=== PATIENT | male | born 1940 | race Caucasian/White ===

== ENCOUNTER → 2019-11-23 | Outpatient (CLI) | payer OTHER, SELFPAY | PROVIDERS: Family Provider Emergency Medicine Emergency Medical Services; Visit Provider Specialist | DX: Z98.890 Other specified postprocedural states (principal) | CPT/HCPCS: L3982 ==

== ENCOUNTER → 2019-12-03 11:06 | Outpatient (BNVA) | payer OTHER, SELFPAY | PROVIDERS: Family Provider Emergency Medicine Emergency Medical Services; PCP Emergency Medicine Emergency Medical Services; Visit Provider Specialist | DX: S52.611A Displaced fracture of right ulna styloid process, initial encounter for closed fracture (principal); X58.XXXA Exposure to other specified factors, initial encounter | CPT/HCPCS: 73110 ==

== ENCOUNTER → 2019-12-24 09:43 | Outpatient (BNVA) | payer OTHER, SELFPAY | PROVIDERS: Family Provider Emergency Medicine Emergency Medical Services; PCP Emergency Medicine Emergency Medical Services; Visit Provider Specialist | DX: Z98.890 Other specified postprocedural states (principal) | CPT/HCPCS: 73110 ==

== ENCOUNTER 2020-01-14 09:50 | Outpatient (RCR) | payer OTHER, SELFPAY | END 2020-01-23 23:59 | disposition home or self-care (01) | LOC: SOT 09:50 | PROVIDERS: Family Provider Emergency Medicine Emergency Medical Services; PCP Emergency Medicine Emergency Medical Services; Referring Provider Specialist; Visit Provider Specialist | DX: S52.501D Unspecified fracture of the lower end of right radius, subsequent encounter for closed fracture with routine healing (principal); X58.XXXD Exposure to other specified factors, subsequent encounter | CPT/HCPCS: 97110; 97140; 97166 ==

== ENCOUNTER 2020-01-20 14:00 | Outpatient (CLI) | payer OTHER, SELFPAY ==
--- NOTE | 2020-01-20 14:10 | USCV_ITS ---
LeoraAdrian Age: 79 Gender: M : 1940 Exam Date: 01/20/2020 14:25 Ordering Phys: Aguliar Balbuena DO Technologist: Gracy Huerta Exam Location: [facility] [place] Indication: BRUIT Risk Factors: Previous Vascular Surgery: Right Brachial BP: / Left Brachial BP: / Right Left Velocity (cm/s) Spectral Plaque Velocity (cm/s) Spectral Plaque Syst/Diast Broadening Syst/Diast Broadening 69.50/ 12.10 Prox CCA 69.30 / 13.60 87.10/ 16.50 Mid CCA 57.40 / 11.20 56.20/ 8.80 Distal CCA 60.40 / 14.20 41.20/ 12.40 Prox ICA 42.60 / 11.20 30.20/ 5.90 Mid ICA 52.10 / 19.50 46.20/ 13.00 Distal ICA 61.00 / 16.60 79.40 ECA 58.60 0.53 ICA/CCA 1.06 Antegrade Vertebral Antegrade 35.50/ 7.10 cm/s 55.10/ 14.80 cm/s Tri Subclavian Tri 72.80 79.00 FINDINGS Comparison: none available. No significant obstructive lesions noted in the left common carotid artery. No significant elevation of systolic or diastolic velocities. Diffuse bilateral scattered calcified plaque and intimal thickening throughout the common carotid arteries and extending through the bifurcation. Antegrade vertebral arteries. CONCLUSIONS Bilateral ICA stenosis less than 50%. Dr. Dulce Perales DO (Electronically Signed) Final Date: 20 January 2020 15:48 S
== END 2020-01-20 14:01 | disposition home or self-care (01) ==
PROVIDERS: Family Provider Emergency Medicine Emergency Medical Services; PCP Emergency Medicine Emergency Medical Services; Visit Provider Emergency Medicine Emergency Medical Services
DX: R09.89 Other specified symptoms and signs involving the circulatory and respiratory systems (principal); I65.23 Occlusion and stenosis of bilateral carotid arteries
CPT/HCPCS: 93880

== ENCOUNTER 2020-01-24 06:00 | Outpatient (RCR) | payer OTHER, SELFPAY | END 2020-02-23 23:59 | disposition home or self-care (01) | LOC: SOT 06:00 | PROVIDERS: Family Provider Emergency Medicine Emergency Medical Services; PCP Emergency Medicine Emergency Medical Services; Referring Provider Specialist; Visit Provider Specialist | DX: S52.501D Unspecified fracture of the lower end of right radius, subsequent encounter for closed fracture with routine healing (principal); X58.XXXD Exposure to other specified factors, subsequent encounter | CPT/HCPCS: 97110 ==

== ENCOUNTER 2022-08-29 10:28 | Outpatient (CLI) | payer OTHER, SELFPAY ==
--- NOTE | 2022-08-29 10:41 | CT_ITS ---
WS: [id number] CT CHEST TECHNIQUE: Contrast enhanced CT of the chest with coronal and sagittal reformatted images. CLINICAL INFORMATION: MASS PER CHEST XRAY COMPARISON: None. DLP: All CT scans at [facility] use at least one of these dose optimization techniques: automated e xposure control; mA and/or kV adjustment per patient size (includes targeted exams where dose is matc hed to clinical indication); or iterative reconstruction. FINDINGS: Moderate chronic emphysematous changes. Spiculated mass in the LEFT lung apex findings suspicious for neoplasm measuring 2.2 x 2.8 cm x 3.3 cm. Recommend further evaluation with PET/CT. In addition, per ipherally enhancing heterogeneous centrally low-attenuation mass in the LEFT lower lobe medially susp icious for necrotic tumor. Less likely intrapulmonary abscess could be considered. This involves the LEFT lower lobe bronchi. Recommend evaluation with bronchoscopy. This measures approximately 5.2 x 4. 1 x 5.3 cm AP by transverse by craniocaudal. Small amount of surrounding groundglass infiltrate. This abuts the adjacent pleura. This is adjacent to the descending thoracic aorta. No anterior mediastinal lymphadenopathy. No axillary lymphadenopathy. CT/CT chest w con* [id number] IMPRESSION: 1. Spiculated LEFT upper lobe mass in the LEFT lung apex highly suspicious for neoplasm measuring 2.2 x 2.8 x 3.3 CM. Recommend further evaluation with PET/C T. This is not amenable to CT-guided biopsy. 2. Heterogeneously enhancing intraparenchymal mass in the LEFT lower lobe medi ally suspicious for necrotic tumor versus less likely intraparenchymal abscess. This involves the LEFT lower lobe bronchi and recommend further evaluation wit h bronchoscopy. This measures approximately 5.2 x 4.0 x 5.3 cm. 3. Hazy groundglass infiltrate about the LEFT lower lobe lesion. 4. Moderate to advanced chronic emphysematous changes with subpleural reticula tion both lungs. 5. Several small noncalcified subpleural nodules RIGHT upper lobe measuring 5 to 6 mm.
[2022-08-29 12:06] LABS: Blood Urea Nitrogen 9 mg/dL (8-23)
[2022-08-29] MEDS: iohexol 350 mg/mL 100 mL Btl IV (12:13)
== END 2022-08-29 10:29 | disposition home or self-care (01) ==
LOC: RAD 10:28
PROVIDERS: PCP Emergency Medicine Emergency Medical Services; Visit Provider Emergency Medicine Emergency Medical Services
DX: R91.8 Other nonspecific abnormal finding of lung field (principal)
CPT/HCPCS: 71260; 82565; 84520

== ENCOUNTER → 2022-09-06 11:38 | Outpatient (BNVA) | payer OTHER, SELFPAY | PROVIDERS: PCP Emergency Medicine Emergency Medical Services; Visit Provider Internal Medicine Pulmonary Disease | DX: R91.8 Other nonspecific abnormal finding of lung field (principal); Z87.891 Personal history of nicotine dependence; R06.09 Other forms of dyspnea | CPT/HCPCS: 99204 ==

== ENCOUNTER 2022-09-18 06:10 | Day surgery (SDC) | payer OTHER, SELFPAY ==
[2022-09-13 12:12] VITALS: BMI 23.6
[2022-09-18] VITALS (9 sets, daily range): BP systolic 149–174; BP diastolic 71–90; PULSE 68–101; RESP 17–22; TEMP 36.4–37.3; O2SAT 92–98
--- NOTE | 2022-09-18 | SCC_ITS ---
Procedure done: 48465 Dx Bronchoscope w/Washings or airway inspection 27243 Dx Bronchoscope w/BAL 10746 Navigational Bronchoscopy 83380 Bronchoscopy w/Transbronchial lung biopsy(s), single lobe 53088 w/Transbronchial lung biopsy(s), each additional lobe (list separately, in addition to code for primary procedure) 71146 w/Transbronchial needle aspiration biopsy(s), each additional lobe (list separately, in addition to code for primary procedure) 98110 EBUS Sampling 1/2 nodes 16192 EBUS Diag or Interven Peripheral lesion (radial EBUS) 847.7 seconds of fluoroscopic guidance, for a cumulative dose of 72.5 mGy, was provided to Dr. Benjamin by the radiology department. [facility] permanent [facility]. KHADIJAH
--- NOTE | 2022-09-18 | CT_ITS ---
Guided Bronchoscopy Planning CT images; total exam DLP: 376.73 mGy-cm MTDD
--- NOTE | 2022-09-18 06:14 | W.PM.OPSUD ---
Surgery/Procedure H&P Update DATE OF PROCEDURE: September 18, 2022 DATE H&P PERFORMED: 09/06/22 CHANGES TO PREVIOUS DOCUMENTATION: Pt had a PET CT on 09/08/22 - Which showed 1. solid 6 x 5.6 cm mass with SUV 23.8; 2. 2.9 x 1.4 cm nodule abutting the pleura with an SUV 12.9 3. solid spiculated nodule in the left lung apex measuring 2.4 CM with an SUV 17.1. There is equivocal low grade activity in the left hilum. all suspicous for malignant lesions. clinically no change he just started using spiriva PRIMARY INDICATION FOR PROCEDURE: pet active lung lesions in chronic smoker suspicious for malignacy PLANNED PROCEDURE: Operation Date: 09/18/22 07:00 Proposed Procedures p Ion Robotic Assisted Bronchoscopy(Not Applicable) - Yony Ferrer DatarMD
--- NOTE | 2022-09-18 06:40 | ECG_ITS ---
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 Measurements Intervals [place] Rate: 77 P: 12 SD: 165 QRS: -29 QRSD: 87 T: 10 QT: 381 QTc: 433 Interpretive Statements SINUS RHYTHM BORDERLINE LEFT AXIS DEVIATION [QRS AXIS < -20] NONSPECIFIC T-WAVE ABNORMALITY Compared to ECG 11/04/2019 13:59:06 Sinus arrhythmia no longer present T-wave abnormality still present Electronically Signed On 09-19-2022 0:23:50 CDT by Anila Green M.D. [id number]
[2022-09-18] MEDS: ipratropium-albuterol 3 mL Neb INHALATION (06:41)
[2022-09-18] MEDS: sodium chloride 0.9% 1,000 ML 30 ML IV (06:41)
--- NOTE | 2022-09-18 07:07 | ANES.PREANE2 ---
Pre-Anesthetic Assessment Height/Weight: Height 1.75 m Weight 72.575 kg Temp Pulse Resp BP Pulse Ox O2 Del Method 99.1 F 75 22 H 168/90 98 09/18/22 06:32 09/18/22 06:42 09/18/22 06:42 09/18/22 06:32 09/18/22 06:42 09/18/22 06:42 Preop Diagnosis: lung nodule Operation Date: 09/18/22 07:00 Proposed Procedures p Ion Robotic Assisted Bronchoscopy(Not Applicable) - Yony Benjamin MD Familial anesthetic complications: none Was Beta Flores taken within 24 hours: N/A Was Clonidine taken within 24 hours: N/A Last intake: Intake Last Liquid Date 09/17/22 Last Liquid Time 16:00 Last Solid Date 09/17/22 Last Solid Time 15:00 Last Intake: 16:00 Social No alcohol and No tobacco (stop 34 years ago) Exam alert, oriented x 3, clear to auscultation bilaterally and regular rate & rhythm Airway Submandibular: within normal limits Cervical ROM: within normal limits Mallampati: Class II Dentition: caps (front upper) Pulmonary Chronic Obstructive Pulmonary Disease, Cough and Exertional Dyspnea lung nodule CV/HEM Hypertension None reported Hepatic None reported GI None reported Metabolic Thyroid Disease Musc/skel Lower Back Pain Neuropsych None reported Anesthetic Plan ASA status: 3 Anesthesia: General Risk of > 500 ml blood loss (7ml/kg in children): No Medications/Allergies Home Medications Medication Instructions Recorded Confirmed Last Taken Type levothyroxine 25 mcg tablet 25 mcg PO ONCE 12/03/19 09/13/22 09/16/22 History (Synthroid) pravastatin 20 mg tablet 20 mg PO DAILY 09/06/22 09/13/22 09/16/22 History tiotropium bromide 1.25 2 puff inhalation DAILY #4 grams 09/06/22 09/18/22 09/17/22 Rx mcg/actuation mist for inhalation (Spiriva Respimat) lisinopril 20 mg tablet 20 mg PO DAILY 09/18/22 09/18/22 09/17/22 History Allergies Allergy/AdvReac Type Severity Reaction Status Date / Time No Known Allergies Allergy Verified 09/06/22 13:49 Current Medications Generic Name Dose Route Start Last Admin Trade Name Freq PRN Reason Stop Dose Admin Sodium Chloride 1,000 mls @ 30 mls/hr 09/18/22 06:15 09/18/22 06:41 Sodium Chloride 0.9% IV 09/19/22 06:14 30 mls/hr .Q24H JENNY Administration PFSH Anesthesia Medical History (Updated 09/08/22 @ 13:11 by Yony Benjamin MD) Distal radius fracture, right Surgical History History of open reduction and internal fixation (ORIF) procedure right distal radius Social History Smoking and tobacco status: former smoker Quit status (tobacco): has quit using tobacco Year quit tobacco: 2017 Former quit date comment: 2ppd x 27 years; quit smoking pipe Oct 2021 Alcohol intake: never Data Anesthesia Cardiac Studies: No Data to Display
--- NOTE | 2022-09-18 07:36 | SC_ITS ---
WS: [id number] Exam: C-arm FL for Bronchoscopy Date/Time of Exam: 09/18/2022 7:36 AM Reason For Exam: left lung lesion 2 intraoperative anterior posterior C-arm images of the left chest are submitted for evaluation.. The first image depicts a bronchoscope coursing through the trachea into the left mainstem bronchus a nd ending in the expected region of the left upper lobe bronchus near the site of a previously descri bed mass in the left upper lobe. The second image shows the bronchoscope in the expected region of th e left lower lobe. No other significant finding on this limited series.
--- NOTE | 2022-09-18 11:59 | XR_ITS ---
WS: [id number] Exam: XR chest 1V portable [id number] Date/Time of Exam: 09/18/2022 12:02 PM Reason For Exam: post bronchoscopy biopsies on left side No priors. The lungs are fully expanded. Changes of honeycombing and fibrosis noted bilaterally. Heart size is n ormal. The mediastinum is not widened. An ill-defined masslike density seen in the upper lobe of the left lung. There may also be some consolidation in the left retrocardiac region. No pneumothorax or p leural effusion seen. Bony structures are intact. Emphysematous bleb formation in the apex the left l kristen. XR/XR chest 1V portable [id number] IMPRESSION: 1. Ill-defined masslike density in the upper lobe of the left lung. There may b e some pulmonary consolidation in the left retrocardiac region. 2. Signs of pulmonary fibrosis and honeycombing bilaterally. 3. No pneumothorax or pleural effusion.
--- NOTE | 2022-09-18 12:00 | PM.OP ---
Operative Report Date of procedure: September 18, 2022 Pre-op diagnosis: Preop Diagnosis lung nodule suspicious for malignancy Post-op diagnosis: Lung malignancy Procedure done: 83539 Dx Bronchoscope w/Washings or airway inspection 86427 Dx Bronchoscope w/BAL 81233 Navigational Bronchoscopy 35782 Bronchoscopy w/Transbronchial lung biopsy(s), single lobe 97439 w/Transbronchial lung biopsy(s), each additional lobe (list separately, in addition to code for primary procedure) 92341 w/Transbronchial needle aspiration biopsy(s), each additional lobe (list separately, in addition to code for primary procedure) 13356 EBUS Sampling 1/2 nodes 70058 EBUS Diag or Interven Peripheral lesion (radial EBUS) Modifier-22 If procedure performed was time consuming and/or difficult (unusual procedural services) ; Brief History: 82 year male Mr. Aldo saenz is referred by [facility] for pulmonary nodule,Former cigarette smoker, 2ppd x 27 year Hx; quit 2017; quit smoking pipe Oct 2021. 08/29/[address] Chest which showed spiculated LEFT upper lobe mass in the LEFT lung apex highly suspicious for neoplasm measuring 2.2 x 2.8 x [address] on 09/08/22 - Which showed solid 6 x 5.6 cm mass with SUV 23.8;2. 2.9 x 1.4 cm nodule abutting the pleura with an SUV 12.9. solid spiculated nodule in the left lung apex measuring 2.4 CM with an SUV 17.1. There is equivocal low grade activity in the left hilum. all suspicous for malignant lesions. Today he is scheduled for bronchoscopic evaluation Procedure: 09126:Bronch via Trach site 98667:Dx Bronchoscope w/Washings or airway inspection 11378:Dx Bronchoscope w/Brushings or protected brushings 16780:Dx Bronchoscope w/BAL 71119:Bronch with computer image guided Navigational Bronchoscopy 52152:Bronchoscopy w/Transbronchial lung biopsy(s), single lobe 47072:w/Transbronchial lung biopsy(s), each additional lobe (list separately, in addition to code for primary procedure) 29186:w/Transbronchial needle aspiration biopsy(s), each additional lobe (list separately, in addition to code for primary procedure) 67991:EBUS Sampling 1/2 nodes 86155:EBUS Diag or Interven Peripheral lesion (radial EBUS) Surgeon: Yony Benjamin MD, [facility] Indication: PET active left upper lobe and left lower lobe lesions suspicious for malignancy Anesthesia: General anesthesia. Local anesthesia: The cyndi in the right and left mainstem bronchi were anesthetized with 1% lidocaine, 3 mL. Description of the procedure: The procedure was explained to the patient and the consent was obtained. The patient was brought to the OR. The patient underwent endotracheal intubation for general anesthesia. Following induction of general anesthesia, the flexible bronchoscope used for initial inspection and airway clearance. The scope was advanced through the ET tube. The lower trachea mucosa appeared normal, no endotracheal lesion was seen. The cyndi was sharp. The cyndi, the right and left mainstem bronchi are anesthetized with 1% lidocaine. In a systematic manner bilateral bronchial tree was then examined. The bronchoscope was advanced into the left mainstem bronchus. The mucosa appeared normal with no endobronchial lesions. The left upper lobe, lingula and left lower lobe bronchi were examined up to the third subsegmental level and no abnormalities were identified. Mucosa appeared normal with no endobronchial lesion, active bleeding or mucous plug. There were some clear secretions in lower lobe-which were suctioned right away. The bronchoscope was then introduced into the right mainstem bronchus. The right upper lobe, right middle lobe and right lower lobe bronchi were examined up to the third subsegmental level and no abnormalities were identified. The mucosa appeared normal with no endobronchial lesions, active bleeding or mucous plugs. After initial inspection as well as airway clearance with flexible bronchoscope, ION robotic assisted navigational bronchoscope was introduced-and left upper lobe lesion was accessed. After confirming the location of the left upper lobe lesion with radial EBUS, under the fluoroscopy guidance-we were able to obtain biopsies using brush, fine-needle, forceps. Pathology reported non-small cell cancer on rapid onsite evaluation in left upper lobe lesion. Bronchoalveolar lavage was performed from the left upper lobe, 10 mL of saline was instilled, fluid return was 4 mL. The fluid was mixed with blood. Then-using the ION robotic assisted navigational bronchoscope was introduced-and left lower lobe lesion was accessed.After confirming the location of the left upper lobe lesion with radial EBUS, under the fluoroscopy guidance-we were able to obtain biopsies using fine-needle, forceps. Pathology reported non-small cell cancer on rapid onsite evaluation and left lower lobe lesion. There was no overt bleeding. The ION robotic assisted navigational bronchoscope was retracted and endobronchial ultrasound was introduced. Using endobronchial ultrasound;Identified a lymph node in station 7 area and fine-needle aspiration cytology samples were obtained. Prepared 1 touch prep from station 7 lymph node for EARL and preliminary pathology diagnosis was negative for malignancy. I made 3-4 more passes obtained placed in formalin for histopathology review. Identified a lymph node in station 7 area and fine-needle aspiration cytology samples were obtained. Prepared 1 touch prep from station 7 lymph node for EARL and preliminary pathology diagnosis was negative for malignancy. I made 3-4 more passes obtained placed in formalin for histopathology review Samples: #Left upper lobe lesion 1. Bronchoalveolar lavage specimen was sent for cell count and differential, gram stain and culture 2. 4 passes with brush-1 was made slide for EARL; sample from remaining 3 passes were placed in formalin for histopathology 3. 4 passes with needle-were placed in formalin for histopathology 4. 4 passes with forceps-were placed in formalin for histopathology #Left lower lobe lesion 1. 4 passes with needle-1 was made slide for EARL; sample from remaining 3 passes were placed in formalin for histopathology 2. 4 passes with forceps-were placed in formalin for histopathology #Station 7 EBUS FNA C 1.4 passes with needle--1 was made slide for EARL; sample from remaining 3 passes were placed in formalin for histopathology #Station 4L EBUS FNA C 1.4 passes with needle--1 was made slide for EARL; sample from remaining 3 passes were placed in formalin for histopathology Complications: None.The patient was extubated and brought to the PACU in stable condition. Postprocedure chest x-ray: No evidence of pneumothorax Disposition: Patient can be discharged home in stable condition. I will set up clinic follow-up in 7-10 days to follow-up on biopsy results.
[2022-09-18 13:01] LABS: Cyto Order Verification Order Verified
--- NOTE | 2022-09-18 16:02 | ANE.PACU2 ---
Inpatient post-anesthesia follow up: Airway intact: Yes Vital signs: Temperature 97.7 F Pulse Rate 69 Respiratory Rate 20 Blood Pressure 151/79 Pulse Oximetry 93 Oxygen Delivery Me thod Room Air Oxygen Flow Rate 6 Fraction of Inspir ed Oxygen Hydration adequate: Yes Nausea and vomiting: No Pain level: 3 Mental status: Baseline
[2022-09-26 09:59] LABS: PD-L1 (Clone 22C3) by IHC BBPL See Report
== END 2022-09-18 12:50 | disposition home or self-care (01) ==
PROVIDERS: PCP Emergency Medicine Emergency Medical Services; Visit Provider Internal Medicine Pulmonary Disease
PROC: 0BJ08ZZ Inspection of Tracheobronchial Tree, Via Natural or Artificial Opening Endoscopic (ICD-10-PCS; CPT 31622; principal; 2022-09-18 07:00)
PROC: 0BJ08ZZ Inspection of Tracheobronchial Tree, Via Natural or Artificial Opening Endoscopic (ICD-10-PCS; CPT 31622; 2022-09-18 07:00)
PROC: BB4BZZZ Ultrasonography of Pleura (ICD-10-PCS; 2022-09-18 07:00)
DX: C34.90 Malignant neoplasm of unspecified part of unspecified bronchus or lung (principal); I10 Essential (primary) hypertension; J44.9 Chronic obstructive pulmonary disease, unspecified; Z87.891 Personal history of nicotine dependence
CPT/HCPCS: 31615; 31623; 31624; 31627; 31628; 31632; 31633; 31652; 31654; 71045; 71250; 76000; 80503; 87070; 87205; 88108; 88305; 88341; 88342; 93005; 94640; J1100; J2370; J2405; J2704; J3010; J3490; J7030

== ENCOUNTER → 2022-09-27 11:33 | Outpatient (BNVA) | payer OTHER, SELFPAY | PROVIDERS: PCP Emergency Medicine Emergency Medical Services; Visit Provider Internal Medicine Pulmonary Disease | DX: R06.09 Other forms of dyspnea (principal); R91.8 Other nonspecific abnormal finding of lung field; Z87.891 Personal history of nicotine dependence; C34.12 Malignant neoplasm of upper lobe, left bronchus or lung; C34.32 Malignant neoplasm of lower lobe, left bronchus or lung | CPT/HCPCS: 99214 ==

== ENCOUNTER 2022-10-10 14:41 | Oncology outpatient (recurring) (ONCR) | payer OTHER, SELFPAY | END 2022-10-24 23:59 | disposition home or self-care (01) | PROVIDERS: PCP Emergency Medicine Emergency Medical Services; Visit Provider Internal Medicine Hematology & Oncology | DX: C34.82 Malignant neoplasm of overlapping sites of left bronchus and lung (principal); J43.9 Emphysema, unspecified; Z87.891 Personal history of nicotine dependence; Z95.828 Presence of other vascular implants and grafts | CPT/HCPCS: 36415; 80053; 85025; 99204 ==

== ENCOUNTER → 2022-10-15 13:51 | Outpatient (BNVA) | payer OTHER, SELFPAY | PROVIDERS: PCP Emergency Medicine Emergency Medical Services; Visit Provider Surgery | DX: C34.90 Malignant neoplasm of unspecified part of unspecified bronchus or lung (principal) | CPT/HCPCS: 99203 ==

== ENCOUNTER 2022-10-25 07:37 | Day surgery (SDC) | payer OTHER, SELFPAY ==
[2022-10-23 09:17] VITALS: BMI 22.7
[2022-10-25] VITALS (10 sets, daily range): BP systolic 99–159; BP diastolic 56–83; PULSE 61–75; RESP 16–20; TEMP 36.4–36.7; O2SAT 93–98
--- NOTE | 2022-10-25 08:01 | SC_ITS ---
WS: [id number] C-arm FL for CVA [id number] REASON FOR EXAM: Mediport Insertion FINDINGS: Chemotherapy infusion port over the right anterolateral chest wall with transvenous left subclavian v ein catheter with the tip in the distal superior vena cava. No pneumothorax. SC/C-arm FL for CVA [id number] IMPRESSION: Right-sided chemotherapy port and catheter placement as above.
--- NOTE | 2022-10-25 08:01 | XRR_ITS ---
PROCEDURE INFORMATION: Exam: XR Chest Exam date and time: 10/25/2022 10:30 AM Age: 82 years old Clinical indication: Device placement; Other: Mediport insertion; Prior surgery; Surgery date: Post-operative (0-2 days); Additional info: Post op mediport insertion TECHNIQUE: Imaging protocol: Radiologic exam of the chest. Views: 1 view. COMPARISON: 1. CR XR chest 1V portable [id number] 09/18/2022 12:[address] chest w con* [id number] 08/29/2022 11:43 AM FINDINGS: Tubes, catheters and devices: A MediPort catheter is present with the tip projecting in the SVC. Lungs: There is an opacity in the left lung apex and in the left retrocardiac region consistent with the pulmonary masses identified on recent CT scan. There are bilateral fibrotic changes. Pleural spaces: Unremarkable. No pleural effusion. No pneumothorax. Heart/Mediastinum: Unremarkable. No cardiomegaly. Bones/joints: Unremarkable. XR/XR chest 1V portable [id number] IMPRESSION: Left upper lobe and left basilar opacities consistent with the pulmonary masses identified on previous CT. No significant change.
[2022-10-25] MEDS: sodium chloride 0.9% 1,000 ML 30 ML IV (08:24)
--- NOTE | 2022-10-25 08:39 | ANES.PREANE2 ---
Pre-Anesthetic Assessment Height/Weight: Height 1.75 m Weight 69.853 kg O2 Del Method 10/25/22 08:07 Preop Diagnosis: Lung Cancer Operation Date: 10/25/22 09:20 Proposed Procedures p port placement 41205 C34.90(Not Applicable) - Jono Ortiz DO Familial anesthetic complications: None Was Beta Flores taken within 24 hours: N/A Was Clonidine taken within 24 hours: N/A Last intake: Intake Last Liquid Date 10/24/22 Last Liquid Time 21:00 Last Solid Date 10/24/22 Last Solid Time 18:00 Social No alcohol and No tobacco Exam alert, oriented x 3, clear to auscultation bilaterally and regular rate & rhythm Airway Cervical ROM: within normal limits Mallampati: Class III Pulmonary Lung cancer CV/HEM Hypertension Metabolic Hyperlipidemia and Thyroid Disease Anesthetic Plan ASA status: 4 Anesthesia: MAC Risk of > 500 ml blood loss (7ml/kg in children): No Medications/Allergies Home Medications Medication Instructions Recorded Confirmed Last Taken Type levothyroxine 25 mcg tablet 25 mcg PO ONCE 12/03/19 10/25/22 10/24/22 History (Synthroid) pravastatin 20 mg tablet 20 mg PO DAILY 09/06/22 10/25/22 10/24/22 History benazepril 20 mg tablet 20 mg PO .COMPLEX 10/10/22 10/25/22 10/23/22 History coenzyme Q10 75 mg capsule (Ultra 100 mg PO DAILY 10/10/22 10/25/22 10/23/22 History CoQ10) Allergies Allergy/AdvReac Type Severity Reaction Status Date / Time No Known Allergies Allergy Verified 10/25/22 08:04 Current Medications Generic Name Dose Route Start Last Admin Trade Name Freq PRN Reason Stop Dose Admin Sodium Chloride 1,000 mls @ 30 mls/hr 10/25/22 08:00 10/25/22 08:24 Sodium Chloride 0.9% IV 10/26/22 07:59 30 mls/hr .Q24H JENNY Administration PFSH Anesthesia Medical History Accelerated essential hypertension Distal radius fracture, right Lung cancer Thyroid disease Surgical History History of open reduction and internal fixation (ORIF) procedure right distal radius Family History Father Anesthesia complication Brother CAD (coronary artery disease) Sister Chronic kidney disease (CKD) Diabetes Other Hypertension Denies family history of Clotting disorder Dementia Hyperlipidemia Psychiatric illness Suicide Bleeding disorder Lung disease Cancer Stroke Social History Smoking and tobacco status: former smoker Quit status (tobacco): has quit using tobacco Year quit tobacco: 2017 Former quit date comment: 2ppd x 27 years; quit smoking pipe Oct 2021 Alcohol intake: never Data Anesthesia 10/25/22 08:23 Cardiac Studies: No Data to Display
[2022-10-25 08:52] LABS: Anion Gap 16.5 (5-19); Blood Urea Nitrogen 13 mg/dL (8-23); Calcium 10.9 mg/dL (8.5-10.5); Carbon Dioxide 26 mmol/L (22-29); Chloride 98 mmol/L (98-107); Creatinine Clr Calc Pharmacy 68.4067; Glucose 91 mg/dL (65-115); Osmolality Calculated 284 mOsm/kg (285-295); Potassium 3.5 mmol/L (3.5-5.1); Sodium 137 mmol/L (136-145)
--- NOTE | 2022-10-25 09:31 | W.PM.OPSUD ---
Surgery/Procedure H&P Update DATE OF PROCEDURE: October 25, 2022 DATE H&P PERFORMED: 10/15/22 PREOP DIAGNOSIS: Lung Cancer PLANNED PROCEDURE: Operation Date: 10/25/22 09:20 Proposed Procedures p port placement 54619 C34.90(Not Applicable) - Jono Ortiz DO
[2022-10-25] MEDS: ceFAZolin 2,000 MG in sodium chloride 0.9% (plus) 50 ML 100 MG IV (09:45)
[2022-10-25] MEDS: lidocaine 1% INJ 20 mL INJECTION (10:00)
[2022-10-25] MEDS: heparin, porcine 1,000 unit/mL INJ 10 mL 10000 UNIT INJECTION (10:09)
--- NOTE | 2022-10-25 10:19 | PM.OP ---
Operative Report Date of procedure: October 25, 2022 Pre-op diagnosis: Preop Diagnosis Lung Cancer Post-op diagnosis: same Procedure done: Mediport placement Implants: PowerPort Specimens removed/disposition: None Surgeon: Dr. Jono Ortiz, DO Anesthesia: MAC Estimated blood loss (mL): 5 Complications: None apparent Brief History: This is a very pleasant 82-year-old gentleman who was recently diagnosed with lung cancer. Mediport placement was necessary for chemotherapy. The risks and benefits were explained and documented. Procedure: Patient was taken to the operating room and placed supine on the operating room table. All bony prominences were padded. She was given IV sedation and monitored throughout the case by the anesthesia personnel. SCDs were placed and turned on. The arms were tucked to the side. Patient received Ancef? 2 g preoperatively IV. The bilateral chest wall was prepped and draped in usual sterile fashion using chlorhexidine base prep. Sterile drapes were applied. We did procedure pause prior to beginning. ? An 18 gauge needle was placed in the right subclavian vein. Dark, nonpulsatile blood was aspirated. A guidewire was placed through the needle centrally toward the atrial/vena caval junction. Fluoroscopy visualized good placement. The needle was removed and the guidewire was clipped to the drape with a hemostat. ? Further local anesthetic was infiltrated in the soft tissues of the right/left chest wall and a #15 blade was used to make a horizontal skin incision. A subcutaneous Mediport pocket was created using Bovie cautery, dissecting down through the skin and subcutaneous tissues. Meticulous hemostasis was achieved. The Mediport was sutured in position using 3-0 vicryl suture x2 stitches. ? A #15 blade was used to make a small skin carlene around the guidewire insertion area. The Mediport tubing was tunneled through the subcutaneous tissues up to the needle insertion location. ? A dilator with a peel-away sheath was placed over the guidewire and placed centrally. After measuring with fluoroscopy, the Mediport tubing was cut to length so that the tip would end at the atrial/vena caval junction. The inner cannula and the guidewire were removed, leaving the dilator sheath in place. The Mediport was flushed. The tip of the catheter was inserted through the peel-away sheath and the peel-away sheath removed in the standard fashion. The Mediport was accessed with a straight Morrison needle and dark, nonpulsatile blood was aspirated and flushed using heparinized saline to hep-lock the Mediport.? Final fluoroscopy visualization showed no kink in the catheter and the tip of the Mediport tubing near the atrial/vena caval junction. ? Both skin incisions were thoroughly irrigated and suctioned dry. Meticulous hemostasis noted. The Mediport incision was closed using interrupted 3-0 Vicryl suture for the deep dermal layer and 4-0 Vicryl run to close the skin edge. The right subclavian insertion site incision was closed with a single subcuticular stitch. Skin glue was applied as a topical dressing. This was allowed to dry. Patient was awakened from anesthesia and transferred via her cart to the recovery room in stable condition. All needle, sponge, and instrument counts were correct per the operating personnel x2 counts
--- NOTE | 2022-10-25 15:54 | ANE.PACU2 ---
Inpatient post-anesthesia follow up: Airway intact: Yes Vital signs: Temperature 98.0 F Pulse Rate 61 Respiratory Rate 16 Blood Pressure 159/83 Pulse Oximetry 95 Oxygen Delivery Me thod Room Air Oxygen Flow Rate Fraction of Inspir ed Oxygen Hydration adequate: Yes Nausea and vomiting: Yes Pain level: 1 Mental status: Baseline
== END 2022-10-25 11:20 | disposition home or self-care (01) ==
PROVIDERS: Anesthesiology; PCP Emergency Medicine Emergency Medical Services; Visit Provider Surgery
PROC: (CPT 36561; principal; 2022-10-25 09:10)
DX: C34.90 Malignant neoplasm of unspecified part of unspecified bronchus or lung (principal); I10 Essential (primary) hypertension; E78.5 Hyperlipidemia, unspecified; Z87.891 Personal history of nicotine dependence
CPT/HCPCS: 36561; 36415; 71045; 77001; 80048; C1788; J0690; J1644; J2704; J7030

== ENCOUNTER 2022-11-06 10:40 | Outpatient (CLI) | payer OTHER, SELFPAY | END 2022-11-06 10:41 | disposition home or self-care (01) | PROVIDERS: PCP Emergency Medicine Emergency Medical Services; Visit Provider Internal Medicine Pulmonary Disease | DX: R91.8 Other nonspecific abnormal finding of lung field (principal); R06.09 Other forms of dyspnea; Z48.89 Encounter for other specified surgical aftercare; Z95.828 Presence of other vascular implants and grafts | CPT/HCPCS: 94060; 94726; 94729; 99213; J7613 ==

== ENCOUNTER 2022-11-12 11:25 | Emergency (ER) | payer OTHER, SELFPAY ==
[2022-11-12 11:46] VITALS: BP 160/91; PULSE 85; RESP 16; TEMP 36.4; O2SAT 95
--- NOTE | 2022-11-12 12:02 | ECG_ITS ---
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 Measurements Intervals [place] Rate: 76 P: 32 AR: 163 QRS: -8 QRSD: 93 T: 19 QT: 414 QTc: 466 Interpretive Statements SINUS RHYTHM WITH MARKED SINUS ARRHYTHMIA VOLTAGE CRITERIA FOR LVH [MEETS CRITERIA IN ONE OF: R(aVL), S(V1), R(V5), R(V5/V6)+S(V1)] ST DEVIATION AND MODERATE T-WAVE ABNORMALITY, CONSIDER LATERAL ISCHEMIA [-0.1+ mV T-WAVE IN I/aVL/V5/V6] Compared to ECG 09/18/2022 06:40:04 Left ventricular hypertrophy now present Possible ischemia now present T-wave abnormality still present Electronically Signed On 11-12-2022 19:47:58 DIRECTOR OF EXTENSION WORK by Terrell Baptiste M.D. [id number]
--- NOTE | 2022-11-12 12:07 | ED_ITS ---
HPI - General Adult General: Chief complaint: General Medical Stated complaint: [facility] Time Seen by Provider: 11/12/22 12:01 Source: patient Mode of arrival: ambulatory History of Present Illness: 82-year-old male who presents to the emergency room complaining of being generally weak. He is convinced he has tach fever. He has a history of hypertension hypothyroidism as COPD. Did not mention any other illnesses and reviewed the old chart found that he had lung cancer was recently diagnosed has not yet began his radiation therapy. He evidently came from the [facility] to have tick panel done but we are unable to confirm whether or not the [facility] had intended for him to be in the emergency room where they had meant for him to get outpatient labs. Onset (ago): week(s) Relieving factors: none Exacerbating factors: none Associated symptoms: Reports malaise; Deny chest pain, confusion, cough, diaphoresis, decreased appetite, dyspnea, fevers/chills, headache(s), nausea, rash, palpitations, seizures, short of vandana ath, syncope, vomiting or weakness Treatments prior to arrival: none Review of Systems Const: Reports: fatigue and malaise; Denies: fever(s), chills or diaphoresis ENMT: Denies: throat pain, ear or mastoid pain, nasal discharge or nasal congestion Card: Denies: chest pain, palpitations or syncope Resp: Denies: dyspnea GI: Denies: abdominal pain, nausea, vomiting, hematemesis or coffee ground emesis : Denies: flank pain, dysuria, urinary frequency or urinary urgency Skin/Breast: Denies: rash Neuro: Denies: headache(s) or confusion PFSH ED PFSH: Medical History Accelerated essential hypertension Distal radius fracture, right Lung cancer Port-A-Cath in place Thyroid disease Surgical History History of open reduction and internal fixation (ORIF) procedure right distal radius Family History Father Anesthesia complication Brother CAD (coronary artery disease) Sister Chronic kidney disease (CKD) Diabetes Other Hypertension Denies family history of Clotting disorder Dementia Hyperlipidemia Psychiatric illness Suicide Bleeding disorder Lung disease Cancer Stroke Social History Smoking and tobacco status: former smoker Quit status (tobacco): has quit using tobacco Year quit tobacco: 2017 Former quit date comment: 2ppd x 27 years; quit smoking pipe Oct 2021 Alcohol intake: never Physical Exam Const: GENERAL APPEARANCE: cooperative and comfortable ORIENTATION/CONSCIOUSNESS: Yes awake, Yes oriented to person, Yes oriented to place and Yes oriented to time HENMT: COMMON NORMALS: normocephalic, atraumatic and hearing grossly normal bilaterally HEAD & SCALP: normocephalic and atraumatic Resp: COMMON NORMALS: normal respiratory effort, No retractions, No use of accessory muscles and clear to auscultation bilaterally AUSCULTATION: clear to auscultation bilaterally Cardio: COMMON NORMALS: regular rate, regular rhythm and No murmurs present (Cardio) RATE: regular rate RHYTHM: regular rhythm GI: COMMON NORMALS: Soft to palpation and No hepatosplenomegaly present AUSCULTATION: Yes normoactive bowel sounds PALPATION: Yes Soft to palpation, No Tenderness to palpation present (GI), No Guarding due to palpation present (GI) and Yes No hepatosplenomegaly present Extremity: COMMON NORMALS: normal to inspection, capillary refill normal, no clubbing, cyanosis or edema, no calf tenderness and no pedal edema Neuro: SENSORIUM/ORIENTATION: Yes oriented to person, Yes oriented to place and Yes oriented to time Skin: COMMON NORMALS: no rashes or lesions noted GENERAL SKIN EXAM: no rashes or lesions noted Course Vital Signs: Vital signs: Vital Signs Temperature 97.6 F 11/12/22 11:46 Pulse Rate 71 11/12/22 13:38 Respiratory Rate 16 11/12/22 11:46 Blood Pressure 187/97 11/12/22 13:38 Pulse Oximetry 95 11/12/22 13:38 Oxygen Delivery Me thod 11/12/22 12:29 MDM - General Adult Medical Decision Making Patient generally feels very weak he is convinced he has tach fever however in examining him I am not as convinced. He does no rash he is bases expectations of behavior tickborne illness was on his fatigue. He states he sleeps all the time and has no appetite however he did recently had a nonlarge cell lung cancer diagnosis and is supposed to be initiating radiation therapy he has not yet done so. I suspect a lot of his symptoms are due to his cancer diagnosis will discharge home the tick panel is pending Medical Records I reviewed the patient's medical records. Lab Data I reviewed the patient's lab results. 11/12/22 12:20 11/12/22 12:20 Laboratory Results WBC 11.8 10^3/uL (4.0-10.0) H 11/12/22 12:20 RBC 4.61 10^6/uL (4.1-5.3) 11/12/22 12:20 Hgb 11.6 g/dL (11.7-16.6) L 11/12/22 12:20 Hct 37.9 % (42.0-52.0) L 11/12/22 12:20 MCV 82.2 fl (80-94) 11/12/22 12:20 MCH 25.2 pg (28.0-34.0) L 11/12/22 12:20 MCHC 30.6 g/dL (30.0-36.0) 11/12/22 12:20 RDW 14.9 % (12.1-15.1) 11/12/22 12:20 Plt Count 194 10^3/cmm (130-400) 11/12/22 12:20 MPV 11.2 fL (7.4-10.4) H 11/12/22 12:20 Neut % (Auto) 88.1 % 11/12/22 12:20 Lymph % (Auto) 4.3 % 11/12/22 12:20 [place] % (Auto) 6.7 % 11/12/22 12:20 Eos % (Auto) 0.2 % 11/12/22 12:20 Baso % (Auto) 0.4 % 11/12/22 12:20 Neut # (Auto) 10.35 10^3/uL (1.8-7.7) H 11/12/22 12:20 Lymph # (Auto) 0.5 10^3/uL (0.8-4.8) L 11/12/22 12:20 [place] # (Auto) 0.8 10^3/uL (0.2-0.9) 11/12/22 12:20 Eos # (Auto) 0.0 10^3/uL (0.0-0.8) 11/12/22 12:20 Baso # (Auto) 0.1 10^3/uL (0.0-0.1) 11/12/22 12:20 Nucleated RBC % (auto) 0 % 11/12/22 12:20 Nucleated RBCs # 0.0 /100WBC 11/12/22 12:20 Sodium 141 mmol/L (136-145) 11/12/22 12:20 Potassium 3.1 mmol/L (3.5-5.1) L 11/12/22 12:20 Chloride 97 mmol/L (98-107) L 11/12/22 12:20 Carbon Dioxide 31 mmol/L (22-29) H 11/12/22 12:20 Anion Gap 16.1 (5-19) 11/12/22 12:20 BUN 14 mg/dL (8-23) 11/12/22 12:20 Creatinine 0.7 mg/dL (0.7-1.2) 11/12/22 12:20 GFR Calculation Not Reportable 11/12/22 12:20 Glucose 110 mg/dL (65-115) 11/12/22 12:20 Calculated Osmolality 293 mOsm/kg (285-295) 11/12/22 12:20 Calcium 13.3 mg/dL (8.5-10.5) H 11/12/22 12:20 Total Bilirubin 0.7 mg/dL (0.15-1.2) 11/12/22 12:20 AST 14 U/L (0-40) 11/12/22 12:20 ALT 9 U/L (0-41) 11/12/22 12:20 Alkaline Phosphatase 96 U/L (40-130) 11/12/22 12:20 Total Protein 7.9 g/dL (6.6-8.7) 11/12/22 12:20 Albumin 3.9 g/dL (3.5-5.2) 11/12/22 12:20 Globulin 4.0 g/dL (1.3-4.6) 11/12/22 12:20 Discharge Plan Discharge Patient Disposition: Home Clinical Impression: Fatigue, Lung mass Condition: Stable Prescriptions: No Action levothyroxine [Synthroid] 25 mcg tablet 25 mcg PO BEDTIME pravastatin 20 mg tablet 20 mg PO BEDTIME benazepril 20 mg tablet See Rx Instructions .ROUTE .COMPLEX Rx Instructions: 20mg po qam and 10mg po qpm ProAir HFA 90 mcg/actuation Hfa Aerosol Inhaler 2 puff INHALATION QID PRN (Reason: Shortness Of Breath) potassium gluconate 595 mg (99 mg) Tablet 595 mg PO DAILY PRN (Reason: unknown) Spiriva Respimat 1.25 mcg/actuation Mist 2 puff INHALATION DAILY Discharge Orders: Discharge ED (Routine); Ordered 11/12/22 Ordered By: Shaquille Mars Referrals: Aguilar Balbuena, [Primary Care Provider] - Discharge Diet: Usual diet Discharge Activity: Increase activity as tolerated Activity Restrictions/Additional Instructions: You were seen today for fatigue. A tick panel was done however your liver function is relatively normal suspect the majority of her symptoms are related to your recent diagnosis of cancer. Follow-up with your primary care doctor and/or your oncology team. Coding Level of Care Code ED Material Handler for Chg Fwd Exam Detailed
[2022-11-12 12:29] VITALS: BP 174/85; PULSE 70; O2SAT 95
[2022-11-12 12:38] LABS: Basophils # 0.1 10^3/uL (0.0-0.1); Basophils % 0.4 %; Eosinophils % 0.2 %; Hematocrit 37.9 % (42.0-52.0); Hemoglobin 11.6 g/dL (11.7-16.6); Lymphocytes # 0.5 10^3/uL (0.8-4.8); Lymphocytes % 4.3 %; Mean Corpuscular HGB Conc 30.6 g/dL (30.0-36.0); Mean Corpuscular Hemoglobin 25.2 pg (28.0-34.0); Mean Corpuscular Volume 82.2 fl (80-94); Mean Platelet Volume 11.2 fL (7.4-10.4); Monocytes # 0.8 10^3/uL (0.2-0.9); Monocytes % 6.7 %; Neutrophils # 10.35 10^3/uL (1.8-7.7); Neutrophils % 88.1 %; Nucleated Red Blood Cells % 0 %; Platelet Count 194 10^3/cmm (130-400); Red Blood Count 4.61 10^6/uL (4.1-5.3); Red Cell Distribution Width 14.9 % (12.1-15.1); White Blood Count 11.8 10^3/uL (4.0-10.0)
[2022-11-12 12:58] LABS: Alanine Aminotransferase 9 U/L (0-41); Albumin Level 3.9 g/dL (3.5-5.2); Alkaline Phosphatase 96 U/L (40-130); Anion Gap 16.1 (5-19); Aspartate Amino Transferase 14 U/L (0-40); Blood Urea Nitrogen 14 mg/dL (8-23); Calcium 13.3 mg/dL (8.5-10.5); Carbon Dioxide 31 mmol/L (22-29); Chloride 97 mmol/L (98-107); Glucose 110 mg/dL (65-115); Osmolality Calculated 293 mOsm/kg (285-295); Potassium 3.1 mmol/L (3.5-5.1); Sodium 141 mmol/L (136-145); Total Bilirubin 0.7 mg/dL (0.15-1.2); Total Protein 7.9 g/dL (6.6-8.7)
[2022-11-12 13:38] VITALS: BP 187/97; PULSE 71; O2SAT 95
[2022-11-15 17:35] LABS: RMSF IGG NOT DETECTED; RMSF IGM NOT DETECTED
[2022-11-16 13:36] LABS: Lyme AB IGG, Blot NEGATIVE (NEGATIVE)
[2022-11-16 21:10] LABS: E. Chaffeensis AB IGG <1:64; E. Chaffeensis AB IGM <1:20
== END 2022-11-12 13:40 | disposition home or self-care (01) ==
PROVIDERS: Emergency Provider Family Medicine; PCP Emergency Medicine Emergency Medical Services
DX: R53.83 Other fatigue (principal); R91.8 Other nonspecific abnormal finding of lung field; I10 Essential (primary) hypertension
CPT/HCPCS: 80053; 85025; 86618; 86666; 86757; 93005; 99284

== ENCOUNTER 2022-11-13 11:23 | Outpatient (CLI) | payer OTHER, SELFPAY ==
--- NOTE | 2022-11-13 11:35 | MR_ITS ---
WS: [id number] MRI HEAD WITH CONTRAST TECHNIQUE: Sagittal T1, T2 axial, T2 axial FLAIR, axial susceptibility weighted imaging, axial diffus ion weighted images, and coronal T2 images were obtained. Pre and post-T1 axial and post T1 coronal i mages. ADC and FSPGR images. CLINICAL INFORMATION: STAGING COMPARISON: None. FINDINGS: 6.3 mm focus of enhancing metastatic disease in the LEFT frontal lobe with mild surrounding edema. Ad ditional enhancing lesion RIGHT parietal lobe dorsally measuring 5 mm with a tiny amount of edema. No other visualized foci of enhancing intracranial metastatic disease. Some images degraded by patient motion. Normal optic chiasm and pituitary infundibulum. Normal cavernous sinuses and Meckel's cave. No restricted diffusion to suggest acute ischemia. Moderate to advanced small vessel changes with mod erate parenchymal volume loss. Normal posterior fossa. Normal vascular flow voids at the skull base. No extra-axial fluid collections. Mild mucosal thickening in the paranasal sinuses. Normal posterior nasopharynx. Normal parapharyngeal fat. No hemosiderin on the susceptibly weighted images. Moderate symmetric atrophy temporal lobes and rl ocampal formations. MR/MR head wo/w con [id number] IMPRESSION: 1. 2 foci of enhancing intracranial metastatic disease. One LEFT frontal lobe measuring 6.3 millimeters with mild surrounding edema and RIGHT parietal lobe p osteriorly measuring 4 mm with minimal surrounding edema. 2. Moderate to advanced small vessel changes with moderate parenchymal volume loss. 3. Mild mucosal thickening in the paranasal sinuses. 4. No other acute findings. Notified Kandace SHAIKH at the cancer treatment Center at 11/13/2022 1:21 PM.
[2022-11-13] MEDS: gadobenate dimeglumine 20 mL vial IV (12:22)
[2022-11-13 13:19] LABS: Basophils # 0.1 10^3/uL (0.0-0.1); Basophils % 0.5 %; Eosinophils % 0.2 %; Hematocrit 35.8 % (42.0-52.0); Lymphocytes # 0.6 10^3/uL (0.8-4.8); Lymphocytes % 5.2 %; Mean Corpuscular HGB Conc 30.7 g/dL (30.0-36.0); Mean Corpuscular Hemoglobin 25.3 pg (28.0-34.0); Mean Corpuscular Volume 82.3 fl (80-94); Mean Platelet Volume 11.8 fL (7.4-10.4); Monocytes # 0.9 10^3/uL (0.2-0.9); Monocytes % 6.9 %; Neutrophils # 10.64 10^3/uL (1.8-7.7); Neutrophils % 86.7 %; Nucleated Red Blood Cells % 0 %; Platelet Count 193 10^3/cmm (130-400); Red Blood Count 4.35 10^6/uL (4.1-5.3); White Blood Count 12.3 10^3/uL (4.0-10.0)
[2022-11-13 14:03] LABS: Ferritin 387 ng/mL (30-400); Iron 23 ug/dL (59-158); Percent Saturation 12.1 % (20-50); Total Iron Binding Capacity 189 mcg/dl; Unsaturated Iron Binding 166 ug/dL (112-347); Vitamin B12 575 pg/mL (232-1245)
== END 2022-11-13 11:24 | disposition home or self-care (01) ==
LOC: RAD 11:24
PROVIDERS: PCP Emergency Medicine Emergency Medical Services; Visit Provider Internal Medicine Hematology & Oncology
DX: C34.90 Malignant neoplasm of unspecified part of unspecified bronchus or lung (principal); Z98.890 Other specified postprocedural states
CPT/HCPCS: 36415; 70553; 82607; 82728; 83540; 83550; 85025; 85045; A9577

== ENCOUNTER 2022-11-23 08:30 | Oncology outpatient (recurring) (ONCR) | payer OTHER, SELFPAY ==
--- NOTE | 2022-10-25 13:03 | N.ONRAD NP_ITS ---
Radiation Oncology Consultation Patient Name: Adrian Corey Date of : 1940 Date of Service: 10/25/2022 Attending Physician: Zackary Landaverde M.D. Adrian Corey was seen in consultation this afternoon at the request of Philipp Rivera M.D. for consideration of thoracic radiotherapy in the management of a recently diagnosed non-small cell lung cancer. The patient evaluated by his primary care physician for chest pain and cough. A chest radiograph identified a mass in the left lung. A thoracic CT scan ordered on August 29, 2022 described a 2.2 cm x 2.8 cm x 3.3 cm spiculated mass in the left lung apex and a peripherally enhancing left lower lobe necrotic mass, measuring 5.2 cm x 4.1 cm x 5.3 cm. A PET scan (independently reviewed in [facility]) obtained on September 08, 2022 confirmed two hypermetabolic left lung lesions and equivocal left hilar adenopathy. A navigational bronchoscopy with biopsy performed on September 18, 2022 diagnosed a poorly-differentiated adenocarcinoma obtained from the left upper lobe and left-lower lobe lesions. Biopsies obtained from lymph node stations 4L and 7 were negative for malignancy. PD-L1 expression level was less than 1% (TPS) from the upper-lobe mass. An MRI of the head has been requested. The patient was evaluated for definitive thoracic radiotherapy. I discussed with Mr. Corey The [place] [employer] on Cancer Staging for lung cancer and specifically, the clinical stage IIIA (T4N0) lung cancer corresponding to his disease. I also reviewed The National Comprehensive Cancer Network Guidelines recommending concurrent chemoradiotherapy for the management of locally advanced lung cancer established by the classic study, RTOG 9410, comparing sequential versus concurrent chemoradiotherapy that demonstrated an overall survival advantage for the concurrent chemoradiotherapy regimen. I would endorse a six week course of thoracic radiotherapy. Preceding radiotherapy, a computed tomographic radiotherapy planning scan with contrast in the treatment position will be acquired and co-registered to the patient's staging PET scan to identify the gross tumor volumes. The potential toxicities of thoracic radiotherapy were reviewed. The patient has verbalized understanding would like to proceed as recommended. The patient???s treatment plan was discussed with Philipp Rivera M.D. Signed by: Dr. Zackary Landaverde 10/31/2022 12:47:21 PM
--- NOTE | 2022-11-14 | CT_ITS ---
Radiation Therapy Planning CT images; total exam DLP: 283.19 mGy-cm MTDD
[2022-11-14] MEDS: iohexol 350 mg/mL 100 mL Btl IV (08:07)
[2022-11-20 11:29] LABS: Basophils % 0.3 %; Eosinophils # 0.1 10^3/uL (0.0-0.8); Eosinophils % 0.5 %; Hematocrit 33.3 % (42.0-52.0); Hemoglobin 10.6 g/dL (11.7-16.6); Lymphocytes # 0.6 10^3/uL (0.8-4.8); Lymphocytes % 4.4 %; Mean Corpuscular HGB Conc 31.8 g/dL (30.0-36.0); Mean Corpuscular Hemoglobin 25.9 pg (28.0-34.0); Mean Corpuscular Volume 81.2 fl (80-94); Monocytes # 0.8 10^3/uL (0.2-0.9); Neutrophils % 88.2 %; Nucleated Red Blood Cells % 0 %; Platelet Count 204 10^3/cmm (130-400); Red Cell Distribution Width 15.9 % (12.1-15.1)
[2022-11-20 11:43] LABS: Alanine Aminotransferase 11 U/L (0-41); Albumin Level 3.2 g/dL (3.5-5.2); Alkaline Phosphatase 90 U/L (40-130); Anion Gap 12.1 (5-19); Aspartate Amino Transferase 14 U/L (0-40); Blood Urea Nitrogen 13 mg/dL (8-23); Calcium 12.3 mg/dL (8.5-10.5); Carbon Dioxide 32 mmol/L (22-29); Chloride 93 mmol/L (98-107); Globulin 3.6 g/dL (1.3-4.6); Glucose 101 mg/dL (65-115); Osmolality Calculated 278 mOsm/kg (285-295); Potassium 3.1 mmol/L (3.5-5.1); Sodium 134 mmol/L (136-145); Total Bilirubin 0.7 mg/dL (0.15-1.2); Total Protein 6.8 g/dL (6.6-8.7)
[2022-11-20] MEDS: sodium chloride 0.9% 250 ML 100 ML IV (12:50)
[2022-11-20] MEDS: ondansetron 2 mg/ML SDV 2 mL 8 MG IVP (12:53)
[2022-11-20 12:57] LABS: Magnesium 2.2 mg/dL (1.7-2.3)
[2022-11-20] MEDS: paclitaxel protein-bound 150 MG in empty flexible container 1 EACH 60 MG IV (13:40)
[2022-11-20] MEDS: CARBOplatin 200 MG in sodium chloride 0.9% 500 ML 520 MG IV (14:20)
[2022-11-20] MEDS: potassium chloride premix 100 ML 50 MEQ IV (14:23)
[2022-11-20 15:34] VITALS: BP 166/82; PULSE 64; RESP 16; TEMP 36.9; O2SAT 94
[2022-11-22 14:06] LABS: Alanine Aminotransferase 15 U/L (0-41); Albumin Level 3.1 g/dL (3.5-5.2); Alkaline Phosphatase 90 U/L (40-130); Aspartate Amino Transferase 18 U/L (0-40); Blood Urea Nitrogen 22 mg/dL (8-23); Calcium 12.1 mg/dL (8.5-10.5); Carbon Dioxide 32 mmol/L (22-29); Chloride 98 mmol/L (98-107); Globulin 3.1 g/dL (1.3-4.6); Glucose 117 mg/dL (65-115); Osmolality Calculated 284 mOsm/kg (285-295); Sodium 135 mmol/L (136-145); Total Bilirubin 0.4 mg/dL (0.15-1.2); Total Protein 6.2 g/dL (6.6-8.7)
[2022-11-22 14:15] LABS: Calcium 12.1 mg/dL (8.5-10.5)
[2022-11-22 14:22] LABS: Parathyroid Hormone 428.7 pg/mL (15-65)
[2022-11-22] MEDS: sodium chloride 0.9% 500 ML 999 ML IV (14:56)
[2022-11-22] MEDS: FUROsemide 10 mg/mL SDV 2mL 20 MG IVP (15:29)
[2022-11-22 15:44] VITALS: BP 163/79; PULSE 96; TEMP 36.4
[2022-11-23] MEDS: sodium chloride 0.9% 500 ML 999 ML IV (08:30)
[2022-11-23 08:31] LABS: Alanine Aminotransferase 12 U/L (0-41); Albumin Level 3.3 g/dL (3.5-5.2); Alkaline Phosphatase 83 U/L (40-130); Anion Gap 11.4 (5-19); Aspartate Amino Transferase 16 U/L (0-40); Blood Urea Nitrogen 16 mg/dL (8-23); Calcium 11.4 mg/dL (8.5-10.5); Carbon Dioxide 29 mmol/L (22-29); Chloride 92 mmol/L (98-107); Globulin 3.1 g/dL (1.3-4.6); Glucose 99 mg/dL (65-115); Osmolality Calculated 269 mOsm/kg (285-295); Potassium 3.4 mmol/L (3.5-5.1); Sodium 129 mmol/L (136-145); Total Protein 6.4 g/dL (6.6-8.7)
[2022-11-23] MEDS: FUROsemide 10 mg/mL SDV 2mL 20 MG IVP (09:03)
== END 2022-11-24 23:59 | disposition home or self-care (01) ==
PROVIDERS: Internal Medicine Hematology & Oncology; PCP Emergency Medicine Emergency Medical Services; Visit Provider Specialist
DX: C34.82 Malignant neoplasm of overlapping sites of left bronchus and lung; Z51.0 Encounter for antineoplastic radiation therapy; Z79.899 Other long term (current) drug therapy
CPT/HCPCS: 36591; 77300; 77301; 77334; 77338; 77386; 77470; 80053; 82310; 83735; 83970; 85025; 96365; 96367; 96375; 96413; 96417; 99205; J1100; J1940; J2405; J3480; J7040; J7050; J9045; J9264; Q9967

== ENCOUNTER 2022-11-27 14:07 | Inpatient (IN) | payer OTHER, SELFPAY ==
[2022-11-27] VITALS (55 sets, daily range): BP systolic 137–205; BP diastolic 70–149; PULSE 64–122; RESP 13–31; TEMP 36.6; O2SAT 80–100
[2022-11-27 15:42] LABS: 25 Hydroxy Vitamin D 43 ng/mL (30-100)
--- NOTE | 2022-11-27 16:09 | W.ED.RECABL ---
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 His hypercalcemia has been ongoing he is especially weak today Dr. Rivera and sent him to the emergency room to be evaluated for treatment and fluids. Patient is feeling exceptionally weak. He denies any vomiting or diarrhea he has been short of breath but that has not worsened. He still has some pleuritic-like chest chest pain is worse when he takes a deep breath Associated symptoms: chest pain (Pleuritic chronic), shortness of breath, malaise and nausea Review of Systems Const: Denies: fever(s), chills, body aches, change in appetite, fatigue or malaise ENMT: Denies: throat pain, ear or mastoid pain, nasal discharge or nasal congestion Card: Reports: chest pain (Pleuritic); Denies: irregular heart rhythm, edema, dyspnea on exertion or orthopnea Resp: Reports: dyspnea; Denies: productive cough or non-productive cough GI: Denies: abdominal pain, nausea, vomiting, hematemesis, coffee ground emesis, diarrhea, constipation, bloating, hematochezia or melena : Denies: flank pain, dysuria, urinary frequency or urinary urgency Skin/Breast: Denies: rash or pruritus PFSH ED PFSH: Medical History Accelerated essential hypertension Distal radius fracture, right History of prostate cancer Lung cancer Port-A-Cath in place Thyroid disease Surgical History History of open reduction and internal fixation (ORIF) procedure right distal radius Family History Father Anesthesia complication Brother CAD (coronary artery disease) Sister Chronic kidney disease (CKD) Diabetes Other Hypertension Denies family history of Clotting disorder Dementia Hyperlipidemia Psychiatric illness Suicide Bleeding disorder Lung disease Cancer Stroke Social History Smoking and tobacco status: smoker, details unknown Quit status (tobacco): has quit using tobacco Year quit tobacco: 2017 Former quit date comment: 2ppd x 27 years; quit smoking pipe Oct 2021 Alcohol intake: never Physical Exam Const: COMMON NORMALS: no acute distress GENERAL APPEARANCE: cooperative and comfortable ORIENTATION/CONSCIOUSNESS: Yes awake, Yes oriented to person, Yes oriented to place and Yes oriented to time HENMT: COMMON NORMALS: normocephalic, atraumatic and hearing grossly normal bilaterally HEAD & SCALP: normocephalic and atraumatic Resp: COMMON NORMALS: normal respiratory effort, No retractions, No use of accessory muscles and clear to auscultation bilaterally AUSCULTATION: clear to auscultation bilaterally Cardio: COMMON NORMALS: regular rate, regular rhythm and No murmurs present (Cardio) RATE: regular rate RHYTHM: regular rhythm GI: COMMON NORMALS: Soft to palpation and No hepatosplenomegaly present AUSCULTATION: Yes normoactive bowel sounds PALPATION: Yes Soft to palpation, No Tenderness to palpation present (GI), No Guarding due to palpation present (GI) and Yes No hepatosplenomegaly present Extremity: COMMON NORMALS: normal to inspection, capillary refill normal, no clubbing, cyanosis or edema, no calf tenderness and no pedal edema Neuro: SENSORIUM/ORIENTATION: Yes oriented to person, Yes oriented to place and Yes oriented to time Skin: COMMON NORMALS: no rashes or lesions noted GENERAL SKIN EXAM: no rashes or lesions noted Course Vital Signs: Vital signs: Vital Signs Temperature 97.4 F L 11/29/22 19:12 Pulse Rate 64 11/29/22 19:12 Respiratory Rate 16 11/29/22 19:12 Blood Pressure 159/72 11/29/22 19:12 Pulse Oximetry 99 11/29/22 19:12 Oxygen Delivery Me thod 11/29/22 16:51 MDM - Recheck/Abnormal Lab/Rx Medical Decision Making Labs and imaging reviewed. Will admit for IV fluids and pamidronate PTH markedly elevated. Vitamin D level is normal. Discussed with hospitalist orders written Medical Records I reviewed the patient's medical records. Lab Data I reviewed the patient's lab results. 11/29/22 17:16 11/29/22 02:43 Radiology Impressions Modified Barium Swallow 11/28/22 18:34 Impression: 1. Premature spillage of oral contents. 2. Minimal penetration but no aspiration. 3. Poor pharyngeal propulsion. Laboratory Results 25-OH Vitamin D Total 43 ng/mL (30-100) 11/27/22 10:20 Discharge Plan Discharge Patient Disposition: Admitted As Inpatient Admit Provider: Jack Jay Clinical Impression: Hypercalcemia due to hyperthyroidism, Lung cancer Condition: Stable Discharge Activity: Increase activity as tolerated Coding Level of Care Code ED Extrusion Bender for Anahy Elliott
[2022-11-27] MEDS: sodium chloride 0.9% 1,000 ML 999 ML IV ×2 (16:33→18:09)
--- NOTE | 2022-11-27 17:51 | PM.HP ---
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 States he has been generally weak. Also having trouble swallowing solids. Able to drink liquids. Also has some generalized ill-defined abdominal and chest aches and pains. He has been constipated. He is found to have elevated PTH, 297, elevated calcium. 25 OH Vitamin D level checked today and is normal. In ER he is received pamidronate, 1 L fluid bolus. Discussing CODE STATUS, he has not thought about his wishes, states to keep him comfortable in case of cardiopulmonary arrest. He otherwise is okay with receiving aggressive medical treatments. Review of Systems Const: Reports: body aches, change in appetite and fatigue; Denies: fever(s), chills or malaise Eyes: Denies: change in vision, eye discomfort or eye redness ENMT: Reports: other (Difficulty swallowing solids); Denies: throat pain, oral sores or ear or mastoid pain Card: Reports: chest pain; Denies: edema, pre-syncope or dyspnea on exertion Resp: Reports: non-productive cough and pain on inspiration; Denies: dyspnea, productive cough, change in phlegm color or hemoptysis GI: Reports: abdominal pain, nausea and constipation; Denies: diarrhea, hematochezia or melena : Denies: flank pain, difficulty urinating, urinary frequency or hematuria Musc: Denies: back pain, joint swelling or joint redness Skin/Breast: Denies: rash or new lesions Neuro: Denies: headache(s), numbness in extremities, weakness in extremities, dizziness, confusion or seizure-like activity Endo: Denies: polyuria or polydipsia Antonio/Lymph: Denies: easy bleeding or tender lymph nodes All/Imm: Denies: urticaria or tongue swelling Medications/Allergies Home Medications Medication Instructions Recorded Confirmed Last Taken Type levothyroxine 25 mcg tablet 25 mcg PO DAILY 12/03/19 11/27/22 11/11/22 History (Synthroid) pravastatin 20 mg tablet 20 mg PO BEDTIME 09/06/22 11/27/22 11/11/22 History benazepril 20 mg tablet See Rx Instructions .Route .COMPLEX 10/10/22 11/27/22 11/12/22 History albuterol sulfate 90 mcg/actuation 2 puff inhalation QID PRN 11/12/22 11/27/22 Unknown History aerosol inhaler (ProAir HFA) Shortness Of Breath potassium gluconate 595 mg (99 mg) 595 mg PO DAILY PRN unknown 11/12/22 11/27/22 1 Week Ago History tablet ~11/05/22 tiotropium bromide 1.25 2 puff inhalation DAILY 11/12/22 11/27/22 1 Month Ago History mcg/actuation mist for inhalation ~10/13/22 (Spiriva Respimat) lorazepam 1 mg tablet 0.5 - 1 mg PO Q6H PRN Severe 11/20/22 11/27/22 Unknown Rx Nausea #30 tabs prochlorperazine maleate 10 mg 10 mg PO Q4H PRN Mild Nausea #30 11/20/22 11/27/22 Unknown Rx tablet (Compazine) tabs potassium chloride 20 mEq oral 20 meq PO BID #40 ea 11/23/22 11/27/22 Unknown Rx packet carboxymethylcellulose sodium 1 % 2 drp ophthalmic (eye) QID 11/27/22 11/27/22 Unknown History eye drops (Artificial Tears (carboxymethylcellulose)) Allergies Allergy/AdvReac Type Severity Reaction Status Date / Time No Known Allergies Allergy Verified 11/27/22 12:05 PFSH Acute PFSH: Medical History (Updated 11/27/22 @ 18:00 by Jack Jay MD) Accelerated essential hypertension Distal radius fracture, right Lung cancer Port-A-Cath in place Thyroid disease Surgical History History of open reduction and internal fixation (ORIF) procedure right distal radius Family History Father Anesthesia complication Brother CAD (coronary artery disease) Sister Chronic kidney disease (CKD) Diabetes Other Hypertension Denies family history of Clotting disorder Dementia Hyperlipidemia Psychiatric illness Suicide Bleeding disorder Lung disease Cancer Stroke Social History Smoking and tobacco status: smoker, details unknown Quit status (tobacco): has quit using tobacco Year quit tobacco: 2017 Former quit date comment: 2ppd x 27 years; quit smoking pipe Oct 2021 Alcohol intake: never Vitals/I&O/Wt Last Vital Signs Temp 97.9 F 11/27/22 14:12 Pulse 76 11/27/22 17:40 Resp 27 H 11/27/22 17:40 BP 186/149 11/27/22 17:40 Pulse Ox 87 L 11/27/22 17:40 Weight last 48 hrs Weight 57.153 kg Physical Exam Const: COMMON NORMALS: patient oriented x3 and alert GENERAL APPEARANCE: cooperative and frail appearing ORIENTATION/CONSCIOUSNESS: Yes awake OTHER: Generally weak HENMT: COMMON NORMALS: oropharynx normal Neck/C-Spine: COMMON NORMALS: no JVD Chest: OTHER: Port-A-Cath Resp: COMMON NORMALS: normal respiratory effort and clear to auscultation bilaterally AUSCULTATION: clear to auscultation bilaterally Cardio: COMMON NORMALS: no JVD, regular rhythm, S1 normal heart sound present, S2 normal heart sound present and No murmurs present (Cardio) RHYTHM: regular rhythm HEART SOUNDS: S1 normal heart sound present and S2 normal heart sound present GI: COMMON NORMALS: Normal to inspection, nondistended, normoactive bowel sounds present and Soft to palpation PALPATION: Yes Soft to palpation OTHER: Reports usually minimal generalized tenderness, currently nontender. Extremity: COMMON NORMALS: no joint enlargement and no pedal edema Neuro: COMMON NORMALS: patient oriented x3 and moves all extremities SENSORIUM/ORIENTATION: Yes alert Skin: COMMON NORMALS: no rashes or lesions noted GENERAL SKIN EXAM: no rashes or lesions noted A&P Assessment and plan (1) Hypercalcemia due to hyperthyroidism: Received pamidronate. 1 L bolus. Continue IV fluid infusion. Discussed also with his oncologist, add calcitonin, prednisone. Would benefit from Cinacalcet, but this is not available here, likely may continue after discharge. 25 OH Vitamin D level normal. Would benefit from ENT evaluation for parathyroidectomy with primary hyperparathyroidism. Check TSH. (2) Dysphagia: Reports food gets stuck in the back of his mouth/throat. Modified barium swallow. He does okay with liquids. For liquid diet for now. Low calcium. (3) Lung cancer: Continue follow-up after discharge. (4) Accelerated essential hypertension: Continue INGRID inhibitor. Plan Hypothyroidism: Check TSH Attestations Medical Necessity Statement*: Admission of over 2 midnights in the first management of symptomatic hypercalcemia with primary hyperparathyroidism, assessment of dysphagia and gentleman with metastatic lung cancer. Coding Level of Care Code Acute Veneer Production Machine Operator for Chg Fwd Diagnoses Hypercalcemia due to hyperthyroidism E83.52; E05.90 Dysphagia R13.10 Lung cancer C34.90 Accelerated essential hypertension I10
[2022-11-27] MEDS: hyDRALAzine 20 mg/mL INJ 1 mL 10 MG IVP (20:07)
[2022-11-27 20:22] LABS: Urine Appearance SL Hazy (CLEAR); Urine Color Yellow (Yellow)
[2022-11-27 20:23] LABS: Add Urine Microscopic? YES; Bilirubin Urine Neg (Negative); Blood Urine 2+ (Negative); Glucose Urine UA Norm (Normal); Ketones Urine Negative (Negative); Leukocyte Esterase Urine Negative (Negative); Nitrate Urine Negative (Negative); Protein Urine Neg (Negative); RBC Urine 0-4 /hpf (0-2); Specific Gravity, Urine 1.015 (1.005-1.030); Urobilinogen Urine Norm (Negative); WBC Urine 0-4 /hpf (0-5); pH Urine 6.5 (5-7)
[2022-11-27 20:24] LABS: Add Urine Culture? No; Amorphous Sediment Urine 2+ /hpf
[2022-11-27] MEDS: sodium chloride 0.9% 1,000 ML 125 ML IV (22:11)
[2022-11-27] MEDS: calcitonin,salmon 200 unit/mL SDV 2mL 228 UNIT SUBCUT (22:12)
[2022-11-27] MEDS: atorvastatin 40 mg Tablet 20 MG PO (22:13)
[2022-11-28] VITALS (10 sets, daily range): BP systolic 135–174; BP diastolic 63–84; PULSE 74–106; RESP 16–18; TEMP 36.4–36.9; O2SAT 94–97
--- NOTE | 2022-11-28 00:36 | PC.NURSE ---
Pt is urinating approximately every 15-30 minutes, bladder scan completed w/noted residual approximated at > 382. Dr. Rendon notified.
--- NOTE | 2022-11-28 00:46 | PC.NURSE ---
NNO received from physician at this time.
[2022-11-28 01:36] LABS: Basophils % 0.4 %; Eosinophils % 0.4 %; Hematocrit 27.2 % (42.0-52.0); Hemoglobin 8.4 g/dL (11.7-16.6); Lymphocytes # 0.1 10^3/uL (0.8-4.8); Lymphocytes % 1.2 %; Mean Corpuscular HGB Conc 30.9 g/dL (30.0-36.0); Mean Corpuscular Hemoglobin 25.8 pg (28.0-34.0); Mean Corpuscular Volume 83.4 fl (80-94); Mean Platelet Volume 10.2 fL (7.4-10.4); Monocytes # 0.4 10^3/uL (0.2-0.9); Monocytes % 3.7 %; Neutrophils # 9.59 10^3/uL (1.8-7.7); Neutrophils % 92.8 %; Nucleated Red Blood Cells % 0 %; Platelet Count 208 10^3/cmm (130-400); Red Blood Count 3.26 10^6/uL (4.1-5.3); Red Cell Distribution Width 16.4 % (12.1-15.1); White Blood Count 10.3 10^3/uL (4.0-10.0)
[2022-11-28 02:13] LABS: Alanine Aminotransferase 14 U/L (0-41); Albumin Level 3.1 g/dL (3.5-5.2); Alkaline Phosphatase 94 U/L (40-130); Aspartate Amino Transferase 20 U/L (0-40); Blood Urea Nitrogen 11 mg/dL (8-23); Calcium 10.9 mg/dL (8.5-10.5); Carbon Dioxide 22 mmol/L (22-29); Chloride 106 mmol/L (98-107); Globulin 3.1 g/dL (1.3-4.6); Glucose 95 mg/dL (65-115); Osmolality Calculated 285 mOsm/kg (285-295); Sodium 138 mmol/L (136-145); Total Bilirubin 0.4 mg/dL (0.15-1.2); Total Protein 6.2 g/dL (6.6-8.7)
[2022-11-28 02:24] LABS: Thyroid Stimulating Hormone 3.18 uIU/mL (0.27-4.20)
--- NOTE | 2022-11-28 04:08 | PC.NURSE ---
Referred pt for increasing weakness w/frequent urination w/o complete bladder emptying. NO received and noted to 1) insert hernandez.
--- NOTE | 2022-11-28 04:54 | PC.NURSE ---
Attempted to place hernandez catheter x 2, unable to advance hernandez d/t penile implant. Dr. Rendon notified.
[2022-11-28] MEDS: lisinopril 20 mg Tablet PO (05:57)
[2022-11-28] MEDS: ipratropium 0.5 mg/2.5 mL Neb INHALATION ×3 (07:44→20:32)
[2022-11-28] MEDS: sodium chloride 0.9% 1,000 ML 125 ML IV ×3 (07:55→22:45)
[2022-11-28] MEDS: calcitonin,salmon 200 unit/mL SDV 2mL 228 UNIT SUBCUT ×2 (08:36→20:59)
[2022-11-28] MEDS: pantoprazole DR 40 mg Tablet PO (08:40)
[2022-11-28] MEDS: predniSONE 20 mg Tablet PO (08:41)
[2022-11-28] MEDS: levothyroxine 25 mcg Tablet PO (08:41)
--- NOTE | 2022-11-28 09:47 | PC.CHAP ---
Pastoral Care Encounter/Spiritual Assessment Type of Contact [] Declined office support visit [] Patient/Family/Request visit [] Outpatient visit [] Follow-up visit [] Physician referral [] Code/Alert [x] Routine visit [] Staff referral [] Actively dying [] Patient sleeping [] Family support [] [] Out of room [] Palliative care [] [] Receiving care in room [] Pre-surgical visit [] Trauma [] Long length of stay [] ICU visit [] Other: Relational/Emotional Strength [x] Patient feels connected with others/family/visitors/staff [] Distress [] Loneliness/isolation [] Abandonment Spirituality of Patient [x] Person of [place] [x] Attends Nondenominational of their [place] [x] Believes in Prayer [] Reads Bible or Pentecostalism materials [] There are Spiritual issues to be addressed Composition Roll Maker And Cutter Interventions [x] Prayer [x] Active listening [x] Non-anxious presence [] Spiritual/emotional support [] Crisis/trauma care [] Spiritual counseling [] Bereavement support [] Provided bereavement packet [] Provided Bible/devotional materials [] Provided toy/stuffed animal, coloring book to patient or family member [] Provided Communion [] Anointing/Warren [] Salvation [x] Completed spiritual assessment [] Other: Impact on Illness or Injury [] Angry [] Fearful [] Anxious [] Often cries [] Exhaustion [] Unable to work [] Unable to attend religious [] Unable to walk/stand [] Unable to read [] Unable to drive [] Unable to eat/drink [] Unable to sleep [] Unable to be with family [] Patient intubated [] Other: Summary Pt wanting to go home but uncertain when he will be able to. Pt's friend was visiting at the time of office support's visit. He told office support Pt's family live in [place] but he does have one sister who lives in the area. She will be here later today. Pt is of the taoism maddison. Time spent with patient 10m
[2022-11-28] MEDS: ondansetron 2 mg/ML SDV 2 mL 4 MG IVP (09:56)
--- NOTE | 2022-11-28 13:05 | P.PN_ITS ---
Subjective Subjective: He overall states initially did not feel better today, however, states that perhaps he is a little bit better overall after finding out his calcium level has come down a good amount. He has gotten up several times with nursing in the room to the restroom. Abdominal pain has subsided. As tolerated full liquid diet today. Awaiting modified barium swallow. Vitals/I&O/Wt Last Vital Signs Temp 98.2 F 11/28/22 12:00 Pulse 78 11/28/22 12:00 Resp 18 11/28/22 12:00 BP 162/76 11/28/22 12:00 Pulse Ox 95 11/28/22 12:00 O2 Del Method 11/28/22 12:00 11/27/22 11/28/22 11/28/22 22:59 06:59 14:59 Intake Total 2510 / 2510 1000 / 3510 240 / 240 Output Total 275 / 275 Balance 2510 / 2510 725 / 3235 240 / 240 Weight last 48 hrs Weight 57.153 kg Physical Exam Const: COMMON NORMALS: patient oriented x3 and alert GENERAL APPEARANCE: cooperative and frail appearing ORIENTATION/CONSCIOUSNESS: Yes awake OTHER: Generally weak. Today appears slightly more energetic. HENMT: COMMON NORMALS: oropharynx normal Neck/C-Spine: COMMON NORMALS: no JVD Chest: OTHER: Port-A-Cath Resp: COMMON NORMALS: normal respiratory effort and clear to auscultation bilaterally AUSCULTATION: clear to auscultation bilaterally Cardio: COMMON NORMALS: no JVD, regular rhythm, S1 normal heart sound present, S2 normal heart sound present and No murmurs present (Cardio) RHYTHM: regular rhythm HEART SOUNDS: S1 normal heart sound present and S2 normal heart sound present GI: COMMON NORMALS: Normal to inspection, nondistended, normoactive bowel sounds present, Soft to palpation and non-tender PALPATION: Yes Soft to palpation Extremity: COMMON NORMALS: no joint enlargement and no pedal edema Neuro: COMMON NORMALS: patient oriented x3 and moves all extremities SENSORIUM/ORIENTATION: Yes alert Skin: COMMON NORMALS: no rashes or lesions noted GENERAL SKIN EXAM: no rashes or lesions noted Data 11/28/22 01:10 11/28/22 01:10 A&P Assessment and plan (1) Hypercalcemia due to hyperthyroidism: Hypercalcemia improving. Continue calcitonin while awaiting effects of pamidronate. Continue IVF. Prednisone. Cinacalcet at discharge. Would benefit from ENT evaluation for parathyroidectomy however as he had just received pamidronate would be at risk of hypocalcemia reported to try to arrange surgery now. We will try to see what is the soonest he is able to be seen. 25 OH Vitamin D level normal. Normal TSH. (2) Dysphagia: Pending MBS. Tolerating full liquids. Reports food gets stuck in the back of his mouth/throat. (3) Lung cancer: Continue follow-up after discharge. (4) Accelerated essential hypertension: Continue INGRID inhibitor. Plan Hypothyroidism: Normal TSH Attestations Medical Necessity Statement*: Continue admission for assessment and management of symptomatic hypercalcemia, dysphagia and adenoma with lung cancer. Coding Level of Care Code Acute Commercial Loan Underwriter for Chg Fwd Diagnoses Hypercalcemia due to hyperthyroidism E83.52; E05.90 Dysphagia R13.10 Lung cancer C34.90 Accelerated essential hypertension I10
--- NOTE | 2022-11-28 15:48 | PM.CONSULT ---
Providers/Reason For Consult Consulting Physician/Specialty*: Urology/Stanton Reason for Consult*: Urinary difficulties Requesting Physician: Dr. Jay Attending Physician: Jack Jay Primary Care Provider: Aguilar Balbuena DO History of Present Illness History of Present Illness Adrian Corey is a 82 year old male who I evaluated for the first time today at the request of Dr. Joseph for difficulty with his urination. Apparently he stated that he was voiding frequently. Attempts at catheterization by the nursing staff were unsuccessful. There is a mention of penile prosthesis. I was consulted for further evaluation. He states that he generally voids a good amount with a good stream. He feels that his voiding today is roughly the same as it was for many years and is not progressively worsening. Denies any dysuria, hematuria etc. Reports that he had a radical prostatectomy when he was 62 years old and about a year later he had an artificial sphincter placed for incontinence. No prior penile prosthesis. When quizzed about the functioning of the artificial sphincter he states that it still works and he uses it as he has for many years. Physical exam reveals a nondistended bladder. Artificial sphincter pump in appropriate position. The pump was squeezed and appropriately activated. No urine leak from the penis at time of cycling the pump but he states that about 20 minutes ago he voided. Bladder again is not distended. He showed proficiency in managing the pump. He seemed to have good understanding regarding how it functions. He did have a bladder scan that showed about 315 cc in the bladder. Not clear to me exactly when that was in the cycle of voiding. Recommendations: 1. Hold on Soni catheter. Has a significant risk at urethral injury with the artificial sphincter in place. 2. He seems to be proficient in managing the artificial sphincter. If he develops inability to do so I can deactivate the sphincter so that he will remain open all the time and if there is retention despite opening of the artificial sphincter and deactivating it I can place a small catheter for short period of time to manage that. Review of Systems Const: Reports: fatigue and malaise; Denies: fever(s) or chills Eyes: Denies: change in vision or yellow eyes ENMT: Reports: other (One of his presenting symptoms was difficulty swallowing.); Denies: hoarseness Card: Denies: dyspnea on exertion or orthopnea Resp: Denies: productive cough or wheezing GI: Reports: nausea; Denies: vomiting or hematochezia : Reports: urinary frequency (But reports generally good volumes when he voids.); Denies: flank pain, difficulty urinating, difficulty starting urination or change in urine stream Musc: Reports: joint pain; Denies: joint redness Skin/Breast: Denies: rash Neuro: Denies: confusion or Slurred speech present Psych: Denies: anxiety or depression Antonio/Lymph: Denies: easy bleeding or tender lymph nodes All/Imm: Denies: acute wheezing Medications/Allergies Home Medications Medication Instructions Recorded Confirmed Last Taken Type levothyroxine 25 mcg tablet 25 mcg PO DAILY 12/03/19 11/27/22 11/11/22 History (Synthroid) pravastatin 20 mg tablet 20 mg PO BEDTIME 09/06/22 11/27/22 11/11/22 History benazepril 20 mg tablet See Rx Instructions .Route .COMPLEX 10/10/22 11/27/22 11/12/22 History albuterol sulfate 90 mcg/actuation 2 puff inhalation QID PRN 11/12/22 11/27/22 Unknown History aerosol inhaler (ProAir HFA) Shortness Of Breath potassium gluconate 595 mg (99 mg) 595 mg PO DAILY PRN unknown 11/12/22 11/27/22 1 Week Ago History tablet ~11/05/22 tiotropium bromide 1.25 2 puff inhalation DAILY 11/12/22 11/27/22 1 Month Ago History mcg/actuation mist for inhalation ~10/13/22 (Spiriva Respimat) lorazepam 1 mg tablet 0.5 - 1 mg PO Q6H PRN Severe 11/20/22 11/27/22 Unknown Rx Nausea #30 tabs prochlorperazine maleate 10 mg 10 mg PO Q4H PRN Mild Nausea #30 11/20/22 11/27/22 Unknown Rx tablet (Compazine) tabs potassium chloride 20 mEq oral 20 meq PO BID #40 ea 11/23/22 11/27/22 Unknown Rx packet carboxymethylcellulose sodium 1 % 2 drp ophthalmic (eye) QID 11/27/22 11/27/22 Unknown History eye drops (Artificial Tears (carboxymethylcellulose)) Allergies Allergy/AdvReac Type Severity Reaction Status Date / Time No Known Allergies Allergy Verified 11/27/22 12:05 Current Medications Generic Name Dose Route Start Last Admin Trade Name Freq PRN Reason Stop Dose Admin Artificial Tears 2 drop 11/27/22 21:00 11/28/22 12:59 Artificial Tears Op Soln 15 Ml Btl EYEAFF Not Given QID JENNY Atorvastatin Calcium 20 mg 11/27/22 21:00 11/27/22 22:13 Atorvastatin 40 Mg Tablet PO 20 mg BEDTIME JENNY Administration Calcitonin Marana 228 unit 11/27/22 20:00 11/28/22 08:36 Calcitonin,Marana 200 Unit/Ml Sdv 2ml SUBCUT 228 unit Q12H JENNY Administration Enoxaparin Sodium 40 mg 11/27/22 20:00 11/27/22 21:24 Enoxaparin 40 Mg/0.4 Ml Syringe SUBCUT Not Given Q24H JENNY Sodium Chloride 1,000 mls @ 125 mls/hr 11/27/22 18:34 11/28/22 07:55 Sodium Chloride 0.9% IV 125 mls/hr .Q8H JENNY Administration Ipratropium Bentley 0.5 mg 11/27/22 20:00 11/28/22 14:11 Ipratropium 0.5 Mg/2.5 Ml Neb INHALATION 0.5 mg TID.RESP JENNY Administration Levothyroxine Sodium 25 mcg 11/28/22 09:00 11/28/22 08:41 Levothyroxine 25 Mcg Tablet PO 25 mcg DAILY JENNY Administration Lisinopril 20 mg 11/28/22 06:00 11/28/22 05:57 Lisinopril 20 Mg Tablet PO 20 mg QAM JENNY Administration Ondansetron HCl 4 mg 11/27/22 18:34 11/28/22 09:56 Ondansetron 2 Mg/Ml Sdv 2 Ml IVP 4 mg Q8H PRN Administration vomiting, or N/V if npo Pantoprazole Sodium 40 mg 11/28/22 09:00 11/28/22 08:[address] 40 Mg Tablet PO 40 mg DAILY JENNY Administration Prednisone 20 mg 11/28/22 09:00 11/28/22 08:41 Prednisone 20 Mg Tablet PO 20 mg DAILY JENNY Administration PFSH Acute PFSH: Medical History (Updated 11/28/22 @ 16:03 by Jorge Stanton MD) Accelerated essential hypertension Distal radius fracture, right History of prostate cancer Lung cancer Port-A-Cath in place Thyroid disease Surgical History (Updated 11/28/22 @ 16:03 by Jorge Stanton MD) History of open reduction and internal fixation (ORIF) procedure right distal radius Family History Father Anesthesia complication Brother CAD (coronary artery disease) Sister Chronic kidney disease (CKD) Diabetes Other Hypertension Denies family history of Clotting disorder Dementia Hyperlipidemia Psychiatric illness Suicide Bleeding disorder Lung disease Cancer Stroke Social History Smoking and tobacco status: smoker, details unknown Quit status (tobacco): has quit using tobacco Year quit tobacco: 2017 Former quit date comment: 2ppd x 27 years; quit smoking pipe Oct 2021 Alcohol intake: never Vitals/I&O/Wt Last Vital Signs Temp 98.2 F 11/28/22 12:00 Pulse 79 11/28/22 14:10 Resp 16 11/28/22 14:00 BP 162/76 11/28/22 12:00 Pulse Ox 94 11/28/22 14:00 O2 Del Method 11/28/22 14:00 11/28/22 11/28/22 11/28/22 06:59 14:59 22:59 Intake Total 1000 / 3510 240 / 240 Output Total 275 / 275 100 / 100 Balance 725 / 3235 140 / 140 Weight last 48 hrs Weight 126 lb Physical Exam Const: COMMON NORMALS: no acute distress and alert GENERAL APPEARANCE: well kempt ORIENTATION/CONSCIOUSNESS: not confused HENMT: COMMON NORMALS: normocephalic HEAD & SCALP: normal to inspection and normocephalic Eye: COMMON NORMALS: conjunctivae normal and no scleral icterus CONJUNCTIVA: Yes conjunctivae normal Neck/C-Spine: GENERAL: Yes normal visual inspection Resp: COMMON NORMALS: normal respiratory effort EFFORT & INSPECTION: Yes able to speak in complete sentences, No labored and No Actively coughing : OTHER: Circumcised phallus without lesions. No blood at the meatus. Scrotum is grossly normal. Both testicles descended. He has an AMS 800 artificial sphincter pump within the left hemiscrotum that cycles normally. He reports that he activated about 20 minutes before examination and voided then. Extremity: COMMON NORMALS: no clubbing, cyanosis or edema Neuro: COMMON NORMALS: no focal motor deficits SENSORIUM/ORIENTATION: Yes alert Psych: APPEARANCE: Yes grossly normal and Yes well kempt ATTITUDE: Yes calm and Yes engaged Skin: COMMON NORMALS: no rashes or lesions noted and no jaundice GENERAL SKIN EXAM: no rashes or lesions noted Data 11/28/22 01:10 11/28/22 01:10 A&P Assessment and plan (1) Status post implantation of artificial urinary sphincter: See HPI. Would recommend NOT placing a Soni catheter. If he develops retention as demonstrated by increasing PVRs (after activating and cycling his artificial sphincter pump) and he becomes uncomfortable please let me know and I can place a small catheter after deactivating the pump for very temporary period of time. (2) Postoperative urinary incontinence: Status post artificial sphincter with good control (3) History of prostate cancer: Treated about 20 years ago. Plan See above Consult Attestations Medical Necessity Statement: See attending Coding Level of Care Code Acute Real Estate Appraiser Supervisor for Anahy Elliott Diagnoses Status post implantation of artificial urinary sphincter Z96.0 Postoperative urinary incontinence N99.89; R32 History of prostate cancer Z85.46
[2022-11-28] MEDS: lisinopril 10 mg Tablet PO (18:01)
--- NOTE | 2022-11-28 18:34 | FL_ITS ---
WS: [id number] Modified barium swallow, 11/28/2022 Clinical Data: Pharyngoesoph. Dysphagia Comparison: None. Fluoroscopy time: 2min [id number] # of spot films: 1 Findings: The patient had slow initiation of oral propulsion but there was premature spillage. This did clear w ith double swallows. There was mild penetration but no aspiration into the pharynx. The pharynx did c oat with the barium but did clear with swallowing. FL/FL barium swallow modifd [id number] Impression: 1. Premature spillage of oral contents. 2. Minimal penetration but no aspiration. 3. Poor pharyngeal propulsion.
[2022-11-28] MEDS: atorvastatin 40 mg Tablet 20 MG PO (20:59)
[2022-11-28] MEDS: artificial tears Op Soln 15 mL Btl 2 DROP EYEAFF (21:00)
[2022-11-28] MEDS: enoxaparin 40 mg/0.4 mL Syringe SUBCUT (21:01)
[2022-11-29] VITALS (15 sets, daily range): BP systolic 136–164; BP diastolic 66–82; PULSE 52–82; RESP 15–18; TEMP 35.6–36.8; O2SAT 18–100
[2022-11-29] MEDS: acetaminophen 325 mg Tablet 650 MG PO ×2 (00:21→06:24)
[2022-11-29 03:14] LABS: Basophils % 0.2 %; Eosinophils % 0.6 %; Hematocrit 21.7 % (42.0-52.0); Hemoglobin 6.6 g/dL (11.7-16.6); Lymphocytes # 0.2 10^3/uL (0.8-4.8); Lymphocytes % 3.1 %; Mean Corpuscular HGB Conc 30.4 g/dL (30.0-36.0); Mean Corpuscular Hemoglobin 25.4 pg (28.0-34.0); Mean Corpuscular Volume 83.5 fl (80-94); Mean Platelet Volume 10.2 fL (7.4-10.4); Monocytes # 0.4 10^3/uL (0.2-0.9); Monocytes % 6.7 %; Neutrophils # 4.64 10^3/uL (1.8-7.7); Neutrophils % 88.6 %; Nucleated Red Blood Cells % 0 %; Platelet Count 181 10^3/cmm (130-400); Red Cell Distribution Width 16.5 % (12.1-15.1); White Blood Count 5.2 10^3/uL (4.0-10.0)
[2022-11-29 03:49] LABS: Anion Gap 11.5 (5-19); Blood Urea Nitrogen 8 mg/dL (8-23); Calcium 9.1 mg/dL (8.5-10.5); Carbon Dioxide 22 mmol/L (22-29); Chloride 106 mmol/L (98-107); Glucose 92 mg/dL (65-115); Osmolality Calculated 280 mOsm/kg (285-295); Potassium 3.5 mmol/L (3.5-5.1); Sodium 136 mmol/L (136-145)
[2022-11-29] MEDS: lisinopril 20 mg Tablet PO (05:54)
[2022-11-29] MEDS: sodium chloride 0.9% 1,000 ML 125 ML IV (05:56)
[2022-11-29] MEDS: ipratropium 0.5 mg/2.5 mL Neb INHALATION (07:48)
[2022-11-29] MEDS: calcitonin,salmon 200 unit/mL SDV 2mL 228 UNIT SUBCUT (08:30)
[2022-11-29] MEDS: pantoprazole DR 40 mg Tablet PO (09:05)
[2022-11-29] MEDS: levothyroxine 25 mcg Tablet PO (09:05)
[2022-11-29] MEDS: predniSONE 20 mg Tablet PO (09:05)
[2022-11-29 10:34] LABS: Ferritin 568 ng/mL (30-400); Iron 20 ug/dL (59-158); Percent Saturation 15.5 % (20-50); Total Iron Binding Capacity 129 mcg/dl; Unsaturated Iron Binding 109 ug/dL (112-347)
--- NOTE | 2022-11-29 12:09 | PM.DCS ---
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 25 OH vitamin D normal. He received pamidronate, fluid resuscitation, calcitonin with good decrease in calcium. At discharge he is started also on Cinacalcet which was not available in the hospital. Parathyroidectomy unable to be performed here, she is asked to follow-up with ENT at outside facility. He also has been having dysphagia with solids, with noted premature spillage of bowel contents on modified barium swallow, minimal penetration but no aspiration, poor pharyngeal propulsion. Consider additionally follow-up study with barium swallow, follow-up with radiation oncology and oncology. He was seen by speech therapy and so far has done well with pur?ed diet, thin liquids, aspiration precautions. Of note he has an artificial urethral sphincter after radical prostatectomy operation of which he is very familiar with. In case Soni is needed, confer with urology first. With IV rehydration she also had his iron deficiency unmasked further, hemoglobin down to 6.6, 1 unit RBC transfusion is requested for him. He is started on iron replacement. Please follow-up further regarding iron deficiency anemia including arrangements for endoscopic evaluation if he has not had any recently to evaluate for other causes including exclude malignancy. Physical Exam Narrative: Nephew at bedside Const: COMMON NORMALS: patient oriented x3 and alert GENERAL APPEARANCE: cooperative and frail appearing ORIENTATION/CONSCIOUSNESS: Yes awake OTHER: Generally weak. Today appears slightly more energetic. HENMT: COMMON NORMALS: oropharynx normal Neck/C-Spine: COMMON NORMALS: no JVD Chest: OTHER: Port-A-Cath Resp: COMMON NORMALS: normal respiratory effort and clear to auscultation bilaterally AUSCULTATION: clear to auscultation bilaterally Cardio: COMMON NORMALS: no JVD, regular rhythm, S1 normal heart sound present, S2 normal heart sound present and No murmurs present (Cardio) RHYTHM: regular rhythm HEART SOUNDS: S1 normal heart sound present and S2 normal heart sound present GI: COMMON NORMALS: Normal to inspection, nondistended, normoactive bowel sounds present and Soft to palpation PALPATION: Yes Soft to palpation Extremity: COMMON NORMALS: no joint enlargement and no pedal edema Neuro: COMMON NORMALS: patient oriented x3 and moves all extremities SENSORIUM/ORIENTATION: Yes alert Skin: COMMON NORMALS: no rashes or lesions noted GENERAL SKIN EXAM: no rashes or lesions noted Discharge Data Studies Completed and Pending Completed Studies During Hospitalization Category Date Time Status FL barium swallow modifd [id number] Routine Exams 11/28/22 18:34 Completed Pending at discharge Category Date Time Status ABO/Rh Type Routine Lab 11/29/22 09:25 Results Basic Metabolic Panel AM LABS Lab 11/30/22 04:00 Ordered Basic Metabolic Panel AM LABS Lab 12/01/22 04:00 Ordered Complete Blood Count w/Auto AM LABS Lab 11/30/22 04:00 Ordered Complete Blood Count w/Auto AM LABS Lab 12/01/22 04:00 Ordered Complete Crossmatch Routine Lab 11/29/22 09:25 Results Hemoglobin Routine Lab 11/29/22 16:00 Ordered Irradiated Leuko Red RBC Routine Lab 11/29/22 09:25 Results Occult Blood Stool [Immunochemical Fecal OCB] Routine Lab 11/29/22 10:16 Uncollected Type and Screen Routine Lab 11/29/22 09:25 Results Radiology Impressions Modified Barium Swallow 11/28/22 18:34 Impression: 1. Premature spillage of oral contents. 2. Minimal penetration but no aspiration. 3. Poor pharyngeal propulsion. Laboratory Results WBC 5.2 10^3/uL (4.0-10.0) 11/29/22 02:43 RBC 2.60 10^6/uL (4.1-5.3) L 11/29/22 02:43 Hgb 6.6 g/dL (11.7-16.6) L 11/29/22 02:43 Hct 21.7 % (42.0-52.0) L 11/29/22 02:43 MCV 83.5 fl (80-94) 11/29/22 02:43 MCH 25.4 pg (28.0-34.0) L 11/29/22 02:43 MCHC 30.4 g/dL (30.0-36.0) 11/29/22 02:43 RDW 16.5 % (12.1-15.1) H 11/29/22 02:43 Plt Count 181 10^3/cmm (130-400) 11/29/22 02:43 MPV 10.2 fL (7.4-10.4) 11/29/22 02:43 Neut % (Auto) 88.6 % 11/29/22 02:43 Lymph % (Auto) 3.1 % 11/29/22 02:43 Moca % (Auto) 6.7 % 11/29/22 02:43 Eos % (Auto) 0.6 % 11/29/22 02:43 Baso % (Auto) 0.2 % 11/29/22 02:43 Neut # (Auto) 4.64 10^3/uL (1.8-7.7) 11/29/22 02:43 Lymph # (Auto) 0.2 10^3/uL (0.8-4.8) L 11/29/22 02:43 Moca # (Auto) 0.4 10^3/uL (0.2-0.9) 11/29/22 02:43 Eos # (Auto) 0.0 10^3/uL (0.0-0.8) 11/29/22 02:43 Baso # (Auto) 0.0 10^3/uL (0.0-0.1) 11/29/22 02:43 Nucleated RBC % (auto) 0 % 11/29/22 02:43 Nucleated RBCs # 0.0 /100WBC 11/29/22 02:43 Sodium 136 mmol/L (136-145) 11/29/22 02:43 Potassium 3.5 mmol/L (3.5-5.1) 11/29/22 02:43 Chloride 106 mmol/L (98-107) 11/29/22 02:43 Carbon Dioxide 22 mmol/L (22-29) 11/29/22 02:43 Anion Gap 11.5 (5-19) 11/29/22 02:43 BUN 8 mg/dL (8-23) 11/29/22 02:43 Creatinine 0.6 mg/dL (0.7-1.2) L 11/29/22 02:43 GFR Calculation Not Reportable 11/29/22 02:43 Glucose 92 mg/dL (65-115) 11/29/22 02:43 Calculated Osmolality 280 mOsm/kg (285-295) L 11/29/22 02:43 Calcium 9.1 mg/dL (8.5-10.5) 11/29/22 02:43 Iron 20 ug/dL (59-158) L 11/29/22 02:43 TIBC 129 mcg/dl 11/29/22 02:43 % Saturation 15.5 % (20-50) L 11/29/22 02:43 Unsat Iron Binding 109 ug/dL (112-347) L 11/29/22 02:43 Ferritin 568 ng/mL (30-400) H 11/29/22 02:43 Total Bilirubin 0.4 mg/dL (0.15-1.2) 11/28/22 01:10 AST 20 U/L (0-40) 11/28/22 01:10 ALT 14 U/L (0-41) 11/28/22 01:10 Alkaline Phosphatase 94 U/L (40-130) 11/28/22 01:10 Total Protein 6.2 g/dL (6.6-8.7) L 11/28/22 01:10 Albumin 3.1 g/dL (3.5-5.2) L 11/28/22 01:10 Globulin 3.1 g/dL (1.3-4.6) 11/28/22 01:10 25-OH Vitamin D Total 43 ng/mL (30-100) 11/27/22 10:20 TSH 3.18 uIU/mL (0.27-4.20) 11/28/22 01:10 Urine Color Yellow (Yellow) 11/27/22 19:51 Urine Appearance Sl hazy (CLEAR) A 11/27/22 19:51 Urine pH 6.5 (5-7) 11/27/22 19:51 Ur Specific [place] 1.015 (1.005-1.030) 11/27/22 19:51 Urine Protein Neg (Negative) 11/27/22 19:51 Urine Glucose (UA) Norm (Normal) 11/27/22 19:51 Urine Ketones Negative (Negative) 11/27/22 19:51 Urine Blood 2+ (Negative) H 11/27/22 19:51 Urine Nitrate Negative (Negative) 11/27/22 19:51 Urine Bilirubin Neg (Negative) 11/27/22 19:51 Urine Urobilinogen Norm mg/dL (Negative) 11/27/22 19:51 Ur Leukocyte Esterase Negative (Negative) 11/27/22 19:51 Urine RBC 0-4 /hpf (0-2) H 11/27/22 19:51 Urine WBC 0-4 /hpf (0-5) H 11/27/22 19:51 Ur Squamous Epith Cells None /hpf (0-5) 11/27/22 19:51 Amorphous Sediment 2+ /hpf 11/27/22 19:51 Urine Bacteria None /hpf (NONE) 11/27/22 19:51 Blood Type O Negative 11/29/22 09:25 Rho(D) Type Negative 11/29/22 09:25 Antibody Screen Negative 11/29/22 09:25 Crossmatch See Detail 11/29/22 09:25 Vitals Last Vital Signs Temp 96.7 F L 11/29/22 12:07 Pulse 60 11/29/22 12:07 Resp 18 11/29/22 12:07 BP 155/76 11/29/22 12:07 Pulse Ox 97 11/29/22 12:07 O2 Del Method 11/29/22 12:00 Discharge Plan Discharge Patient Disposition: Home Condition: Stable Prescriptions: New cinacalcet 30 mg tablet 30 mg PO BID Qty: 180 0RF ferrous sulfate 325 mg (65 mg iron) tablet 325 mg PO EVERY OTHER DAY Qty: 90 0RF pantoprazole 40 mg Tablet,Delayed Release (Dr/Ec) 40 mg PO DAILY Qty: 90 0RF polyethylene glycol 3350 [Miralax] 17 gram/dose powder 4 g PO BID Qty: 510 0RF Continued levothyroxine [Synthroid] 25 mcg tablet 25 mcg PO DAILY pravastatin 20 mg tablet 20 mg PO BEDTIME benazepril 20 mg tablet See Rx Instructions .ROUTE .COMPLEX Rx Instructions: 20mg po qam and 10mg po qpm Artificial Tears (cmc) 1 % Drops 2 drp OPHTHALMIC (EYE) QID prochlorperazine maleate [Compazine] 10 mg tablet 10 mg PO Q4H PRN (Reason: Mild Nausea) Qty: 30 3RF lorazepam 1 mg tablet 0.5 - 1 mg PO Q6H PRN (Reason: Severe Nausea) Qty: 30 3RF potassium chloride 20 mEq Packet 20 meq PO BID Qty: 40 0RF albuterol sulfate [ProAir HFA] 90 mcg/actuation Hfa Aerosol Inhaler 2 puff INHALATION QID PRN (Reason: Shortness Of Breath) potassium gluconate 595 mg (99 mg) Tablet 595 mg PO DAILY PRN (Reason: unknown) Spiriva Respimat 1.25 mcg/actuation Mist 2 puff INHALATION DAILY Discharge Orders: Discharge Order (Routine); Ordered 11/29/22 Ordered By: Jack Jay Referrals: Antonietta Montenegro, ENT [Other] (Soonest available appointment for primary hyperparathyroidism.) Aguilar Balbuena DO [Primary Care Provider] - 4-7 days (Please call to schedule a hospital follow-up appointment. ) Carol Rivera MD [Staff Physician] - 1 week Discharge Activity: Increase activity as tolerated Patient Instructions: Iron Supplements (By mouth), Pantoprazole (By mouth), Cinacalcet (By mouth), Anemia (GEN), Hypercalcemia (GEN), Dysphagia (GEN), Hyperparathyroidism (GEN), Aspiration Precautions (GEN) Activity Restrictions/Additional Instructions: Continue cinacalcet, follow-up with your primary doctor and oncologist for reassessment of hypercalcemia. Follow-up with ENT for planning and scheduling of parathyroidectomy for primary hyperparathyroidism which is unable to be done at [facility]. Continue pur?ed diet, maintain strict aspiration precautions. Sit upright when eating, eat only when completely elevated, take small bites, chin, chew and swallow completely before taking the next bite. Similarly small sips at a time when drinking, swallow completely before continuing, drink only when sitting upright, taking return. Follow-up with your primary doctor regarding dysphagia. Discussed dysphagia also with your radiation oncology provider and oncologist. Follow-up with primary doctor and oncologist regarding iron deficiency anemia. Resume checking blood counts at next visit. Discuss additional work-up with endoscopy. Discharge Attestations Time Spent in Discharge Care*: greater than 30 min Quality Metrics Clinical Quality Measures [ No reported AMI, CVA or VTE this stay] Coding Level of Care Code Acute Chg FW DC note Diagnoses Status post implantation of artificial urinary sphincter Z96.0 Postoperative urinary incontinence N99.89; R32 History of prostate cancer Z85.46
[2022-11-29] MEDS: sodium chloride 0.9% 100 mL Bag 50 ML IV (15:45)
[2022-11-29 17:24] LABS: Hemoglobin 8.7 g/dL (11.7-16.6)
== END 2022-11-29 18:40 | disposition home or self-care (01) | DRG 644 ==
LOC: ER 16:12 → MEDSURG 18:32
PROVIDERS: Admitting Provider Internal Medicine; Emergency Provider Family Medicine; PCP Emergency Medicine Emergency Medical Services; Visit Provider Internal Medicine
DX: E21.0 Primary hyperparathyroidism (principal); C34.90 Malignant neoplasm of unspecified part of unspecified bronchus or lung; C79.40 Secondary malignant neoplasm of unspecified part of nervous system; R13.13 Dysphagia, pharyngeal phase; D50.9 Iron deficiency anemia, unspecified; I10 Essential (primary) hypertension; R39.198 Other difficulties with micturition; Z85.46 Personal history of malignant neoplasm of prostate; Z79.899 Other long term (current) drug therapy; Z87.891 Personal history of nicotine dependence; Z96.0 Presence of urogenital implants; Z90.79 Acquired absence of other genital organ(s); Z95.828 Presence of other vascular implants and grafts
CPT/HCPCS: 36415; 36430; 36591; 51798; 74230; 77386; 80048; 80053; 81001; 82306; 82310; 82728; 83540; 83550; 83970; 84443; 85018; 85025; 86850; 86900; 86920; 92611; 94640; 96365; 96372; 96375; 99024; 99214; 99215; 99285; J0360; J0630; J1650; J2405; J2430; J7030; J7040; J7512; J7644; P9040

== ENCOUNTER → 2022-12-04 09:23 | Outpatient (BNVA) | payer OTHER, MEDICARE, SELFPAY | PROVIDERS: PCP Emergency Medicine Emergency Medical Services; Visit Provider Internal Medicine Hematology & Oncology | DX: Z53.9 Procedure and treatment not carried out, unspecified reason (principal) | CPT/HCPCS: 99214 ==

== ENCOUNTER 2022-12-24 09:24 | Oncology outpatient (recurring) (ONCR) | payer OTHER, SELFPAY ==
[2022-11-27 10:37] LABS: Basophils # 0.1 10^3/uL (0.0-0.1); Basophils % 0.6 %; Eosinophils # 0.1 10^3/uL (0.0-0.8); Eosinophils % 1.2 %; Hematocrit 28.9 % (42.0-52.0); Hemoglobin 9.1 g/dL (11.7-16.6); Lymphocytes # 0.3 10^3/uL (0.8-4.8); Lymphocytes % 2.7 %; Mean Corpuscular HGB Conc 31.5 g/dL (30.0-36.0); Mean Corpuscular Hemoglobin 26.1 pg (28.0-34.0); Mean Corpuscular Volume 82.8 fl (80-94); Mean Platelet Volume 10.6 fL (7.4-10.4); Monocytes # 0.4 10^3/uL (0.2-0.9); Monocytes % 4.2 %; Neutrophils # 9.22 10^3/uL (1.8-7.7); Neutrophils % 89.4 %; Nucleated Red Blood Cells % 0 %; Platelet Count 234 10^3/cmm (130-400); Red Blood Count 3.49 10^6/uL (4.1-5.3); Red Cell Distribution Width 16.3 % (12.1-15.1); White Blood Count 10.3 10^3/uL (4.0-10.0)
[2022-11-27 10:54] LABS: Alanine Aminotransferase 15 U/L (0-41); Albumin Level 3.4 g/dL (3.5-5.2); Alkaline Phosphatase 89 U/L (40-130); Aspartate Amino Transferase 15 U/L (0-40); Blood Urea Nitrogen 14 mg/dL (8-23); Carbon Dioxide 26 mmol/L (22-29); Chloride 100 mmol/L (98-107); Globulin 3.1 g/dL (1.3-4.6); Glucose 127 mg/dL (65-115); Osmolality Calculated 278 mOsm/kg (285-295); Sodium 133 mmol/L (136-145); Total Bilirubin 0.5 mg/dL (0.15-1.2); Total Protein 6.5 g/dL (6.6-8.7)
[2022-11-27 11:20] LABS: Parathyroid Hormone 297.6 pg/mL (15-65)
[2022-11-27 11:26] LABS: Calcium 13.9 mg/dL (8.5-10.5)
[2022-11-27] MEDS: sodium chloride 0.9% 1,000 ML 750 ML IV (12:55)
[2022-12-04 10:07] LABS: Basophils % 0.6 %; Eosinophils # 0.1 10^3/uL (0.0-0.8); Eosinophils % 0.9 %; Hematocrit 30.5 % (42.0-52.0); Hemoglobin 9.7 g/dL (11.7-16.6); Lymphocytes # 0.2 10^3/uL (0.8-4.8); Lymphocytes % 3.3 %; Mean Corpuscular HGB Conc 31.8 g/dL (30.0-36.0); Mean Corpuscular Hemoglobin 26.5 pg (28.0-34.0); Mean Corpuscular Volume 83.3 fl (80-94); Mean Platelet Volume 9.3 fL (7.4-10.4); Monocytes # 0.5 10^3/uL (0.2-0.9); Monocytes % 9.4 %; Neutrophils # 4.61 10^3/uL (1.8-7.7); Neutrophils % 85.1 %; Nucleated Red Blood Cells % 0 %; Platelet Count 167 10^3/cmm (130-400); Red Blood Count 3.66 10^6/uL (4.1-5.3); Red Cell Distribution Width 18.2 % (12.1-15.1); White Blood Count 5.4 10^3/uL (4.0-10.0)
[2022-12-04] MEDS: alteplase 1 mg/mL SDV 2 mL 2 MG INTRACATH (10:07)
[2022-12-04 10:36] LABS: Alanine Aminotransferase 12 U/L (0-41); Albumin Level 3.3 g/dL (3.5-5.2); Alkaline Phosphatase 96 U/L (40-130); Anion Gap 12.9 (5-19); Aspartate Amino Transferase 12 U/L (0-40); Blood Urea Nitrogen 6 mg/dL (8-23); Calcium 9.1 mg/dL (8.5-10.5); Carbon Dioxide 23 mmol/L (22-29); Chloride 102 mmol/L (98-107); Globulin 2.8 g/dL (1.3-4.6); Glucose 94 mg/dL (65-115); Osmolality Calculated 275 mOsm/kg (285-295); Potassium 3.9 mmol/L (3.5-5.1); Sodium 134 mmol/L (136-145); Total Bilirubin 0.4 mg/dL (0.15-1.2); Total Protein 6.1 g/dL (6.6-8.7)
--- NOTE | 2022-12-04 10:39 | ONCRAD TMN_ITS ---
Radiation Oncology Treatment Management Note Patient Name: Adrian Corey Date of : 1940 Date of Service: 12/04/2022 Attending Physician: Zackary Landaverde M.D. Adrian Corey is an 82 year-old white male recently diagnosed with a clinical stage IIIA (T4N0) non-small cell lung cancer. The patient evaluated by his primary care physician for chest pain and cough. A chest radiograph identified a mass in the left lung. A thoracic CT scan ordered on August 29, 2022 described a 2.2 cm x 2.8 cm x 3.3 cm spiculated mass in the left lung apex and a peripherally enhancing left lower lobe necrotic mass, measuring 5.2 cm x 4.1 cm x 5.3 cm. A PET scan obtained on September 08, 2022 confirmed hypermetabolic lesions in the left lung apex, left upper-lobe, left lower-lobe, and equivocal left hilar adenopathy. A navigational bronchoscopy with biopsy performed on September 18, 2022 diagnosed a poorly-differentiated adenocarcinoma obtained from the left upper lobe and left-lower lobe lesions. Biopsies obtained from lymph node stations 4L and 7 were negative for malignancy. PD-L1 expression level was less than 1% (TPS) from the upper-lobe mass. The patient has received 12 Gy of a prescribed 60 Ritchie with an intensity modulated radiotherapy plan utilizing a step and shoot treatment technique. He has been prescribed carboplatin (AUC 2) and Abraxane (80 mg/m???) weekly during therapy. Upon review of systems, he denied pulmonary symptoms. On physical examination, the patient weighed 128 lbs. His temperature was 98.2 ???F and the blood pressure was 152/83 mmHg. The pulse was 86 bpm and his respiratory rate was 16. Oxygen saturation while breathing room air was 99%. There was no erythema within the treatment negron. Bilateral decreased breath sounds. Continue thoracic radiotherapy as prescribed. Signed by: Dr. Zackary Landaverde 12/04/2022 10:37:49 AM
[2022-12-06 12:08] LABS: Alanine Aminotransferase 12 U/L (0-41); Albumin Level 3.2 g/dL (3.5-5.2); Alkaline Phosphatase 101 U/L (40-130); Anion Gap 11.9 (5-19); Aspartate Amino Transferase 11 U/L (0-40); Blood Urea Nitrogen 9 mg/dL (8-23); Carbon Dioxide 25 mmol/L (22-29); Chloride 101 mmol/L (98-107); Globulin 3.1 g/dL (1.3-4.6); Glucose 97 mg/dL (65-115); Osmolality Calculated 277 mOsm/kg (285-295); Potassium 3.9 mmol/L (3.5-5.1); Sodium 134 mmol/L (136-145); Total Bilirubin 0.4 mg/dL (0.15-1.2); Total Protein 6.3 g/dL (6.6-8.7)
[2022-12-06] MEDS: sodium chloride 0.9% 250 ML 100 ML IV (13:50)
[2022-12-06] MEDS: ondansetron 2 mg/ML SDV 2 mL 8 MG IVP (13:51)
[2022-12-06] MEDS: paclitaxel protein-bound 150 MG in empty flexible container 1 EACH 60 MG IV (14:17)
[2022-12-06] MEDS: CARBOplatin 170 MG in sodium chloride 0.9% 500 ML 517 MG IV (14:58)
[2022-12-06 16:08] VITALS: BP 175/83; PULSE 71; TEMP 36.6; O2SAT 98
--- NOTE | 2022-12-11 13:47 | ONCRAD TMN_ITS ---
Radiation Oncology Treatment Management Note Patient Name: Adrian Corey Date of : 1940 Date of Service: 12/11/2022 Attending Physician: Zackary Landaverde M.D. Adrian Corey is an 82 year-old white male recently diagnosed with a clinical stage IIIA (T4N0) non-small cell lung cancer. The patient evaluated by his primary care physician for chest pain and cough. A chest radiograph identified a mass in the left lung. A thoracic CT scan ordered on August 29, 2022 described a 2.2 cm x 2.8 cm x 3.3 cm spiculated mass in the left lung apex and a peripherally enhancing left lower lobe necrotic mass, measuring 5.2 cm x 4.1 cm x 5.3 cm. A PET scan obtained on September 08, 2022 confirmed hypermetabolic lesions in the left lung apex, left upper-lobe, left lower-lobe, and equivocal left hilar adenopathy. A navigational bronchoscopy with biopsy performed on September 18, 2022 diagnosed a poorly-differentiated adenocarcinoma obtained from the left upper lobe and left-lower lobe lesions. Biopsies obtained from lymph node stations 4L and 7 were negative for malignancy. PD-L1 expression level was less than 1% (TPS) from the upper-lobe mass. The patient has received 22 Gy of a prescribed 60 Ritchie with an intensity modulated radiotherapy plan utilizing a step and shoot treatment technique. He has been prescribed carboplatin (AUC 2) and Abraxane (80 mg/m???) weekly during therapy. Upon review of systems, he continues to describe abdominal pain. On physical examination, the patient weighed 126 lbs. His temperature was 98.8 ???F and the blood pressure was 136/70 mmHg. The pulse was 93 bpm and his respiratory rate was 20. Oxygen saturation while breathing room air was 98%. There was no erythema within the treatment negron. Bilateral decreased breath sounds. Continue thoracic radiotherapy as planned. Signed by: Dr. Zackary Landaverde 12/11/2022 1:46:17 PM
[2022-12-13 11:00] VITALS: BMI 18.5
[2022-12-13] MEDS: alteplase 1 mg/mL SDV 2 mL 2 MG INTRACATH ×2 (11:12→12:05)
[2022-12-13 12:11] LABS: Basophils % 0.7 %; Eosinophils # 0.1 10^3/uL (0.0-0.8); Eosinophils % 0.9 %; Hematocrit 27.4 % (42.0-52.0); Hemoglobin 8.5 g/dL (11.7-16.6); Lymphocytes # 0.1 10^3/uL (0.8-4.8); Lymphocytes % 1.7 %; Mean Corpuscular Hemoglobin 26.4 pg (28.0-34.0); Mean Corpuscular Volume 85.1 fl (80-94); Mean Platelet Volume 9.9 fL (7.4-10.4); Monocytes # 0.3 10^3/uL (0.2-0.9); Monocytes % 5.8 %; Neutrophils # 4.85 10^3/uL (1.8-7.7); Neutrophils % 90.3 %; Nucleated Red Blood Cells % 0 %; Platelet Count 135 10^3/cmm (130-400); Red Blood Count 3.22 10^6/uL (4.1-5.3); Red Cell Distribution Width 18.3 % (12.1-15.1); White Blood Count 5.4 10^3/uL (4.0-10.0)
[2022-12-13 12:31] LABS: Alanine Aminotransferase 22 U/L (0-41); Alkaline Phosphatase 92 U/L (40-130); Anion Gap 10.8 (5-19); Aspartate Amino Transferase 18 U/L (0-40); Blood Urea Nitrogen 11 mg/dL (8-23); Calcium 9.6 mg/dL (8.5-10.5); Carbon Dioxide 28 mmol/L (22-29); Chloride 99 mmol/L (98-107); Globulin 3.1 g/dL (1.3-4.6); Glucose 110 mg/dL (65-115); Osmolality Calculated 278 mOsm/kg (285-295); Potassium 3.8 mmol/L (3.5-5.1); Sodium 134 mmol/L (136-145); Total Bilirubin 0.3 mg/dL (0.15-1.2); Total Protein 6.1 g/dL (6.6-8.7)
[2022-12-13 14:06] LABS: Add Urine Microscopic? NO; Charge for UA Resulting for Rev
[2022-12-13] MEDS: sodium chloride 0.9% 250 ML 75 ML IV (14:07)
[2022-12-13] MEDS: ondansetron 2 mg/ML SDV 2 mL 8 MG IVP (14:08)
[2022-12-13 14:09] LABS: Ferritin 608 ng/mL (30-400); Iron 22 ug/dL (59-158); Percent Saturation 12.5 % (20-50); Total Iron Binding Capacity 175 mcg/dl; Unsaturated Iron Binding 153 ug/dL (112-347)
[2022-12-13 14:23] LABS: Bilirubin Urine Neg (Negative); Blood Urine Neg (Negative); Glucose Urine UA Norm (Normal); Ketones Urine Negative (Negative); Leukocyte Esterase Urine Negative (Negative); Nitrate Urine Negative (Negative); Protein Urine Neg (Negative); Specific Gravity, Urine 1.015 (1.005-1.030); Urine Appearance Clear (CLEAR); Urine Color Yellow (Yellow); Urobilinogen Urine Neg (Negative); pH Urine 5 (5-7)
[2022-12-13 14:25] LABS: Vitamin B12 292 pg/mL (232-1245)
[2022-12-13] MEDS: CARBOplatin 220 MG in sodium chloride 0.9% 500 ML 522 MG IV (15:14)
[2022-12-13 16:33] VITALS: BP 164/77; PULSE 76; RESP 16; TEMP 37; O2SAT 97
[2022-12-14] MEDS: cyanocobalamin 1,000 mcg/mL SDV 1000 MCG IM (10:12)
--- NOTE | 2022-12-18 13:43 | ONCRAD TMN_ITS ---
Radiation Oncology Treatment Management Note Patient Name: Adrian Corey Date of : 1940 Date of Service: 12/18/2022 Attending Physician: Zackary Landaverde M.D. Adrian Corey is an 82 year-old white male recently diagnosed with a clinical stage IIIA (T4N0) non-small cell lung cancer. The patient evaluated by his primary care physician for chest pain and cough. A chest radiograph identified a mass in the left lung. A thoracic CT scan ordered on August 29, 2022 described a 2.2 cm x 2.8 cm x 3.3 cm spiculated mass in the left lung apex and a peripherally enhancing left lower lobe necrotic mass, measuring 5.2 cm x 4.1 cm x 5.3 cm. A PET scan obtained on September 08, 2022 confirmed hypermetabolic lesions in the left lung apex, left upper-lobe, left lower-lobe, and equivocal left hilar adenopathy. A navigational bronchoscopy with biopsy performed on September 18, 2022 diagnosed a poorly-differentiated adenocarcinoma obtained from the left upper lobe and left-lower lobe lesions. Biopsies obtained from lymph node stations 4L and 7 were negative for malignancy. PD-L1 expression level was less than 1% (TPS) from the upper-lobe mass. The patient has received 32 Gy of a prescribed 60 Ritchie with an intensity modulated radiotherapy plan utilizing a step and shoot treatment technique. He has been prescribed carboplatin (AUC 2) and Abraxane (80 mg/m???) weekly during therapy. Upon review of systems, he denied any new pulmonary symptoms. On physical examination, the patient weighed 121 lbs. His temperature was 97.2 ???F and the blood pressure was 122/75 mmHg. The pulse was 100 bpm and his respiratory rate was 16. Oxygen saturation while breathing room air was 99%. There was no erythema within the treatment negron. Decreased breath sounds. Continue thoracic radiotherapy as prescribed. Signed by: Dr. Zackary Landaverde 12/18/2022 1:41:50 PM
[2022-12-20] VITALS (9 sets, daily range): BP systolic 126–154; BP diastolic 65–84; PULSE 18–90; RESP 16–18; TEMP 36.6–36.9; O2SAT 98–99
[2022-12-20 10:05] LABS: Basophils % 0.8 %; Eosinophils % 1.1 %; Hematocrit 24.6 % (42.0-52.0); Hemoglobin 7.6 g/dL (11.7-16.6); Lymphocytes # 0.1 10^3/uL (0.8-4.8); Lymphocytes % 3.4 %; Mean Corpuscular HGB Conc 30.9 g/dL (30.0-36.0); Mean Corpuscular Hemoglobin 26.5 pg (28.0-34.0); Mean Corpuscular Volume 85.7 fl (80-94); Mean Platelet Volume 9.9 fL (7.4-10.4); Monocytes # 0.3 10^3/uL (0.2-0.9); Monocytes % 11.1 %; Neutrophils # 2.15 10^3/uL (1.8-7.7); Neutrophils % 82.1 %; Nucleated Red Blood Cells % 0 %; Platelet Count 170 10^3/cmm (130-400); Red Blood Count 2.87 10^6/uL (4.1-5.3); Red Cell Distribution Width 17.7 % (12.1-15.1); White Blood Count 2.6 10^3/uL (4.0-10.0)
[2022-12-20 10:31] LABS: Alanine Aminotransferase 14 U/L (0-41); Albumin Level 3.1 g/dL (3.5-5.2); Alkaline Phosphatase 87 U/L (40-130); Aspartate Amino Transferase 12 U/L (0-40); Blood Urea Nitrogen 15 mg/dL (8-23); Calcium 8.6 mg/dL (8.5-10.5); Carbon Dioxide 27 mmol/L (22-29); Chloride 100 mmol/L (98-107); Globulin 2.8 g/dL (1.3-4.6); Glucose 132 mg/dL (65-115); Osmolality Calculated 289 mOsm/kg (285-295); Sodium 138 mmol/L (136-145); Total Bilirubin 0.3 mg/dL (0.15-1.2); Total Protein 5.9 g/dL (6.6-8.7)
[2022-12-20] MEDS: acetaminophen 325 mg Tablet 650 MG PO (12:43)
[2022-12-20] MEDS: diphenhydrAMINE 25 mg Capsule PO (12:43)
[2022-12-20] MEDS: sodium chloride 0.9% 250 mL Bag IV (12:44)
[2022-12-24 09:42] VITALS: BMI 18.4
[2022-12-24 09:45] LABS: Basophils % 1.1 %; Eosinophils % 0.9 %; Hematocrit 34.6 % (42.0-52.0); Lymphocytes # 0.1 10^3/uL (0.8-4.8); Mean Corpuscular HGB Conc 31.8 g/dL (30.0-36.0); Mean Corpuscular Hemoglobin 27.9 pg (28.0-34.0); Mean Corpuscular Volume 87.8 fl (80-94); Mean Platelet Volume 9.4 fL (7.4-10.4); Monocytes # 0.8 10^3/uL (0.2-0.9); Monocytes % 22.6 %; Neutrophils # 2.44 10^3/uL (1.8-7.7); Neutrophils % 69.7 %; Nucleated Red Blood Cells % 0 %; Platelet Count 192 10^3/cmm (130-400); Red Blood Count 3.94 10^6/uL (4.1-5.3); Red Cell Distribution Width 17.8 % (12.1-15.1); White Blood Count 3.5 10^3/uL (4.0-10.0)
[2022-12-24 10:17] LABS: Alanine Aminotransferase 10 U/L (0-41); Albumin Level 3.1 g/dL (3.5-5.2); Alkaline Phosphatase 101 U/L (40-130); Anion Gap 13.9 (5-19); Aspartate Amino Transferase 10 U/L (0-40); Blood Urea Nitrogen 10 mg/dL (8-23); Calcium 8.9 mg/dL (8.5-10.5); Carbon Dioxide 27 mmol/L (22-29); Chloride 98 mmol/L (98-107); Globulin 3.1 g/dL (1.3-4.6); Glucose 129 mg/dL (65-115); Osmolality Calculated 281 mOsm/kg (285-295); Potassium 3.9 mmol/L (3.5-5.1); Sodium 135 mmol/L (136-145); Total Bilirubin 0.5 mg/dL (0.15-1.2); Total Protein 6.2 g/dL (6.6-8.7)
[2022-12-24] MEDS: sodium chloride 0.9% 250 ML 75 ML IV (11:10)
[2022-12-24] MEDS: ondansetron 2 mg/ML SDV 2 mL 8 MG IVP (11:11)
[2022-12-24] MEDS: cyanocobalamin 1,000 mcg/mL SDV 1000 MCG IM (11:16)
[2022-12-24] MEDS: CARBOplatin 220 MG in sodium chloride 0.9% 500 ML 522 MG IV (12:18)
[2022-12-24 13:26] VITALS: BP 169/90; PULSE 83; RESP 16; TEMP 36.6; O2SAT 98
== END 2022-12-25 23:59 | disposition home or self-care (01) ==
PROVIDERS: Internal Medicine Hematology & Oncology; PCP Emergency Medicine Emergency Medical Services; Visit Provider Radiology Radiation Oncology
DX: Z51.11 Encounter for antineoplastic chemotherapy (principal); Z51.0 Encounter for antineoplastic radiation therapy; C34.82 Malignant neoplasm of overlapping sites of left bronchus and lung; C77.8 Secondary and unspecified malignant neoplasm of lymph nodes of multiple regions; C79.31 Secondary malignant neoplasm of brain; E83.52 Hypercalcemia; Z79.899 Other long term (current) drug therapy; Z79.52 Long term (current) use of systemic steroids; Z87.891 Personal history of nicotine dependence
CPT/HCPCS: 36415; 36430; 36593; 77336; 77386; 80053; 81003; 82310; 82607; 82728; 83540; 83550; 83970; 85025; 86850; 86900; 86920; 96365; 96367; 96372; 96375; 96402; 96413; 96417; 99024; 99213; 99214; 99215; J1100; J2405; J2997; J3420; J7030; J7040; J7050; J9045; J9264; P9040

== ENCOUNTER 2022-12-28 11:10 | Oncology outpatient (recurring) (ONCR) | payer OTHER, SELFPAY ==
--- NOTE | 2022-12-26 13:42 | ONCRAD TMN_ITS ---
Radiation Oncology Treatment Management Note Patient Name: Adrian Corey Date of : 1940 Date of Service: 12/26/2022 Attending Physician: Zackary Landaverde M.D. Adrian Corey is an 82 year-old white male recently diagnosed with a clinical stage IIIA (T4N0) non-small cell lung cancer. The patient evaluated by his primary care physician for chest pain and cough. A chest radiograph identified a mass in the left lung. A thoracic CT scan ordered on August 29, 2022 described a 2.2 cm x 2.8 cm x 3.3 cm spiculated mass in the left lung apex and a peripherally enhancing left lower lobe necrotic mass, measuring 5.2 cm x 4.1 cm x 5.3 cm. A PET scan obtained on September 08, 2022 confirmed hypermetabolic lesions in the left lung apex, left upper-lobe, left lower-lobe, and equivocal left hilar adenopathy. A navigational bronchoscopy with biopsy performed on September 18, 2022 diagnosed a poorly-differentiated adenocarcinoma obtained from the left upper lobe and left-lower lobe lesions. Biopsies obtained from lymph node stations 4L and 7 were negative for malignancy. PD-L1 expression level was less than 1% (TPS) from the upper-lobe mass. The patient has received 40 Gy of a prescribed 60 Ritchie with an intensity modulated radiotherapy plan utilizing a step and shoot treatment technique. He has been prescribed carboplatin (AUC 2) and Abraxane (80 mg/m???) weekly during therapy. Upon review of systems, he reported a cough. On physical examination, the patient weighed 123 lbs. His temperature was 96.6 ???F and the blood pressure was 133/78 mmHg. The pulse was 108 bpm and his respiratory rate was 16. Oxygen saturation while breathing room air was 97%. There was no erythema within the treatment negron. Continue thoracic radiotherapy as planned. I recommended generic OTC cough suppressant. Signed by: Dr. Zackary Landaverde 12/26/2022 1:40:14 PM
== END 2023-01-03 15:06 | disposition home or self-care (01) ==
PROVIDERS: PCP Emergency Medicine Emergency Medical Services; Visit Provider Radiology Radiation Oncology
DX: Z51.0 Encounter for antineoplastic radiation therapy (principal); C34.82 Malignant neoplasm of overlapping sites of left bronchus and lung; C77.8 Secondary and unspecified malignant neoplasm of lymph nodes of multiple regions; C79.31 Secondary malignant neoplasm of brain; Z79.899 Other long term (current) drug therapy; Z87.891 Personal history of nicotine dependence
CPT/HCPCS: 77336; 77386; 99024; J1100; J2405; J3420; J7050

== ENCOUNTER → 2022-12-31 07:47 | Outpatient (BNVA) | payer OTHER, SELFPAY | PROVIDERS: PCP Emergency Medicine Emergency Medical Services; Visit Provider Nurse Practitioner Family | DX: C34.82 Malignant neoplasm of overlapping sites of left bronchus and lung (principal) | CPT/HCPCS: 99214 ==

== ENCOUNTER 2023-01-14 13:02 | Inpatient (IN) | payer OTHER, SELFPAY ==
[2023-01-14] VITALS (15 sets, daily range): BP systolic 72–199; BP diastolic 48–108; PULSE 68–109; RESP 14–26; TEMP 36.8–36.9; O2SAT 95–97
--- NOTE | 2023-01-14 13:29 | XR_ITS ---
WS: [id number] Exam: XR chest 1V portable [id number] Date/Time of Exam: 01/14/2023 1:41 PM Reason For Exam: vomiting, low blood pressure Comparison 10/25/2022. The lungs are fully expanded. Dependent changes in the bases. No pleural effusion. Again noted is a s mall mass in the upper lobe of the left lung showing little change. Heart size is normal. Increased d ensity in the left retrocardiac region may represent a mass the left lower lobe. The mediastinum is n ormal in contour. A right subclavian port ends in the lower one third of the SVC. Bony structures are intact. Chronic interstitial changes noted bilaterally. Probable COPD. XR/XR chest 1V portable [id number] IMPRESSION: 1. Left upper lobe pulmonary nodule unchanged. There is also increased density in the left retrocardiac region that may represent a mass. This is unchanged. 2. Probable COPD. Chronic interstitial changes.
--- NOTE | 2023-01-14 13:29 | CT_ITS ---
WS: [id number] CT ABDOMEN PELVIS TECHNIQUE: Contrast-enhanced CT of the abdomen and pelvis with coronal and sagittal reformatted image s. CLINICAL INFORMATION: abdominal pain COMPARISON: CT chest January 08, 2023 DLP: 348.[address] scans at [facility] use at least one of these dose optimization techniques: automated e xposure control; mA and/or kV adjustment per patient size (includes targeted exams where dose is matc hed to clinical indication); or iterative reconstruction. FINDINGS: Fluid distended loop of small bowel in the RIGHT lower quadrant measuring 3.1 CM. A few dis tended loops of small bowel in the LEFT upper quadrant with air-fluid levels. Transition point in the RIGHT lower quadrant with dilated proximal small bowel suspicious for internal hernia or volvulus or adhesions. No perforation or free air. Associated fluid in the RIGHT lower quadrant about the dilate d loop of local small bowel with engorgement of the mesentery. Sigmoid diverticulosis. Pancolonic constipation.Urine distended bladder. Free fluid in the pelvis. Diffuse fatty infiltration of the liver. Cholelithiasis. Normal portal vein and splenic vein. Small e sophageal hiatal hernia. Adrenal glands are normal. Normal renal parenchymal enhancement. No hydronep hrosis. Bilateral renal cysts. Irregular Low-attenuation lesion upper pole RIGHT kidney with peripher al enhancement. This can be followed up with ultrasound. This measures approximately 3.1 x 2.2 M. No hydronephrosis in either kidney. Normal caliber abdominal aorta. Aortic calcification. Infrarenal abdominal aortic aneurysm measuring 2.4 x 2.6 cm with peripheral mural thrombus. Densely calcified il iac arteries. Densely calcified celiac and SMA which appear patent proximally. Severe stenosis LEFT greater than RIGHT common iliac arteries. Severe stenosis external iliac arterie s. Unchanged cavitary neoplasm LEFT lower lobe. CT/CT abdomen pelvis w con* [id number] IMPRESSION: 1. Small bowel obstruction with transition point RIGHT lower quadrant with tet rex. This may be due to Internal hernia, volvulus, or multifocal adhesions. Dilated small bowel loop in the RIGHT lower quadrant measures 3.1 CM. No free a ir or pneumatosis. 2. Mild pancolonic constipation. 3. Small amount of free fluid in the pelvis. 4. Cavitary neoplasm LEFT lower lobe unchanged. 5. Small esophageal hiatal hernia. 6. Irregular low-attenuation lesion upper pole RIGHT kidney with peripheral en hancement. This can be followed up with ultrasound. This measures approximately 3.1 x 2.2 CM. 7. Cholelithiasis. Notified Khang Johnson MD at 01/14/2023 2:56 PM.
--- NOTE | 2023-01-14 13:38 | ED_ITS ---
HPI - Abdominal Pain General: Chief Complaint: Abdominal Pain Stated Complaint: n/v/weak/dizzy Time Seen by Provider: 01/14/23 13:19 Source: patient Mode of arrival: ambulatory History of Present Illness: This 82-year-old man with a history of lung cancer, presents to the ER with abdominal pain and vomiting that started last night. Pain is located in the center of the abdomen. Patient notes that his vomitus contains blood in it. He was diagnosed with right pulmonary embolism about 4 days ago and started on on Eliquis. Patient denies fever, headache, diarrhea or any other systemic symptoms. He just finished with a chemotherapy and radiotherapy for his lung cancer last week. He has had blood transfusions in the past due to anemia secondary to chemotherapy/radiation treatment. Associated Symptoms: Reports hematemesis (Blood in vomitus), nausea and vomiting; Denies chills and dysuria Review of Systems Const: Denies: chills, body aches or change in appetite Card: Denies: chest pain or lightheadedness GI: Reports: abdominal pain, nausea, vomiting and hematemesis (Blood in vomitus) : Denies: dysuria Musc: Denies: neck pain or back pain Neuro: Denies: headache(s) or weakness in extremities Psych: Denies: depression Antonio/Lymph: Denies: easy bruising All/Imm: Denies: urticaria, tongue swelling or facial swelling PFSH ED PFSH: Medical History Accelerated essential hypertension Distal radius fracture, right History of prostate cancer Lung cancer Port-A-Cath in place Pulmonary embolism Thyroid disease Surgical History History of open reduction and internal fixation (ORIF) procedure right distal radius Family History Father Anesthesia complication Brother CAD (coronary artery disease) Sister Chronic kidney disease (CKD) Diabetes Other Hypertension Denies family history of Clotting disorder Dementia Hyperlipidemia Psychiatric illness Suicide Bleeding disorder Lung disease Cancer Stroke Social History Smoking and tobacco status: smoker, details unknown Quit status (tobacco): has quit using tobacco Year quit tobacco: 2018 Former quit date comment: 2ppd x 27 years; quit smoking pipe Oct 2021 Alcohol intake: never Physical Exam Const: COMMON NORMALS: no acute distress, patient oriented x3, no limitations and alert HENMT: COMMON NORMALS: normocephalic HEAD & SCALP: normocephalic Eye: COMMON NORMALS: EOMs intact bilaterally Neck/C-Spine: COMMON NORMALS: full ROM and supple Chest: COMMONS NORMALS: normal inspection of the chest Resp: COMMON NORMALS: normal respiratory effort, No retractions, No use of accessory muscles and clear to auscultation bilaterally AUSCULTATION: clear to auscultation bilaterally Cardio: COMMON NORMALS: regular rate, regular rhythm and No murmurs present (Cardio) RATE: regular rate RHYTHM: regular rhythm GI: COMMON NORMALS: Normal to inspection, nondistended, normoactive bowel sounds present OTHER: Mild tenderness in the periumbilical region. No distention or rigidity. Normal bowel sounds. : COMMON NORMALS: Yes no CVA tenderness BLADDER/KIDNEY EXAM: Yes no CVA tenderness Back/Pelvis: COMMON NORMALS: no CVA tenderness and no thoracic nor lumbar tenderness Extremity: GENERAL: Yes normal exam except as noted Neuro: COMMON NORMALS: patient oriented x3 and no focal motor deficits SENSORIUM/ORIENTATION: Yes alert Psych: COMMON NORMALS: mental status grossly normal and cooperative Course Consultations: Consultation #1: Case discussed with Dr. Turcios regarding the small bowel obstruction reported by radiology. He recommends that patient be admitted to hospitalist and he will see patient in consult. Vital Signs: Vital signs: Vital Signs Temperature 98.2 F 01/14/23 13:08 Pulse Rate 95 01/14/23 13:08 Respiratory Rate 18 01/14/23 13:40 Blood Pressure 72/48 01/14/23 13:08 Pulse Oximetry 97 01/14/23 13:08 Oxygen Delivery Me thod 01/14/23 13:08 MDM - Abdominal Pain Medical Decision Making Medical decision making: Patient presents with abdominal pain vomiting that started last night. He has abdominal tenderness on exam. CT abdomen/pelvis reveals small bowel obstruction. Case discussed with Dr. Turcios who recommends hospitalist admission and he will see patient in consult. Case discussed with Dr Quintero who accepted patient for admission. Lab Data 01/14/23 13:27 01/14/23 13:27 Labs/Radiology: Radiology Impressions Abdomen/Pelvis CT 01/14/23 13:29 IMPRESSION: 1. Small bowel obstruction with transition point RIGHT lower quadrant with teth ering. This may be due to Internal hernia, volvulus, or multifocal adhesions. Dilated small bowel loop in the RIGHT lower quadrant measures 3.1 CM. No free air or pneumatosis. 2. Mild pancolonic constipation. 3. Small amount of free fluid in the pelvis. 4. Cavitary neoplasm LEFT lower lobe unchanged. 5. Small esophageal hiatal hernia. 6. Irregular low-attenuation lesion upper pole RIGHT kidney with peripheral enhancement. This can be followed up with ultrasound. This measures approximately 3.1 x 2.2 CM. 7. Cholelithiasis. Notified Khang Johnson MD at 01/14/2023 2:56 PM. Chest X-Ray 01/14/23 16:23 IMPRESSION: 1. Gastric tube tip in the mid stomach. 2. Stable chest findings. Laboratory Results WBC 4.3 10^3/uL (4.0-10.0) 01/14/23 13:27 RBC 3.00 10^6/uL (4.1-5.3) L 01/14/23 13:27 Hgb 8.7 g/dL (11.7-16.6) L 01/14/23 13:27 Hct 27.4 % (42.0-52.0) L 01/14/23 13:27 MCV 91.3 fl (80-94) 01/14/23 13:27 MCH 29.0 pg (28.0-34.0) 01/14/23 13:27 MCHC 31.8 g/dL (30.0-36.0) 01/14/23 13:27 RDW 17.7 % (12.1-15.1) H 01/14/23 13:27 Plt Count 146 10^3/cmm (130-400) 01/14/23 13:27 MPV 10.8 fL (7.4-10.4) H 01/14/23 13:27 Neut % (Auto) 91.0 % 01/14/23 13:27 Lymph % (Auto) 2.8 % 01/14/23 13:27 [place] % (Auto) 4.8 % 01/14/23 13:27 Eos % (Auto) 0.0 % 01/14/23 13:27 Baso % (Auto) 0.5 % 01/14/23 13:27 Reticulocyte % (Auto) 0.7 % (0.5-2.0) 01/14/23 13:27 Neut # (Auto) 3.95 10^3/uL (1.8-7.7) 01/14/23 13:27 Lymph # (Auto) 0.1 10^3/uL (0.8-4.8) L 01/14/23 13:27 [place] # (Auto) 0.2 10^3/uL (0.2-0.9) 01/14/23 13:27 Eos # (Auto) 0.0 10^3/uL (0.0-0.8) 01/14/23 13:27 Baso # (Auto) 0.0 10^3/uL (0.0-0.1) 01/14/23 13: Nucleated RBC % (auto) 0 % 01/14/23 13: Nucleated RBCs # 0.0 /100WBC 01/14/23 13:27 PT 16.20 SECONDS (12.1-14.9) H 01/14/23 13:27 INR 1.26 (0.8-1.2) H 01/14/23 13:27 Sodium 135 mmol/L (136-145) L 01/14/23 13:27 Potassium 3.6 mmol/L (3.5-5.1) 01/14/23 13:27 Chloride 96 mmol/L (98-107) L 01/14/23 13:27 Carbon Dioxide 21 mmol/L (22-29) L 01/14/23 13:27 Anion Gap 21.6 (5-19) H 01/14/23 13:27 BUN 21 mg/dL (8-23) 01/14/23 13:27 Creatinine 0.8 mg/dL (0.7-1.2) 01/14/23 13:27 GFR Calculation Not Reportable 01/14/23 13:27 Glucose 264 mg/dL (65-115) H 01/14/23 13:27 Calculated Osmolality 292 mOsm/kg (285-295) 01/14/23 13:27 Calcium 10.3 mg/dL (8.5-10.5) 01/14/23 13:27 Total Bilirubin 0.4 mg/dL (0.15-1.2) 01/14/23 13:27 AST 12 U/L (0-40) 01/14/23 13:27 ALT 9 U/L (0-41) 01/14/23 13:27 Alkaline Phosphatase 112 U/L (40-130) 01/14/23 13:27 Total Protein 6.8 g/dL (6.6-8.7) 01/14/23 13:27 Albumin 3.9 g/dL (3.5-5.2) 01/14/23 13:27 Globulin 2.9 g/dL (1.3-4.6) 01/14/23 13:27 Lipase 18 U/L (13-60) 01/14/23 13:27 Blood Type O Negative 01/14/23 15:15 Rho(D) Type Negative 01/14/23 15:15 Antibody Screen Negative 01/14/23 15:15 Discharge Plan Discharge Patient Disposition: Admitted As Inpatient Clinical Impression: SBO (small bowel obstruction) Condition: Stable Coding Level of Care Code ED Casting Room Helper for Anahy Elliott
[2023-01-14] MEDS: morphine 4 mg/mL SDV 1 mL 2 MG IM (13:40)
[2023-01-14] MEDS: metoclopramide 5 mg/mL SDV 2 mL 10 MG IVP (13:45)
[2023-01-14] MEDS: lactated ringers 1,000 ML 999 ML IV (13:48)
[2023-01-14 13:51] LABS: Basophils % 0.5 %; Hematocrit 27.4 % (42.0-52.0); Hemoglobin 8.7 g/dL (11.7-16.6); Lymphocytes # 0.1 10^3/uL (0.8-4.8); Lymphocytes % 2.8 %; Mean Corpuscular HGB Conc 31.8 g/dL (30.0-36.0); Mean Corpuscular Volume 91.3 fl (80-94); Mean Platelet Volume 10.8 fL (7.4-10.4); Monocytes # 0.2 10^3/uL (0.2-0.9); Monocytes % 4.8 %; Neutrophils # 3.95 10^3/uL (1.8-7.7); Nucleated Red Blood Cells % 0 %; Platelet Count 146 10^3/cmm (130-400); Red Cell Distribution Width 17.7 % (12.1-15.1); White Blood Count 4.3 10^3/uL (4.0-10.0)
[2023-01-14 14:07] LABS: Alanine Aminotransferase 9 U/L (0-41); Albumin Level 3.9 g/dL (3.5-5.2); Alkaline Phosphatase 112 U/L (40-130); Anion Gap 21.6 (5-19); Aspartate Amino Transferase 12 U/L (0-40); Blood Urea Nitrogen 21 mg/dL (8-23); Calcium 10.3 mg/dL (8.5-10.5); Carbon Dioxide 21 mmol/L (22-29); Chloride 96 mmol/L (98-107); Globulin 2.9 g/dL (1.3-4.6); Glucose 264 mg/dL (65-115); Lipase 18 U/L (13-60); Osmolality Calculated 292 mOsm/kg (285-295); Potassium 3.6 mmol/L (3.5-5.1); Sodium 135 mmol/L (136-145); Total Bilirubin 0.4 mg/dL (0.15-1.2); Total Protein 6.8 g/dL (6.6-8.7)
[2023-01-14] MEDS: iohexol 350 mg/mL 500 mL Btl (per mL) IV (14:22)
--- NOTE | 2023-01-14 16:23 | XRR_ITS ---
PROCEDURE INFORMATION: Exam: XR Chest Exam date and time: 01/14/2023 4:36 PM Age: 82 years old Clinical indication: Device placement; Ng tube; Additional info: Need stat xray for ng tube placement TECHNIQUE: Imaging protocol: Radiologic exam of the chest. Views: 1 view. COMPARISON: CR XR chest 1V portable [id number] 01/14/2023 1:47 PM FINDINGS: Tubes, catheters and devices: Right subclavian [id number] with tip over the mid SVC. Gastric tube with tip in the mid stomach. Lungs: Emphysema. Stable opacity in the left lung base. Stable interstitial scarring in the right base. Stable nodular density in the left upper lobe. Pleural spaces: Unremarkable. No pleural effusion. No pneumothorax. Heart/Mediastinum: Unremarkable. No cardiomegaly. Bones/joints: Unremarkable. XR/XR chest 1V portable [id number] IMPRESSION: 1. Gastric tube tip in the mid stomach. 2. Stable chest findings.
--- NOTE | 2023-01-14 17:00 | P.HP_ITS ---
Providers/Chief Complaint Primary Care Provider: Aguilar Balbuena DO Chief Complaint: n/v/weak/dizzy History of Present Illness Adrian Corey is a 82 year old male with a past medical history of metastatic lung cancer, with brain metastasis, on chemo and radiation therapy, last round was last Saturday, history of hypertension, history of prostate cancer, history of hypercalcemia secondary to hyperparathyroidism, recently diagnosed with right lower lobe pulmonary embolism placed on Eliquis, history of artificial sphincter pump, left lower quadrant who presents to [facility] due to complaints of nausea, vomiting, lack of stooling for the last 4 days, poor appetite. He tells me for the last 4 days, he has not had any appetite, he has not pooped in 4 days, has a lot of nausea, he has had an appendectomy, he has d iffuse abdominal pain, Review of Systems Const: Denies: fever(s) Eyes: Denies: change in vision ENMT: Denies: hoarseness Card: Denies: chest pain Resp: Denies: dyspnea GI: Reports: abdominal pain, nausea and vomiting : Denies: flank pain or difficulty urinating Musc: Denies: back pain Skin/Breast: Denies: rash Neuro: Reports: weakness in extremities; Denies: headache(s) or numbness in extremities Endo: Denies: polyuria Medications/Allergies Home Medications Medication Instructions Recorded Confirmed Last Taken Type levothyroxine 25 mcg tablet 25 mcg PO DAILY 12/03/19 01/14/23 01/12/23 History (Synthroid) pravastatin 20 mg tablet 20 mg PO BEDTIME 09/06/22 01/14/23 01/13/23 History benazepril 20 mg tablet 20 mg PO BID 10/10/22 01/14/23 01/11/23 History lorazepam 1 mg tablet 0.5 - 1 mg PO Q6H PRN Severe 11/20/22 01/14/23 Unknown Rx Nausea #30 tabs cinacalcet 30 mg tablet 30 mg PO BID #180 tabs 11/29/22 01/14/23 01/12/23 Rx apixaban 5 mg tablet (Eliquis) 10 mg PO BID 01/14/23 01/14/23 01/12/23 History Allergies Allergy/AdvReac Type Severity Reaction Status Date / Time pantoprazole Allergy ADR-Heartbu Verified 01/10/23 10:22 rn PFSH Acute PFSH: Medical History Accelerated essential hypertension Distal radius fracture, right History of prostate cancer Lung cancer Port-A-Cath in place Pulmonary embolism Thyroid disease Surgical History History of open reduction and internal fixation (ORIF) procedure right distal radius Family History Father Anesthesia complication Brother CAD (coronary artery disease) Sister Chronic kidney disease (CKD) Diabetes Other Hypertension Denies family history of Clotting disorder Dementia Hyperlipidemia Psychiatric illness Suicide Bleeding disorder Lung disease Cancer Stroke Social History Smoking and tobacco status: smoker, details unknown Quit status (tobacco): has quit using tobacco Year quit tobacco: 2017 Former quit date comment: 2ppd x 27 years; quit smoking pipe Oct 2021 Alcohol intake: never Vitals/I&O/Wt Last Vital Signs Temp 98.2 F 01/14/23 13:08 Pulse 95 01/14/23 13:08 Resp 18 01/14/23 13:40 BP 72/48 01/14/23 13:08 Pulse Ox 97 01/14/23 13:08 O2 Del Method 01/14/23 13:08 Physical Exam Narrative: Cancer cachexia, peripheral muscle wasting in both arms, both eyes, with temporal muscle wasting Const: COMMON NORMALS: no acute distress and patient oriented x3 GENERAL APPEARANCE: cooperative and frail appearing NUTRITIONAL APPEARANCE: cachectic HENMT: COMMON NORMALS: normocephalic HEAD & SCALP: normocephalic Eye: COMMON NORMALS: Equal, round and reactive pupils present and EOMs intact bilaterally Neck/C-Spine: COMMON NORMALS: no JVD Lymph: LYMPHATIC: no lymphadenopathy noted Chest: COMMONS NORMALS: normal inspection of the chest Resp: COMMON NORMALS: normal respiratory effort, No retractions, No use of accessory muscles and clear to auscultation bilaterally AUSCULTATION: clear to auscultation bilaterally Cardio: COMMON NORMALS: regular rate, regular rhythm, S1 normal heart sound present and S2 normal heart sound present RATE: regular rate RHYTHM: regular rhythm HEART SOUNDS: S1 normal heart sound present and S2 normal heart sound present GI: OTHER: Abdomen soft, slightly distended, decreased bowel sounds in all quadrants diffusely tender, no guarding, no rebound, no rigidity Left lower quadrant, has almost like a pump present, mass present, likely sphincter pump : COMMON NORMALS: Yes no CVA tenderness Extremity: COMMON NORMALS: no calf tenderness and no pedal edema Neuro: COMMON NORMALS: patient oriented x3, CN's II-XII intact bilaterally, moves all extremities and no focal motor deficits Psych: COMMON NORMALS: mental status grossly normal Data 01/14/23 13:27 01/14/23 13:27 A&P Assessment and plan (1) SBO (small bowel obstruction): (2) Lung cancer: (3) Accelerated essential hypertension: (4) Port-A-Cath in place: (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 Small bowel obstruction with transition point RIGHT lower quadrant with tethering. This may be due to Internal hernia, volvulus, or multifocal adhesions. Dilated small bowel loop in the RIGHT lower quadrant measures 3.1 CM. No free air or pneumatosis. 2.? Mild pancolonic constipation. 3.? Small amount of free fluid in the pelvis. 4.? Cavitary neoplasm LEFT lower lobe unchanged. 5.? Small esophageal hiatal hernia. 6.? Irregular low-attenuation lesion upper pole RIGHT kidney with peripheral enhancement. This can be followed up with ultrasound. This measures approximately 3.1 x 2.2 CM. 7.? Cholelithiasis. Plan -Keep n.p.o. -Nasogastric tube is being inserted -Magnesium, phosphorus, monitor electrolytes -Continue D5 normal saline -General surgery consulted by ER -Serial abdominal exams -Pain control morphine -Zofran for nausea -For now we will switch to heparin drip just in case if there is any surgical intervention required Right lower lobe pulmonary embolism -Hold Eliquis -Switch to heparin drip Acute anemia -Likely secondary to chemotherapy -However is on Eliquis -Monitor hemodynamics -Iron studies -Hemoccult stool -B12, folate Cancer cachexia Protein calorie malnutrition Muscle wasting Left lower quadrant mass -Spoke to radiology, could be penile prosthesis or likely urinary sphincter pump Goals of care discussion, patient would like to be DNR/DNI Attestations Medical Necessity Statement*: Patient requires hospitalization, inpatient, greater than 2 midnights, for cancer cachexia, protein calorie malnutrition, muscle wasting, small bowel obstruction, acute anemia Diagnoses SBO (small bowel obstruction) K56.609 Lung cancer C34.90 Accelerated essential hypertension I10 Port-A-Cath in place Z95.828 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
[2023-01-14 17:34] LABS: Reticulocyte % 0.7 % (0.5-2.0)
[2023-01-14 17:35] LABS: INR 1.26 (0.8-1.2)
[2023-01-14 17:43] LABS: Lactic Sepsis W/Reflex 6.6 mmol/L (0.5-2.2)
[2023-01-14 17:50] LABS: NT Pro B Type Natriuretic Pept 654 pg/mL (0-450); Procalcitonin 0.09 ng/mL (0-0.5)
[2023-01-14 18:01] LABS: Ferritin 975 ng/mL (30-400); Iron 59 ug/dL (59-158); Magnesium 1.8 mg/dL (1.7-2.3); Phosphorus 2.8 mg/dL (2.5-4.5)
--- NOTE | 2023-01-14 18:52 | PC.NURSE ---
Placed NG tube, placement was confirmed by xray, hooked to suction, little to no output noted
--- NOTE | 2023-01-14 19:08 | P.CONIM_ITS ---
Providers/Reason For Consult Consulting Physician/Specialty*: Hospitalist Reason for Consult*: Possible bowel obstruction Attending Physician: Chris Quintero MD Primary Care Provider: Aguilar Balbuena DO History of Present Illness History of Present Illness Adrian Corey is a 82 year old male with a history of metastatic lung cancer. The patient is on chemotherapy. The patient has not had abdominal surgery. The patient presents with a 24-hour history of abdominal pain, nausea and vomiting. The patient underwent a CT scan in the emergency room. The CT scan appears to show a small bowel obstruction. The patient states that he has been eating poorly the last several weeks. The patient's last normal bowel movement was 4 days ago. The patient has had no bright red blood per rectum. The patient's had no hematemesis. Review of Systems General: Reports: 10 or more systems reviewed and unremarkable except in HPI and below Medications/Allergies Home Medications Medication Instructions Recorded Confirmed Last Taken Type levothyroxine 25 mcg tablet 25 mcg PO DAILY 12/03/19 01/14/23 01/12/23 History (Synthroid) pravastatin 20 mg tablet 20 mg PO BEDTIME 09/06/22 01/14/23 01/13/23 History benazepril 20 mg tablet 20 mg PO BID 10/10/22 01/14/23 01/11/23 History lorazepam 1 mg tablet 0.5 - 1 mg PO Q6H PRN Severe 11/20/22 01/14/23 Unknown Rx Nausea #30 tabs cinacalcet 30 mg tablet 30 mg PO BID #180 tabs 11/29/22 01/14/23 01/12/23 Rx apixaban 5 mg tablet (Eliquis) 10 mg PO BID 01/14/23 01/14/23 01/12/23 History Allergies Allergy/AdvReac Type Severity Reaction Status Date / Time pantoprazole Allergy ADR-Heartbu Verified 01/10/23 10:22 rn PFSH Acute PFSH: Medical History Accelerated essential hypertension Distal radius fracture, right History of prostate cancer Lung cancer Port-A-Cath in place Pulmonary embolism Thyroid disease Surgical History History of open reduction and internal fixation (ORIF) procedure right distal radius Family History Father Anesthesia complication Brother CAD (coronary artery disease) Sister Chronic kidney disease (CKD) Diabetes Other Hypertension Denies family history of Clotting disorder Dementia Hyperlipidemia Psychiatric illness Suicide Bleeding disorder Lung disease Cancer Stroke Social History Smoking and tobacco status: smoker, details unknown Quit status (tobacco): has quit using tobacco Year quit tobacco: 2017 Former quit date comment: 2ppd x 27 years; quit smoking pipe Oct 2021 Alcohol intake: never Vitals/I&O/Wt Last Vital Signs Temp 98.2 F 01/14/23 13:08 Pulse 95 01/14/23 13:08 Resp 18 01/14/23 13:40 BP 72/48 01/14/23 13:08 Pulse Ox 97 01/14/23 13:08 O2 Del Method 01/14/23 13:08 Physical Exam Narrative: Generally: A cachectic appearing male. NG tube in place. Does not appear to be much out of the NG tube. There is not much in the canister. HEENT: Some temporal wasting. Pupils equal round reactive to light. Extra ocular muscles are intact Neck: Free range of motion, trachea is midline. There is no thyromegaly. I do not appreciate any adenopathy Chest: The patient has a port in his right chest. The patient's clavicles are prominent. Patient sternum is nontender. Lungs: Clear to auscultation and percussion. There is no wheezes or rales Heart: Tachycardic rate and rhythm without murmurs. There is no S3 or S4. There is no rubs clicks or JVD noted. Abdomen: Soft, nondistended. Nontender. The patient has positive bowel sounds. The patient does have some tinkles without rushes. There is no rebound tenderness. There are no hernias. Pelvis: Stable to both AP and medial compression Extremities: There is no obvious deformities or point tenderness suggestive of a fracture. The patient has good capillary refill in his hands and feet. Neurologic: The patient is awake, alert, oriented x3. The patient moves all 4 extremities without difficulty. The patient sensations intact to light touch throughout. Data 01/14/23 13:27 01/14/23 13:27 Attestation for Other Data: I personally reviewed and interpreted the following: (All the patient's labs, chest x-ray as well as a CT scan of the abdomen and pelvis) A&P Assessment and plan (1) SBO (small bowel obstruction): The etiology of the patient's small bowel obstruction is unclear. We will try to treat the patient conservatively. This patient would do extremely poorly with surgical intervention. We will continue NG tube decompression. Would hydrate the patient aggressively. We will consider small bowel follow-through in the morning as long as the patient's abdomen remains nontender and the patient's nausea and vomiting has resolved. We will continue to follow this patient with you. Decision making: High Coding Level of Care Code 46002 Diagnoses SBO (small bowel obstruction) K56.609
[2023-01-14 19:14] LABS: Reflex Lactate Order REFLEX LACTIC ORDERD
[2023-01-14 19:22] LABS: Estmated Average Glucose 114; Hemoglobin A1C 5.6 % (4.0-6.0)
--- NOTE | 2023-01-14 19:22 | PC.NURSE ---
received report from NEEL Ng. Pt is resting in bed with at bedside. NG tube hooked up to intermittent suction. Pt denies any needs at this time. Let know his bed number.
[2023-01-14] MEDS: famotidine 20 mg/2 mL INJ IVP (21:22)
[2023-01-14] MEDS: dextrose 5%-sod chloride 0.9% 1,000 ML 125 ML IV (21:22)
[2023-01-14 21:36] LABS: Glucose Point of Care 294 mg/dL (70-110)
[2023-01-14 22:04] LABS: Platelet Count 132 10^3/cmm (130-400)
[2023-01-14 22:33] LABS: Lactic Acid level (Lactate) 4.7 mmol/L (0.5-2.2)
[2023-01-14 22:42] LABS: Thyroid Stimulating Hormone 8.49 uIU/mL (0.27-4.20)
[2023-01-15] VITALS (8 sets, daily range): BP systolic 119–142; BP diastolic 67–90; PULSE 66–113; RESP 14–24; TEMP 36.4–36.7; O2SAT 91–98
[2023-01-15] MEDS: heparin 5,000 unit/mL INJ 1 mL IV ×2 (02:15→10:02)
--- NOTE | 2023-01-15 02:58 | XRR_ITS ---
PROCEDURE INFORMATION: Exam: XR Chest Exam date and time: 01/15/2023 3:00 AM Age: 82 years old Clinical indication: Device placement; Ng tube; Prior surgery; Surgery type: Port; Patient HX: Check S/P ng placement. History of lung/prostate cancer. ; Additional info: Ng tube placement TECHNIQUE: Imaging protocol: Radiologic exam of the chest. Views: 1 view. Total images: 282 COMPARISON: CR XR chest 1V portable [id number] 01/14/2023 4:36 PM FINDINGS: Tubes, catheters and devices: Enteric tube is noted curled at the GE junction. Consider advancing 15 cm. A right infusion port is present. Lungs: Stable left pleuroparenchymal disease. Coarse chronic pulmonary markings. Pleural spaces: No pneumothorax. Heart/Mediastinum: Unremarkable. No cardiomegaly. Bones/joints: Diffuse osteopenia noted. Osseous structures are unchanged from the prior exam. Gastrointestinal tract: Nonspecific distended bowel loops noted in visualized abdomen. XR/XR chest 1V portable [id number] IMPRESSION: 1. Stable left pleuroparenchymal disease. 2. Enteric tube is noted curled at the GE junction. Consider advancing 15 cm. 3. Coarse chronic pulmonary markings.
[2023-01-15 04:11] LABS: Glucose Urine UA 2+ (Normal); Ketones Urine 1+ (Negative); Protein Urine Trace (Negative); Specific Gravity, Urine 1.015 (1.005-1.030); Urine Appearance Clear (CLEAR); Urine Color Yellow (Yellow); pH Urine 5 (5-7)
[2023-01-15 04:12] LABS: Add Urine Microscopic? YES; Bilirubin Urine Neg (Negative); Blood Urine Neg (Negative); Leukocyte Esterase Urine Negative (Negative); Nitrate Urine Negative (Negative); Urobilinogen Urine Norm (Negative)
[2023-01-15 04:22] LABS: RBC Urine 0-4 /hpf (0-2); Squamous Epithelial Cell Urine 0-4 /hpf (0-5); WBC Urine 0-4 /hpf (0-5)
[2023-01-15 04:23] LABS: Amorphous Sediment Urine 1+ /hpf; Mucus Urine 1+ /hpf
[2023-01-15] MEDS: dextrose 5%-sod chloride 0.9% 1,000 ML 125 ML IV ×3 (05:31→22:01)
[2023-01-15 06:07] LABS: Hematocrit 26.7 % (42.0-52.0); Hemoglobin 8.5 g/dL (11.7-16.6); Lymphocytes # 0.1 10^3/uL (0.8-4.8); Lymphocytes % 1.6 %; Mean Corpuscular HGB Conc 31.8 g/dL (30.0-36.0); Mean Corpuscular Hemoglobin 28.6 pg (28.0-34.0); Mean Corpuscular Volume 89.9 fl (80-94); Mean Platelet Volume 10.7 fL (7.4-10.4); Monocytes # 0.4 10^3/uL (0.2-0.9); Monocytes % 10.5 %; Neutrophils # 3.24 10^3/uL (1.8-7.7); Neutrophils % 87.4 %; Nucleated Red Blood Cells % 0 %; Platelet Count 117 10^3/cmm (130-400); Red Blood Count 2.97 10^6/uL (4.1-5.3); Red Cell Distribution Width 18.1 % (12.1-15.1); White Blood Count 3.7 10^3/uL (4.0-10.0)
[2023-01-15 06:22] LABS: Glucose Point of Care 152 mg/dL (70-110)
[2023-01-15 06:28] LABS: Alanine Aminotransferase 7 U/L (0-41); Albumin Level 3.4 g/dL (3.5-5.2); Alkaline Phosphatase 97 U/L (40-130); Anion Gap 14.5 (5-19); Aspartate Amino Transferase 15 U/L (0-40); Blood Urea Nitrogen 23 mg/dL (8-23); Calcium 9.8 mg/dL (8.5-10.5); Carbon Dioxide 25 mmol/L (22-29); Chloride 104 mmol/L (98-107); Globulin 2.6 g/dL (1.3-4.6); Glucose 170 mg/dL (65-115); Magnesium 1.8 mg/dL (1.7-2.3); Osmolality Calculated 296 mOsm/kg (285-295); Potassium 4.5 mmol/L (3.5-5.1); Sodium 139 mmol/L (136-145); Total Bilirubin 0.2 mg/dL (0.15-1.2)
[2023-01-15 06:29] LABS: Lactate (Lactic Acid level) 2.5 mmol/L (0.5-2.2)
[2023-01-15 06:36] LABS: Glucose Point of Care 145 mg/dL (70-110)
[2023-01-15] MEDS: levothyroxine 25 mcg Tablet PO (08:34)
[2023-01-15] MEDS: lisinopril 20 mg Tablet PO (08:34)
[2023-01-15] MEDS: heparin drip 25,000 UNIT/500 ML PREMIX 16 UNIT IV (08:50)
[2023-01-15 09:12] LABS: Partial Thromboplastin Time 49.3 SECONDS (23.9-36.7)
[2023-01-15] MEDS: famotidine 20 mg/2 mL INJ IVP ×2 (09:30→20:31)
--- NOTE | 2023-01-15 09:47 | XR_ITS ---
WS: [id number] Exam: XR chest 1V portable [id number] Date/Time of Exam: 01/15/2023 9:47 AM Reason For Exam: NG advancement Comparison 01/15/2023 at 0303 hours. Previously noted enteric tube has been advanced and is now looped in the stomach. Again noted are chr onic interstitial changes in the bilateral lower lung zones. Again noted is an ill-defined soft tissu e density in the left upper lobe unchanged. Right-sided subclavian port ends in the lower one third of the SVC. Bony structures are intact. Cardiomediastinal silhouette is unremarkable. XR/XR chest 1V portable [id number] IMPRESSION: 1. Previously noted enteric tube has been advanced and is now within the body t he stomach. 2. Chronic interstitial pulmonary changes noted bilaterally. No acute process i dentified. 3. Ill-defined soft tissue mass along left upper lobe unchanged.
--- NOTE | 2023-01-15 09:49 | PC.NURSE ---
Per 01/[address] Quintero advance NG tube 15cm. NG advanced and chest x ray ordered.
[2023-01-15 11:29] LABS: Glucose Point of Care 140 mg/dL (70-110)
--- NOTE | 2023-01-15 13:43 | PM.PN ---
Subjective Subjective: Patient was seen this morning, patient gave me consent to speak to his sister, sister takes me aside, she is worried that patient's condition is more severe than patient has let on, I went over patient's scans with his sister, went over his MRI findings, of metastatic disease, went over his CT of his chest findings. 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 Rivera has been telling him that the cancer is almost gone, with the chemoradiation, I had tried to reach out to Dr. Rivera, but he is off until tomorrow, I advised patient that we will have more of a detailed discussion with Dr. Rivera tomorrow, but sister is very worried about his current status, with his low BMI his poor oral intake, she tells me that there is no way he could tolerate his surgery for his parathyroids, especially as he have to travel up to [place]. Currently he has not had a bowel movement, not passing gas, still having abdominal pain, no nausea, no vomiting, no fevers Vitals/I&O/Wt Last Vital Signs Temp 97.6 F 01/15/23 11:39 Pulse 96 01/15/23 11:39 Resp 17 01/15/23 11:39 BP 137/73 01/15/23 11:39 Pulse Ox 98 01/15/23 11:39 O2 Del Method 01/15/23 11:39 01/14/23 01/15/23 01/15/23 22:59 06:59 14:59 Intake Total 999 Balance 999 Weight last 48 hrs Weight 53.342 kg Physical Exam Const: COMMON NORMALS: no acute distress Resp: COMMON NORMALS: normal respiratory effort, No retractions, No use of accessory muscles and clear to auscultation bilaterally AUSCULTATION: clear to auscultation bilaterally Cardio: COMMON NORMALS: regular rate, regular rhythm, S1 normal heart sound present and S2 normal heart sound present RATE: regular rate RHYTHM: regular rhythm HEART SOUNDS: S1 normal heart sound present and S2 normal heart sound present GI: OTHER: Abdomen soft, slightly distended, minimal bowel sounds, no guarding, no rebound, no rigidity Extremity: COMMON NORMALS: no pedal edema Psych: COMMON NORMALS: mental status grossly normal Data 01/15/23 05:33 01/15/23 05:33 Micro: Microbiology 01/14/23 21:47 Blood Culture - Preliminary Blood SPECIMEN COLLECTED 01/14/23 21:46 Blood Culture - Preliminary Blood SPECIMEN COLLECTED A&P Assessment and plan (1) SBO (small bowel obstruction): (2) Lung cancer: (3) Accelerated essential hypertension: (4) Port-A-Cath in place: (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 Small bowel obstruction with transition point RIGHT lower quadrant with tethering. This may be due to Internal hernia, volvulus, or multifocal adhesions. Dilated small bowel loop in the RIGHT lower quadrant measures 3.1 CM. No free air or pneumatosis. 2.? Mild pancolonic constipation. 3.? Small amount of free fluid in the pelvis. 4.? Cavitary neoplasm LEFT lower lobe unchanged. 5.? Small esophageal hiatal hernia. 6.? Irregular low-attenuation lesion upper pole RIGHT kidney with peripheral enhancement. This can be followed up with ultrasound. This measures approximately 3.1 x 2.2 CM. 7.? Cholelithiasis. Plan -Keep n.p.o. -Nasogastric tube is being inserted -Magnesium, phosphorus, monitor electrolytes -Continue D5 normal saline -General surgery consulted -Serial abdominal exams -Pain control morphine -Zofran for nausea -For now we will switch to heparin drip just in case if there is any surgical intervention required Right lower lobe pulmonary embolism -Hold Eliquis -Switch to heparin drip Acute anemia -Likely secondary to chemotherapy -However is on Eliquis -Monitor hemodynamics -Iron studies, borderline low iron monitor -Hemoccult stool -B12, folate Elevated TSH, check free T3, check free T4 Cancer cachexia Protein calorie malnutrition Muscle wasting Left lower quadrant mass -Spoke to radiology, could be penile prosthesis or likely urinary sphincter pump Goals of care discussion, patient would like to be DNR/DNI Attestations Medical Necessity Statement*: Patient requires hospitalization for small bowel obstruction, with lactic acidosis, leukopenia, acute anemia, Diagnoses SBO (small bowel obstruction) K56.609 Lung cancer C34.90 Accelerated essential hypertension I10 Port-A-Cath in place Z95.828 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
[2023-01-15] MEDS: morphine 4 mg/mL SDV 1 mL 2 MG IVP (14:10)
--- NOTE | 2023-01-15 14:15 | PC.NURSE ---
When adjusting this patients heparin gtt I noticed when scanning the initial heparin bag that it hadn't been scanned yet. This RN observed during bedside reporting with NEEL Spaulding, that heparin was running at 15ml/hr per dosing sheet. Heparin bag was scanned and changed per protocol to 16ml/hr.
[2023-01-15 14:46] LABS: Partial Thromboplastin Time 69.7 SECONDS (23.9-36.7)
[2023-01-15 15:41] LABS: Free T4 Free Thyroxine 1.18 ng/dL (0.82-1.77); T3 Free 2.2 PG/ML (2.0-4.4)
[2023-01-15 16:05] LABS: Folate Level 8.1 ng/mL (4.5-32.2)
--- NOTE | 2023-01-15 16:45 | PM.PN ---
Subjective Subjective: This patient's been hemodynamically stable overnight. Currently, the patient states that his abdominal pain is much improved. Medications: Reviewed: Yes Vitals/I&O/Wt Last Vital Signs Temp 97.6 F 01/15/23 11:39 Pulse 96 01/15/23 11:39 Resp 24 H 01/15/23 14:10 BP 137/73 01/15/23 11:39 Pulse Ox 98 01/15/23 11:39 O2 Del Method 01/15/23 11:39 01/15/23 01/15/23 01/15/23 06:59 14:59 22:59 Intake Total 1000 / 1999 1000 / 1000 Balance 1000 / 1999 1000 / 1000 Weight last 48 hrs Weight 117 lb 9.6 oz Physical Exam Narrative: Generally: Cachectic appearing Lungs: Clear to auscultation and percussion Heart: Is regular rate and rhythm Abdomen: Soft, nondistended. The patient has normal active bowel sounds. There is no rushes or tinkles. The patient does have a mass in his left lower quadrant. This feels plastic. This may be part of the patient's hernia repair. Extremities: No clubbing cyanosis or edema Neurologic: The patient is awake, alert, oriented x3. The patient moves all 4 extremities without difficulty. The patient sensations intact to light touch throughout. Data 01/15/23 05:33 01/15/23 05:33 Micro: Microbiology 01/14/23 20:52 Occult Blood (FIT) - Final Stool Routine Collection 01/14/23 21:47 Blood Culture - Preliminary Blood SPECIMEN COLLECTED 01/14/23 21:46 Blood Culture - Preliminary Blood SPECIMEN COLLECTED A&P Assessment and plan (1) SBO (small bowel obstruction): This patient appears to be much improved since when I saw him 24 hours ago. We will order a Gastrografin small bowel follow-through for the morning. We will also order a fleets enema. The patient reportedly had a single hard stool earlier today. The patient's only had 250 out from his NG tube over the last 8 to 12 hours. We will continue nonoperative management at this time. Medical decision making: Moderate Attestations Medical Necessity Statement*: Conservative management for small bowel obstruction Coding Level of Care Code 15143 Diagnoses SBO (small bowel obstruction) K56.609
[2023-01-15] MEDS: Fleet Enema 133 mL Enema PR (17:29)
[2023-01-15 17:30] LABS: Glucose Point of Care 121 mg/dL (70-110)
[2023-01-15 20:38] LABS: Partial Thromboplastin Time 66.8 SECONDS (23.9-36.7)
[2023-01-15 21:22] LABS: Glucose Point of Care 115 mg/dL (70-110)
[2023-01-16] VITALS (7 sets, daily range): BP systolic 125–168; BP diastolic 69–99; PULSE 98–119; RESP 16–20; TEMP 36.4–37; O2SAT 91–97
[2023-01-16 04:33] LABS: Basophils % 0.3 %; Hemoglobin 7.2 g/dL (11.7-16.6); Lymphocytes # 0.1 10^3/uL (0.8-4.8); Lymphocytes % 1.7 %; Mean Corpuscular HGB Conc 31.3 g/dL (30.0-36.0); Mean Corpuscular Hemoglobin 29.1 pg (28.0-34.0); Mean Corpuscular Volume 93.1 fl (80-94); Mean Platelet Volume 10.3 fL (7.4-10.4); Monocytes # 0.3 10^3/uL (0.2-0.9); Monocytes % 10.7 %; Neutrophils # 2.59 10^3/uL (1.8-7.7); Nucleated Red Blood Cells % 0 %; Platelet Count 91 10^3/cmm (130-400); Red Blood Count 2.47 10^6/uL (4.1-5.3); Red Cell Distribution Width 18.8 % (12.1-15.1)
[2023-01-16 04:46] LABS: Partial Thromboplastin Time 55.5 SECONDS (23.9-36.7)
[2023-01-16 04:57] LABS: Anion Gap 10.8 (5-19); Blood Urea Nitrogen 17 mg/dL (8-23); C Reactive Protein 12.4 mg/L (0.0-4.9); Calcium 9.5 mg/dL (8.5-10.5); Carbon Dioxide 24 mmol/L (22-29); Chloride 109 mmol/L (98-107); Glucose 119 mg/dL (65-115); Magnesium 1.8 mg/dL (1.7-2.3); Osmolality Calculated 293 mOsm/kg (285-295); Phosphorus 2.2 mg/dL (2.5-4.5); Potassium 3.8 mmol/L (3.5-5.1); Sodium 140 mmol/L (136-145)
[2023-01-16 04:58] LABS: Lactate (Lactic Acid level) 1.4 mmol/L (0.5-2.2)
[2023-01-16 05:04] LABS: Procalcitonin 0.23 ng/mL (0-0.5)
[2023-01-16] MEDS: dextrose 5%-sod chloride 0.9% 1,000 ML 125 ML IV ×2 (05:40→17:14)
[2023-01-16 06:39] LABS: Glucose Point of Care 120 mg/dL (70-110)
--- NOTE | 2023-01-16 07:42 | PC.NURSE ---
Bedside report completed at shift change with NEEL Spaulding. Pt resting in bed at this time.
[2023-01-16] MEDS: ondansetron 2 mg/ML SDV 2 mL 4 MG IVP ×3 (07:45→20:31)
--- NOTE | 2023-01-16 08:08 | USCV_ITS ---
Adrian Corey Age: 82 Gender: M : 1940 Exam Date: 01/16/2023 09:40 Ordering Phys: Chris Quintero MD Technologist: CT Exam Location: [facility] [place]_ Indication: slight le edema PROCEDURES: The venous duplex Doppler examination of both lower extremities was performed in the standard fashion. In addition, the posterior tibial and peroneal trunk were evaluated. Bilaterally, the common femoral, superficial femoral, profunda femoral, popliteal, posterior tibial, greater saphenous veins, and the peroneal trunk were identified and interrogated in the standard fashion. These veins were found to be easily compressible with spontaneous blood flow. No evidence of insufficiency or thrombus noted. CONCLUSIONS No evidence of right lower extremity DVT. No evidence of left lower extremity DVT. Murray Carter MD (Electronically Signed) Final Date: 16 January 2023 10:16 S
--- NOTE | 2023-01-16 08:10 | ECG_ITS ---
[facility] Test Date: 2023-01-16 Pat Name: Adrian Corey Department: Room: 267 Gender: Male [employer]ement [employer]er: : 1940 Requested By: Chris Quintero Order Number: [id number] Paula MD: Terrell Baptiste M.D. Measurements Intervals [place] Rate: 100 P: 34 [place]: 142 QRS: -15 QRSD: 101 T: 99 QT: 378 QTc: 489 Interpretive Statements SINUS TACHYCARDIA WITH OCCASIONAL VENTRICULAR PREMATURE COMPLEXES NONSPECIFIC ST & T-WAVE ABNORMALITY Compared to ECG 11/12/2022 12:02:42 Ventricular premature complex(es) now present Sinus rhythm no longer present Sinus arrhythmia no longer present Left ventricular hypertrophy no longer present Possible ischemia no longer present T-wave abnormality still present Electronically Signed On 01-16-2023 10:24:24 [facility] ATTENDANT by Terrell Baptiste M.D. [email or web address]
[2023-01-16 08:33] LABS: Hematocrit 23.6 % (42.0-52.0); Hemoglobin 7.2 g/dL (11.7-16.6)
[2023-01-16] MEDS: levothyroxine 25 mcg Tablet PO (09:10)
[2023-01-16] MEDS: sucralfate 1 gm Tablet PO ×2 (09:10→20:25)
[2023-01-16 09:44] LABS: D Dimer 2.65 ug/mIFEU (0-0.59)
[2023-01-16 09:47] LABS: Troponin(5th) Baseline 21 ng/L (0-15)
--- NOTE | 2023-01-16 09:51 | PC.NURSE ---
Dr. Quintero notified this morning that patients hgb had trended down to 7.2. Orders received to repeat H&H and hold heparin gtt at this time.
[2023-01-16] MEDS: pantoprazole 40 mg SDV IVP ×2 (10:21→20:17)
--- NOTE | 2023-01-16 10:38 | P.PN_ITS ---
Subjective Subjective: Hemodynamically stable. Afebrile. Not much out of the NG tube. Medications: Reviewed: Yes Vitals/I&O/Wt Last Vital Signs Temp 97.7 F 01/16/23 10:20 Pulse 101 H 01/16/23 10:20 Resp 16 01/16/23 10:20 BP 125/75 01/16/23 10:20 Pulse Ox 95 01/16/23 07:50 O2 Del Method 01/16/23 07:50 01/15/23 01/16/23 01/16/23 22:59 06:59 14:59 Intake Total 987.5 / 1987.5 956.25 / 2943.75 366.133 / 366.133 Output Total 200 / 200 Balance 787.5 / 1787.5 956.25 / 2743.75 366.133 / 366.133 Weight last 48 hrs Weight 117 lb 9.6 oz Physical Exam Narrative: General: No acute distress HEENT: Normocephalic atraumatic Lungs: Clear to auscultation Heart: Regular rate and rhythm Abdomen: Unchanged, nondistended, nontender, normal active bowel sounds. No rushes or tinkles. No hernias that I can appreciate. Neurologic: Awake, alert, orient x3. [place] Coma Scale 15. Moves all 4 extremities without difficulty. Data 01/16/23 08:12 01/16/23 04:22 Micro: Microbiology 01/14/23 21:47 Blood Culture - Preliminary Blood NEGATIVE TO DATE 01/14/23 21:46 Blood Culture - Preliminary Blood NEGATIVE TO DATE 01/14/23 20:52 Occult Blood (FIT) - Final Stool Routine Collection Attestation for Other Data: I personally reviewed and interpreted the following: (Reviewed all labs) A&P Assessment and plan (1) SBO (small bowel obstruction): Await results of small bowel follow-through. We will continue to follow this patient with you. Attestations Medical Necessity Statement*: Await results of small bowel follow-through Coding Level of Care Code 65268 Diagnoses SBO (small bowel obstruction) K56.609
[2023-01-16 11:45] LABS: Troponin 5 2HR 19.94 ng/L (0-15)
[2023-01-16 11:46] LABS: Troponin 5 2HR Delta -1.06 ABS# (0-10)
--- NOTE | 2023-01-16 12:37 | P.PN_ITS ---
Subjective Subjective: - I had extensive discussion with patient this morning, with sister at bedside -I also had a discussion with Dr. Rivera this morning -It seems as if there is been miscommunication, between me and, patient, and their expectations, and the information that they know about patient's cancer -I was able to clarify with patient, he knows that there is no cure for his cancer, he is misunderstood my questions, and he knows that Dr. Rivera did not state that there is a cure for his cancer -Patient's sister concurred, she understands, she is just worried about his present condition, how frail and cachectic he is, and she is from out of town, she wants home health care for him, -In his own words he tells me that the chemotherapy is to give me some time, to keep the cancer at bay so I can keep going for some time -In terms of his cancer, he is getting local chemo and radiation, and that next plan is to see if he has responded to his ongoing treatment -In addition I have gone over patient's MRI findings, I apologized to the patient and family that it was my fault as I had read on the MRI scan that he indeed did have 2 lesions in the frontal lobe, but there was concern for metastatic disease, as listed on the MRI report, but the patient's family was unaware -I had told patient that these are 2 lesions that are worrisome, that I had read in the MRI reports that these could be metastatic lesions, and I have looked through Dr. Rivera's and Dr. Landaverde's note, but I was having trouble finding if there was any discussion made about them -However in discussion with Dr. Rivera, Dr. Rivera and Dr. Landaverde are monitoring these 2 lesions, these could be metastatic lesions, among many other things/pathologies, but it is unproven at this time, if they are cancer or not, and his oncology team are monitoring them for now, and will likely repeat an MRI scan to see if they have changed in size -And that this was discussed with the patient in detail during his follow-up with Dr. Rivera -In terms of his CT scan findings, cavitary lesion in the right lung and left upper lobe mass, this was discussed in detail with patient by oncology team, he has received chemo and radiation, plan is to monitor for now, and follow-up with Dr. Rivera -I have apologized to Dr. Rivera, for the miscommunication, patient and family had multiple questions for me and his sister had multiple questions for me, I did not have all the information available, and I was only going off of what MRI and CAT scan showed, and he was on vacation yesterday so I was not able to have a discussion with him before I was able to speak to family members -I did my best to answer all patient's and family's questions -Patient and family were understandable, -In terms of patient's hyperparathyroidism, he has an appointment at [facility] this coming week but family will have to reschedule, that as he is hospitalized here and he is too weak according to 5 members to get up to [place] -However after discussion, I feel that patient's sister has a good grasp of the situation, of his medical diagnosis, -However I do not feel that patient has a good understanding of his medical condition, his underlying medical problems, and even his current hospitalization I have gone over it in detail with him today spending over half an hour going over this with patient, but I do not feel that he has a good grasp I will try again tomorrow -In terms of his current medical condition, general surgery helping with his bowel obstruction, awaiting small bowel series, spoke to Dr. Hobson -He has developed anemia overnight with Hemoccult positive stools, no hemodynamic compromise he denies any stooling, and has not passed any gas, hemoglobin 7.2, he recently was diagnosed with a pulmonary embolism on the right side, will hold heparin for now -I did discuss holding heparin, family agreeable -We will do a venous ultrasound to see if he has a DVT, if he continues to be anemic, he will potentially need an IVC filter placed not not to treat his current pulmonary embolism or prevent DVTs, but to prevent future pulmonary embolisms -Patient and family wish understanding, all questions answered, agreed to proceed Vitals/I&O/Wt Last Vital Signs Temp 97.5 F L 01/16/23 12:00 Pulse 98 01/16/23 12:00 Resp 18 01/16/23 12:00 BP 168/88 01/16/23 12:00 Pulse Ox 94 01/16/23 12:00 O2 Del Method 01/16/23 12:00 01/15/23 01/16/23 01/16/23 22:59 06:59 14:59 Intake Total 987.5 / 1987.5 956.25 / 2943.75 366.133 / 366.133 Output Total 200 / 200 Balance 787.5 / 1787.5 956.25 / 2743.75 366.133 / 366.133 Weight last 48 hrs Weight 53.342 kg Physical Exam Const: COMMON NORMALS: no acute distress and patient oriented x3 Resp: COMMON NORMALS: normal respiratory effort, No retractions, No use of accessory muscles and clear to auscultation bilaterally AUSCULTATION: clear to auscultation bilaterally Cardio: COMMON NORMALS: regular rate, regular rhythm, S1 normal heart sound present and S2 normal heart sound present RATE: regular rate RHYTHM: regular rhythm HEART SOUNDS: S1 normal heart sound present and S2 normal heart sound present GI: COMMON NORMALS: Normal to inspection, nondistended, normoactive bowel sounds present and non-tender Extremity: COMMON NORMALS: no clubbing, cyanosis or edema and no pedal edema Neuro: COMMON NORMALS: patient oriented x3 Psych: COMMON NORMALS: mental status grossly normal Data 01/16/23 08:12 01/16/23 04:22 Micro: Microbiology 01/14/23 21:47 Blood Culture - Preliminary Blood NEGATIVE TO DATE 01/14/23 21:46 Blood Culture - Preliminary Blood NEGATIVE TO DATE 01/14/23 20:52 Occult Blood (FIT) - Final Stool Routine Collection A&P Assessment and plan (1) SBO (small bowel obstruction): (2) Lung cancer: (3) Accelerated essential hypertension: (4) Port-A-Cath in place: (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: (7) Pulmonary embolism: (8) Protein calorie malnutrition: (9) Cancer cachexia: (10) Muscle wasting: (11) Goals of care, counseling/discussion: (12) Anemia: (13) Lactic acidosis: (14) Leukopenia: (15) GI bleed: (16) Acute anemia: Plan Slow GI bleed -With evidence of iron deficiency anemia, low iron at 59, ferritin elevated at 975, likely acute phase reactant, normal folate -Hemoglobin 7.2, Hemoccult positive stools, -Takes Eliquis on home, here heparin drip, no hemodynamic compromise -We will hold heparin for now -Transfuse 1 of unit PRBC, 1 dose IV Venofer -Monitor hemoglobin closely -We will do venous ultrasound for evaluation of DVT -Patient potentially will require IVC filter placement if he cannot tolerate anticoagulation for his history of pulmonary embolism Lactic acidosis -Lactic acid 6.6, lactic acid improving with hydration currently 1.4 -Likely secondary to severe dehydration -UA no significant evidence of UTI -Chest x-ray no focal pneumonia -Afebrile -Continue to monitor Leukopenia, likely secondary to chemotherapy, isolation precautions monitor for fevers Small bowel obstruction 1.? Small bowel obstruction with transition point RIGHT lower quadrant with tethering. This may be due to Internal hernia, volvulus, or multifocal adhesions. Dilated small bowel loop in the RIGHT lower quadrant measures 3.1 CM. No free air or pneumatosis. 2.? Mild pancolonic constipation. 3.? Small amount of free fluid in the pelvis. 4.? Cavitary neoplasm LEFT lower lobe unchanged. 5.? Small esophageal hiatal hernia. 6.? Irregular low-attenuation lesion upper pole RIGHT kidney with peripheral enhancement. This can be followed up with ultrasound. This measures appro ximately 3.1 x 2.2 CM. 7.? Cholelithiasis. Plan -Keep n.p.o. -Nasogastric tube i in place -Magnesium, phosphorus, monitor electrolytes -Continue D5 normal saline -General surgery consulted -Serial abdominal exams -Awaiting small bowel series -Pain control morphine -Zofran for nausea -DVT prophylaxis SCDs Right lower lobe pulmonary embolism -Hold Eliquis -Hold anticoagulation Acute anemia -Likely secondary to chemotherapy -However is on Eliquis at home, heparin drip. -Monitor hemodynamics -Iron studies, borderline low iron monitor -Hemoccult stool positive for blood -As above Elevated TSH, free T3, free T4 within normal limits Cancer cachexia Protein calorie malnutrition Muscle wasting Left lower quadrant mass -Spoke to radiology, could be penile prosthesis or likely urinary sphincter pump Goals of care discussion, patient would like to be DNR/DNI Attestations Medical Necessity Statement*: Patient requires hospitalization, for slow GI bleed, anemia, small bowel obstruction, cancer cachexia, weakness, Diagnoses SBO (small bowel obstruction) K56.609 Lung cancer C34.90 Accelerated essential hypertension I10 Port-A-Cath in place Z95.828 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
[2023-01-16] MEDS: sodium chloride 0.9% 100 mL Bag 50 ML IV (13:00)
[2023-01-16] MEDS: iron sucrose 200 MG in sodium chloride 0.9% (100 ml) 100 ML 220 MG IV (14:35)
[2023-01-16 15:19] LABS: Hematocrit 22.8 % (42.0-52.0); Hemoglobin 7.1 g/dL (11.7-16.6)
[2023-01-16 15:33] LABS: Partial Thromboplastin Time 30.6 SECONDS (23.9-36.7)
[2023-01-16 15:37] LABS: Troponin 5 6HR 18.12 ng/L (0-15); Troponin 5 6HR Delta -2.88 ng/L (0-12)
--- NOTE | 2023-01-16 16:50 | FL_ITS ---
WS: [id number] Exam: [place] small bowel [place] gastro [id number] Date/Time of Exam: 01/16/2023 4:50 PM Reason For Exam: possbile small bowel obstruction Fluoroscopy time: 0 minutes # of spot films: 0 Small bowel follow-through was performed with the water-soluble contrast injected through an indwelli ng enteric tube. A preliminary survey shows a multiple dilated small bowel loops probably proximal and mid jejunum. Co ntrast courses slowly through the duodenum and proximal jejunum. At approximately 2 hours and 45 lavinia srinivasa there is virtually no further progression of the contrast into the small bowel. Radiographic cont rast is noted in the urinary bladder. Organ margins are obscured. No free air. There is some gas and stool in the right colon. Surgical clips in the bilateral inguinal regions. Delayed images at 9:00 P. M. 01/16/2023 and 7:00 AM 01/17/2023 demonstrate no further progression of contrast. In fact no contras t is seen in the GI tract which may be secondary to an enteric tube suction. The bowel gas pattern co ntinues to suggest acute small bowel obstruction probably in the proximal or mid jejunum. FL/FL small bowel FT gastro [id number] IMPRESSION: 1. Findings suggest small bowel obstruction probably in the region of the proxi mal or mid jejunum.
[2023-01-16] MEDS: lisinopril 20 mg Tablet PO (17:39)
[2023-01-16 17:48] LABS: Glucose Point of Care 118 mg/dL (70-110)
[2023-01-16 17:56] LABS: Glucose Point of Care 127 mg/dL (70-110)
[2023-01-16] MEDS: atorvastatin 40 mg Tablet 20 MG PO (20:25)
[2023-01-17] VITALS (7 sets, daily range): BP systolic 156–188; BP diastolic 88–99; PULSE 79–110; RESP 16–24; TEMP 36.5–37.2; O2SAT 93–97
[2023-01-17 00:13] LABS: Hemoglobin 9.3 g/dL (11.7-16.6)
[2023-01-17] MEDS: dextrose 5%-sod chloride 0.9% 1,000 ML 75 ML IV ×3 (03:19→23:20)
[2023-01-17 05:31] LABS: Basophils % 0.4 %; Lymphocytes % 1.5 %; Mean Corpuscular HGB Conc 31.3 g/dL (30.0-36.0); Mean Corpuscular Hemoglobin 28.3 pg (28.0-34.0); Mean Corpuscular Volume 90.7 fl (80-94); Mean Platelet Volume 11.1 fL (7.4-10.4); Monocytes # 0.3 10^3/uL (0.2-0.9); Monocytes % 10.3 %; Neutrophils % 87.4 %; Nucleated Red Blood Cells % 1.1 %; Platelet Count 72 10^3/cmm (130-400); Red Blood Count 3.53 10^6/uL (4.1-5.3); Red Cell Distribution Width 19.5 % (12.1-15.1); White Blood Count 2.6 10^3/uL (4.0-10.0)
[2023-01-17 05:54] LABS: Anion Gap 11.5 (5-19); Blood Urea Nitrogen 15 mg/dL (8-23); C Reactive Protein 19.3 mg/L (0.0-4.9); Calcium 10.7 mg/dL (8.5-10.5); Carbon Dioxide 26 mmol/L (22-29); Chloride 112 mmol/L (98-107); Glucose 137 mg/dL (65-115); Magnesium 1.9 mg/dL (1.7-2.3); Osmolality Calculated 305 mOsm/kg (285-295); Phosphorus 2.1 mg/dL (2.5-4.5); Potassium 3.5 mmol/L (3.5-5.1); Sodium 146 mmol/L (136-145)
[2023-01-17 06:51] LABS: Glucose Point of Care 108 mg/dL (70-110)
--- NOTE | 2023-01-17 09:00 | PM.PN ---
Subjective Subjective: Hemodynamically stable overnight. The patient underwent a Gastrografin swallow with small bowel follow-through. The diet gets approximately skilled nursing through his jejunum and then stops. There is no dye in his colon. I spoke with the patient at length. I believe the patient has a bowel obstruction. I think the patient can require surgical intervention in order to fix this. The patient is somewhat cachectic. The patient is somewhat malnourished. The chance of us pulling the patient through the surgery is going to be somewhat low. The patient understands the risk. He understands that we may find cancer. On the other hand, because he has an obstruction, the patient will continue with nausea and vomiting until the obstruction is relieved. The patient has agreed to surgical intervention. Medications: Reviewed: Yes Vitals/I&O/Wt Last Vital Signs Temp 97.8 F 01/17/23 08:00 Pulse 106 H 01/17/23 08:00 Resp 19 H 01/17/23 08:00 BP 170/88 01/17/23 08:00 Pulse Ox 97 01/17/23 08:00 O2 Del Method 01/17/23 04:00 01/16/23 01/17/23 01/17/23 22:59 06:59 14:59 Intake Total 350 / 2066.133 1000 / 3066.133 Output Total 300 / 400 Balance 50 / 4878.608 7144 / 2666.133 Physical Exam Narrative: Generally: No acute distress Lungs: Clear to auscultation Heart: Regular rate and rhythm Abdomen: Somewhat scaphoid, nondistended, nontender. Decreased bowel sounds. NG tube in place. Extremities: No clubbing cyanosis or edema Neurologic: Awake, alert, oriented x3 Data 01/17/23 05:10 01/17/23 05:10 Attestation for Other Data: I personally reviewed and interpreted the following: (Reviewed the patient's labs as well as small bowel follow-through) A&P Assessment and plan (1) SBO (small bowel obstruction): We will sign the patient up for an exploratory laparotomy possible small bowel resection, possible lysis of adhesions. We will schedule the patient for surgery tomorrow. The risk and benefits of this procedure been explained to the patient. The patient seems understand these risk and benefits would like to proceed. Medical decision making: High Attestations Medical Necessity Statement*: Will require surgical intervention Coding Level of Care Code 02656 Diagnoses SBO (small bowel obstruction) K56.609
--- NOTE | 2023-01-17 09:09 | PC.CHAP ---
Pastoral Care Encounter/Spiritual Assessment Type of Contact [] Declined oil rig driller visit [] Patient/Family/Request visit [] Outpatient visit [] Follow-up visit [] Physician referral [] Code/Alert [x] Routine visit [] Staff referral [] Actively dying [] Patient sleeping [x] Family support [] [] Out of room [] Palliative care [] [] Receiving care in room [] Pre-surgical visit [] Trauma [] Long length of stay [] ICU visit [] Other: Relational/Emotional Strength [x] Patient feels connected with others/family/visitors/staff [] Distress [] Loneliness/isolation [] Abandonment Spirituality of Patient [x] Person of [place] [] Attends [employer] of their [place] [x] Believes in Prayer [] Reads Bible or Yarsani materials x [] There are Spiritual issues to be addressed Inbound [employer] Agent Interventions [x] Prayer [] Active listening [] Non-anxious presence [] Spiritual/emotional support [] Crisis/trauma care [] Spiritual counseling [] Bereavement support [] Provided bereavement packet [] Provided Bible/devotional materials [] Provided toy/stuffed animal, coloring book to patient or family member [] Provided Communion [] Anointing/[place] [] Salvation [x] Completed spiritual assessment [] Other: Impact on Illness or Injury [] Angry [] Fearful [] Anxious [] Often cries [] Exhaustion [] Unable to work [] Unable to attend sabianist [] Unable to walk/stand [] Unable to read [] Unable to drive [] Unable to eat/drink [] Unable to sleep [] Unable to be with family [] Patient intubated [] Other: Summary Time spent with patient 10 min
[2023-01-17] MEDS: pantoprazole 40 mg SDV IVP ×2 (09:45→21:17)
[2023-01-17] MEDS: levothyroxine 25 mcg Tablet PO (09:45)
[2023-01-17] MEDS: lisinopril 20 mg Tablet PO ×2 (09:45→18:02)
--- NOTE | 2023-01-17 09:47 | PC.SOCIAL ---
IMM update IMM Given to patients sister. Verbalized understanding, Initialed, dated, times and placed in chart.
--- NOTE | 2023-01-17 10:32 | PM.PN ---
Subjective Subjective: Patient was seen this morning, he continues to have some nausea, he tells me that they had to replace 2 of the buckets of from his nasogastric tube, no abdominal pain per se, is not passing gas, no stools, no fevers, no chills, he tells me that the surgeon wants to go ahead and do surgery tomorrow, he is ready for surgery, he wants to go ahead and proceed Vitals/I&O/Wt Last Vital Signs Temp 97.8 F 01/17/23 08:00 Pulse 106 H 01/17/23 08:00 Resp 19 H 01/17/23 08:00 BP 170/88 01/17/23 08:00 Pulse Ox 97 01/17/23 08:00 O2 Del Method 01/17/23 04:00 01/16/23 01/17/23 01/17/23 22:59 06:59 14:59 Intake Total 350 / 2066.133 1000 / 3066.133 485 / 485 Output Total 300 / 400 Balance 50 / 9187.683 2631 / 2666.133 485 / 485 Physical Exam Const: COMMON NORMALS: no acute distress and patient oriented x3 GENERAL APPEARANCE: frail appearing NUTRITIONAL APPEARANCE: cachectic and thin Resp: COMMON NORMALS: normal respiratory effort, No retractions, No use of accessory muscles and clear to auscultation bilaterally AUSCULTATION: clear to auscultation bilaterally Cardio: COMMON NORMALS: regular rate, regular rhythm, S1 normal heart sound present and S2 normal heart sound present RATE: regular rate RHYTHM: regular rhythm HEART SOUNDS: S1 normal heart sound present and S2 normal heart sound present GI: OTHER: Abdomen soft, slightly distended, diffuse mild tenderness, no guarding, no rebound, no rigidity Extremity: COMMON NORMALS: no pedal edema Neuro: COMMON NORMALS: patient oriented x3 Psych: COMMON NORMALS: mental status grossly normal Data 01/17/23 05:10 01/17/23 05:10 A&P Assessment and plan (1) SBO (small bowel obstruction): (2) Lung cancer: (3) Accelerated essential hypertension: (4) Port-A-Cath in place: (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: (7) Pulmonary embolism: (8) Protein calorie malnutrition: (9) Cancer cachexia: (10) Muscle wasting: (11) Goals of care, counseling/discussion: (12) Anemia: (13) Lactic acidosis: (14) Leukopenia: (15) GI bleed: (16) Acute anemia: (17) Thrombocytopenia: (18) Hypokalemia: (19) Hypophosphatemia: Plan Slow GI bleed -With evidence of iron deficiency anemia, low iron at 59, ferritin elevated at 975, likely acute phase reactant, normal folate -Hemoglobin 10, Hemoccult positive stools, -Takes Eliquis on home, no hemodynamic compromise -Heparin drip on hold due to developing anemia, no thrombocytopenia -Status post 1 of unit PRBC, 1 dose IV Venofer -Monitor hemoglobin closely -Ultrasound negative for DVT -Patient potentially will require IVC filter placement if he cannot tolerate anticoagulation for his history of pulmonary embolism, but will monitor -Discussed with patient that this is certainly difficult situation although his venous ultrasound negative DVT, recently he had a pulmonary embolism was placed on anticoagulation but now has become anemic with Hemoccult positive stools, cannot tolerate anticoagulation as becoming thrombocytopenic so for now we will hold off on anticoagulation, but given the plans on surgery there is significant risks of morbidity and mortality during surgery risk of pulmonary complications, risk of remaining intubated postop, he voiced understanding, all questions answered agrees to proceed -Discussed this in detail with patient, voiced understanding, ultrasound study, agreed to proceed Lactic acidosis -Lactic acid 6.6, lactic acid improving with hydration currently 1.0 -Likely secondary to severe dehydration -UA no significant evidence of UTI -Chest x-ray no focal pneumonia -Afebrile -Continue to monitor Leukopenia, likely secondary to chemotherapy, isolation precautions monitor for fevers Small bowel obstruction 1.? Small bowel obstruction with transition point RIGHT lower quadrant with tethering. This may be due to Internal hernia, volvulus, or multifocal adhesions. Dilated small bowel loop in the RIGHT lower quadrant measures 3.1 CM. No free air or pneumatosis. 2.? Mild pancolonic constipation. 3.? Small amount of free fluid in the pelvis. 4.? Cavitary neoplasm LEFT lower lobe unchanged. 5.? Small esophageal hiatal hernia. 6.? Irregular low-attenuation lesion upper pole RIGHT kidney with peripheral enhancement. This can be followed up with ultrasound. This measures approximately 3.1 x 2.2 CM. 7.? Cholelithiasis. Plan -Keep n.p.o. -Nasogastric tube i in place, 500 cc output -Magnesium, phosphorus, monitor electrolytes -Continue D5 normal saline -General surgery consulted -Serial abdominal exams -Small bowel series -Plan on surgical intervention tomorrow -Pain control morphine -Zofran for nausea -DVT prophylaxis SCDs Right lower lobe pulmonary embolism -Hold Eliquis -Hold anticoagulation -Spoke to hematology, continue to monitor, can hold off on anticoagulation for now Acute anemia -Likely secondary to chemotherapy -However is on Eliquis at home, heparin drip. -Monitor hemodynamics -Iron studies, borderline low iron monitor -Hemoccult stool positive for blood -As above Elevated TSH, free T3, free T4 within normal limits Cancer cachexia Lung cancer, status post chemoradiation Protein calorie malnutrition Muscle wasting Hypokalemia, hypophosphatemia, will replace today Anemia, will monitor Thrombocytopenia will monitor Left lower quadrant mass -Spoke to radiology, could be penile prosthesis or likely urinary sphincter pump Goals of care discussion, patient would like to be DNR/DNI Spoke to general surgery, spoke to nursing staff Attestations Medical Necessity Statement*: Patient requires hospitalization for small bowel obstruction, plans underway surgical intervention Diagnoses SBO (small bowel obstruction) K56.609 Lung cancer C34.90 Accelerated essential hypertension I10 Port-A-Cath in place Z95.828 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
[2023-01-17 10:40] LABS: Glucose Point of Care 101 mg/dL (70-110)
[2023-01-17] MEDS: potassium phosphate (mEq K) 40 MEQ in sodium chloride 0.9% (100 ml) 100 ML 27.25 MEQ IV (13:57)
[2023-01-17 17:28] LABS: Glucose Point of Care 101 mg/dL (70-110)
[2023-01-17 18:30] LABS: Basophils % 0.5 %; Eosinophils % 0.9 %; Hematocrit 31.7 % (42.0-52.0); Lymphocytes # 0.1 10^3/uL (0.8-4.8); Lymphocytes % 2.3 %; Mean Corpuscular HGB Conc 31.5 g/dL (30.0-36.0); Mean Corpuscular Hemoglobin 28.9 pg (28.0-34.0); Mean Corpuscular Volume 91.6 fl (80-94); Mean Platelet Volume 9.5 fL (7.4-10.4); Monocytes # 0.3 10^3/uL (0.2-0.9); Monocytes % 12.6 %; Neutrophils # 1.85 10^3/uL (1.8-7.7); Neutrophils % 83.2 %; Nucleated Red Blood Cells % 0.9 %; Platelet Count 58 10^3/cmm (130-400); Red Blood Count 3.46 10^6/uL (4.1-5.3); Red Cell Distribution Width 19.8 % (12.1-15.1); White Blood Count 2.2 10^3/uL (4.0-10.0)
[2023-01-17] MEDS: atorvastatin 40 mg Tablet 20 MG PO (20:26)
[2023-01-17] MEDS: sucralfate 1 gm Tablet PO (20:27)
[2023-01-17] MEDS: hyDRALAzine 20 mg/mL INJ 1 mL 5 MG IVP (21:17)
[2023-01-17 23:33] LABS: Glucose Point of Care 99 mg/dL (70-110)
[2023-01-18] VITALS (19 sets, daily range): BP systolic 125–189; BP diastolic 72–105; PULSE 96–118; RESP 15–26; TEMP 36.3–37.6; O2SAT 92–98
[2023-01-18 05:08] LABS: Basophils % 0.5 %; Eosinophils % 1.6 %; Hematocrit 30.8 % (42.0-52.0); Hemoglobin 9.8 g/dL (11.7-16.6); Lymphocytes # 0.1 10^3/uL (0.8-4.8); Lymphocytes % 4.2 %; Mean Corpuscular HGB Conc 31.8 g/dL (30.0-36.0); Mean Corpuscular Hemoglobin 28.9 pg (28.0-34.0); Mean Corpuscular Volume 90.9 fl (80-94); Mean Platelet Volume 10.8 fL (7.4-10.4); Monocytes # 0.3 10^3/uL (0.2-0.9); Monocytes % 13.2 %; Neutrophils # 1.52 10^3/uL (1.8-7.7); Nucleated Red Blood Cells % 0 %; Platelet Count 65 10^3/cmm (130-400); Red Blood Count 3.39 10^6/uL (4.1-5.3); Red Cell Distribution Width 19.9 % (12.1-15.1); White Blood Count 1.9 10^3/uL (4.0-10.0)
[2023-01-18 05:18] LABS: Lactate (Lactic Acid level) 0.8 mmol/L (0.5-2.2)
[2023-01-18 05:19] LABS: Blood Urea Nitrogen 15 mg/dL (8-23); C Reactive Protein 17.4 mg/L (0.0-4.9); Calcium 10.3 mg/dL (8.5-10.5); Carbon Dioxide 26 mmol/L (22-29); Chloride 113 mmol/L (98-107); Glucose 104 mg/dL (65-115); Magnesium 2.1 mg/dL (1.7-2.3); Osmolality Calculated 303 mOsm/kg (285-295); Sodium 146 mmol/L (136-145)
[2023-01-18 05:25] LABS: Procalcitonin 0.28 ng/mL (0-0.5)
[2023-01-18 07:23] LABS: Glucose Point of Care 92 mg/dL (70-110)
[2023-01-18 08:15] LABS: Basophils % 0.5 %; Eosinophils % 1.5 %; Hematocrit 32.2 % (42.0-52.0); Hemoglobin 10.1 g/dL (11.7-16.6); Lymphocytes # 0.1 10^3/uL (0.8-4.8); Lymphocytes % 3.6 %; Mean Corpuscular HGB Conc 31.4 g/dL (30.0-36.0); Mean Corpuscular Hemoglobin 28.6 pg (28.0-34.0); Mean Corpuscular Volume 91.2 fl (80-94); Mean Platelet Volume 10.5 fL (7.4-10.4); Monocytes # 0.3 10^3/uL (0.2-0.9); Monocytes % 14.4 %; Neutrophils # 1.55 10^3/uL (1.8-7.7); Neutrophils % 79.5 %; Nucleated Red Blood Cells % 0 %; Platelet Count 58 10^3/cmm (130-400); Red Blood Count 3.53 10^6/uL (4.1-5.3); Red Cell Distribution Width 19.9 % (12.1-15.1)
[2023-01-18] MEDS: potassium phosphate (mEq K) 40 MEQ in sodium chloride 0.9% (100 ml) 100 ML 27.25 MEQ IV (10:04)
[2023-01-18] MEDS: levothyroxine 25 mcg Tablet PO (10:25)
[2023-01-18] MEDS: lisinopril 20 mg Tablet PO (10:25)
[2023-01-18] MEDS: pantoprazole 40 mg SDV IVP (10:26)
--- NOTE | 2023-01-18 12:15 | P.PN_ITS ---
Subjective Subjective: Patient was seen this morning he sitting up to the bedside commode, still has not had a bowel movement yet, no nausea, NG tube in place, no fevers overnight, Vitals/I&O/Wt Last Vital Signs Temp 99.2 F 01/18/23 12:00 Pulse 102 H 01/18/23 12:00 Resp 19 H 01/18/23 12:00 BP 160/90 01/18/23 12:00 Pulse Ox 98 01/18/23 12:00 O2 Del Method 01/18/23 04:00 O2 Flow Rate 2 01/17/23 20:00 01/17/23 01/18/23 01/18/23 22:59 06:59 14:59 Intake Total 1161.0909 / 1646.0909 0 / 1646.0909 Output Total 550 / 550 300 / 850 Balance 611.0909 / 1096.0909 -300 / 796.0909 Physical Exam Const: COMMON NORMALS: no acute distress and patient oriented x3 Resp: COMMON NORMALS: normal respiratory effort, No retractions, No use of accessory muscles and clear to auscultation bilaterally AUSCULTATION: clear to auscultation bilaterally Cardio: COMMON NORMALS: regular rate, regular rhythm, S1 normal heart sound present and S2 normal heart sound present RATE: regular rate RHYTHM: regular rhythm HEART SOUNDS: S1 normal heart sound present and S2 normal heart sound present GI: OTHER: Abdomen soft, slightly distended, decreased bowel sounds, diffuse tenderness, Extremity: COMMON NORMALS: no pedal edema Neuro: COMMON NORMALS: patient oriented x3 Psych: COMMON NORMALS: mental status grossly normal Data 01/18/23 07:08 01/18/23 04:53 A&P Assessment and plan (1) SBO (small bowel obstruction): (2) Lung cancer: (3) Accelerated essential hypertension: (4) Port-A-Cath in place: (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: (7) Pulmonary embolism: (8) Protein calorie malnutrition: (9) Cancer cachexia: (10) Muscle wasting: (11) Goals of care, counseling/discussion: (12) Anemia: (13) Lactic acidosis: (14) Leukopenia: (15) GI bleed: (16) Acute anemia: (17) Thrombocytopenia: (18) Hypokalemia: (19) Hypophosphatemia: Plan Slow GI bleed -With evidence of iron deficiency anemia, low iron at 59, ferritin elevated at 975, likely acute phase reactant, normal folate -Hemoglobin 10, Hemoccult positive stools, -Takes Eliquis on home, no hemodynamic compromise -Heparin drip on hold due to developing anemia, thrombocytopenia -Status post 1 of unit PRBC, 1 dose IV Venofer -Monitor hemoglobin closely -Ultrasound negative for DVT -Patient potentially will require IVC filter placement if he cannot tolerate anticoagulation for his history of pulmonary embolism, but will monitor -Discussed with patient that this is certainly difficult situation although his venous ultrasound negative DVT, recently he had a pulmonary embolism was placed on anticoagulation but now has become anemic with Hemoccult positive stools, cannot tolerate anticoagulation as becoming thrombocytopenic so for now we will hold off on anticoagulation, but given the plans on surgery there is significant risks of morbidity and mortality during surgery risk of pulmonary complications, risk of remaining intubated postop, he voiced understanding, all questions answered agrees to proceed -Discussed this in detail with patient, voiced understanding, ultrasound study, agreed to proceed Lactic acidosis -Lactic acid 6.6, lactic acid improving with hydration currently 1.0 -Likely secondary to severe dehydration -UA no significant evidence of UTI -Chest x-ray no focal pneumonia -Afebrile -Continue to monitor Leukopenia, likely secondary to chemotherapy, isolation precautions monitor for fevers Thrombocytopenia, potentially related to heparin drip, which has been stopped Small bowel obstruction 1.? Small bowel obstruction with transition point RIGHT lower quadrant with t ethering. This may be due to Internal hernia, volvulus, or multifocal adhesions. Dilated small bowel loop in the RIGHT lower quadrant measures 3.1 CM. No free air or pneumatosis. 2.? Mild pancolonic constipation. 3.? Small amount of free fluid in the pelvis. 4.? Cavitary neoplasm LEFT lower lobe unchanged. 5.? Small esophageal hiatal hernia. 6.? Irregular low-attenuation lesion upper pole RIGHT kidney with peripheral enhancement. This can be followed up with ultrasound. This measures approximate ly 3.1 x 2.2 CM. 7.? Cholelithiasis. Plan -Keep n.p.o. -Nasogastric tube i in place -Magnesium, phosphorus, monitor electrolytes -Continue D5 normal saline -General surgery consulted -Serial abdominal exams -Small bowel series -Plan on surgical intervention today -Pain control morphine -Zofran for nausea -DVT prophylaxis SCDs Right lower lobe pulmonary embolism -Hold Eliquis -Hold anticoagulation -Spoke to hematology, continue to monitor, can hold off on anticoagulation for now Acute anemia -Likely secondary to chemotherapy -However is on Eliquis at home, heparin drip. -Monitor hemodynamics -Iron studies, borderline low iron monitor -Hemoccult stool positive for blood -As above Elevated TSH, free T3, free T4 within normal limits Cancer cachexia Lung cancer, status post chemoradiation Protein calorie malnutrition Muscle wasting Hypokalemia, hypophosphatemia, will replace today Anemia, will monitor Thrombocytopenia will monitor Urinary sphincter in place -We will need to have a Soni catheter placed Goals of care discussion, patient would like to be DNR/DNI Spoke to general surgery, spoke to nursing staff Attestations Medical Necessity Statement*: Patient requires hospitalization due to small bowel obstruction, anemia, thrombocytopenia, anemia, hypophosphatemia Diagnoses SBO (small bowel obstruction) K56.609 Lung cancer C34.90 Accelerated essential hypertension I10 Port-A-Cath in place Z95.828 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
[2023-01-18] MEDS: dextrose 5%-sod chloride 0.9% 1,000 ML 75 ML IV (14:34)
--- NOTE | 2023-01-18 15:45 | P.CONIM_ITS ---
Providers/Reason For Consult Consulting Physician/Specialty*: Urology/[place] Reason for Consult*: Artificial urinary sphincter questions, possible retention Attending Physician: Chris Quintero MD Primary Care Provider: Aguilar Balbuena DO History of Present Illness History of Present Illness Adrian Corey is a 82 year old male known to me from prior consultation on 11/28/2022 while he was an inpatient. There was concern about the possibility of urinary retention at that time. Evaluation though showed that he was not in retention. He was able to activate his artificial urinary sphincter (AMS 800) and drain his bladder well. He reports that prior to the artificial sphincter placement he was severely incontinent and could not essentially hold anything in his bladder at all. When the cuff is opened he drains readily. I was consulted for consideration of catheter placement. On physical exam the sphincter was confirmed to be in functioning status. It was deactivated. The patient was scheduled for surgery. Prior to opening the sphincter he had over 400 cc in his bladder and once the cuff was deflated he completely emptied. He was hoping to avoid a catheter and the potential risk. Since he drains well and has a history of essentially total incontinence before the sphincter was placed and that seems to be the case when he opens his sphincter cuff with a full bladder that it just runs out I think is reasonable to leave the catheter out if we can use a condom catheter with frequent bladder scans to confirm adequate emptying. If the bladder is not draining well a 12 Citizen [place] catheter can be placed. Sphincter was confirmed to be deactivated upon exiting the room. I did review with the patient surgeon those options and he was comfortable with leaving the catheter out. I will be available. Review of Systems Const: Reports: malaise; Denies: fever(s) or chills Eyes: Denies: change in vision, eye discharge or yellow eyes ENMT: Denies: hoarseness Card: Denies: chest pain or palpitations Resp: Denies: productive cough or wheezing GI: Reports: abdominal pain and nausea; Denies: diarrhea : Reports: other (Artificial sphincter has been functioning fine.); Denies: difficulty urinating Musc: Reports: back pain and joint stiffness Neuro: Denies: confusion, behavioral changes or Slurred speech present Psych: Denies: anxiety Endo: Denies: flushing Antonio/Lymph: Denies: easy bruising or easy bleeding All/Imm: Denies: urticaria or acute wheezing Medications/Allergies Home Medications Medication Instructions Recorded Confirmed Last Taken Type levothyroxine 25 mcg tablet 25 mcg PO DAILY 12/03/19 01/14/23 01/12/23 History (Synthroid) pravastatin 20 mg tablet 20 mg PO BEDTIME 09/06/22 01/14/23 01/13/23 History benazepril 20 mg tablet 20 mg PO BID 10/10/22 01/14/23 01/11/23 History lorazepam 1 mg tablet 0.5 - 1 mg PO Q6H PRN Severe 11/20/22 01/14/23 Unknown Rx Nausea #30 tabs cinacalcet 30 mg tablet 30 mg PO BID #180 tabs 11/29/22 01/14/23 01/12/23 Rx apixaban 5 mg tablet (Eliquis) 10 mg PO BID 01/14/23 01/14/23 01/12/23 History Allergies Allergy/AdvReac Type Severity Reaction Status Date / Time pantoprazole Allergy ADR-Heartbu Verified 01/10/23 10:22 rn Current Medications Generic Name Dose Route Start Last Admin Trade Name Freq PRN Reason Stop Dose Admin Atorvastatin Calcium 20 mg 01/15/23 21:00 01/17/23 20:26 Atorvastatin 40 Mg Tablet PO 20 mg BEDTIME JENNY Administration Heparin Sodium (Porcine) 0 unit 01/14/23 20:52 01/15/23 10:02 Heparin 5,000 Unit/Ml Inj 1 Ml IV 1,100 unit PRN PRN Administration Heparin weight-base protocol Protocol Hydralazine HCl 5 mg 01/17/23 20:48 01/17/23 21:17 Hydralazine 20 Mg/Ml Inj 1 Ml IVP 5 mg Q6H PRN Administration For systolic BP above 170 Heparin Sodium/Sodium Chloride 25,000 unit in 500 mls @ 0 mls/hr 01/14/23 22:00 01/16/23 07:43 Heparin Drip IV 0 unit/kg/hr .Q0M JENNY 0 mls/hr Titration Protocol Per Protocol Dextrose/Sodium Chloride 1,000 mls @ 75 mls/hr 01/14/23 20:52 01/18/23 14:34 Dextrose 5%-Sod Chloride 0.9% IV 75 mls/hr .[id number] JENNY Administration Levothyroxine Sodium 25 mcg 01/15/23 09:00 01/18/23 10:25 Levothyroxine 25 Mcg Tablet PO 25 mcg DAILY JENNY Administration Lisinopril 20 mg 01/15/23 09:00 01/18/23 10:25 Lisinopril 20 Mg Tablet PO 20 mg BID JENNY Administration Morphine Sulfate 2 mg 01/14/23 20:52 01/15/23 14:10 Morphine 4 Mg/Ml Sdv 1 Ml IVP 2 mg Q4H PRN Administration SEVERE PAIN Non-Formulary Medication 30 mg 01/14/23 20:52 01/18/23 09:34 Cinacalcet PO Not Given BID JENNY Ondansetron HCl 4 mg 01/14/23 20:52 01/16/23 20:31 Ondansetron 2 Mg/Ml Sdv 2 Ml IVP 4 mg Q8H PRN Administration vomiting, or N/V if npo Pantoprazole Sodium 40 mg 01/16/23 08:30 01/18/23 10:26 Pantoprazole 40 Mg Sdv IVP 40 mg Q12H JENNY Administration Sucralfate 1 gm 01/16/23 08:30 01/18/23 09:34 Sucralfate 1 Gm Tablet PO Not Given Q12H JENNY PFSH Acute PFSH: Medical History Accelerated essential hypertension Distal radius fracture, right History of prostate cancer Lung cancer Port-A-Cath in place Pulmonary embolism Thyroid disease Surgical History History of open reduction and internal fixation (ORIF) procedure right distal radius Family History Father Anesthesia complication Brother CAD (coronary artery disease) Sister Chronic kidney disease (CKD) Diabetes Other Hypertension Denies family history of Clotting disorder Dementia Hyperlipidemia Psychiatric illness Suicide Bleeding disorder Lung disease Cancer Stroke Social History Smoking and tobacco status: smoker, details unknown Quit status (tobacco): has quit using tobacco Year quit tobacco: 2017 Former quit date comment: 2ppd x 27 years; quit smoking pipe Oct 2021 Alcohol intake: never Vitals/I&O/Wt Last Vital Signs Temp 99.2 F 01/18/23 12:00 Pulse 102 H 01/18/23 12:00 Resp 19 H 01/18/23 12:00 BP 160/90 01/18/23 12:00 Pulse Ox 98 01/18/23 12:00 O2 Del Method 01/18/23 04:00 O2 Flow Rate 2 01/18/23 08:00 01/18/23 01/18/23 01/18/23 06:59 14:59 22:59 Intake Total 0 / 1646.0909 1059.0909 / 1059.0909 Output Total 300 / 850 Balance -300 / 796.0909 1059.0909 / 1059.0909 Physical Exam Const: COMMON NORMALS: alert GENERAL APPEARANCE: well kempt and well developed ORIENTATION/CONSCIOUSNESS: not confused OTHER: Frail-appearing HENMT: COMMON NORMALS: normocephalic HEAD & SCALP: normal to inspection and normocephalic Eye: COMMON NORMALS: conjunctivae normal and no scleral icterus CONJUNCTIVA: Yes conjunctivae normal Neck/C-Spine: GENERAL: Yes normal visual inspection Resp: COMMON NORMALS: normal respiratory effort EFFORT & INSPECTION: Yes able to speak in complete sentences, No labored and No Actively coughing GI: OTHER: NG tube in place : OTHER: Normal phallus. Scrotum grossly normal. Testicles descended. AMS 800 pump in the left hemiscrotum with good function demonstrated. Pump was deactivated. Extremity: COMMON NORMALS: no clubbing, cyanosis or edema Neuro: COMMON NORMALS: no focal motor deficits SENSORIUM/ORIENTATION: Yes alert Psych: COMMON NORMALS: mental status grossly normal APPEARANCE: Yes grossly normal and Yes well kempt ATTITUDE: Yes calm and Yes engaged Skin: COMMON NORMALS: no jaundice Data 01/18/23 07:08 01/18/23 04:53 A&P Assessment and plan (1) Status post implantation of artificial urinary sphincter: (2) SBO (small bowel obstruction): Consult Attestations Medical Necessity Statement: See attending Coding Level of Care Code Acute Code for Chg Fwd Diagnoses Status post implantation of artificial urinary sphincter Z96.0 SBO (small bowel obstruction) K56.609
[2023-01-18] MEDS: hyDRALAzine 20 mg/mL INJ 1 mL 5 MG IVP (17:01)
--- NOTE | 2023-01-18 18:14 | ANES.PREANE2 ---
Pre-Anesthetic Assessment Height/Weight: Height 1.75 m Weight 53.342 kg Temp Pulse Resp BP Pulse Ox O2 Del Method O2 Flow Rate 98 F 104 H 15 183/97 92 2 01/18/23 16:00 01/18/23 16:00 01/18/23 16:00 01/18/23 16:00 01/18/23 16:00 01/18/23 04:00 01/18/23 08:00 Preop Diagnosis: small bowel obstruction Operation Date: 01/18/23 09:30 Proposed Procedures p Exploratory Laparotomy, possible small bowel resection, possible lysis of adhesions(Not Applicable) - Bri Turcios MD s possible(Not Applicable) - Bri Turcios MD Familial anesthetic complications: None Was Beta Flores taken within 24 hours: N/A Was Clonidine taken within 24 hours: N/A Last intake: Intake Last Liquid Date 01/17/23 Last Liquid Time 21:00 Last Solid Date 01/14/23 Last Solid Time 17:00 Social No alcohol and No tobacco Exam alert, oriented x 3, clear to auscultation bilaterally and regular rate & rhythm Airway Mallampati: Class II Dentition: chipped 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 CV/HEM Hypertension Hx PE Metabolic Hyperlipidemia and Thyroid Disease cachexia Anesthetic Plan ASA status: 4E Anesthesia: General Risk of > 500 ml blood loss (7ml/kg in children): No Medications/Allergies Home Medications Medication Instructions Recorded Confirmed Last Taken Type levothyroxine 25 mcg tablet 25 mcg PO DAILY 12/03/19 01/14/23 01/12/23 History (Synthroid) pravastatin 20 mg tablet 20 mg PO BEDTIME 09/06/22 01/14/23 01/13/23 History benazepril 20 mg tablet 20 mg PO BID 10/10/22 01/14/23 01/11/23 History lorazepam 1 mg tablet 0.5 - 1 mg PO Q6H PRN Severe 11/20/22 01/14/23 Unknown Rx Nausea #30 tabs cinacalcet 30 mg tablet 30 mg PO BID #180 tabs 11/29/22 01/14/23 01/12/23 Rx apixaban 5 mg tablet (Eliquis) 10 mg PO BID 01/14/23 01/14/23 01/12/23 History Allergies Allergy/AdvReac Type Severity Reaction Status Date / Time pantoprazole Allergy ADR-Heartbu Verified 01/10/23 10:22 rn Current Medications Generic Name Dose Route Start Last Admin Trade Name Freq PRN Reason Stop Dose Admin Atorvastatin Calcium 20 mg 01/15/23 21:00 01/17/23 20:26 Atorvastatin 40 Mg Tablet PO 20 mg BEDTIME JENNY Administration Heparin Sodium (Porcine) 0 unit 01/14/23 20:52 01/15/23 10:02 Heparin 5,000 Unit/Ml Inj 1 Ml IV 1,100 unit PRN PRN Administration Heparin weight-base protocol Protocol Hydralazine HCl 5 mg 01/17/23 20:48 01/18/23 17:01 Hydralazine 20 Mg/Ml Inj 1 Ml IVP 5 mg Q6H PRN Administration For systolic BP above 170 Heparin Sodium/Sodium Chloride 25,000 unit in 500 mls @ 0 mls/hr 01/14/23 22:00 01/16/23 07:43 Heparin Drip IV 0 unit/kg/hr .Q0M JENNY 0 mls/hr Titration Protocol Per Protocol Dextrose/Sodium Chloride 1,000 mls @ 75 mls/hr 01/14/23 20:52 01/18/23 14:34 Dextrose 5%-Sod Chloride 0.9% IV 75 mls/hr .[id number] JENNY Administration Levothyroxine Sodium 25 mcg 01/15/23 09:00 01/18/23 10:25 Levothyroxine 25 Mcg Tablet PO 25 mcg DAILY JENNY Administration Lisinopril 20 mg 01/15/23 09:00 01/18/23 17:05 Lisinopril 20 Mg Tablet PO Not Given BID JENNY Morphine Sulfate 2 mg 01/14/23 20:52 01/15/23 14:10 Morphine 4 Mg/Ml Sdv 1 Ml IVP 2 mg Q4H PRN Administration SEVERE PAIN Non-Formulary Medication 30 mg 01/14/23 20:52 01/18/23 17:05 Cinacalcet PO Not Given BID JENNY Ondansetron HCl 4 mg 01/14/23 20:52 01/16/23 20:31 Ondansetron 2 Mg/Ml Sdv 2 Ml IVP 4 mg Q8H PRN Administration vomiting, or N/V if npo Pantoprazole Sodium 40 mg 01/16/23 08:30 01/18/23 10:26 Pantoprazole 40 Mg Sdv IVP 40 mg Q12H JENNY Administration Sucralfate 1 gm 01/16/23 08:30 01/18/23 09:34 Sucralfate 1 Gm Tablet PO Not Given Q12H JENNY PFSH Anesthesia Medical History Accelerated essential hypertension Distal radius fracture, right History of prostate cancer Lung cancer Port-A-Cath in place Pulmonary embolism Thyroid disease Surgical History History of open reduction and internal fixation (ORIF) procedure right distal radius Family History Father Anesthesia complication Brother CAD (coronary artery disease) Sister Chronic kidney disease (CKD) Diabetes Other Hypertension Denies family history of Clotting disorder Dementia Hyperlipidemia Psychiatric illness Suicide Bleeding disorder Lung disease Cancer Stroke Social History Smoking and tobacco status: smoker, details unknown Quit status (tobacco): has quit using tobacco Year quit tobacco: 2017 Former quit date comment: 2ppd x 27 years; quit smoking pipe Oct 2021 Alcohol intake: never Data Anesthesia 01/18/23 07:08 01/18/23 04:53 Short CBC 01/16/23 01/16/23 01/17/23 Range/Units 00:00 04:22 05:10 WBC 2.6 L (4.0-10.0) 10^3/uL Hgb 9.3 L 7.2 L 10.0 L D (11.7-16.6) g/dL Hct 30.0 L 23.0 L 32.0 L D (42.0-52.0) % MCV 90.7 (80-94) fl Plt Count 72 L (130-400) 10^3/cmm Neut % (Auto) 87.4 % Neut # (Auto) 2.30 (1.8-7.7) 10^3/uL 01/17/23 01/18/23 01/18/23 Range/Units 18:05 04:53 07:08 WBC 2.2 L 1.9 L 2.0 L (4.0-10.0) 10^3/uL Hgb 10.0 L 9.8 L 10.1 L (11.7-16.6) g/dL Hct 31.7 L 30.8 L 32.2 L (42.0-52.0) % MCV 91.6 90.9 91.2 (80-94) fl Plt Count 58 L 65 L 58 L (130-400) 10^3/cmm Neut % (Auto) 83.2 80.0 79.5 % Neut # (Auto) 1.85 1.52 L 1.55 L (1.8-7.7) 10^3/uL BMP 01/17/23 01/18/23 05:10 04:53 Sodium 146 H 146 H Potassium 3.5 3.0 L Chloride 112 H 113 H Carbon Dioxide 26 26 BUN 15 15 Creatinine 0.7 0.6 L Glucose 137 H 104 Calcium 10.7 H 10.3 Blood Bank 01/18/23 07:08 Blood Type O Negative Rho(D) Type Negative Antibody Screen Negative Coags 01/17/23 01/18/23 05:10 04:53 C-Reactive Protein 19.3 H 17.4 H Cardiac Studies: No Data to Display
[2023-01-18] MEDS: sodium chloride 0.9% 1,000 ML 30 ML IV (18:24)
[2023-01-18] MEDS: ceFOXitin 2,000 MG in sodium chloride 0.9% (plus) 50 ML 100 MG IV (19:20)
--- NOTE | 2023-01-18 20:38 | PM.OP ---
Operative Report Date of procedure: January 18, 2023 Pre-op diagnosis: Small bowel obstruction Post-op diagnosis: same Procedure done: Exploratory laparotomy, lysis of adhesions, small bowel resection with primary anastomosis Specimens removed/disposition: 41 cm of ischemic small bowel Pathology: Resected small bowel Surgeon: Bri Turcios Anesthesia: General Estimated blood loss: 50 cc Complications: None noted Findings: A tongue of omentum had wrapped around a loop of small bowel this created a closed-loop obstruction. The loop appeared to be ischemic. The small bowel was resected and a primary anastomosis was performed. Disposition: ICU Brief History: This is an 82-year-old gentleman who presented with signs and symptoms of a small bowel obstruction. The patient had an NG tube placed. The patient was hydrated. The patient underwent a small bowel follow-through with Gastrografin. The small bowel follow-through went to approximate the mid jejunum and then did not progress. Because of this I thought the patient required surgery. The risk and benefits of surgical intervention were explained to the patient. The patient seemed understand the risk and benefits and wanted to proceed. Procedure: Procedure in detail: The patient is brought to the operating room placed in supine position. After adequate general endotracheal anesthesia, the patient's abdomen is prepped and draped in usual sterile fashion. Following this a timeout was performed. The patient identifiers as well as the goals procedure were discussed. Everyone in the room agreed. A midline incision was made from just below the xiphoid to just below the umbilicus. This was done with a skin knife. The Bovie cautery was used to carry this incision down to and through the subcutaneous tissues. The Bovie cautery was then used to transect the fascia. The peritoneum was picked up with DeBakey pickups. Metzenbaum scissors were used to open the peritoneum. A finger was now placed in the abdomen in order to protect the intra-abdominal contents. The Bovie cautery was used to open the incision/peritoneum throughout the length of the incision. A Bookwalter retractor was now placed. The small bowel was run from the ligament of Treitz until we ran into where the obstruction was. There was a tongue of omentum which the small bowel had wrapped around. There was approximate 41 cm of small bowel which was ischemic in appearance especially at the antimesenteric border. Using a Bovie cautery the omentum was transected freeing the small bowel. Because the small bowel appeared to be ischemic I thought the best thing to do would be to go ahead and resect this. I placed this the small bowel [id number] and then put 2 Vicryl sutures in the antimesenteric border. 1 suture was exactly just where my staple line would be and another suture was placed approximately 6 to 8 cm more distal/proximal. A window was created in the mesentery on both the proximal and distal end of this loop. Then the MARTA stapler was placed through this window in the mesentery and fired therefore transecting the small bowel. This was done both proximally and distally. Now using a LigaSure the mesentery was transected. The specimen was now handed off the field. Pickups were used at the antimesenteric border of the small bowel where just the tip was cut off with the Bovie cautery hemostat was placed in this hole and spread and then 1 limb of the MARTA was placed in the proximal end and one end was placed in the distal end of the small bowel these were the MARTA stapler was now closed and fired this created the anastomosis. Now using Allis clamps the remaining hole was reapproximated and then using a TA stapler this hole was closed curved Barajas's were used to cut the excess small bowel and this was handed off the field. The mesentery was now reapproximated with 3-0 Vicryl in an interrupted fashion. The abdomen is now irrigated with copious amounts of normal saline. The small bowel was run from the ligament of Treitz to the ileocecal valve. There is no other abnormalities noted. There was some adhesions to the left abdominal wall. This was the omentum was adhesed there this was taken down with the Bovie cautery. The Bovie cautery was used for hemostasis. It should be mentioned the patient did have some brisk bleeding from some minor vessels. The Bovie cautery was used to control this. The patient did receive platelets prior to surgery. This was clearly helpful. Now the irrigant was suctioned out of the abdomen. A malleable was placed in the abdomen. #1 looped PDS was used to reapproximate the fascia. 2 strands were used. One starting superiorly and working inferiorly and then 1 starting inferiorly and working superiorly. These were tied above the umbilicus. Because the patient was somewhat thin I decided to use a 3-0 Vicryl in a [id number] fashion to hold the PDS suture close to the fascia so the patient could not palpate an in his wound. The wound was irrigated again and jabari were used to close the skin. A sterile dressing was applied. The patient was awakened and taken the recovery room in stable condition. Following the procedure I tried to find the patient's family. Currently we cannot find a number for the patient's family. We will continue looking.
[2023-01-18] MEDS: morphine 4 mg/mL SDV 1 mL 2 MG IVP (21:59)
[2023-01-18] MEDS: ondansetron 2 mg/ML SDV 2 mL 4 MG IVP (21:59)
[2023-01-18] MEDS: HYDROmorphone 1 mg/mL INJ 1 mL IVP (23:10)
[2023-01-19] VITALS (15 sets, daily range): BP systolic 114–173; BP diastolic 71–104; PULSE 100–122; RESP 16–24; TEMP 36.5–37.3; O2SAT 93–99
--- NOTE | 2023-01-19 00:03 | PC.NURSE ---
pt has weak cough after surgery causing increased pain. Pt was educated on splinting while coughing, with a pillow, visitor at bedside. Surgical site immediately from pacu - medial incision covered in island dressing moderately soiled, so i marked it at this time. Checked site periodically to discover dressing fully soiled and leaking onto gown and bed sheets, moderate amount. Charge nurse laid eyes on pt. We reinforced dressing with one abd and took vitals. BP 179/90 HR 120 O2 95%.
[2023-01-19 01:07] LABS: Glucose Point of Care 120 mg/dL (70-110)
[2023-01-19] MEDS: hyDRALAzine 20 mg/mL INJ 1 mL 5 MG IVP (01:57)
[2023-01-19] MEDS: morphine 4 mg/mL SDV 1 mL 2 MG IVP ×2 (02:05→07:59)
[2023-01-19] MEDS: HYDROmorphone 1 mg/mL INJ 1 mL 0.5 MG IVP ×4 (02:55→18:11)
--- NOTE | 2023-01-19 03:29 | PC.NURSE ---
Q1hr checks of dressing has been made since abd reinforcement applied. sanguineous drainage noted over a period of 4 hours, has not soaked through the one abd applied. Currently marked and within boundary.
[2023-01-19] MEDS: dextrose 5%-sod chloride 0.9% 1,000 ML 75 ML IV (04:46)
[2023-01-19 05:42] LABS: Basophils % 0.6 %; Hematocrit 30.7 % (42.0-52.0); Hemoglobin 9.5 g/dL (11.7-16.6); Lymphocytes # 0.1 10^3/uL (0.8-4.8); Lymphocytes % 3.8 %; Mean Corpuscular HGB Conc 30.9 g/dL (30.0-36.0); Mean Corpuscular Hemoglobin 29.4 pg (28.0-34.0); Mean Platelet Volume 10.9 fL (7.4-10.4); Monocytes # 0.2 10^3/uL (0.2-0.9); Monocytes % 13.1 %; Neutrophils # 1.31 10^3/uL (1.8-7.7); Neutrophils % 81.9 %; Nucleated Red Blood Cells % 0 %; Platelet Count 82 10^3/cmm (130-400); Red Blood Count 3.23 10^6/uL (4.1-5.3); Red Cell Distribution Width 20.2 % (12.1-15.1); White Blood Count 1.6 10^3/uL (4.0-10.0)
[2023-01-19 05:49] LABS: INR 1.27 (0.8-1.2)
[2023-01-19 05:58] LABS: Lactate (Lactic Acid level) 0.8 mmol/L (0.5-2.2)
[2023-01-19 06:09] LABS: NT Pro B Type Natriuretic Pept 4471 pg/mL (0-450); Procalcitonin 1.78 ng/mL (0-0.5)
[2023-01-19 06:20] LABS: Alanine Aminotransferase 8 U/L (0-41); Albumin Level 3.3 g/dL (3.5-5.2); Alkaline Phosphatase 76 U/L (40-130); Anion Gap 14.1 (5-19); Aspartate Amino Transferase 13 U/L (0-40); Blood Urea Nitrogen 18 mg/dL (8-23); C Reactive Protein 38.3 mg/L (0.0-4.9); Calcium 10.3 mg/dL (8.5-10.5); Carbon Dioxide 23 mmol/L (22-29); Chloride 116 mmol/L (98-107); Globulin 2.2 g/dL (1.3-4.6); Glucose 114 mg/dL (65-115); Magnesium 1.8 mg/dL (1.7-2.3); Osmolality Calculated 313 mOsm/kg (285-295); Phosphorus 2.6 mg/dL (2.5-4.5); Potassium 3.1 mmol/L (3.5-5.1); Sodium 150 mmol/L (136-145); Total Bilirubin 0.7 mg/dL (0.15-1.2); Total Protein 5.5 g/dL (6.6-8.7)
[2023-01-19 06:24] LABS: Glucose Point of Care 118 mg/dL (70-110)
--- NOTE | 2023-01-19 06:50 | PM.MISC ---
Miscellaneous Note Note: 1 episode of 23 beat run of V. tach, patient was coughing at the time he was relatively asymptomatic. Serum potassium 3.1, serum magnesium 1.8: Serum potassium replacement undertaken.
[2023-01-19] MEDS: lidocaine 1% 5 ML in potassium chloride premix 100 ML 26.25 ML IV (09:12)
[2023-01-19] MEDS: levothyroxine 25 mcg Tablet PO (09:16)
[2023-01-19] MEDS: pantoprazole 40 mg SDV IVP ×2 (09:16→21:12)
[2023-01-19] MEDS: sucralfate 1 gm Tablet PO ×2 (09:16→21:08)
[2023-01-19] MEDS: piperacillin-tazobactam 3.375 GM in sodium chloride 0.9% (plus) 50 ML IV ×2 (09:16→15:30)
[2023-01-19] MEDS: lisinopril 20 mg Tablet PO ×2 (09:17→18:10)
[2023-01-19] MEDS: LORazepam 1 mg Tablet 0.5 MG PO ×2 (09:18→21:07)
[2023-01-19] MEDS: dextrose 5% 1,000 ML 75 ML IV (09:35)
[2023-01-19 09:46] LABS: Sodium 146 mmol/L (136-145)
--- NOTE | 2023-01-19 12:07 | PC.SOCIAL ---
IMM update IMM updated with patient's sister at bedside. Copy Pg 2 provided. Verbalized an understanding. Initialled, dated, timed, and placed in chart.
--- NOTE | 2023-01-19 12:55 | PM.PN ---
Subjective Subjective: This patient is done remarkably well overnight. The patient is afebrile. The patient is hemodynamically stable. The patient's pain is under good control. The patient has a little strikethrough on his dressing. I spoke with the patient and his sister at length. I explained that there was no evidence of cancer. They instead he had an adhesion from his omentum. There was a loop of small bowel which appeared to be ischemic. I resected this. I performed a primary anastomosis. I reiterated there was no evidence of cancer. Medications: Reviewed: Yes Vitals/I&O/Wt Last Vital Signs Temp 97.9 F 01/19/23 08:00 Pulse 109 H 01/19/23 08:00 Resp 20 H 01/19/23 08:00 BP 166/81 01/19/23 08:00 Pulse Ox 99 01/19/23 08:00 O2 Del Method 01/19/23 08:00 O2 Flow Rate 1 01/19/23 08:00 01/18/23 01/19/23 01/19/23 22:59 06:59 14:59 Intake Total 50 / 1109.0909 1536.75 / 2645.8409 612 / 612 Output Total 75 / 75 300 / 375 Balance -25 / 1034.0909 1236.75 / 2270.8409 612 / 612 Physical Exam Narrative: Generally: No acute distress Lungs: Clear to auscultation Heart: Is regular rate and rhythm Abdomen: Soft, nontender without masses. The patient's incision looks good. There is no evidence of active bleeding. The patient has decreased bowel sounds. The patient has not had much out of his NG tube. Data 01/19/23 04:26 01/19/23 09:09 Attestation for Other Data: I personally reviewed and interpreted the following: (I reviewed all the patient's labs) A&P Assessment and plan (1) SBO (small bowel obstruction): This patient is status post a small bowel resection with lysis of adhesions and a primary anastomosis. This patient is doing well. We will clamp the patient's NG tube. The patient does not get nauseated we will remove the patient's NG tube at 5 PM today. We will continue IV fluids. Attestations Medical Necessity Statement*: Continue postoperative care Coding Level of Care Code Acute Code for Chg Fwd Diagnoses SBO (small bowel obstruction) K55.142
[2023-01-19 13:45] LABS: Glucose Point of Care 106 mg/dL (70-110)
[2023-01-19 13:54] LABS: Alanine Aminotransferase 8 U/L (0-41); Albumin Level 3.1 g/dL (3.5-5.2); Alkaline Phosphatase 72 U/L (40-130); Anion Gap 10.6 (5-19); Aspartate Amino Transferase 14 U/L (0-40); Blood Urea Nitrogen 18 mg/dL (8-23); Calcium 10.2 mg/dL (8.5-10.5); Carbon Dioxide 25 mmol/L (22-29); Chloride 116 mmol/L (98-107); Globulin 2.3 g/dL (1.3-4.6); Glucose 110 mg/dL (65-115); Osmolality Calculated 309 mOsm/kg (285-295); Potassium 3.6 mmol/L (3.5-5.1); Sodium 148 mmol/L (136-145); Total Bilirubin 0.8 mg/dL (0.15-1.2); Total Protein 5.4 g/dL (6.6-8.7)
--- NOTE | 2023-01-19 15:28 | PM.PN ---
Subjective Subjective: Patient was seen this morning, family at bedside, he does not the morphine helped overnight, however the dose he received this morning did not help, no fevers, no chills, no nausea, no vomiting, has not passed any bowel movement, no gas Vitals/I&O/Wt Last Vital Signs Temp 98.1 F 01/19/23 12:00 Pulse 106 H 01/19/23 12:00 Resp 18 01/19/23 14:03 BP 155/85 01/19/23 12:00 Pulse Ox 93 01/19/23 12:00 O2 Del Method Nasal Cannula 01/19/23 12:00 O2 Flow Rate 1 01/19/23 08:00 01/19/23 01/19/23 01/19/23 06:59 14:59 22:59 Intake Total 1536.75 / 2645.8409 767 / 767 Output Total 300 / 375 Balance 1236.75 / 2270.8409 767 / 767 Physical Exam Const: COMMON NORMALS: no acute distress and patient oriented x3 OTHER: Nasogastric tube in place Resp: COMMON NORMALS: normal respiratory effort, No retractions, No use of accessory muscles and clear to auscultation bilaterally AUSCULTATION: clear to auscultation bilaterally Cardio: COMMON NORMALS: regular rate, regular rhythm, S1 normal heart sound present and S2 normal heart sound present RATE: regular rate RHYTHM: regular rhythm HEART SOUNDS: S1 normal heart sound present and S2 normal heart sound present GI: OTHER: Surgical site, jabari in place, ABD pad on top, with blood Extremity: COMMON NORMALS: no pedal edema Neuro: COMMON NORMALS: patient oriented x3 Psych: COMMON NORMALS: mental status grossly normal Data 01/19/23 04:26 01/19/23 13:15 A&P Assessment and plan (1) Hypernatremia: (2) SBO (small bowel obstruction): (3) Lung cancer: (4) Accelerated essential hypertension: (5) Port-A-Cath in place: (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: (8) Pulmonary embolism: (9) Protein calorie malnutrition: (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: (11) Muscle wasting: (12) Goals of care, counseling/discussion: (13) Anemia: (14) Lactic acidosis: (15) Leukopenia: (16) GI bleed: (17) Acute anemia: (18) Thrombocytopenia: (19) Hypokalemia: (20) Hypophosphatemia: (21) NSVT (nonsustained ventricular tachycardia): (22) Ischemia, bowel: Plan Hypernatremia -Likely secondary to dehydration -150, now 148 -Receiving D5 water at 75 cc an hour -Continue, monitor serum sodiums every 4 hours Slow GI bleed -With evidence of iron deficiency anemia, low iron at 59, ferritin elevated at 975, likely acute phase reactant, normal folate -Hemoglobin 10, Hemoccult positive stools, -Takes Eliquis on home, no hemodynamic compromise -Heparin drip on hold due to developing anemia, thrombocytopenia -Status post 1 of unit PRBC, 1 dose IV Venofer -Monitor hemoglobin closely -Ultrasound negative for DVT -Patient potentially will require IVC filter placement if he cannot tolerate anticoagulation for his history of pulmonary embolism, but will monitor - Lactic acidosis -Lactic acid 6.6, lactic acid improving with hydration currently 1.0 -Likely secondary to severe dehydration, ischemic bowel -UA no significant evidence of UTI -Chest x-ray no focal pneumonia -Afebrile -Continue to monitor Leukopenia, likely secondary to chemotherapy, isolation precautions monitor for fevers, placed on Zosyn Thrombocytopenia, potentially related to heparin drip, which has been stopped, received platelet 1 unit preoperatively Small bowel obstruction 1.? Small bowel obstruction with transition point RIGHT lower quadrant with tethering. This may be due to Internal hernia, volvulus, or multifocal adhesions. Dilated small bowel loop in the RIGHT lower quadrant measures 3.1 CM. No free air or pneumatosis. 2.? Mild pancolonic constipation. 3.? Small amount of free fluid in the pelvis. 4.? Cavitary neoplasm LEFT lower lobe unchanged. 5.? Small esophageal hiatal hernia. 6.? Irregular low-attenuation lesion upper pole RIGHT kidney with peripheral enhancement. This can be followed up with ultrasound. This measures approximately 3.1 x 2.2 CM. 7.? Cholelithiasis. -Status post small bowel resection with lysis of adhesions with primary anastomosis, had findings of adhesions from omentum, loop of small bowel appeared ischemic status post resection Plan -Keep n.p.o. -Nasogastric tube i in place, clamped, plans on removal -Magnesium, phosphorus, monitor electrolytes -Continue D5 water as above -General surgery consulted -Serial abdominal exams -Pain control morphine -Zofran for nausea -DVT prophylaxis SCDs, as patient is had surgery, high risk of DVTs, start on DVT prophylaxis Lovenox tonight Nonsustained V. tach, -With hypokalemia, hypophosphatemia, hypomagnesemia -Have replaced IV -Continue to monitor electrolytes -No chest pain complaints, monitor Right lower lobe pulmonary embolism -Hold Eliquis -Hold anticoagulation -Spoke to hematology, continue to monitor, can hold off on anticoagulation for now Acute anemia -Likely secondary to chemotherapy -However is on Eliquis at home, heparin drip. -Monitor hemodynamics -Iron studies, borderline low iron monitor -Hemoccult stool positive for blood -As above Elevated TSH, free T3, free T4 within normal limits Cancer cachexia Lung cancer, status post chemoradiation Protein calorie malnutrition Muscle wasting Hypokalemia, hypophosphatemia, will replace today Anemia, will monitor Thrombocytopenia will monitor Urinary sphincter in place -Status post intervention by Dr. 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
[2023-01-19 16:04] LABS: Sodium 149 mmol/L (136-145)
[2023-01-19] MEDS: enoxaparin 40 mg/0.4 mL Syringe SUBCUT (18:10)
[2023-01-19] MEDS: NON-FORMULARY MEDICATION (Cinacalcet 30 mg tablet) 30 EACH PO (18:17)
[2023-01-19] MEDS: atorvastatin 40 mg Tablet 20 MG PO (21:08)
[2023-01-19 21:54] LABS: Sodium 148 mmol/L (136-145)
[2023-01-19] MEDS: acetaminophen 325 mg Tablet 650 MG PO (22:21)
[2023-01-19 22:27] LABS: Glucose Point of Care 120 mg/dL (70-110)
[2023-01-20] VITALS (112 sets, daily range): BP systolic 99–150; BP diastolic 67–85; PULSE 82–169; RESP 0–27; TEMP 36.4–36.8; O2SAT 57–100
[2023-01-20] MEDS: HYDROmorphone 1 mg/mL INJ 1 mL 0.5 MG IVP ×3 (01:04→20:38)
[2023-01-20] MEDS: piperacillin-tazobactam 3.375 GM in sodium chloride 0.9% (plus) 50 ML IV ×4 (01:05→23:54)
[2023-01-20] MEDS: dextrose 5% 1,000 ML 75 ML IV (01:06)
--- NOTE | 2023-01-20 04:52 | ECG_ITS ---
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 Measurements Intervals [place] Rate: 143 P: 0 [place]: 0 QRS: -22 QRSD: 87 T: 85 QT: 312 QTc: 482 Interpretive Statements ATRIAL FIBRILLATION WITH RAPID VENTRICULAR RESPONSE WITH ABERRANT CONDUCTION OR VENTRICULAR PREMATURE COMPLEXES BORDERLINE LEFT AXIS DEVIATION [QRS AXIS < -20] NONSPECIFIC ST & T-WAVE ABNORMALITY ABNORMAL RHYTHM ECG Compared to ECG 01/16/2023 08:30:37 Aberrant conduction of supraventricular beat(s) now present Sinus tachycardia no longer present T-wave abnormality still present Electronically Signed On 01-20-2023 15:16:40 SENIOR ANALYST DEVELOPER by Terrell Baptiste M.D. [id number]
[2023-01-20 05:29] LABS: Basophils % 0.6 %; Eosinophils # 0.1 10^3/uL (0.0-0.8); Hemoglobin 8.3 g/dL (11.7-16.6); Lymphocytes # 0.1 10^3/uL (0.8-4.8); Mean Corpuscular HGB Conc 30.7 g/dL (30.0-36.0); Mean Corpuscular Hemoglobin 29.2 pg (28.0-34.0); Mean Corpuscular Volume 95.1 fl (80-94); Mean Platelet Volume 10.2 fL (7.4-10.4); Monocytes # 0.3 10^3/uL (0.2-0.9); Monocytes % 15.7 %; Neutrophils # 1.23 10^3/uL (1.8-7.7); Neutrophils % 74.1 %; Nucleated Red Blood Cells % 0 %; Platelet Count 55 10^3/cmm (130-400); Red Blood Count 2.84 10^6/uL (4.1-5.3); Red Cell Distribution Width 20.3 % (12.1-15.1); White Blood Count 1.7 10^3/uL (4.0-10.0)
[2023-01-20] MEDS: dilTIAZem 5 mg/mL SDV 5 mL 10 MG IVP ×2 (05:31→06:13)
[2023-01-20 05:41] LABS: INR 1.38 (0.8-1.2)
[2023-01-20 05:55] LABS: NT Pro B Type Natriuretic Pept 1963 pg/mL (0-450); Procalcitonin 2.85 ng/mL (0-0.5)
--- NOTE | 2023-01-20 06:03 | PM.MISC ---
Miscellaneous Note Note: Patient went into A-fib with RVR overnight: Received Cardizem 10 mg IV x2 doses. Started on cardizem drip as well as cardizem po
[2023-01-20 06:06] LABS: Alanine Aminotransferase 8 U/L (0-41); Albumin Level 2.9 g/dL (3.5-5.2); Alkaline Phosphatase 69 U/L (40-130); Anion Gap 11.2 (5-19); Aspartate Amino Transferase 15 U/L (0-40); Blood Urea Nitrogen 19 mg/dL (8-23); Calcium 10.4 mg/dL (8.5-10.5); Carbon Dioxide 25 mmol/L (22-29); Chloride 112 mmol/L (98-107); Globulin 2.2 g/dL (1.3-4.6); Glucose 119 mg/dL (65-115); Magnesium 2.2 mg/dL (1.7-2.3); Osmolality Calculated 303 mOsm/kg (285-295); Phosphorus 1.4 mg/dL (2.5-4.5); Potassium 3.2 mmol/L (3.5-5.1); Sodium 145 mmol/L (136-145); Total Bilirubin 0.8 mg/dL (0.15-1.2); Total Protein 5.1 g/dL (6.6-8.7)
[2023-01-20] MEDS: dilTIAZem 30 mg Tablet PO (06:14)
[2023-01-20 06:54] LABS: Glucose Point of Care 117 mg/dL (70-110)
[2023-01-20] MEDS: pantoprazole 40 mg SDV IVP ×2 (08:15→20:37)
[2023-01-20] MEDS: sucralfate 1 gm Tablet PO ×2 (08:40→20:28)
[2023-01-20] MEDS: lisinopril 20 mg Tablet PO ×2 (08:40→18:11)
[2023-01-20] MEDS: levothyroxine 25 mcg Tablet PO (08:40)
--- NOTE | 2023-01-20 09:07 | PM.PN ---
Vitals/I&O/Wt Last Vital Signs Temp 98.3 F 01/20/23 03:38 Pulse 148 H 01/20/23 08:00 Resp 22 H 01/20/23 08:00 BP 119/74 01/20/23 08:00 Pulse Ox 98 01/20/23 08:00 O2 Del Method 01/20/23 08:00 O2 Flow Rate 1 01/19/23 08:00 01/19/23 01/20/23 01/20/23 22:59 06:59 14:59 Intake Total 1050.00 / 1817.00 50 / 1867.00 0 / 0 Output Total 200 / 200 Balance 850.00 / 1617.00 50 / 1667.00 0 / 0 Physical Exam Narrative: Generally: No acute distress Lungs: Clear to auscultation Heart: Irregular rate and rhythm Abdomen: Soft, nontender without masses. The patient still has strikethrough on his dressing. Extremities: Extremely thin, No edema. Data 01/20/23 05:00 01/20/23 05:00 Micro: Microbiology 01/14/23 21:47 Blood Culture - Final Blood NO GROWTH AFTER 5 DAYS 01/14/23 21:46 Blood Culture - Final Blood NO GROWTH AFTER 5 DAYS Attestation for Other Data: I personally reviewed and interpreted the following: (I reviewed all the patient's labs.) A&P Assessment and plan (1) SBO (small bowel obstruction): The patient's NG tube was clamped yesterday. The patient had no nausea or vomiting. I tried to take the patient's NG tube out this morning but the patient was reluctant to have me remove it. The patient states that he does not want to have it put back in. We will have the patient drink clear liquids around the NG tube. If patient tolerates this we will then remove the NG tube. The patient has not had a bowel movement yet. I believe this patient is slowly progressing. The patient still has a coagulopathy. We will give the patient some vitamin K. We will get a PT/INR today. Attestations Medical Necessity Statement*: Continue postoperative care Coding Level of Care Code Acute Code for Chg Fwd Diagnoses SBO (small bowel obstruction) K56.609
[2023-01-20] MEDS: dilTIAZem 100 MG in sodium chloride 0.9% (add-van) 100 ML IV (09:14)
[2023-01-20] MEDS: phytonadione (ADULT) 5 MG in sodium chloride 0.9% 50 ML 151.5 MG IV (09:45)
[2023-01-20] MEDS: guaiFENesin 100 mg/5 mL UDC 10 mL 200 MG PO ×3 (10:33→20:36)
[2023-01-20] MEDS: potassium phosphate (mEq K) 40 MEQ in sodium chloride 0.9% (100 ml) 100 ML 27.25 MEQ IV (10:34)
[2023-01-20 10:59] LABS: Glucose Point of Care 111 mg/dL (70-110)
[2023-01-20] MEDS: dilTIAZem 30 mg Tablet 60 MG PO ×3 (11:48→23:54)
--- NOTE | 2023-01-20 15:07 | PC.NURSE ---
The 02's charted an Mr. Corey from [id number] are incorrect. Mr. Corey sats in the mid to low 90s on room air. When the pulse ox reads low this nurse has checked pleths and also checked on the patient and either the pleths are poor or patient does not have oxygen sensor properly on finger.
[2023-01-20 16:08] LABS: Glucose Point of Care 120 mg/dL (70-110)
--- NOTE | 2023-01-20 16:10 | P.PN_ITS ---
Subjective Subjective: Patient was seen this morning, multiple times, he developed A-fib with RVR, managed on a Cardizem drip, heart rate still in the 140s 150s, in addition to p.o. Cardizem switch to amiodarone drip currently on amiodarone drip, heart rates in the low teens, he is doing better, resting alert oriented x 3, his diet has been advanced to clears, denies any chest pain, no no shortness of breath Vitals/I&O/Wt Last Vital Signs Temp 98.3 F 01/20/23 03:38 Pulse 144 H 01/20/23 12:05 Resp 18 01/20/23 12:05 BP 119/74 01/20/23 12:05 Pulse Ox 65 L 01/20/23 12:05 O2 Del Method 01/20/23 08:00 O2 Flow Rate 1 01/19/23 08:00 01/20/23 01/20/23 01/20/23 06:59 14:59 22:59 Intake Total 50 / 1867.00 1477.417 / 1477.156 045.5824 / 1748.7579 Balance 50 / 1667.00 1477.417 / 1477.779 674.5478 / 1748.7579 Physical Exam Const: COMMON NORMALS: no acute distress and patient oriented x3 Resp: COMMON NORMALS: normal respiratory effort, No retractions and No use of accessory muscles OTHER: Auscultation, some crackles Cardio: COMMON NORMALS: S1 normal heart sound present and S2 normal heart sound present RATE: tachycardic RHYTHM: abnormal rhythm irregularly irregular HEART SOUNDS: S1 normal heart sound present and S2 normal heart sound present GI: OTHER: Abdomen soft, slightly distended, good bowel sounds, surgical jabari in place, dressing on top of it, has blood which has been marked Extremity: COMMON NORMALS: no pedal edema Neuro: COMMON NORMALS: patient oriented x3 Psych: COMMON NORMALS: mental status grossly normal Data 01/20/23 05:00 01/20/23 05:00 Micro: Microbiology 01/14/23 21:47 Blood Culture - Final Blood NO GROWTH AFTER 5 DAYS 01/14/23 21:46 Blood Culture - Final Blood NO GROWTH AFTER 5 DAYS A&P Assessment and plan (1) Hypernatremia: (2) SBO (small bowel obstruction): (3) Lung cancer: (4) Accelerated essential hypertension: (5) Port-A-Cath in place: (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 Cardizem -Amiodarone bolus followed by amiodarone drip Hypernatremia -Resolved -Likely secondary to dehydration -Continue, monitor serum sodiums every 4 hours Slow GI bleed -With evidence of iron deficiency anemia, low iron at 59, ferritin elevated at 975, likely acute phase reactant, normal folate -Hemoglobin 10, Hemoccult positive stools, -Takes Eliquis on home, no hemodynamic compromise -Heparin drip on hold due to developing anemia, thrombocytopenia -Status post 1 of unit PRBC, 1 dose IV Venofer -Monitor hemoglobin closely -Ultrasound negative for DVT -Continue to hold anticoagulation -Venous ultrasound negative for DVT -If he cannot tolerate anticoagulation he might require an IVC filter placed, we will see based on his clinical progress Lactic acidosis -Lactic acid 6.6, lactic acid improving with hydration currently 1.0 -Likely secondary to severe dehydration, ischemic bowel -UA no significant evidence of UTI -Chest x-ray no focal pneumonia -Afebrile -Continue to monitor Leukopenia, likely secondary to chemotherapy, isolation precautions monitor for fevers, placed on Zosyn Thrombocytopenia, potentially related to heparin drip, which has been stopped, received platelet 1 unit preoperatively Small bowel obstruction 1.? Small bowel obstruction with transition point RIGHT lower quadrant with tethering. This may be due to Internal hernia, volvulus, or multifocal adhesions. Dilated small bowel loop in the RIGHT lower quadrant measures 3.1 CM. No free air or pneumatosis. 2.? Mild pancolonic constipation. 3.? Small amount of free fluid in the pelvis. 4.? Cavitary neoplasm LEFT lower lobe unchanged. 5.? Small esophageal hiatal hernia. 6.? Irregular low-attenuation lesion upper pole RIGHT kidney with peripheral enhancement. This can be followed up with ultrasound. This measures approximately 3.1 x 2.2 CM. 7.? Cholelithiasis. -Status post small bowel resection with lysis of adhesions with primary anastomosis, had findings of adhesions from omentum, loop of small bowel appeared ischemic status post resection Plan -Currently on clears -Nasogastric tube i in place, clamped, plans on removal -Magnesium, phosphorus, monitor electrolytes -General surgery consulted -Serial abdominal exams -Pain control morphine -Zofran for nausea -DVT prophylaxis SCDs, as patient is had surgery, high risk of DVTs, holding off on anticoagulation due to anemia, thrombocytopenia Nonsustained V. tach, -Resolved -With hypokalemia, hypophosphatemia, hypomagnesemia -Have replaced IV -Continue to monitor electrolytes -No chest pain complaints, monitor Right lower lobe pulmonary embolism -Hold Eliquis -Hold anticoagulation -Spoke to hematology, continue to monitor, can hold off on anticoagulation for now -Venous ultrasound negative for DVT -We will have to consider IVC filter placement if he cannot tolerate anticoagulation on discharge Acute anemia -Likely secondary to chemotherapy -However is on Eliquis at home, heparin drip. -Monitor hemodynamics -Iron studies, borderline low iron monitor -Hemoccult stool positive for blood -As above Elevated TSH, free T3, free T4 within normal limits Cancer cachexia Lung cancer, status post chemoradiation Protein calorie malnutrition Muscle wasting Hypokalemia, hypophosphatemia, will replace today Anemia, will monitor Thrombocytopenia will monitor Urinary sphincter in place -Status post intervention by Dr. 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
[2023-01-20] MEDS: NON-FORMULARY MEDICATION (Cinacalcet 30 mg tablet) 30 EACH PO (18:11)
[2023-01-20] MEDS: atorvastatin 40 mg Tablet 20 MG PO (20:28)
[2023-01-20 20:35] LABS: Glucose Point of Care 116 mg/dL (70-110)
[2023-01-21] VITALS (58 sets, daily range): BP systolic 102–129; BP diastolic 62–73; PULSE 67–102; RESP 18–33; TEMP 36.4–37.6; O2SAT 91–98
[2023-01-21 02:51] LABS: Basophils % 0.5 %; Eosinophils # 0.1 10^3/uL (0.0-0.8); Eosinophils % 4.3 %; Hematocrit 25.4 % (42.0-52.0); Hemoglobin 8.1 g/dL (11.7-16.6); Lymphocytes # 0.1 10^3/uL (0.8-4.8); Lymphocytes % 5.4 %; Mean Corpuscular HGB Conc 31.9 g/dL (30.0-36.0); Mean Corpuscular Hemoglobin 29.3 pg (28.0-34.0); Mean Platelet Volume 9.9 fL (7.4-10.4); Monocytes # 0.2 10^3/uL (0.2-0.9); Monocytes % 11.8 %; Neutrophils # 1.44 10^3/uL (1.8-7.7); Neutrophils % 77.5 %; Nucleated Red Blood Cells % 0 %; Platelet Count 53 10^3/cmm (130-400); Red Blood Count 2.76 10^6/uL (4.1-5.3); Red Cell Distribution Width 19.8 % (12.1-15.1); White Blood Count 1.9 10^3/uL (4.0-10.0)
[2023-01-21 03:14] LABS: INR 1.21 (0.8-1.2)
[2023-01-21 03:35] LABS: Alanine Aminotransferase 7 U/L (0-41); Albumin Level 2.7 g/dL (3.5-5.2); Alkaline Phosphatase 66 U/L (40-130); Anion Gap 11.2 (5-19); Aspartate Amino Transferase 13 U/L (0-40); Blood Urea Nitrogen 15 mg/dL (8-23); Calcium 9.9 mg/dL (8.5-10.5); Carbon Dioxide 24 mmol/L (22-29); Chloride 105 mmol/L (98-107); Globulin 2.2 g/dL (1.3-4.6); Glucose 98 mg/dL (65-115); Magnesium 1.9 mg/dL (1.7-2.3); Osmolality Calculated 285 mOsm/kg (285-295); Potassium 3.2 mmol/L (3.5-5.1); Sodium 137 mmol/L (136-145); Total Bilirubin 0.8 mg/dL (0.15-1.2); Total Protein 4.9 g/dL (6.6-8.7)
[2023-01-21 03:48] LABS: NT Pro B Type Natriuretic Pept 3208 pg/mL (0-450); Procalcitonin 1.92 ng/mL (0-0.5)
[2023-01-21] MEDS: dilTIAZem 30 mg Tablet 60 MG PO (05:12)
[2023-01-21 06:26] LABS: Glucose Point of Care 100 mg/dL (70-110)
[2023-01-21] MEDS: lisinopril 20 mg Tablet PO (08:48)
[2023-01-21] MEDS: sucralfate 1 gm Tablet PO (08:48)
[2023-01-21] MEDS: piperacillin-tazobactam 3.375 GM in sodium chloride 0.9% (plus) 50 ML IV ×2 (08:48→15:44)
[2023-01-21] MEDS: pantoprazole 40 mg SDV IVP (08:48)
[2023-01-21] MEDS: levothyroxine 25 mcg Tablet PO (08:48)
[2023-01-21 11:14] LABS: Glucose Point of Care 106 mg/dL (70-110)
--- NOTE | 2023-01-21 12:35 | PM.PN ---
Subjective Subjective: Patient seen and examined. He reports that he vomited twice this morning. Still has not passed flatus since surgery. Vitals/I&O/Wt Last Vital Signs Temp 97.5 F L 01/21/23 04:00 Pulse 77 01/21/23 11:47 Resp 27 H 01/21/23 11:47 BP 129/62 01/21/23 11:47 Pulse Ox 97 01/21/23 11:47 O2 Del Method Nasal Cannula 01/21/23 11:47 O2 Flow Rate 1 01/19/23 08:00 01/20/23 01/21/23 01/21/23 22:59 06:59 14:59 Intake Total 1157.7289 / 2635.1459 400 / 3035.1459 Balance 1157.7289 / 2635.1459 400 / 3035.1459 Physical Exam Narrative: General: No acute distress, awake alert and oriented x3 Abdomen: Soft, distended, appropriately tender to palpation, no guarding rebound or masses Incision intact without erythema or exudate Data 01/21/23 02:36 01/21/23 02:36 A&P Assessment and plan (1) SBO (small bowel obstruction): Plan Start TPN Will replace NGT in the morning if he still has not passed flatus I-S use [facility]ulate Medical management per hospitalist Attestations Medical Necessity Statement*: Per primary Coding Level of Care Code Acute Code for Chg Fwd Diagnoses SBO (small bowel obstruction) K56.609
--- NOTE | 2023-01-21 17:16 | PM.PN ---
Subjective Subjective: Overnight had some small amounts of vomiting. During the visit in the morning feels somewhat better. No flatus, no BM. Medications: Reviewed: Yes Vitals/I&O/Wt Last Vital Signs Temp 97.5 F L 01/21/23 04:00 Pulse 77 01/21/23 12:00 Resp 27 H 01/21/23 12:00 BP 129/62 01/21/23 12:00 Pulse Ox 97 01/21/23 11:47 O2 Del Method Nasal Cannula 01/21/23 11:47 O2 Flow Rate 1 01/19/23 08:00 01/21/23 01/21/23 01/21/23 06:59 14:59 22:59 Intake Total 400 / 3035.1459 591.612 / 591.612 Balance 400 / 3035.1459 591.612 / 591.612 Physical Exam Narrative: Accompanied by family. Const: COMMON NORMALS: patient oriented x3 and alert GENERAL APPEARANCE: cooperative ORIENTATION/CONSCIOUSNESS: Yes awake HENMT: COMMON NORMALS: oropharynx normal Neck/C-Spine: COMMON NORMALS: no JVD Resp: COMMON NORMALS: normal respiratory effort and clear to auscultation bilaterally AUSCULTATION: clear to auscultation bilaterally Cardio: COMMON NORMALS: no JVD, regular rhythm, S1 normal heart sound present, S2 normal heart sound present and No murmurs present (Cardio) RHYTHM: regular rhythm HEART SOUNDS: S1 normal heart sound present and S2 normal heart sound present GI: COMMON NORMALS: Soft to palpation and non-tender AUSCULTATION: Yes Hypoactive bowel sounds present PALPATION: Yes Soft to palpation Extremity: COMMON NORMALS: no joint enlargement and no pedal edema Neuro: COMMON NORMALS: patient oriented x3 and moves all extremities SENSORIUM/ORIENTATION: Yes alert Skin: COMMON NORMALS: no rashes or lesions noted GENERAL SKIN EXAM: no rashes or lesions noted Data 01/21/23 02:36 01/21/23 02:36 A&P Assessment and plan (1) Hypernatremia: (2) SBO (small bowel obstruction): (3) Lung cancer: (4) Accelerated essential hypertension: (5) Port-A-Cath in place: (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 Has been placed n.p.o. by surgery. Discussed with surgery, he is being started on TPN for nutritional support as still on bowel rest, with monitoring. Monitor volume status. Encourage ambulation. Continue antiemetics as needed. Continue IV hydration support. Monitor electrolytes while NPO. Noted hypokalemia, potassium 2.2. At risk of hypokalemia, arrhythmia. Replace potassium. Recheck chemistry requested. Check magnesium. Cardiac monitoring. A-fib with RVR: Attempted to transition to oral medications, but he again had small amount of vomiting. Cancel oral amiodarone. Continue amiodarone maintenance drip. Today orthostatic blood pressure is decreasing significantly with standing and walking, orthostatic symptoms. Stop Cardizem. Continue management on CSU with risk of CVA decompensation of arrhythmia/tachycardia. Potassium level reviewed, 3.5. We will give potassium replacement. Follow-up BMP and magnesium for monitoring of electrolytes while n.p.o. Hypernatremia -Resolved -Likely secondary to dehydration Slow GI bleed -With evidence of iron deficiency anemia, low iron at 59, ferritin elevated at 975, likely acute phase reactant, normal folate -Hemoglobin 10, Hemoccult positive stools, -Takes Eliquis on home, no hemodynamic compromise -Heparin drip on hold due to developing anemia, thrombocytopenia -Status post 1 of unit PRBC, 1 dose IV Venofer -Monitor hemoglobin closely -Ultrasound negative for DVT -Continue to hold anticoagulation -Venous ultrasound negative for DVT -If he cannot tolerate anticoagulation he might require an IVC filter placed, we will see based on his clinical progress Lactic acidosis: Resolved. Reviewed anion gap is normal. Bicarb is normal. Leukopenia, likely secondary to chemotherapy, isolation precautions monitor for fevers, continue on Zosyn reviewed blood counts, WBC 1.9, hemoglobin 9.1, platelets 53. Recheck CBC requested. Thrombocytopenia,. Platelets 53. Recheck CBC requested. Received platelet 1 unit preoperatively. Nonsustained V. tach, -Resolved Right lower lobe pulmonary embolism -Hold Eliquis -Hold anticoagulation Continue to monitor, can hold off on anticoagulation for now -Venous ultrasound negative for DVT -We will have to consider IVC filter placement if he cannot tolerate anticoagulation on discharge Acute anemia: Continue PPI every 12 hours. Anticoagulation has been on hold. -Likely secondary to chemotherapy -Iron studies, borderline low iron monitor -Hemoccult stool positive for blood Elevated TSH, free T3, free T4 within normal limits Cancer cachexia Lung cancer, status post chemoradiation Protein calorie malnutrition Muscle wasting Hypokalemia, hypophosphatemia. Replace potassium. Follow-up phosphorus. Anemia, will monitor Thrombocytopenia will monitor Urinary sphincter in place -Status post intervention by Dr. Stanton, currently open Goals of care discussion, patient would like to be DNR/okay with elective intubation required however does not want to be kept on life-sustaining measures Attestations Medical Necessity Statement*: Continue admission for management of SBO, while n.p.o. also optimization of control of A-fib with RVR, close monitoring of electrolytes, amiodarone IV infusion, with risk of clinically significant or life-threatening arrhythmia. 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
[2023-01-21] MEDS: sodium chloride 0.9% 1,000 ML 125 ML IV (17:20)
[2023-01-21] MEDS: AA-Dex 5%-20% w/Lytes 1,000 ML with multivitamin inj 10 ML 21 ML IV (18:10)
[2023-01-21] MEDS: ondansetron 2 mg/ML SDV 2 mL 4 MG IVP (21:06)
[2023-01-21] MEDS: lidocaine 1% 5 ML in potassium chloride premix 100 ML 52.5 ML IV (21:11)
[2023-01-21 21:47] LABS: Glucose Point of Care 110 mg/dL (70-110)
--- NOTE | 2023-01-21 22:30 | PC.NURSE ---
Patient instructed in how to use a pillow to splint his abdomen when coughing.
[2023-01-21] MEDS: guaiFENesin 100 mg/5 mL UDC 10 mL 200 MG PO (22:34)
[2023-01-21] MEDS: HYDROmorphone 1 mg/mL INJ 1 mL 0.5 MG IVP (22:41)
[2023-01-22] VITALS (60 sets, daily range): BP systolic 103–189; BP diastolic 63–97; PULSE 71–104; RESP 5–33; TEMP 36.7–37; O2SAT 83–97
[2023-01-22] MEDS: piperacillin-tazobactam 3.375 GM in sodium chloride 0.9% (plus) 50 ML IV ×4 (00:58→23:38)
[2023-01-22 04:17] LABS: Hematocrit 24.5 % (42.0-52.0); Mean Corpuscular HGB Conc 32.7 g/dL (30.0-36.0); Mean Corpuscular Hemoglobin 29.9 pg (28.0-34.0); Mean Corpuscular Volume 91.4 fl (80-94); Mean Platelet Volume 10.3 fL (7.4-10.4); Platelet Count 49 10^3/cmm (130-400); Red Blood Count 2.68 10^6/uL (4.1-5.3); Red Cell Distribution Width 19.6 % (12.1-15.1); White Blood Count 2.7 10^3/uL (4.0-10.0)
[2023-01-22] MEDS: sodium chloride 0.9% 1,000 ML 125 ML IV ×2 (04:30→19:42)
[2023-01-22 04:34] LABS: Anion Gap 10.3 (5-19); Blood Urea Nitrogen 14 mg/dL (8-23); Calcium 9.4 mg/dL (8.5-10.5); Carbon Dioxide 25 mmol/L (22-29); Chloride 107 mmol/L (98-107); Glucose 99 mg/dL (65-115); Magnesium 1.9 mg/dL (1.7-2.3); Osmolality Calculated 289 mOsm/kg (285-295); Phosphorus 1.7 mg/dL (2.5-4.5); Potassium 3.3 mmol/L (3.5-5.1); Sodium 139 mmol/L (136-145)
[2023-01-22 04:39] LABS: Total Cells Counted 100 (0-100)
[2023-01-22 04:46] LABS: Absolute Segmented Neutrophil 2.4 10/cmm (1.6-7.1); Band Neutrophils Absolute 0.1 10^3/cmm (0.0-1.2); Eosinophils 1 %; Lymphocytes 5 %; Monocytes Absolute 0.1 10^3/cmm (0.1-0.6); Segmented Neutrophils 88 %
[2023-01-22 04:47] LABS: Absolute Neutrophil 2.4 10^3/cmm (1.4-6.5); Lymphocytes Absolute 0.1 10^3/cmm (1.2-3.4); Platelet Estimate Decreased (Normal)
[2023-01-22 06:25] LABS: Glucose Point of Care 120 mg/dL (70-110)
[2023-01-22] MEDS: lisinopril 20 mg Tablet PO ×2 (08:31→17:37)
[2023-01-22] MEDS: amiodarone 200 mg Tablet PO ×2 (08:31→17:37)
[2023-01-22] MEDS: levothyroxine 25 mcg Tablet PO (08:31)
[2023-01-22] MEDS: sucralfate 1 gm Tablet PO ×2 (08:31→19:41)
[2023-01-22] MEDS: guaiFENesin 100 mg/5 mL UDC 10 mL 200 MG PO (08:32)
[2023-01-22 11:05] LABS: Glucose Point of Care 134 mg/dL (70-110)
[2023-01-22] MEDS: potassium phosphate (mEq K) 40 MEQ in sodium chloride 0.9% (100 ml) 100 ML 27.25 MEQ IV (12:02)
--- NOTE | 2023-01-22 13:35 | XR_ITS ---
WS: [id number] Portable AP upright chest, 01/22/2023 Clinical Data: ng tube placement Comparison: Portable chest, 01/15/2023 Findings: No nodules, masses or effusions are seen. The heart is normal. The pulmonary vascularity is not increased. No pneumonia or pneumothorax is seen. Nasogastric tube has been repositioned and the distal tip probably ends in the body of the stomach. Patchy bilateral lower lobe opacities remain the same. The aortic arch and descending thoracic aorta show tortuosity. Monitor leads are on the chest wall. The right subclavian catheter remains in the same position. XR/XR chest 1V portable [id number] Impression: 1. Satisfactory repositioning of nasogastric tube. 2. No change in the appearance of the heart and lungs.
--- NOTE | 2023-01-22 13:36 | PC.NURSE ---
dr villar placed ngt w/o difficulty.awaiting pcxr to verify placement.
--- NOTE | 2023-01-22 16:26 | PM.PN ---
Subjective Subjective: Patient still reports that he is not passing any flatus or having bowel movements. Denies any nausea or vomiting today. He has been n.p.o. Vitals/I&O/Wt Last Vital Signs Temp 98.1 F 01/22/23 07:44 Pulse 78 01/22/23 15:15 Resp 19 H 01/22/23 15:15 BP 103/63 01/22/23 15:15 Pulse Ox 96 01/22/23 15:15 O2 Del Method 01/22/23 07:44 O2 Flow Rate 1 01/19/23 08:00 01/22/23 01/22/23 01/22/23 06:59 14:59 22:59 Intake Total 1330 / 2071.612 102 / 102 Output Total 720 / 720 600 / 600 Balance 610 / 1351.612 -498 / -498 Physical Exam Narrative: General: No acute distress, awake alert and oriented x3 Abdomen: Soft, distended, appropriately tender to palpation, no guarding rebound or masses Incision intact without erythema or exudate Data 01/22/23 03:23 01/22/23 03:23 A&P Assessment and plan (1) SBO (small bowel obstruction): Plan NG was placed today by myself. Keep to low intermittent wall suction N.p.o. I-S use [facility] Medical management per hospitalist Attestations Medical Necessity Statement*: Per primary Coding Level of Care Code Acute Code for Chg Fwd Diagnoses SBO (small bowel obstruction) K56.609
[2023-01-22 17:01] LABS: Glucose Point of Care 137 mg/dL (70-110)
[2023-01-22] MEDS: NON-FORMULARY MEDICATION (Cinacalcet 30 mg tablet) 30 EACH PO (17:37)
[2023-01-22] MEDS: atorvastatin 40 mg Tablet 20 MG PO (19:40)
[2023-01-22] MEDS: famotidine 20 mg/2 mL INJ IVP (19:40)
[2023-01-22] MEDS: fluticasone nasal spray 16gm Btl 2 SPRAY NASAL (20:45)
[2023-01-22] MEDS: AA-Dex 5%-20% w/Lytes 1,000 ML with multivitamin inj 10 ML 42 ML IV (20:45)
--- NOTE | 2023-01-22 21:02 | PM.PN ---
Subjective Subjective: He is feeling sore in his abdomen. No flatus or BM so far. She has not ambulated as blood pressure has been soft. Later on nurse reports rhinorrhea/nasal drainage. Additionally she declined to take Protonix stating he has an allergy. Medications: Reviewed: Yes Vitals/I&O/Wt Last Vital Signs Temp 98.0 F 01/22/23 16:00 Pulse 82 01/22/23 16:00 Resp 24 H 01/22/23 16:00 BP 178/97 01/22/23 16:00 Pulse Ox 96 01/22/23 16:00 O2 Del Method 01/22/23 16:00 O2 Flow Rate 1 01/19/23 08:00 01/22/23 01/22/23 01/22/23 06:59 14:59 22:59 Intake Total 1330 / 2071.612 1102 / 1102 0 / 1102 Output Total 720 / 720 600 / 600 Balance 610 / 1351.612 502 / 502 0 / 502 Physical Exam Narrative: Accompanied by family. Const: COMMON NORMALS: patient oriented x3 and alert GENERAL APPEARANCE: cooperative ORIENTATION/CONSCIOUSNESS: Yes awake HENMT: COMMON NORMALS: oropharynx normal Neck/C-Spine: COMMON NORMALS: no JVD Resp: COMMON NORMALS: normal respiratory effort and clear to auscultation bilaterally AUSCULTATION: clear to auscultation bilaterally Cardio: COMMON NORMALS: no JVD, regular rhythm, S1 normal heart sound present, S2 normal heart sound present and No murmurs present (Cardio) RHYTHM: regular rhythm HEART SOUNDS: S1 normal heart sound present and S2 normal heart sound present GI: COMMON NORMALS: Soft to palpation INSPECTION: Yes other (Midline incision without drainage or surrounding erythema.) PALPATION: Yes Soft to palpation OTHER: BS present Extremity: COMMON NORMALS: no joint enlargement and no pedal edema Neuro: COMMON NORMALS: patient oriented x3 and moves all extremities SENSORIUM/ORIENTATION: Yes alert Skin: COMMON NORMALS: no rashes or lesions noted GENERAL SKIN EXAM: no rashes or lesions noted Data 01/22/23 03:23 01/22/23 03:23 A&P Assessment and plan (1) Hypernatremia: (2) SBO (small bowel obstruction): (3) Lung cancer: (4) Accelerated essential hypertension: (5) Port-A-Cath in place: (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 NGT is replaced today. LIS. Continues with bowel rest. TPN. Reviewed phosphorus, magnesium, potassium, noted levels is below desired. Requested potassium phosphate replacement, magnesium intravenously. He has fistula tolerating oral intake at risk of further electrolyte imbalances. Follow-up BMP, magnesium, Phos requested. Cardiac monitoring due to electrolyte normalities, risk of arrhythmia. A-fib with RVR: As he remains n.p.o. continue amiodarone drip until able to reestablish oral intake. Cardizem was held due to hypotension and will likely need to discontinue due to significant orthostasis. We will stop. Continue management on CSU with risk of CVA decompensation of arrhythmia/tachycardia. Hypernatremia -Resolved -Likely secondary to dehydration Slow GI bleed Hemoglobin noted with gradual decrease. Is not on therapeutic anticoagulation but was on prophylactic Lovenox which is on hold. His anemia is showing some worsening from now continue holding. SCD for DVT prophylaxis. -With evidence of iron deficiency anemia, low iron at 59, ferritin elevated at 975, likely acute phase reactant, normal folate Hemoccult positive stools, -Takes Eliquis on home, no hemodynamic compromise -Heparin drip on hold due to developing anemia, thrombocytopenia -Status post 2 of unit PRBC, 1 unit of platelets, 1 dose IV Venofer -Ultrasound negative for DVT -Continue to hold anticoagulation -Venous ultrasound negative for DVT -If he cannot tolerate anticoagulation he might require an IVC filter placed, we will see based on his clinical progress Lactic acidosis: Resolved. Reviewed anion gap is normal. Bicarb is normal. Leukopenia, likely secondary to chemotherapy, isolation precautions monitor for fevers, continue on Zosyn reviewed blood counts, WBC 1.9, hemoglobin 9.1, platelets 53. Recheck CBC requested. Thrombocytopenia, Platelets 49. Recheck CBC requested. Received platelet 1 unit preoperatively. Nonsustained V. tach, -Resolved Right lower lobe pulmonary embolism. Underlying risk of recurrent clotting with underlying malignancy. Life-threatening PE. Anticoagulation considered again, but currently in the setting also of acute anemia with some worsening, thrombocytopenia. For now held. -Hold Eliquis -Hold anticoagulation Continue to monitor, can hold off on anticoagulation for now -Venous ultrasound negative for DVT -We will have to consider IVC filter placement if he cannot tolerate anticoagulation on discharge Acute anemia: Continue PPI every 12 hours. Anticoagulation has been on hold. -Likely secondary to chemotherapy -Iron studies, borderline low iron monitor -Hemoccult stool positive for blood Elevated TSH, free T3, free T4 within normal limits Cancer cachexia Lung cancer, status post chemoradiation Protein calorie malnutrition Muscle wasting Hypokalemia, hypophosphatemia. Replace potassium. Follow-up phosphorus. Anemia, will monitor Thrombocytopenia will monitor Urinary sphincter in place -Status post intervention by Dr. Stanton, currently open Goals of care discussion, patient would like to be DNR/okay with elective intubation required however does not want to be kept on life-sustaining measures Attestations Medical Necessity Statement*: Continue admission for assessment management of SBO, parenteral amiodarone due to inability to tolerate oral intake, A-fib with RVR, electrolyte replacement with lack of oral intake, anemia and gentleman with recent PE, thrombocytopenia, risk of further blood loss, clotting with underlying malignancy. 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
[2023-01-22] MEDS: hyDRALAzine 20 mg/mL INJ 1 mL 5 MG IVP (21:09)
[2023-01-23] VITALS (19 sets, daily range): BP systolic 135–179; BP diastolic 79–104; PULSE 75–100; RESP 18–28; TEMP 36.6–37.2; O2SAT 94–98
[2023-01-23 05:11] LABS: Basophils % 0.3 %; Eosinophils % 0.9 %; Hematocrit 25.7 % (42.0-52.0); Hemoglobin 8.2 g/dL (11.7-16.6); Lymphocytes # 0.2 10^3/uL (0.8-4.8); Lymphocytes % 4.7 %; Mean Corpuscular HGB Conc 31.9 g/dL (30.0-36.0); Mean Corpuscular Hemoglobin 29.1 pg (28.0-34.0); Mean Corpuscular Volume 91.1 fl (80-94); Mean Platelet Volume 10.4 fL (7.4-10.4); Monocytes # 0.3 10^3/uL (0.2-0.9); Monocytes % 8.2 %; Neutrophils # 2.68 10^3/uL (1.8-7.7); Nucleated Red Blood Cells % 0 %; Platelet Count 50 10^3/cmm (130-400); Red Blood Count 2.82 10^6/uL (4.1-5.3); Red Cell Distribution Width 20.1 % (12.1-15.1); White Blood Count 3.2 10^3/uL (4.0-10.0)
[2023-01-23 05:25] LABS: Anion Gap 11.1 (5-19); Blood Urea Nitrogen 12 mg/dL (8-23); Calcium 9.8 mg/dL (8.5-10.5); Carbon Dioxide 24 mmol/L (22-29); Chloride 107 mmol/L (98-107); Glucose 138 mg/dL (65-115); Magnesium 2.1 mg/dL (1.7-2.3); Osmolality Calculated 290 mOsm/kg (285-295); Phosphorus 1.9 mg/dL (2.5-4.5); Potassium 3.1 mmol/L (3.5-5.1); Sodium 139 mmol/L (136-145)
[2023-01-23 05:55] LABS: Glucose Point of Care 142 mg/dL (70-110)
[2023-01-23] MEDS: famotidine 20 mg/2 mL INJ IVP ×2 (06:06→17:37)
[2023-01-23 06:17] LABS: Glucose Point of Care 134 mg/dL (70-110)
[2023-01-23] MEDS: potassium chloride ER 20 mEq Tablet 40 MEQ PO (06:49)
[2023-01-23] MEDS: piperacillin-tazobactam 3.375 GM in sodium chloride 0.9% (plus) 50 ML IV ×2 (08:41→17:28)
[2023-01-23] MEDS: amiodarone 200 mg Tablet PO (08:43)
[2023-01-23] MEDS: levothyroxine 25 mcg Tablet PO (08:43)
[2023-01-23] MEDS: lisinopril 20 mg Tablet PO ×2 (08:43→17:37)
[2023-01-23] MEDS: sucralfate 1 gm Tablet PO ×2 (08:43→21:24)
[2023-01-23] MEDS: NON-FORMULARY MEDICATION (Cinacalcet 30 mg tablet) 30 EACH PO ×2 (08:51→17:51)
[2023-01-23] MEDS: fluticasone nasal spray 16gm Btl 2 SPRAY NASAL (08:51)
[2023-01-23] MEDS: potassium phosphate (mEq K) 40 MEQ in sodium chloride 0.9% (100 ml) 100 ML 27.25 MEQ IV (09:47)
[2023-01-23 11:34] LABS: Glucose Point of Care 136 mg/dL (70-110)
[2023-01-23] MEDS: sodium chloride 0.9% 1,000 ML 125 ML IV (13:22)
--- NOTE | 2023-01-23 13:25 | PC.SOCIAL ---
IMM updated Updated pt & family on IMM. No questions voiced. Provided pt a copy. Initialed, dated, & timed a copy in chart.
--- NOTE | 2023-01-23 13:43 | P.PN_ITS ---
Subjective Subjective: He is feeling tired. Some abdominal soreness. Has not ambulated. Having cough. Medications: Reviewed: Yes Vitals/I&O/Wt Last Vital Signs Temp 98.9 F 01/23/23 03:24 Pulse 88 01/23/23 08:00 Resp 20 H 01/23/23 08:00 BP 157/94 01/23/23 08:00 Pulse Ox 97 01/23/23 08:00 O2 Del Method 01/23/23 08:00 O2 Flow Rate 1 01/19/23 08:00 01/22/23 01/23/23 01/23/23 22:59 06:59 14:59 Intake Total 100 / 1202 1568 / 2770 50 / 50 Output Total 500 / 1100 700 / 1800 750 / 750 Balance -400 / 102 868 / 970 -700 / -700 Physical Exam Narrative: Accompanied by family. Const: COMMON NORMALS: patient oriented x3 and alert GENERAL APPEARANCE: cooperative ORIENTATION/CONSCIOUSNESS: Yes awake HENMT: COMMON NORMALS: oropharynx normal OTHER: NGT Neck/C-Spine: COMMON NORMALS: no JVD Resp: COMMON NORMALS: normal respiratory effort and clear to auscultation bilaterally AUSCULTATION: clear to auscultation bilaterally Cardio: COMMON NORMALS: no JVD, regular rhythm, S1 normal heart sound present, S2 normal heart sound present and No murmurs present (Cardio) RHYTHM: regular rhythm HEART SOUNDS: S1 normal heart sound present and S2 normal heart sound present GI: COMMON NORMALS: Soft to palpation and non-tender INSPECTION: Yes other (Midline incision without drainage or surrounding erythema.) AUSCULTATION: Yes Hypoactive bowel sounds present PALPATION: Yes Soft to palpation OTHER: BS present Extremity: COMMON NORMALS: no joint enlargement and no pedal edema Neuro: COMMON NORMALS: patient oriented x3 and moves all extremities SENSORIUM/ORIENTATION: Yes alert Skin: COMMON NORMALS: no rashes or lesions noted GENERAL SKIN EXAM: no rashes or lesions noted Data 01/23/23 04:14 01/23/23 04:14 A&P Assessment and plan (1) Hypernatremia: (2) SBO (small bowel obstruction): (3) Lung cancer: (4) Accelerated essential hypertension: (5) Port-A-Cath in place: (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 Discussed with him blood pressure now is looking better, hypertensive when he is lying down. Should be able to sustain cautious ambulation. He states may try. Discussed with surgery. No plan for surgical intervention at the moment. Continue NG tube decompression. So far no flatus. Continues with bowel rest. TPN. Follow-up with BMP. Again noted hypokalemic, potassium 3.1, hypophosphatemic, 1.9. Given potassium phosphate. Follow-up phosphorus as well. Magnesium currently is okay we will repeat. Reviewed phosphorus, magnesium, potassium, noted levels is below desired. Requested potassium phosphate replacement, magnesium intravenously. He has fistula tolerating oral intake at risk of further electrolyte imbalances. Follow-up BMP, magnesium, Phos requested. Cardiac monitoring due to electrolyte normalities, risk of arrhythmia. A-fib with RVR: As he remains n.p.o. continue amiodarone drip until able to reestablish oral intake. Hold oral amiodarone until resumes reliable oral intake. Cardizem stopped due to symptomatic orthostasis. Continue management on CSU with risk of CVA decompensation of arrhythmia/tachycardia at risk of electrolyte deficiency as above. Hypernatremia -Resolved -Likely secondary to dehydration Slow GI bleed: He has refused Protonix. Hemoglobin was decreased yesterday, today doing better 8.2. Started on IV famotidine and stat hemogram twice daily. As he is at elevated risk of thrombosis. Lovenox has been on hold: Resume. We will see if may tolerate lower-dose prophylactic heparin. SCD for DVT prophylaxis. -With evidence of iron deficiency anemia, low iron at 59, ferritin elevated at 975, likely acute phase reactant, normal folate Hemoccult positive stools, -Takes Eliquis on home, no hemodynamic compromise -Heparin drip on hold due to developing anemia, thrombocytopenia -Status post 2 of unit PRBC, 1 unit of platelets, 1 dose IV Venofer -Ultrasound negative for DVT -Continue to hold anticoagulation -Venous ultrasound negative for DVT -If he cannot tolerate anticoagulation he might require an IVC filter placed, we will see based on his clinical progress Lactic acidosis: Resolved. Reviewed anion gap is normal. Bicarb is normal. Leukopenia, likely secondary to chemotherapy, isolation precautions monitor for fevers, continue on Zosyn reviewed blood counts, WBC 1.9, hemoglobin 9.1, p latelets 53. Recheck CBC requested for tonight and in the morning. Thrombocytopenia, Platelets 49. Recheck CBC requested. Received platelet 1 unit preoperatively. Nonsustained V. tach, -Resolved Right lower lobe pulmonary embolism. Trial of prophylactic heparin, lower dose. Borderline platelets. Anemia. Monitor blood counts, at risk of bleeding. In case platelets going further may have to discontinue prophylaxis. Follow-up CBC. Underlying risk of recurrent clotting with underlying malignancy. Life- threatening PE. Anticoagulation considered again, but currently in the setting also of acute anemia with some worsening, thrombocytopenia. For now held. -Hold Eliquis -Hold anticoagulation Continue to monitor, can hold off on anticoagulation for now -Venous ultrasound negative for DVT -We will have to consider IVC filter placement if he cannot tolerate anti coagulation on discharge Acute anemia: Continue PPI every 12 hours. Anticoagulation has been on hold. -Likely secondary to chemotherapy -Iron studies, borderline low iron monitor -Hemoccult stool positive for blood Elevated TSH, free T3, free T4 within normal limits Cancer cachexia Lung cancer, status post chemoradiation Protein calorie malnutrition Muscle wasting Hypokalemia, hypophosphatemia. Replace potassium and phosphorus. Follow-up requested. Follow-up magnesium as well. Anemia, will monitor Thrombocytopenia will monitor Urinary sphincter in place -Status post intervention by Dr. Stanton, currently open Goals of care discussion, patient would like to be DNR/okay with elective intubation required however does not want to be kept on life-sustaining measures Attestations Medical Necessity Statement*: Continue admission for assessment of SBO, with bowel rest, electrolyte deficiencies, arrhythmia, unable to tolerate oral intake. 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
[2023-01-23] MEDS: heparin 5,000 unit/mL INJ 1 mL 5000 UNIT SUBCUT (15:25)
--- NOTE | 2023-01-23 15:52 | PC.NURSE ---
pt voided 150 cc .post void bladder scan = 55cc
[2023-01-23 17:09] LABS: Glucose Point of Care 145 mg/dL (70-110)
[2023-01-23 17:11] LABS: Basophils % 0.3 %; Eosinophils % 0.8 %; Hemoglobin 8.1 g/dL (11.7-16.6); Lymphocytes # 0.2 10^3/uL (0.8-4.8); Lymphocytes % 5.1 %; Mean Corpuscular HGB Conc 31.2 g/dL (30.0-36.0); Mean Corpuscular Hemoglobin 29.8 pg (28.0-34.0); Mean Corpuscular Volume 95.6 fl (80-94); Mean Platelet Volume 10.8 fL (7.4-10.4); Monocytes # 0.3 10^3/uL (0.2-0.9); Monocytes % 7.8 %; Neutrophils # 3.37 10^3/uL (1.8-7.7); Nucleated Red Blood Cells % 0 %; Platelet Count 44 10^3/cmm (130-400); Red Blood Count 2.72 10^6/uL (4.1-5.3); Red Cell Distribution Width 20.2 % (12.1-15.1)
--- NOTE | 2023-01-23 17:45 | PM.PN ---
Subjective Subjective: Patient began passing flatus overnight. Pain controlled. No nausea or vomiting Vitals/I&O/Wt Last Vital Signs Temp 98.9 F 01/23/23 03:24 Pulse 79 01/23/23 16:00 Resp 22 H 01/23/23 16:00 BP 179/95 01/23/23 16:00 Pulse Ox 96 01/23/23 16:00 O2 Del Method 01/23/23 08:00 O2 Flow Rate 1 01/19/23 08:00 01/23/23 01/23/23 01/23/23 06:59 14:59 22:59 Intake Total 1568 / 2770 50 / 50 Output Total 700 / 1800 750 / 750 150 / 900 Balance 868 / 970 -700 / -700 -150 / -850 Physical Exam Narrative: Abdomen: Soft, moderately distended, appropriately tender, no guarding rebound or masses Incision intact without erythema or exudate Data 01/23/23 16:18 01/23/23 04:14 A&P Assessment and plan (1) SBO (small bowel obstruction): Plan Status post exploratory laparotomy with lysis of adhesions NGT removed Clear liquid diet I-S use Ambulate Medical management per hospitalist Attestations Medical Necessity Statement*: Per primary Coding Level of Care Code Acute Code for Chg Fwd Diagnoses SBO (small bowel obstruction) K56.609
[2023-01-23] MEDS: AA-Dex 5%-20% w/Lytes 1,000 ML with multivitamin inj 10 ML 42 ML IV (17:50)
[2023-01-23] MEDS: atorvastatin 40 mg Tablet 20 MG PO (21:24)
[2023-01-23 23:33] LABS: Glucose Point of Care 104 mg/dL (70-110)
[2023-01-24] VITALS (18 sets, daily range): BP systolic 85–176; BP diastolic 57–92; PULSE 70–100; RESP 14–27; TEMP 36.4–36.7; O2SAT 90–100
[2023-01-24] MEDS: piperacillin-tazobactam 3.375 GM in sodium chloride 0.9% (plus) 50 ML IV ×4 (01:14→23:37)
[2023-01-24 04:00] LABS: Basophils % 0.5 %; Eosinophils # 0.1 10^3/uL (0.0-0.8); Eosinophils % 1.7 %; Hematocrit 26.5 % (42.0-52.0); Hemoglobin 8.5 g/dL (11.7-16.6); Lymphocytes # 0.3 10^3/uL (0.8-4.8); Lymphocytes % 6.2 %; Mean Corpuscular HGB Conc 32.1 g/dL (30.0-36.0); Mean Corpuscular Hemoglobin 29.6 pg (28.0-34.0); Mean Corpuscular Volume 92.3 fl (80-94); Mean Platelet Volume 10.6 fL (7.4-10.4); Monocytes # 0.4 10^3/uL (0.2-0.9); Neutrophils % 80.6 %; Nucleated Red Blood Cells % 0 %; Platelet Count 54 10^3/cmm (130-400); Red Blood Count 2.87 10^6/uL (4.1-5.3); Red Cell Distribution Width 20.2 % (12.1-15.1); White Blood Count 4.2 10^3/uL (4.0-10.0)
[2023-01-24 04:14] LABS: Anion Gap 11.4 (5-19); Blood Urea Nitrogen 8 mg/dL (8-23); Calcium 9.8 mg/dL (8.5-10.5); Carbon Dioxide 24 mmol/L (22-29); Chloride 108 mmol/L (98-107); Glucose 101 mg/dL (65-115); Magnesium 1.9 mg/dL (1.7-2.3); Osmolality Calculated 288 mOsm/kg (285-295); Phosphorus 1.7 mg/dL (2.5-4.5); Potassium 3.4 mmol/L (3.5-5.1); Sodium 140 mmol/L (136-145)
[2023-01-24] MEDS: sodium chloride 0.9% 1,000 ML 125 ML IV ×4 (06:05→20:45)
[2023-01-24 06:06] LABS: Glucose Point of Care 91 mg/dL (70-110)
[2023-01-24] MEDS: famotidine 20 mg/2 mL INJ IVP ×2 (06:20→17:52)
[2023-01-24] MEDS: NON-FORMULARY MEDICATION (Cinacalcet 30 mg tablet) 30 EACH PO ×2 (08:22→17:52)
[2023-01-24] MEDS: lisinopril 20 mg Tablet PO ×2 (08:22→17:52)
[2023-01-24] MEDS: sucralfate 1 gm Tablet PO ×2 (08:22→20:45)
[2023-01-24] MEDS: fluticasone nasal spray 16gm Btl 2 SPRAY NASAL (08:22)
[2023-01-24] MEDS: levothyroxine 25 mcg Tablet PO (08:23)
[2023-01-24] MEDS: amiodarone 200 mg Tablet PO (11:35)
[2023-01-24] MEDS: potassium phosphate (mEq K) 40 MEQ in sodium chloride 0.9% (100 ml) 100 ML 27.25 MEQ IV (11:38)
[2023-01-24] MEDS: heparin 5,000 unit/mL INJ 1 mL 5000 UNIT SUBCUT (16:05)
[2023-01-24] MEDS: AA-Dex 5%-20% w/Lytes 1,000 ML with multivitamin inj 10 ML 42 ML IV (17:51)
--- NOTE | 2023-01-24 18:32 | PC.NURSE ---
Pt refused both accuchecks this shift.
--- NOTE | 2023-01-24 20:44 | P.PN_ITS ---
Subjective Subjective: Was passing some flatus yesterday. None today. Poor appetite. No further vomiting. Abdomen slightly sore but better. Intends to try to ambulate. Medications: Reviewed: Yes Vitals/I&O/Wt Last Vital Signs Temp 97.6 F 01/24/23 08:00 Pulse 78 01/24/23 18:00 Resp 18 01/24/23 18:00 BP 158/85 01/24/23 18:00 Pulse Ox 98 01/24/23 18:00 O2 Del Method 01/24/23 04:00 O2 Flow Rate 1 01/19/23 08:00 01/24/23 01/24/23 01/24/23 06:59 14:59 22:59 Intake Total 400 / 2705.5 1123.75 / 1123.75 1996.617 / 3120.367 Output Total 800 / 3300 950 / 950 600 / 1550 Balance -400 / -594.5 173.75 / 173.75 1396.617 / 1570.367 Physical Exam Narrative: Accompanied by family. Const: COMMON NORMALS: patient oriented x3 and alert GENERAL APPEARANCE: cooperative ORIENTATION/CONSCIOUSNESS: Yes awake HENMT: COMMON NORMALS: oropharynx normal OTHER: NGT Neck/C-Spine: COMMON NORMALS: no JVD Resp: COMMON NORMALS: normal respiratory effort and clear to auscultation bilaterally AUSCULTATION: clear to auscultation bilaterally Cardio: COMMON NORMALS: no JVD, regular rhythm, S1 normal heart sound present, S2 normal heart sound present and No murmurs present (Cardio) RHYTHM: regular rhythm HEART SOUNDS: S1 normal heart sound present and S2 normal heart sound present GI: COMMON NORMALS: Soft to palpation and non-tender INSPECTION: Yes other (Midline incision without drainage or surrounding erythema.) AUSCULTATION: Yes Hypoactive bowel sounds present PALPATION: Yes Soft to palpation OTHER: BS present Extremity: COMMON NORMALS: no joint enlargement and no pedal edema Neuro: COMMON NORMALS: patient oriented x3 and moves all extremities SENSOR IUM/ORIENTATION: Yes alert Skin: COMMON NORMALS: no rashes or lesions noted GENERAL SKIN EXAM: no rashes or lesions noted Data 01/24/23 03:43 01/24/23 03:43 A&P Assessment and plan (1) Hypernatremia: (2) SBO (small bowel obstruction): (3) Lung cancer: (4) Accelerated essential hypertension: (5) Port-A-Cath in place: (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 Cleared for diet trial. She has not had good appetite. Passed flatus yesterday, not today. Encouraged him to ambulate. Severe orthostasis has been very limiting for him and he has been unable to ambulate. We will start midodrine as below. Again noted hypokalemic and hypophosphatemic. Replace. Requesting follow-up studies. Additionally magnesium 1.9, keep magnesium at 2 or above. Replaced, requesting follow-up studies. Reviewed phosphorus, magnesium, potassium, noted levels is below desired. Requested potassium phosphate replacement, magnesium intravenously. He has fistula tolerating oral intake at risk of further electrolyte imbalances. Follow-up BMP, magnesium, Phos requested. Cardiac monitoring due to electrolyte normalities, risk of arrhythmia. Orthostatic hypotension: Requested orthostatic vital signs. Noted 167/89 laying, 135/79 sitting, 85/57 standing. Discussed with him and family midodrine. Will initiate. A-fib with RVR: Transition to p.o. amiodarone. Stop drip. Cardizem stopped due to symptomatic orthostasis. Continue management on CSU with risk of CVA decompensation of arrhythmia/tachycardia at risk of electrolyte deficiency as above. Hypernatremia -Resolved -Likely secondary to dehydration Slow GI bleed: He has refused Protonix. Hemoglobin was decreased yesterday, today doing better 8.2. Started on IV famotidine and stat hemogram twice daily. As he is at elevated risk of thrombosis. Lovenox has been on hold: Resume. We will see if may tolerate lower-dose prophylactic heparin. SCD for DVT prophylaxis. -With evidence of iron deficiency anemia, low iron at 59, ferritin elevated at 975, likely acute phase reactant, normal folate Hemoccult positive stools, -Takes Eliquis on home, no hemodynamic compromise -Heparin drip on hold due to developing anemia, thrombocytopenia -Status post 2 of unit PRBC, 1 unit of platelets, 1 dose IV Venofer -Ultrasound negative for DVT -Continue to hold anticoagulation -Venous ultrasound negative for DVT -If he cannot tolerate anticoagulation he might require an IVC filter placed, we will see based on his clinical progress Lactic acidosis: Resolved. Reviewed anion gap is normal. Bicarb is normal. Leukopenia, likely secondary to chemotherapy, isolation precautions monitor for fevers, continue on Zosyn reviewed blood counts, WBC 1.9, hemoglobin 9.1, platelets 53. Recheck CBC requested for tonight and in the morning. Thrombocytopenia, Platelets 49. Recheck CBC requested. Received platelet 1 unit preoperatively. Nonsustained V. tach, -Resolved Right lower lobe pulmonary embolism. Trial of prophylactic heparin, lower dose. Borderline platelets. CBC noted, hemoglobin 8.5. Platelets slightly better at 54,000. Continue prophylactic heparin. Follow-up blood counts requested. Anemia. Monitor blood counts, at risk of bleeding. In case platelets going further may have to discontinue prophylaxis. Follow-up CBC. Underlying risk of recurrent clotting with underlying malignancy. Life- threatening PE. Anticoagulation considered again, but currently in the setting also of acute anemia with some worsening, thrombocytopenia. For now held. -Hold Eliquis -Hold anticoagulation Continue to monitor, can hold off on anticoagulation for now -Venous ultrasound negative for DVT -We will have to consider IVC filter placement if he cannot tolerate anticoagulation on discharge Acute anemia: Continue PPI every 12 hours. Anticoagulation has been on hold. -Likely secondary to chemotherapy -Iron studies, borderline low iron monitor -Hemoccult stool positive for blood Elevated TSH, free T3, free T4 within normal limits Cancer cachexia Lung cancer, status post chemoradiation Protein calorie malnutrition Muscle wasting Hypokalemia, hypophosphatemia. Replace potassium and phosphorus. Follow-up requested. Follow-up magnesium as well. Anemia, will monitor Thrombocytopenia will monitor Urinary sphincter in place -Status post intervention by Dr. Stanton, currently open Goals of care discussion, patient would like to be DNR/okay with elective intubation required however does not want to be kept on life-sustaining measures Attestations Medical Necessity Statement*: Continue admission for with resolving SBO. Trial of oral intake. Replacement of electrolytes with A-fib with RVR, transition to oral medication. Trial of prophylactic anticoagulation with PE, acute anemia. Thrombocytopenia. At risk of bleeding or clotting. 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
[2023-01-24] MEDS: atorvastatin 40 mg Tablet 20 MG PO (20:45)
[2023-01-24 21:14] LABS: Glucose Point of Care 129 mg/dL (70-110)
[2023-01-24] MEDS: midodrine 5 mg TABLET PO (21:22)
--- NOTE | 2023-01-24 22:14 | PM.PN ---
Subjective Subjective: Patient seen and examined. He reports that he still passing flatus but has not had a bowel movement yet. He reports that he has been nauseous and almost vomited. Otherwise tolerating clear liquids Vitals/I&O/Wt Last Vital Signs Temp 97.8 F 01/24/23 20:00 Pulse 77 01/24/23 20:00 Resp 19 H 01/24/23 20:00 BP 158/84 01/24/23 20:00 Pulse Ox 97 01/24/23 20:00 O2 Del Method 01/24/23 20:00 O2 Flow Rate 1 01/19/23 08:00 01/24/23 01/24/23 01/24/23 06:59 14:59 22:59 Intake Total 400 / 2705.5 1123.75 / 1123.75 2338.284 / 3462.034 Output Total 800 / 3300 950 / 950 900 / 1850 Balance -400 / -594.5 173.75 / 173.75 1438.284 / 1612.034 Physical Exam Narrative: Abdomen: Soft, moderately distended, appropriately tender, no guarding rebound or masses Incision intact without erythema or exudate Data 01/24/23 03:43 01/24/23 03:43 A&P Assessment and plan (1) SBO (small bowel obstruction): Plan Status post exploratory laparotomy with lysis of adhesions NGT removed Clear liquid diet Add Reglan I-S use Ambulate Medical management per hospitalist Attestations Medical Necessity Statement*: Per primary Coding Level of Care Code Acute Code for Chg Fwd Diagnoses SBO (small bowel obstruction) K56.609
[2023-01-24] MEDS: metoclopramide 5 mg/mL SDV 2 mL IVP (23:37)
[2023-01-25] VITALS (9 sets, daily range): BP systolic 132–179; BP diastolic 72–92; PULSE 70–81; RESP 15–26; TEMP 36.8–37.3; O2SAT 95–97
[2023-01-25 03:40] LABS: Basophils % 0.3 %; Eosinophils # 0.1 10^3/uL (0.0-0.8); Eosinophils % 1.7 %; Hemoglobin 8.1 g/dL (11.7-16.6); Lymphocytes # 0.2 10^3/uL (0.8-4.8); Lymphocytes % 5.5 %; Mean Corpuscular HGB Conc 31.2 g/dL (30.0-36.0); Mean Corpuscular Hemoglobin 28.7 pg (28.0-34.0); Mean Corpuscular Volume 92.2 fl (80-94); Mean Platelet Volume 11.3 fL (7.4-10.4); Monocytes # 0.4 10^3/uL (0.2-0.9); Monocytes % 9.9 %; Neutrophils # 2.95 10^3/uL (1.8-7.7); Neutrophils % 81.2 %; Nucleated Red Blood Cells % 0 %; Platelet Count 55 10^3/cmm (130-400); Red Blood Count 2.82 10^6/uL (4.1-5.3); Red Cell Distribution Width 20.3 % (12.1-15.1); White Blood Count 3.6 10^3/uL (4.0-10.0)
[2023-01-25] MEDS: heparin 5,000 unit/mL INJ 1 mL 5000 UNIT SUBCUT ×2 (03:51→15:37)
[2023-01-25] MEDS: metoclopramide 5 mg/mL SDV 2 mL IVP ×4 (03:52→23:48)
[2023-01-25 03:58] LABS: Anion Gap 11.5 (5-19); Blood Urea Nitrogen 8 mg/dL (8-23); Calcium 9.1 mg/dL (8.5-10.5); Carbon Dioxide 25 mmol/L (22-29); Chloride 107 mmol/L (98-107); Glucose 140 mg/dL (65-115); Magnesium 1.9 mg/dL (1.7-2.3); Osmolality Calculated 291 mOsm/kg (285-295); Potassium 3.5 mmol/L (3.5-5.1); Sodium 140 mmol/L (136-145)
[2023-01-25] MEDS: sodium chloride 0.9% 1,000 ML 125 ML IV ×3 (04:38→23:52)
[2023-01-25] MEDS: famotidine 20 mg/2 mL INJ IVP ×2 (05:34→21:01)
[2023-01-25 06:09] LABS: Glucose Point of Care 136 mg/dL (70-110)
[2023-01-25] MEDS: piperacillin-tazobactam 3.375 GM in sodium chloride 0.9% (plus) 50 ML IV ×3 (08:19→23:49)
[2023-01-25] MEDS: midodrine 5 mg TABLET PO ×3 (08:19→20:59)
[2023-01-25] MEDS: levothyroxine 25 mcg Tablet PO (08:19)
[2023-01-25] MEDS: sucralfate 1 gm Tablet PO ×2 (08:19→20:59)
[2023-01-25] MEDS: lisinopril 20 mg Tablet PO ×2 (08:19→17:41)
[2023-01-25] MEDS: NON-FORMULARY MEDICATION (Cinacalcet 30 mg tablet) 30 EACH PO ×2 (08:20→17:41)
[2023-01-25] MEDS: amiodarone 200 mg Tablet PO ×2 (08:31→21:00)
[2023-01-25] MEDS: fluticasone nasal spray 16gm Btl 2 SPRAY NASAL (08:31)
[2023-01-25] MEDS: ondansetron 2 mg/ML SDV 2 mL 4 MG IVP (08:51)
--- NOTE | 2023-01-25 12:53 | PM.CONSULT ---
Providers/Reason For Consult Consulting Physician/Specialty*: Trerell Baptiste MD/ Cardiology Reason for Consult*: Pulmonary embolism/anemia Requesting Physician: Dr Jay Attending Physician: Jack Jay Primary Care Provider: Aguilar Balbuena DO History of Present Illness History of Present Illness Adrian Corey is a 82 year old male with history of atrial fibrillation who was admitted with small bowel obstruction and underwent surgery recently. He had recent pulmonary embolism diagnosis as well. Has metastatic cancer. Interventional cardiology has been consulted for IVC filter placement as he has been dropping hemoglobin significantly with possibility of slow GI bleed. Also has thrombocytopenia. He still has not had a bowel movement. Review of Systems Const: Reports: malaise; Denies: fever(s) or chills Eyes: Denies: change in vision, eye discharge or yellow eyes ENMT: Denies: hoarseness Card: Denies: chest pain or palpitations Resp: Denies: productive cough or wheezing GI: Reports: abdominal pain and nausea; Denies: diarrhea : Reports: other (Artificial sphincter has been functioning fine.); Denies: difficulty urinating Musc: Reports: back pain and joint stiffness Neuro: Denies: confusion, behavioral changes or Slurred speech present Psych: Denies: anxiety Endo: Denies: flushing Antonio/Lymph: Denies: easy bruising or easy bleeding All/Imm: Denies: urticaria or acute wheezing Medications/Allergies Home Medications Medication Instructions Recorded Confirmed Last Taken Type levothyroxine 25 mcg tablet 25 mcg PO DAILY 12/03/19 01/14/23 01/12/23 History (Synthroid) pravastatin 20 mg tablet 20 mg PO BEDTIME 09/06/22 01/14/23 01/13/23 History benazepril 20 mg tablet 20 mg PO BID 10/10/22 01/14/23 01/11/23 History lorazepam 1 mg tablet 0.5 - 1 mg PO Q6H PRN Severe 11/20/22 01/14/23 Unknown Rx Nausea #30 tabs cinacalcet 30 mg tablet 30 mg PO BID #180 tabs 11/29/22 01/14/23 01/12/23 Rx apixaban 5 mg tablet (Eliquis) 10 mg PO BID 01/14/23 01/14/23 01/12/23 History Allergies Allergy/AdvReac Type Severity Reaction Status Date / Time pantoprazole Allergy ADR-Heartbu Verified 01/10/23 10:22 rn Current Medications Generic Name Dose Route Start Last Admin Trade Name Freq PRN Reason Stop Dose Admin Acetaminophen 650 mg 01/14/23 20:52 01/19/23 22:21 Acetaminophen 325 Mg Tablet PO 650 mg Q6H PRN Administration Mild/Mod Pain Or Temp >/= 101 Amiodarone HCl 200 mg 01/24/23 11:45 01/25/23 08:31 Amiodarone 200 Mg Tablet PO 200 mg BID@0900,2100 JENNY Administration Atorvastatin Calcium 20 mg 01/15/23 21:00 01/24/23 20:45 Atorvastatin 40 Mg Tablet PO 20 mg BEDTIME JENNY Administration Famotidine 20 mg 01/22/23 19:00 01/25/23 05:34 Famotidine 20 Mg/2 Ml Inj IVP 20 mg Q12H JENNY Administration Fluticasone Propionate 2 spray 01/22/23 18:40 01/25/23 08:31 Fluticasone Nasal [place] 16gm Btl NASAL 2 spray DAILY JENNY Administration Guaifenesin 200 mg 01/20/23 09:08 01/22/23 08:32 Guaifenesin 100 Mg/5 Ml Udc 10 Ml PO 200 mg Q4H PRN Administration COUGH AND CONGESTION Heparin Sodium (Porcine) 5,000 unit 01/23/23 15:00 01/25/23 03:51 Heparin 5,000 Unit/Ml Inj 1 Ml SUBCUT 5,000 unit Q12H JENNY Administration Hydralazine HCl 5 mg 01/17/23 20:48 01/22/23 21:09 Hydralazine 20 Mg/Ml Inj 1 Ml IVP 5 mg Q6H PRN Administration For systolic BP above 170 Piperacillin Sod/Tazobactam 50 mls @ 12.5 mls/hr 01/19/23 08:30 01/25/23 12:19 Sod 3.375 gm/ Sodium Chloride IV Infused Q8H JENNY Infusion Protocol Sodium Chloride 1,000 mls @ 125 mls/hr 01/21/23 16:15 01/25/23 04:38 Sodium Chloride 0.9% IV 125 mls/hr .Q8H JENNY Administration Multivitamins 10 ml/ Amino 1,010 mls @ 42 mls/hr 01/22/23 18:00 01/24/23 17:51 Acids/Electrolytes IV 42 mls/hr .Q24H JENNY Administration Fat Emulsion Intravenous/ IV 250 mls @ 20.833 mls/hr 01/21/23 18:00 01/25/23 05:52 Miscellaneous Supplies IV Infused Q24H JENNY Infusion Levothyroxine Sodium 25 mcg 01/15/23 09:00 01/25/23 08:19 Levothyroxine 25 Mcg Tablet PO 25 mcg DAILY JENNY Administration Lisinopril 20 mg 01/15/23 09:00 01/25/23 08:19 Lisinopril 20 Mg Tablet PO 20 mg BID JENNY Administration Metoclopramide HCl 5 mg 01/24/23 22:30 01/25/23 10:44 Metoclopramide 5 Mg/Ml Sdv 2 Ml IVP 5 mg Q6H JENNY Administration Midodrine 5 mg 01/24/23 21:00 01/25/23 08:19 Midodrine 5 Mg Tablet PO 5 mg TID JENNY Administration Non-Formulary Medication 30 mg 01/14/23 20:52 01/25/23 08:20 Cinacalcet PO 30 mg BID JENNY Administration Ondansetron HCl 4 mg 01/14/23 20:52 01/25/23 08:51 Ondansetron 2 Mg/Ml Sdv 2 Ml IVP 4 mg Q8H PRN Administration vomiting, or N/V if npo Sucralfate 1 gm 01/16/23 08:30 01/25/23 08:19 Sucralfate 1 Gm Tablet PO 1 gm Q12H JENNY Administration PFSH Acute PFSH: Medical History Accelerated essential hypertension Distal radius fracture, right History of prostate cancer Lung cancer Port-A-Cath in place Pulmonary embolism Thyroid disease Surgical History History of open reduction and internal fixation (ORIF) procedure right distal radius Family History Father Anesthesia complication Brother CAD (coronary artery disease) Sister Chronic kidney disease (CKD) Diabetes Other Hypertension Denies family history of Clotting disorder Dementia Hyperlipidemia Psychiatric illness Suicide Bleeding disorder Lung disease Cancer Stroke Social History Smoking and tobacco status: smoker, details unknown Quit status (tobacco): has quit using tobacco Year quit tobacco: 2017 Former quit date comment: 2ppd x 27 years; quit smoking pipe Oct 2021 Alcohol intake: never Vitals/I&O/Wt Last Vital Signs Temp 98.3 F 01/25/23 04:00 Pulse 81 01/25/23 08:55 Resp 19 H 01/25/23 08:55 BP 132/81 01/25/23 08:55 Pulse Ox 95 01/25/23 08:55 O2 Del Method 01/25/23 04:00 O2 Flow Rate 1 01/19/23 08:00 01/24/23 01/25/23 01/25/23 22:59 06:59 14:59 Intake Total 2338.284 / 3462.034 2235.417 / 5697.451 50 / 50 Output Total 900 / 1850 1750 / 3600 300 / 300 Balance 1438.284 / 1612.034 485.417 / 2097.451 -250 / -250 Physical Exam Narrative: GENERAL: Patient is alert, awake and oriented x3. [] NECK: No jugular vein distension. [] HEENT: No cyanosis. No icterus. No pallor. [] HEART: Regular S1 and S2. No murmur, rub or gallop. [] LUNGS: Clear to auscultate bilaterally. [] CENTRAL NERVOUS SYSTEM: Grossly nonfocal. [] EXTREMITIES: Lower extremities with 1+ edema bilaterally. Pulses palpable in the lower extremities, both dorsalis pedis and posterior tibial. [] Data 01/25/23 03:28 01/25/23 03:28 A&P Assessment and plan (1) Lung cancer: (2) SBO (small bowel obstruction): (3) Anemia: (4) Thrombocytopenia: (5) Pulmonary embolism: Plan Patient has metastatic cancer, recent pulmonary embolism, significant anemia and thrombocytopenia. Anticoagulation cannot be restarted. Primary team concerned about slow GI bleed. Interventional radiology has been consulted to place IVC filter. We will proceed with filter placement. Risks and benefits of the procedure have been discussed with the patient and family. They understand the risks and benefits and want to proceed with that. N.p.o. Thank you for involving us with care of this patient. We will continue to follow. Please call with questions. Consult Attestations Medical Necessity Statement: Care expected to cross 2 midnights. Coding Level of Care Code Acute Code for Chg Fwd Diagnoses Lung cancer C34.90 SBO (small bowel obstruction) K56.609 Anemia D64.9 Thrombocytopenia D69.6 Pulmonary embolism I26.99
--- NOTE | 2023-01-25 13:27 | XACV_ITS ---
Ht: 175 cm Wt: 53 kg BSA: 1.59 m2 Gender: Male : 1940 Exam Type: Invasive Peripheral Vascular Procedure(s): Procedure Description: Peripheral vascular Intervention Procedure Description: PV IVC Filter Placement Exam Priority: Routine Abdominal Interventional Findings INDICATION: Patient has metastatic cancer, recent pulmonary embolism, significant anemia and thrombocytopenia. Anticoagulation cannot be restarted. Primary team concerned about slow GI bleed. Plan for IVC filter placement. Procedure detail:We obtained access in the right common femoral vein. Using pigtail catheter, we performed IVC venogram. Renal veins were identified. Under flouroscopic guidance, we placed IVC tulip alisha filter. At this time, we removed the delivery sheath and held pressure. Patient left the r&d lab technician in a stable condition. . Conclusions Successful IVC filter placement. Recommendations Transfer back to cardiac stepdown unit. Access Site Site: Right Femoral vein Sheath Size: 6 Fr Hemost... Success: Unsuccessful Procedure Details Findings Procedure Consent Obtained. Pre-Procedure Time Out. Identified patient by full name and date of as verbalized by the patient/guarantor. Does the consent match the physician's order: Yes. Accurate & Complete Informed Consent: Yes. Inpatient/Outpatient History & Physical on Chart: Yes. If H&P is completed, is and addenduem needed: No. Visualize and Verify Site with Patient/Guarantor: N/A. Relevant Radiology Images available: Yes. The risks, benefits, and alternatives of sedation and/or procedure were discussed by physician. The patient agrees to continue. Procedure started. Correct patient, site and procedure confirmed by cath team. Current diagnosis: IVC filter insertion. PERRLA. Strong, equal hand supervisor poultry hatchery bilaterally. Lungs clear x 5 lobes. Left upper chest andrew-cath. IV Site on Arrival: 22 gauge in the left anticubital. IV Fluids: 0.9% NaCl at KVO. 0 mL infused prior to r&d lab technician. Oxygen started at 2liters/min via nasal canula. bilateral groins was prepped with chloroprep then draped in the usual sterile fashion. Physician notified. Baseline sample Acquired. HR: 83 BPM. Physician arrived. Physician scrubbed in. Immediate Pre-Procedure Time Out. Correct Patient: Yes; Correct Procedure: Yes; Correct Site: Yes; Correct Patient Position: Yes; Correct Supplies: Yes; Dried Flammable Prep: Yes; Blood Products Available: N/A;. Admit Source: In Patient. Tasneem Palencia RN, STATE [employer] RELATIONS DEPUTY DIRECTOR was relieved by Kirstie Green RN as monitoring person. Lidocaine 1% infiltrated to the right groin. Venous access obtained with a micropuncture set. Abdominal Venogram performed 10ml/sec for a total of 30 ml. A 5 belizean Angled Pig catheter in over wire. Catheter out. 6Fr femoral sheath removed and 6 Fr earthmine IVC filter sheath inserted. [employer] IVC filter inserted through the sheath. IVC filter deployed at this time. Lot [id number] Exp 01/12/2025. Sheath and filter set removed. Manual compression held at this time by Jeremy SHAIKH. Physician scrubbed out. Sheath(s) removed and manual pressure held until hemostasis was achieved. Sterile 4x4 and Op-site applied to the puncture site. No oozing or hematoma noted. Post sheath removal instructions were given and the patient verbalized understanding. Post Procedure: Pulses reassessed and unchanged. PERRLA. Strong, equal hand supervisor poultry hatchery bilaterally. No VTE prophylaxis required. Medication's Wasted: Other = Versed 1 mg. Medication's Wasted: Heparin = 1000 u. Medication's Wasted: Other = Fentanyl 50 mcg. Total IV fluids: 20 mL. Complications: none. Estimated blood loss: 5mL-10mL. Responsiveness - Normal response to verbal stimuli; alert and oriented, PERRLA. Airway - Unaffected, no intervention required; spontaneous ventilation. Circulation: W/N/L, pulses unchanged. Nausea/Vomiting: No. Procedure completed. Patient transferred by bed to 1st floor. Vital chart was stopped. I, the attending physician, have reviewed and verified all procedure medications. Yes, all medications given per verbal order History/Risk Factors Hypertension: Yes Dyslipidemia: No Peripheral Arterial Disease (PAD): No Obesity: No Renal Disease: No Prior Interventions PCI: No CABG: No Valve Surgery: No Report Signatures Finalized by Terrell Baptiste MD on 01/28/2023 12:40 PM
--- NOTE | 2023-01-25 14:02 | W.PM.OPSUD ---
Surgery/Procedure H&P Update DATE OF PROCEDURE: January 25, 2023 DATE H&P PERFORMED: 01/25/23 H&P UPDATE INFORMATION: I have reviewed H&P completed within last 30 days, I have examined patient prior to procedure and No changes to prior documentation PREOP DIAGNOSIS: Pulmonary emolism/ metastatic cancer/ anemia(possible GI bleed) PRIMARY INDICATION FOR PROCEDURE: Pulmonary emolism/ metastatic cancer/ anemia(possible GI bleed) PLANNED PROCEDURE: Operation Date: 01/25/2023 Proposed Procedures IVC filter placement PATIENT REASSESSED PRIOR TO SEDATION, WITH NO CHANGE NOTED: Yes PHYSICAL EXAM: alert, oriented x 3, clear to auscultation bilaterally and regular rate & rhythm AIRWAY EVAL/ANESTHESIA PLAN: normal airway, ASA IV, Local Anesthesia, Risks, benefits & alternatives of sedation and/or procedure discussed and Patient agrees to continue as planned ADDITIONAL INFORMATION: Moderate sedation
--- NOTE | 2023-01-25 15:44 | PC.SOCIAL ---
IMM updated Updated pt & family on IMM. No questions voiced. Provided pt a copy. Initialed, dated, & timed a copy in chart.
--- NOTE | 2023-01-25 16:16 | PM.PROC ---
Procedure Note: Date of procedure: 01/25/23 Pre-procedure diagnosis: Pulmonary embolism/anemia/ possible GI bleed Post-procedure diagnosis: same Procedure: IVC filter placement: We obtained access in the right common femoral vein. Using pigtail catheter, we performed IVC venogram. Renal veins were identified. Under flouroscopic guidance, we placed IVC tulip alisha filter. At this time, we removed the delivery sheath and held pressure. Patient left the company laborer in a stable condition. Performing Provider: Terrell Baptiste Complications: None Condition: stable Disposition: floor Coding Level of Care Code Acute Code for Chg Fwd
[2023-01-25 17:37] LABS: Glucose Point of Care 120 mg/dL (70-110)
[2023-01-25] MEDS: AA-Dex 5%-20% w/Lytes 1,000 ML with multivitamin inj 10 ML 42 ML IV (19:24)
[2023-01-25] MEDS: atorvastatin 40 mg Tablet 20 MG PO (20:59)
[2023-01-25 21:03] LABS: Glucose Point of Care 136 mg/dL (70-110)
--- NOTE | 2023-01-25 23:08 | P.PN_ITS ---
Subjective Subjective: Still not feeling very well this morning. Having nausea. Coughing. Had cough episode that also ended with vomiting. Medications: Reviewed: Yes Vitals/I&O/Wt Last Vital Signs Temp 99.2 F 01/25/23 20:00 Pulse 72 01/25/23 20:00 Resp 23 H 01/25/23 20:00 BP 165/78 01/25/23 20:00 Pulse Ox 96 01/25/23 20:00 O2 Del Method 01/25/23 20:00 O2 Flow Rate 1 01/19/23 08:00 01/25/23 01/25/23 01/26/23 14:59 22:59 06:59 Intake Total 1050 / 1050 1640 / 2690 Output Total 300 / 300 700 / 1000 Balance 750 / 750 940 / 1690 Physical Exam Narrative: Accompanied by family. Const: COMMON NORMALS: patient oriented x3 and alert GENERAL APPEARANCE: cooperative ORIENTATION/CONSCIOUSNESS: Yes awake HENMT: COMMON NORMALS: oropharynx normal OTHER: NGT Neck/C-Spine: COMMON NORMALS: no JVD Resp: COMMON NORMALS: normal respiratory effort and clear to auscultation bilaterally AUSCULTATION: clear to auscultation bilaterally Cardio: COMMON NORMALS: no JVD, regular rhythm, S1 normal heart sound present, S2 normal heart sound present and No murmurs present (Cardio) RHYTHM: regular rhythm HEART SOUNDS: S1 normal heart sound present and S2 normal heart sound present GI: COMMON NORMALS: Soft to palpation and non-tender INSPECTION: Yes other (Midline incision without drainage or surrounding erythema.) AUSCULTATION: Yes Hypoactive bowel sounds present PALPATION: Yes Soft to palpation OTHER: BS present Extremity: COMMON NORMALS: no joint enlargement and no pedal edema Neuro: COMMON NORMALS: patient oriented x3 and moves all extremities SENSORIUM/ORIENTATION: Yes alert Skin: COMMON NORMALS: no rashes or lesions noted GENERAL SKIN EXAM: no jane hes or lesions noted Data 01/25/23 03:28 01/25/23 03:28 A&P Assessment and plan (1) Hypernatremia: (2) SBO (small bowel obstruction): (3) Lung cancer: (4) Accelerated essential hypertension: (5) Port-A-Cath in place: (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 Diet trial. Discussed with him trying to ambulate. He has been quite orthostatic, we did start midodrine. Surgery would like to see clear sign that SBO is improving prior to discharge. Again noted hypokalemic and hypophosphatemic. Replace. Requesting follow-up studies. Additionally magnesium 1.9, keep magnesium at 2 or above. Replaced, requesting follow-up studies. Reviewed phosphorus, magnesium, potassium, noted levels is below desired. Re quested potassium phosphate replacement, magnesium intravenously. He has fistula tolerating oral intake at risk of further electrolyte imbalances. Follow-up BMP, magnesium, Phos requested. Cardiac monitoring due to electrolyte normalities, risk of arrhythmia. Orthostatic hypotension: Started on midodrine. Requesting repeat orthostatics. Right lower lobe pulmonary embolism. He is having further cough. Discussed concern for additional PEs given he has not been tolerant of anticoagulation. On prophylactic heparin alone. Discussed with him and his consideration of IVC filter given elevated risk for VTE. Discussed risks, benefits. They decided to proceed. Further discussion with cardiology regarding procedure, they are agreeable. Requested consultation, discussed with cardiology. Trial of prophylactic heparin, lower dose. Borderline platelets. CBC noted, hemoglobin 8.5. Platelets slightly better at 55,000. Continue prophylactic heparin. Follow-up blood counts requested. Anemia. Monitor blood counts, at risk of bleeding. In case platelets going further may have to discontinue prophylaxis. Follow-up CBC. Underlying risk of recurrent clotting with underlying malignancy. Life- threatening PE. Anticoagulation considered again, but currently in the setting also of acute anemia with some worsening, thrombocytopenia. For now held. -Hold Eliquis -Hold anticoagulation Continue to monitor, can hold off on anticoagulation for now -Venous ultrasound negative for DVT -We will have to consider IVC filter placement if he cannot tolerate anticoagulation on discharge Bothersome cough: Quite significant cough, 1 episode resulted in vomiting. Possibly secondary to PE. No cytosis, he is afebrile. Had some additional vomiting. Check chest x-ray for possibility of pneumonia. Increased antitussive dose. A-fib with RVR: Transition to p.o. amnio. Cardizem stopped due to symptomatic orthostasis. Continue management on CSU with risk of CVA decompensation of arrh ythmia/tachycardia at risk of electrolyte deficiency as above. Hypernatremia -Resolved -Likely secondary to dehydration Slow GI bleed: He has refused Protonix. Hemoglobin was decreased yesterday, today doing better 8.2. Started on IV famotidine and stat hemogram twice daily. As he is at elevated risk of thrombosis. Lovenox has been on hold: Resume. We will see if may tolerate lower-dose prophylactic heparin. SCD for DVT prophylaxis. -With evidence of iron deficiency anemia, low iron at 59, ferritin elevated at 975, likely acute phase reactant, normal folate Hemoccult positive stools, -Takes Eliquis on home, no hemodynamic compromise -Heparin drip on hold due to developing anemia, thrombocytopenia -Status post 2 of unit PRBC, 1 unit of platelets, 1 dose IV Venofer -Ultrasound negative for DVT -Continue to hold anticoagulation -Venous ultrasound negative for DVT -If he cannot tolerate anticoagulation he might require an IVC filter placed, we will see based on his clinical progress Lactic acidosis: Resolved. Reviewed anion gap is normal. Bicarb is normal. Leukopenia, likely secondary to chemotherapy, isolation precautions monitor for fevers, continue on Zosyn reviewed blood counts, WBC 1.9, hemoglobin 9.1, platelets 53. Recheck CBC requested for tonight and in the morning. Thrombocytopenia, Platelets 49. Recheck CBC requested. Received platelet 1 unit preoperatively. Nonsustained V. tach, -Resolved Acute anemia: Continue PPI every 12 hours. Anticoagulation has been on hold. -Likely secondary to chemotherapy -Iron studies, borderline low iron monitor -Hemoccult stool positive for blood Elevated TSH, free T3, free T4 within normal limits Cancer cachexia Lung cancer, status post chemoradiation Protein calorie malnutrition Muscle wasting Hypokalemia, hypophosphatemia. Replace potassium and phosphorus. Follow-up requested. Follow-up magnesium as well. Anemia, will monitor Thrombocytopenia will monitor Urinary sphincter in place -Status post intervention by Dr. 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
[2023-01-26] VITALS (17 sets, daily range): BP systolic 146–206; BP diastolic 73–107; PULSE 69–90; RESP 18–28; TEMP 36.5–37.6; O2SAT 84–100
[2023-01-26 03:18] LABS: Basophils % 0.3 %; Eosinophils # 0.1 10^3/uL (0.0-0.8); Eosinophils % 2.4 %; Hematocrit 24.1 % (42.0-52.0); Hemoglobin 7.6 g/dL (11.7-16.6); Lymphocytes # 0.2 10^3/uL (0.8-4.8); Lymphocytes % 6.3 %; Mean Corpuscular HGB Conc 31.5 g/dL (30.0-36.0); Mean Corpuscular Hemoglobin 29.2 pg (28.0-34.0); Mean Corpuscular Volume 92.7 fl (80-94); Mean Platelet Volume 11.1 fL (7.4-10.4); Monocytes # 0.4 10^3/uL (0.2-0.9); Neutrophils # 3.01 10^3/uL (1.8-7.7); Neutrophils % 79.2 %; Nucleated Red Blood Cells % 0 %; Platelet Count 58 10^3/cmm (130-400); Red Cell Distribution Width 20.6 % (12.1-15.1); White Blood Count 3.8 10^3/uL (4.0-10.0)
[2023-01-26 03:38] LABS: Blood Urea Nitrogen 9 mg/dL (8-23); Carbon Dioxide 23 mmol/L (22-29); Chloride 105 mmol/L (98-107); Glucose 109 mg/dL (65-115); Osmolality Calculated 281 mOsm/kg (285-295); Sodium 136 mmol/L (136-145)
[2023-01-26] MEDS: metoclopramide 5 mg/mL SDV 2 mL IVP ×3 (03:43→15:25)
[2023-01-26] MEDS: heparin 5,000 unit/mL INJ 1 mL 5000 UNIT SUBCUT (03:45)
--- NOTE | 2023-01-26 06:00 | XRR_ITS ---
PROCEDURE INFORMATION: Exam: XR Chest Exam date and time: 01/26/2023 5:21 AM Age: 82 years old Clinical indication: Other: Hypoxia; Patient HX: Current lung CA, former smoker TECHNIQUE: Imaging protocol: Radiologic exam of the chest. Views: 1 view. COMPARISON: CR XR chest 1V portable [id number] 01/22/2023 1:54 PM FINDINGS: Tubes, catheters and devices: Right port unchanged. Removal of NGT. Lungs: Zzin-[id number]-[id number]-right lung base patchy scarring again seen. Left apical scarring. Pleural spaces: Unremarkable. No pleural effusion. No pneumothorax. Heart/Mediastinum: The heart is mildly enlarged. Vasculature: Advanced diffuse vascular calcification noted. IVC filter. Bones/joints: Unremarkable. Gastrointestinal tract: Partially assessed small bowel dilation/ileus with loops of bowel up to about 4.3 cm. XR/XR chest 1V portable [id number] IMPRESSION: Overall, unchanged exam from 1 week ago after removal of NGT.
[2023-01-26 06:21] LABS: Glucose Point of Care 129 mg/dL (70-110)
[2023-01-26] MEDS: potassium chloride ER 20 mEq Tablet 40 MEQ PO (06:25)
[2023-01-26] MEDS: famotidine 20 mg/2 mL INJ IVP ×2 (06:26→18:08)
[2023-01-26] MEDS: levothyroxine 25 mcg Tablet PO (09:49)
[2023-01-26] MEDS: lisinopril 20 mg Tablet PO ×2 (09:49→18:08)
[2023-01-26] MEDS: sucralfate 1 gm Tablet PO ×2 (09:49→21:27)
[2023-01-26] MEDS: piperacillin-tazobactam 3.375 GM in sodium chloride 0.9% (plus) 50 ML IV ×2 (09:49→15:39)
[2023-01-26] MEDS: amiodarone 200 mg Tablet PO ×2 (09:49→21:27)
[2023-01-26] MEDS: midodrine 5 mg TABLET PO (09:49)
[2023-01-26] MEDS: sodium chloride 0.9% 1,000 ML 125 ML IV ×2 (10:00→18:25)
[2023-01-26] MEDS: fluticasone nasal spray 16gm Btl 2 SPRAY NASAL (10:03)
[2023-01-26] MEDS: NON-FORMULARY MEDICATION (Cinacalcet 30 mg tablet) 30 EACH PO ×2 (10:09→18:08)
[2023-01-26 11:01] LABS: Glucose Point of Care 129 mg/dL (70-110)
[2023-01-26 11:28] LABS: Hemoglobin 7.1 g/dL (11.7-16.6)
--- NOTE | 2023-01-26 13:13 | PM.PN ---
Subjective Subjective: Patient is stable. No groin access site complications Vitals/I&O/Wt Last Vital Signs Temp 97.8 F 01/26/23 11:47 Pulse 69 01/26/23 12:06 Resp 28 H 01/26/23 12:06 BP 176/81 01/26/23 12:06 Pulse Ox 97 01/26/23 12:06 O2 Del Method 01/26/23 00:00 O2 Flow Rate 1 01/19/23 08:00 01/25/23 01/26/23 01/26/23 22:59 06:59 14:59 Intake Total 1640 / 2690 1220.833 / 3910.833 1250 / 1250 Output Total 700 / 1000 1600 / 2600 Balance 940 / 1690 -379.167 / 5025.491 6664 / 1250 Physical Exam Narrative: GENERAL: Patient is alert, awake and oriented x3. [] NECK: No jugular vein distension. [] HEENT: No cyanosis. No icterus. No pallor. [] HEART: Regular S1 and S2. No murmur, rub or gallop. [] LUNGS: Clear to auscultate bilaterally. [] CENTRAL NERVOUS SYSTEM: Grossly nonfocal. [] EXTREMITIES: Lower extremities with 1+ edema bilaterally. Pulses palpable in the lower extremities, both dorsalis pedis and posterior tibial. [] Data 01/26/23 11:13 01/26/23 02:43 A&P Assessment and plan (1) Lung cancer: (2) SBO (small bowel obstruction): (3) Anemia: (4) Thrombocytopenia: (5) Pulmonary embolism: Plan IVC filter was successfully placed yesterday. No access site complications Management per primary team Thank you for involving us with care of this patient. We will sign off. Please call with questions. Attestations Medical Necessity Statement*: Care expected to cross 2 midnights. Coding Level of Care Code Acute Code for [facility] Diagnoses Lung cancer C34.90 SBO (small bowel obstruction) K56.609 Anemia D64.9 Thrombocytopenia D69.6 Pulmonary embolism I26.99
[2023-01-26 16:34] LABS: Glucose Point of Care 124 mg/dL (70-110)
[2023-01-26] MEDS: AA-Dex 5%-20% w/Lytes 1,000 ML with multivitamin inj 10 ML 42 ML IV (19:40)
[2023-01-26 21:01] LABS: Glucose Point of Care 120 mg/dL (70-110)
[2023-01-26] MEDS: atorvastatin 40 mg Tablet 20 MG PO (21:27)
[2023-01-26] MEDS: metoclopramide 5 mg/mL SDV 2 mL 10 MG IVP (21:30)
--- NOTE | 2023-01-26 21:48 | P.PN_ITS ---
Subjective Subjective: This morning not doing the best, some tenderness in left lower quadrant. Blood pressure elevated, and tends to try to get up to walk. Later on when PT is coming to see him having nausea, declines to walk. Later on vomiting. Medications: Reviewed: Yes Vitals/I&O/Wt Last Vital Signs Temp 98.5 F 01/26/23 21:35 Pulse 78 01/26/23 21:35 Resp 19 H 01/26/23 21:35 BP 165/88 01/26/23 21:35 Pulse Ox 100 01/26/23 21:35 O2 Del Method 01/26/23 00:00 O2 Flow Rate 1 01/19/23 08:00 01/26/23 01/26/23 01/26/23 06:59 14:59 22:59 Intake Total 1220.833 / 3910.833 1718 / 1718 3110 / 4828 Output Total 1600 / 2600 700 / 700 Balance -379.167 / 7215.588 6574 / 1018 3110 / 4128 Physical Exam Narrative: Accompanied by family. Const: COMMON NORMALS: patient oriented x3 and alert GENERAL APPEARANCE: cooperative ORIENTATION/CONSCIOUSNESS: Yes awake HENMT: COMMON NORMALS: oropharynx normal Neck/C-Spine: COMMON NORMALS: no JVD Resp: COMMON NORMALS: normal respiratory effort and clear to auscultation bilaterally AUSCULTATION: clear to auscultation bilaterally Cardio: COMMON NORMALS: no JVD, regular rhythm, S1 normal heart sound present, S2 normal heart sound present and No murmurs present (Cardio) RHYTHM: regular rhythm HEART SOUNDS: S1 normal heart sound present and S2 normal heart sound present GI: COMMON NORMALS: Soft to palpation and non-tender INSPECTION: Yes other (Midline incision without drainage or surrounding erythema.) AUSCULTATION: Yes Hypoactive bowel sounds present PALPATION: Yes Soft to palpation OTHER: BS present Extremity: COMMON NORMALS: no joint enlargement and no pedal edema Neuro: COMMON NORMALS: patient oriented x3 and moves all extremities SENSORIUM/ORIENTATION: Yes alert Skin: COMMON NORMALS: no rashes or lesions noted GENERAL SKIN EXAM: no rashes or lesions noted Data 01/26/23 11:13 01/26/23 02:43 A&P Assessment and plan (1) Hypernatremia: (2) SBO (small bowel obstruction): (3) Lung cancer: (4) Accelerated essential hypertension: (5) Port-A-Cath in place: (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 He declined to ambulate due to nausea. Discussed with him trying to ambulate. He has been quite orthostatic, we did start midodrine. Surgery would like to see clear sign that SBO is improving alethea or to discharge. Again noted hypokalemic and hypophosphatemic. Replace. Requesting follow-up studies. Additionally magnesium 1.9, keep magnesium at 2 or above. Replaced, requesting follow-up studies. Reviewed phosphorus, magnesium, potassium, noted levels is below desired. Requested potassium phosphate replacement, magnesium intravenously. He has fistula tolerating oral intake at risk of further electrolyte imbalances. Follow-up BMP, magnesium, Phos requested. Cardiac monitoring due to electrolyte normalities, risk of arrhythmia. Orthostatic hypotension: Hold additional monitoring for now due to high elevation of blood pressure, may consider resuming at lower dose. Reassess blood pressures. Acute anemia: Prophylactic heparin held. Hemoglobin down to 7.6, recheck requested, on review 7.1. Requested 1 unit RBC transfusion. Continue PPI every 12 hours. Anticoagulation has been on hold. -Likely secondary to chemotherapy -Iron studies, borderline low iron monitor -Hemoccult stool positive for blood Right lower lobe pulmonary embolism. Status post IVC filter. Held heparin today due to acute anemia as above. He is having further cough. Discussed concern for additional PEs given he has not been tolerant of anticoagulation. On prophylactic heparin alone. Discussed with him and his consideration of IVC filter given elevated risk for VTE. Discussed risks, benefits. They decided to proceed. Further discussion with cardiology regarding procedure, they are agreeable. Requested consultation, discussed with cardiology. Trial of prophylactic heparin, lower dose. Borderline platelets. CBC noted, hemoglobin 8.5. Platelets slightly better at 55,000. Continue prophylactic heparin. Follow-up blood counts requested. Anemia. Monitor blood counts, at risk of bleeding. In case platelets going further may have to discontinue prophylaxis. Follow-up CBC. Underlying risk of recurrent clotting with underlying malignancy. Life-threaten ing PE. Anticoagulation considered again, but currently in the setting also of acute anemia with some worsening, thrombocytopenia. For now held. -Hold Eliquis -Hold anticoagulation Continue to monitor, can hold off on anticoagulation for now -Venous ultrasound negative for DVT -We will have to consider IVC filter placement if he cannot tolerate anticoagulation on discharge Bothersome cough: Quite significant cough, 1 episode resulted in vomiting. Possibly secondary to PE. No cytosis, he is afebrile. Had some additional vomiting. Check chest x-ray for possibility of pneumonia. Increased antitussive dose. A-fib with RVR: Transition to p.o. amnio. Cardizem stopped due to symptomatic orthostasis. Continue management on CSU with risk of CVA decompensation of arrhythmia/tachycardia at risk of electrolyte deficiency as above. Hypernatremia -Resolved -Likely secondary to dehydration Slow GI bleed: He has refused Protonix. Hemoglobin was decreased yesterday, today doing better 8.2. Started on IV famotidine and stat hemogram twice daily. As he is at elevated risk of thrombosis. Lovenox has been on hold: Resume. We will see if may tolerate lower-dose prophylactic heparin. SCD for DVT prophylaxis. -With evidence of iron deficiency anemia, low iron at 59, ferritin elevated at 975, likely acute phase reactant, normal folate Hemoccult positive stools, -Takes Eliquis on home, no hemodynamic compromise -Heparin drip on hold due to developing anemia, thrombocytopenia -Status post 2 of unit PRBC, 1 unit of platelets, 1 dose IV Venofer -Ultrasound negative for DVT -Continue to hold anticoagulation -Venous ultrasound negative for DVT -If he cannot tolerate anticoagulation he might require an IVC filter placed, we will see based on his clinical progress Lactic acidosis: Resolved. Reviewed anion gap is normal. Bicarb is normal. Leukopenia, likely secondary to chemotherapy, isolation precautions monitor for fevers, continue on Zosyn reviewed blood counts, WBC 1.9, hemoglobin 9.1, platelets 53. Recheck CBC requested for tonight and in the morning. Thrombocytopenia, Platelets 49. Recheck CBC requested. Received platelet 1 unit preoperatively. Nonsustained V. tach, -Resolved Elevated TSH, free T3, free T4 within normal limits Cancer cachexia Lung cancer, status post chemoradiation Protein calorie malnutrition Muscle wasting Hypokalemia, hypophosphatemia. Replace potassium and phosphorus. Follow-up requested. Follow-up magnesium as well. Anemia, will monitor Thrombocytopenia will monitor Urinary sphincter in place -Status post intervention by Dr. Stanton, currently open Goals of care discussion, patient would like to be DNR/okay with elective intubation required however does not want to be kept on life-sustaining measures Attestations Medical Necessity Statement*: Continue admission for assessment management of SBO, acute anemia, severe orthostatic hypotension limiting ambulation, additional problems as above. 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
[2023-01-26] MEDS: hyDRALAzine 20 mg/mL INJ 1 mL 5 MG IVP (23:10)
[2023-01-27] VITALS (11 sets, daily range): BP systolic 143–189; BP diastolic 75–96; PULSE 70–99; RESP 15–30; TEMP 36.2–37.4; O2SAT 95–100
[2023-01-27] MEDS: piperacillin-tazobactam 3.375 GM in sodium chloride 0.9% (plus) 50 ML IV ×3 (01:57→17:02)
[2023-01-27] MEDS: sodium chloride 0.9% 1,000 ML 125 ML IV (01:58)
[2023-01-27] MEDS: metoclopramide 5 mg/mL SDV 2 mL 10 MG IVP ×4 (03:08→20:49)
[2023-01-27 05:02] LABS: Basophils % 0.3 %; Eosinophils # 0.1 10^3/uL (0.0-0.8); Eosinophils % 1.5 %; Hematocrit 28.9 % (42.0-52.0); Hemoglobin 9.2 g/dL (11.7-16.6); Lymphocytes # 0.2 10^3/uL (0.8-4.8); Lymphocytes % 4.8 %; Mean Corpuscular HGB Conc 31.8 g/dL (30.0-36.0); Mean Corpuscular Hemoglobin 28.8 pg (28.0-34.0); Mean Corpuscular Volume 90.3 fl (80-94); Mean Platelet Volume 10.2 fL (7.4-10.4); Monocytes # 0.3 10^3/uL (0.2-0.9); Monocytes % 8.4 %; Neutrophils # 3.27 10^3/uL (1.8-7.7); Neutrophils % 83.2 %; Nucleated Red Blood Cells % 0 %; Platelet Count 55 10^3/cmm (130-400); Red Cell Distribution Width 18.6 % (12.1-15.1); White Blood Count 3.9 10^3/uL (4.0-10.0)
[2023-01-27 05:27] LABS: Anion Gap 11.9 (5-19); Blood Urea Nitrogen 8 mg/dL (8-23); Calcium 9.5 mg/dL (8.5-10.5); Carbon Dioxide 23 mmol/L (22-29); Chloride 106 mmol/L (98-107); Glucose 111 mg/dL (65-115); Osmolality Calculated 285 mOsm/kg (285-295); Sodium 138 mmol/L (136-145)
[2023-01-27] MEDS: famotidine 20 mg/2 mL INJ IVP ×2 (06:08→20:26)
[2023-01-27] MEDS: hyDRALAzine 20 mg/mL INJ 1 mL 5 MG IVP (06:16)
[2023-01-27 06:45] LABS: Glucose Point of Care 112 mg/dL (70-110)
[2023-01-27 07:14] LABS: Potassium 2.9 mmol/L (3.5-5.1)
--- NOTE | 2023-01-27 09:31 | PM.PN ---
Subjective Subjective: Patient had emesis overnight. I then increased his Reglan and he had 4 bowel movements. Abdominal pain controlled Vitals/I&O/Wt Last Vital Signs Temp 97.7 F 01/27/23 04:00 Pulse 71 01/27/23 06:00 Resp 30 H 01/27/23 04:00 BP 189/96 01/27/23 04:00 Pulse Ox 95 01/27/23 04:00 O2 Del Method 01/27/23 04:00 O2 Flow Rate 1 01/19/23 08:00 01/26/23 01/27/23 01/27/23 22:59 06:59 14:59 Intake Total 3310 / 5028 1693.75 / 6721.75 Output Total 200 / 900 1400 / 2300 Balance 3110 / 4128 293.75 / 4421.75 Physical Exam Narrative: Abdomen: Soft, moderately distended, appropriately tender, no guarding rebound or masses Incision intact without erythema or exudate Data 01/27/23 04:14 01/27/23 04:14 A&P Assessment and plan (1) SBO (small bowel obstruction): Resolved Plan Status post exploratory laparotomy with lysis of adhesions Cardiac diet Reglan I-S use Ambulate Surgically stable for discharge if tolerating regular diet Medical management per hospitalist Attestations Medical Necessity Statement*: Per primary Coding Level of Care Code Acute Code for Chg Fwd Diagnoses SBO (small bowel obstruction) K56.609
[2023-01-27] MEDS: sucralfate 1 gm Tablet PO ×2 (09:48→20:26)
[2023-01-27] MEDS: lisinopril 20 mg Tablet PO ×2 (09:48→17:02)
[2023-01-27] MEDS: amiodarone 200 mg Tablet PO ×2 (09:48→20:26)
[2023-01-27] MEDS: levothyroxine 25 mcg Tablet PO (09:48)
[2023-01-27] MEDS: NON-FORMULARY MEDICATION (Cinacalcet 30 mg tablet) 30 EACH PO ×2 (10:00→17:02)
[2023-01-27] MEDS: fluticasone nasal spray 16gm Btl 2 SPRAY NASAL (10:01)
--- NOTE | 2023-01-27 10:17 | PC.SOCIAL ---
IMM Update pg 2 of IMM updated and reviewed w/ patient and his sister. Copy provided and copy in chart dated and initialed.
[2023-01-27] MEDS: lidocaine 1% 5 ML in potassium chloride premix 100 ML 26.25 ML IV (12:16)
[2023-01-27] MEDS: AA-Dex 5%-20% w/Lytes 1,000 ML with multivitamin inj 10 ML 42 ML IV (19:45)
[2023-01-27] MEDS: atorvastatin 40 mg Tablet 20 MG PO (20:25)
[2023-01-27 21:05] LABS: Glucose Point of Care 120 mg/dL (70-110)
--- NOTE | 2023-01-27 21:36 | P.PN_ITS ---
Subjective Subjective: 86He reports has had several bowel movements today. Has been feeling very dizzy. Says blood pressure dropped down to 80s sitting up today. Medications: Reviewed: Yes Vitals/I&O/Wt Last Vital Signs Temp 97.2 F L 01/27/23 20:00 Pulse 83 01/27/23 20:00 Resp 24 H 01/27/23 20:00 BP 171/80 01/27/23 20:00 Pulse Ox 95 01/27/23 20:00 O2 Del Method 01/27/23 16:57 O2 Flow Rate 1 01/19/23 08:00 01/27/23 01/27/23 01/27/23 06:59 14:59 22:59 Intake Total 1693.75 / 6721.75 486 / 486 2355 / 2841 Output Total 1400 / 2300 800 / 800 450 / 1250 Balance 293.75 / 4421.75 -314 / -314 1905 / 1591 Physical Exam Narrative: Accompanied by family. Const: COMMON NORMALS: patient oriented x3 and alert GENERAL APPEARANCE: co operative ORIENTATION/CONSCIOUSNESS: Yes awake HENMT: COMMON NORMALS: oropharynx normal Neck/C-Spine: COMMON NORMALS: no JVD Resp: COMMON NORMALS: normal respiratory effort and clear to auscultation bilaterally AUSCULTATION: clear to auscultation bilaterally Cardio: COMMON NORMALS: no JVD, regular rhythm, S1 normal heart sound present, S2 normal heart sound present and No murmurs present (Cardio) RHYTHM: regular rhythm HEART SOUNDS: S1 normal heart sound present and S2 normal heart sound present GI: COMMON NORMALS: Soft to palpation and non-tender INSPECTION: Yes other (Midline incision without drainage or surrounding erythema.) AUSCULTATION: Yes Hypoactive bowel sounds present PALPATION: Yes Soft to palpation OTHER: BS present Extremity: COMMON NORMALS: no joint enlargement and no pedal edema Neuro: COMMON NORMALS: patient oriented x3 and moves all extremities SENSORIUM/ORIENTATION: Yes alert Skin: COMMON NORMALS: no rashes or lesions noted GENERAL SKIN EXAM: no rashes or lesions noted Data 01/27/23 04:14 01/27/23 04:14 A&P Assessment and plan (1) Hypernatremia: (2) SBO (small bowel obstruction): (3) Lung cancer: (4) Accelerated essential hypertension: (5) Port-A-Cath in place: (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 Has been on Zosyn. Check C. difficile. Follow-up chemistry for electrolytes. Given replacement for hypokalemia. Recheck, check magnesium. Phos. Cardiac monitoring due to electrolyte normalities, risk of arrhythmia. Orthostatic hypotension: Severe orthostatic hypotension. Supine hypertension. Became very hypotensive with 5 mg 3 times daily midodrine. This was stopped. Today reports blood pressure dropping down into the 80s when he is sitting up. Discussed with him resuming midodrine at smaller dose 2.5 mg 3 times daily and following blood pressures. Discussed with him elevation of head of bed so that he does not lay down flat to help reduce supine hypertension. Monitor blood pressures with medication adjustment. Acute anemia: Status post RBC transfusion. Hemoglobin up to 9.2. Heparin has been held, follow-up blood counts, if blood counts and platelets remain stable, consider resuming heparin. Continue famotidine every 12 hours. Anticoagulation has been on hold. -Likely secondary to chemotherapy, perioperative loss, as well as slow GI bleed -Iron studies, borderline low iron monitor -Hemoccult stool positive for blood Right lower lobe pulmonary embolism. Status post IVC filter. Held heparin today due to acute anemia as above. Heparin has been held, follow-up blood counts, if blood counts and platelets remain stable, consider resuming heparin if able. He is having cough. -Hold Eliquis -Hold anticoagulation, resume when safe Continue to monitor, can hold off on anticoagulation for now -Venous ultrasound negative for DVT Bothersome cough: Today slightly better. Possibly secondary to PE. He is afebrile. Had some additional vomiting. Chest x-ray result appreciated, overall unchanged exam from 1 week ago after removal of NGT. Increased antitu ssive dose. A-fib with RVR: Doing better with heart rates in good range on the monitor. Continue p.o. amnio. Cardizem stopped due to symptomatic orthostasis. Continue management on CSU with risk of decompensation of arrhythmia/tachycardia at risk of electrolyte deficiency as above. Hypernatremia -Resolved -Likely secondary to dehydration Slow GI bleed: He has refused Protonix. Hemoglobin was decreased yesterday, today doing better 8.2. Started on IV famotidine and stat hemogram twice daily. As he is at elevated risk of thrombosis. Lovenox has been on hold: Resume. We will see if may tolerate lower-dose prophylactic heparin. SCD for DVT prophylaxis. -With evidence of iron deficiency anemia, low iron at 59, ferritin elevated at 975, likely acute phase reactant, normal folate Hemoccult positive stools, -Takes Eliquis on home, no hemodynamic compromise -Heparin drip on hold due to developing anemia, thrombocytopenia -Status post 2 of unit PRBC, 1 unit of platelets, 1 dose IV Venofer -Ultrasound negative for DVT -Continue to hold anticoagulation -Venous ultrasound negative for DVT -If he cannot tolerate anticoagulation he might require an IVC filter placed, we will see based on his clinical progress Lactic acidosis: Resolved. Reviewed anion gap is normal. Bicarb is normal. Leukopenia, likely secondary to chemotherapy, isolation precautions. Remains afebrile. Not neutropenic. Stop Zosyn. Thrombocytopenia, Platelets 55. Recheck CBC requested. Received platelet 1 unit preoperatively. Nonsustained V. tach, -Resolved Elevated TSH, free T3, free T4 within normal limits Cancer cachexia Lung cancer, status post chemoradiation Protein calorie malnutrition Muscle wasting Hypokalemia, hypophosphatemia. Replace potassium and phosphorus. Follow-up requested. Follow-up magnesium as well. Anemia, will monitor Thrombocytopenia will monitor Urinary sphincter in place -Status post intervention by Dr. Stanton, currently open Goals of care discussion, patient would like to be DNR/okay with elective intubation required however does not want to be kept on life-sustaining measures Attestations Medical Necessity Statement*: Continue mission for management of severe orthostatic hypotension, improving SBO, acute anemia requiring transfusion in the setting of PE and high risk of thrombosis, electrolyte deficiency replacement while ramping up oral intake, assessment of diarrhea. 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
[2023-01-28] VITALS: BP 102/69; PULSE 85; RESP 23; TEMP 36.9; O2SAT 96
[2023-01-28] MEDS: metoclopramide 5 mg/mL SDV 2 mL 10 MG IVP ×3 (03:04→08:52)
[2023-01-28 04:00] VITALS: BP 183/74; PULSE 75; RESP 22; TEMP 36.8; O2SAT 96
[2023-01-28] MEDS: hyDRALAzine 20 mg/mL INJ 1 mL 5 MG IVP (04:12)
[2023-01-28 04:42] VITALS: PULSE 89
[2023-01-28 05:31] LABS: Anion Gap 11.2 (5-19); Blood Urea Nitrogen 12 mg/dL (8-23); Calcium 9.5 mg/dL (8.5-10.5); Carbon Dioxide 23 mmol/L (22-29); Chloride 105 mmol/L (98-107); Glucose 105 mg/dL (65-115); Magnesium 1.7 mg/dL (1.7-2.3); Osmolality Calculated 282 mOsm/kg (285-295); Phosphorus 1.9 mg/dL (2.5-4.5); Potassium 3.2 mmol/L (3.5-5.1); Sodium 136 mmol/L (136-145)
[2023-01-28 06:05] LABS: Glucose Point of Care 114 mg/dL (70-110)
[2023-01-28] MEDS: famotidine 20 mg/2 mL INJ IVP (06:08)
[2023-01-28 07:39] VITALS: BP 179/84; PULSE 78; RESP 20; TEMP 36.5; O2SAT 96
[2023-01-28 08:00] VITALS: BP 179/84; PULSE 78; RESP 20; TEMP 36.5
[2023-01-28] MEDS: lisinopril 20 mg Tablet PO (08:16)
[2023-01-28] MEDS: sucralfate 1 gm Tablet PO (08:16)
[2023-01-28] MEDS: midodrine 5 mg TABLET 2.5 MG PO (08:17)
[2023-01-28] MEDS: levothyroxine 25 mcg Tablet PO (08:17)
[2023-01-28] MEDS: amiodarone 200 mg Tablet PO (08:25)
[2023-01-28] MEDS: fluticasone nasal spray 16gm Btl 2 SPRAY NASAL (08:27)
[2023-01-28] MEDS: NON-FORMULARY MEDICATION (Cinacalcet 30 mg tablet) 30 EACH PO (08:27)
[2023-01-28 08:51] LABS: Basophils % 0.4 %; Eosinophils # 0.1 10^3/uL (0.0-0.8); Eosinophils % 1.5 %; Hematocrit 31.8 % (42.0-52.0); Hemoglobin 10.1 g/dL (11.7-16.6); Lymphocytes # 0.3 10^3/uL (0.8-4.8); Lymphocytes % 5.4 %; Mean Corpuscular HGB Conc 31.8 g/dL (30.0-36.0); Mean Corpuscular Hemoglobin 28.9 pg (28.0-34.0); Mean Corpuscular Volume 91.1 fl (80-94); Mean Platelet Volume 10.9 fL (7.4-10.4); Monocytes # 0.4 10^3/uL (0.2-0.9); Monocytes % 8.2 %; Neutrophils # 3.89 10^3/uL (1.8-7.7); Neutrophils % 83.4 %; Nucleated Red Blood Cells % 0 %; Platelet Count 72 10^3/cmm (130-400); Red Blood Count 3.49 10^6/uL (4.1-5.3); Red Cell Distribution Width 19.9 % (12.1-15.1); White Blood Count 4.7 10^3/uL (4.0-10.0)
[2023-01-28] MEDS: potassium phosphate (mEq K) 40 MEQ in sodium chloride 0.9% (100 ml) 100 ML 27.25 MEQ IV (08:52)
[2023-01-28 11:09] LABS: Glucose Point of Care 116 mg/dL (70-110)
--- NOTE | 2023-01-28 11:49 | PC.NURSE ---
TPN stopped per Dr. Quintero.
--- NOTE | 2023-01-28 12:09 | PM.DCS ---
Discharge Providers Date of Admission: 01/14/23 19:02 Date of Discharge: January 28, 2023 Attending Provider at Admission: Chris Quintero MD Attending Provider at Discharge: Chris Quintero MD Primary Care Provider: Aguilar Balbuena DO Diagnoses at Discharge Discharge Diagnosis (1) Lung cancer: Status: Acute (2) SBO (small bowel obstruction): Status: Acute (3) Anemia: Status: Acute (4) Thrombocytopenia: Status: Acute (5) Pulmonary embolism: Status: Acute Reason for Visit Reason for Visit: n/v/weak/dizzy Hospital Course Hospital Course Adrian Corey is a 82 year old male with a past medical history of lung cancer, on chemo and radiation therapy, last round was last Saturday, history of hypertension, history of prostate cancer, history of hypercalcemia secondary to hyperparathyroidism, recently diagnosed with right lower lobe pulmonary embolism placed on Eliquis, history of artificial sphincter pump, left lower quadrant who presents to [facility] due to complaints of nausea, vomiting, lack of stooling for the last 4 days, poor appetite. Patient was admitted to [facility] found to have a small bowel obstruction, initially medically managed, general surgery was consulted, however continued to have lack of bowel movement and no significant clinical improvement, underwent surgical intervention, status post small bowel resection with lysis of adhesions with primary anastomosis, had findings of adhesions from omentum, loop of small bowel appeared ischemic status post resection. Patient was clinically monitored status post surgery, managed with TPN, his diet was slowly advanced, overall his appetite improved, having bowel movements, clinical status improved. Patient was discharged on instructions to slowly advance diet, protein shakes twice a day, follow-up with general surgery for staple removal on Saturday Patient was found to have acute anemia during his hospitalization, likely component of chemotherapy, perioperative blood loss, slow GI bleed, status post transfusion during his hospitalization For his right lower lobe pulmonary embolism, patient could not tolerate anticoagulation due to the anemia, and due to concerns for slow GI bleed, discussed risk and benefits of IVC filter placement he agreed to proceed, status post IVC filter placement. Patient was advised to continue to remain ambulatory, continue calf exercises, to decrease his risk of developing hypercoagulable events. Patient voiced understanding, all questions answered, agreed to proceed During hospitalization he was found to have A-fib with RVR, managed with amiodarone transitionED to p.o. amiodarone. Discharged on amiodarone 200 mg once daily follow-up with cardiology in 2 weeks. Patient was not discharged on anticoagulation due to he is acute on chronic anemia as above, concern for slow GI bleed, perioperative blood loss. Patient was advised, that certainly this is a difficult situation, on the one hand we want to decrease his risk of developing a stroke but on the other hand he has developed significant anemia that makes anticoagulation difficult, and currently carries significant morbidity and mortality. After discussing the risks and benefits of anticoagulation, he voiced understanding, all question answered agreed to hold off on anticoagulation for now. Follow-up with oncology to monitor hemoglobin, follow-up with cardiology to decide as outpatient when to resume anticoagulation Patient had evidence of iron deficiency anemia during this hospitalization, with Hemoccult positive stools, follow-up with Dr. Rivera on Saturday for monitoring hemoglobin, monitoring his iron levels he did receive 1 dose of IV Venofer during his hospitalization There is concern for slow GI bleed during his hospitalization Hemoccults were positive for blood, and he required transfusion during his hospitalization. We are holding off on any type of anticoagulation during his hospitalization and on discharge. Follow-up with general surgery, consideration of EGD and colonoscopy in 3 to 4 weeks. Discharged on Pepcid and Protonix, monitor for bloody or black stools if so go to emergency room In terms of his lung cancer, he had anemia, thrombocytopenia, follow-up with oncology Patient had orthostatic hypotension during his hospitalization likely secondary to combination of anemia, dehydration, poor oral intake, deconditioning, chemotherapy. Continue to monitor as outpatient, patient was advised to ambulate with care, transfer with care, discuss morbidity and mortality associated with falls. He voiced understanding, all question answered, agreed to proceed Physical Exam Const: COMMON NORMALS: no acute distress and patient oriented x3 Resp: COMMON NORMALS: normal respiratory effort, No retractions, No use of accessory muscles and clear to auscultation bilaterally AUSCULTATION: clear to auscultation bilaterally Cardio: COMMON NORMALS: regular rate, regular rhythm, S1 normal heart sound present and S2 normal heart sound present RATE: regular rate RHYTHM: regular rhythm HEART SOUNDS: S1 normal heart sound present and S2 normal heart sound present GI: COMMON NORMALS: Normal to inspection, nondistended, normoactive bowel sounds present, Soft to palpation and non-tender PALPATION: Yes Soft to palpation OTHER: Surgical jabari in place, clean and dry Extremity: COMMON NORMALS: no pedal edema Neuro: COMMON NORMALS: patient oriented x3 Psych: COMMON NORMALS: mental status grossly normal Discharge Data Studies Completed and Pending Completed Studies During Hospitalization Category Date Time Status CT abdomen pelvis w con* [id number] Stat Cat Scan 01/14/23 13:29 Completed CXRP [XR chest 1V portable [id number]] Urgent Exams 01/22/23 13:35 Completed FL small bowel FT gastro [id number] Routine Exams 01/16/23 16:50 Completed XR chest 1V portable [id number] Routine Exams 01/26/23 06:00 Completed XR chest 1V portable [id number] Stat Exams 01/14/23 13:29 Completed XR chest 1V portable [id number] Stat Exams 01/14/23 16:23 Completed XR chest 1V portable [id number] Stat Exams 01/15/23 02:58 Completed XR chest 1V portable [id number] Stat Exams 01/15/23 09:47 Completed Pathology: Surgical [PTH] Routine Pth 01/18/23 20:56 [place] [id number] Routine Ultrasound 01/16/23 08:08 Completed Pending at discharge Category Date Time Status [employer] C[employer] DI[employer]ATOR request for service Routine Exams 01/25/23 13:27 Taken FL small bowel series* [id number] Routine Exams 01/28/23 13:04 Stop Req ABO/Rh Type Routine Lab 01/17/23 15:57 Results Basic Metabolic Panel AM LABS Lab 01/29/23 04:00 Ordered Basic Metabolic Panel AM LABS Lab 01/30/23 04:00 Ordered Complete Crossmatch Routine Lab 01/17/23 15:57 Results Platelets Leuko-Reduced Routine Lab 01/18/23 07:08 Results Type and Screen Routine Lab 01/17/23 15:57 Results Radiology Impressions Abdomen/Pelvis CT 01/14/23 13:29 IMPRESSION: 1. Small bowel obstruction with transition point RIGHT lower quadrant with tethering. This may be due to Internal hernia, volvulus, or multifocal adhesions. Dilated small bowel loop in the RIGHT lower quadrant measures 3.1 CM. No free air or pneumatosis. 2. Mild pancolonic constipation. 3. Small amount of free fluid in the pelvis. 4. Cavitary neoplasm LEFT lower lobe unchanged. 5. Small esophageal hiatal hernia. 6. Irregular low-attenuation lesion upper pole RIGHT kidney with peripheral enhancement. This can be followed up with ultrasound. This measures approximately 3.1 x 2.2 CM. 7. Cholelithiasis. Notified Khang Johnson MD at 01/14/2023 2:56 PM. Small Bowel X-Ray 01/16/23 16:50 IMPRESSION: 1. Findings suggest small bowel obstruction probably in the region of the proximal or mid jejunum. Chest X-Ray 01/26/23 06:00 IMPRESSION: Overall, unchanged exam from 1 week ago after removal of NGT. Laboratory Results WBC 4.7 10^3/uL (4.0-10.0) 01/28/23 08:30 RBC 3.49 10^6/uL (4.1-5.3) L 01/28/23 08:30 Hgb 10.1 g/dL (11.7-16.6) L 01/28/23 08:30 Hct 31.8 % (42.0-52.0) L 01/28/23 08:30 MCV 91.1 fl (80-94) 01/28/23 08:30 MCH 28.9 pg (28.0-34.0) 01/28/23 08:30 MCHC 31.8 g/dL (30.0-36.0) 01/28/23 08:30 RDW 19.9 % (12.1-15.1) H 01/28/23 08:30 Plt Count 72 10^3/cmm (130-400) L D 01/28/23 08:30 MPV 10.9 fL (7.4-10.4) H 01/28/23 08:30 Neut % (Auto) 83.4 % 01/28/23 08:30 Lymph % (Auto) 5.4 % 01/28/23 08:30 [place] % (Auto) 8.2 % 01/28/23 08:30 Eos % (Auto) 1.5 % 01/28/23 08:30 Baso % (Auto) 0.4 % 01/28/23 08:30 Reticulocyte % (Auto) 0.7 % (0.5-2.0) 01/14/23 13:27 Neut # (Auto) 3.89 10^3/uL (1.8-7.7) 01/28/23 08:30 Lymph # (Auto) 0.3 10^3/uL (0.8-4.8) L 01/28/23 08:30 [place] # (Auto) 0.4 10^3/uL (0.2-0.9) 01/28/23 08:30 Eos # (Auto) 0.1 10^3/uL (0.0-0.8) 01/28/23 08:30 Baso # (Auto) 0.0 10^3/uL (0.0-0.1) 01/28/23 08:30 Nucleated RBC % (auto) 0 % 01/28/23 08:30 Total Counted 100 (0-100) 01/22/23 03:23 Atypical Lymphs % 0.0 % (0-5) 01/22/23 03: Absolute Neutrophils 2.4 10^3/cmm (1.4-6.5) 01/22/23 03: Segmented Neutrophils 88 % 01/22/23 03: Abs Segm Neuts (Man) 2.4 10/cmm (1.6-7.1) 01/22/23 03: Band Neutrophils 2.0 % 01/22/23 03:23 Abs Band Neuts (Man) 0.1 10^3/cmm (0.0-1.2) 01/22/23 03: Absolute Lymphocytes 0.1 10^3/cmm (1.2-3.4) L 01/22/23 03:23 Lymphocytes (Manual) 5 % 01/22/23 03: Monocytes (Manual) 4.0 % 01/22/23 03: Absolute Monocytes 0.1 10^3/cmm (0.1-0.6) 01/22/23 03:23 Eosinophils (Manual) 1 % 01/22/23 03: Absolute Eosinophils 0.0 10^3/cmm (0.0-0.7) 01/22/23 03:23 Basophils (Manual) 0.0 % 01/22/23 03: Absolute Basophils 0.0 10^3/cmm (0.0-0.2) 01/22/23 03: Nucleated RBCs # 0.0 /100WBC 01/28/23 08:30 Platelet Estimate Decreased (Normal) 01/22/23 03:23 PT 15.70 SECONDS (12.1-14.9) H 01/21/23 02:36 INR 1.21 (0.8-1.2) H 01/21/23 02:36 APTT 30.6 SECONDS (23.9-36.7) 01/16/23 15:10 D-Dimer 2.65 ug/mIFEU (0-0.59) H 01/16/23 09:10 Sodium 136 mmol/L (136-145) 01/28/23 04:24 Potassium 3.2 mmol/L (3.5-5.1) L 01/28/23 04:24 Chloride 105 mmol/L (98-107) 01/28/23 04:24 Carbon Dioxide 23 mmol/L (22-29) 01/28/23 04:24 Anion Gap 11.2 (5-19) 01/28/23 04:24 BUN 12 mg/dL (8-23) 01/28/23 04:24 Creatinine 0.6 mg/dL (0.7-1.2) L 01/28/23 04:24 GFR Calculation Not Reportable 01/28/23 04:24 Glucose 105 mg/dL (65-115) 01/28/23 04:24 POC Glucose 116 mg/dL (70-110) H 01/28/23 10:30 Estimat Average Glucose 114 01/14/23 13:27 Hemoglobin A1c 5.6 % (4.0-6.0) 01/14/23 13:27 Calculated Osmolality 282 mOsm/kg (285-295) L 01/28/23 04:24 Lactic Acid 6.6 mmol/L (0.5-2.2) H* 01/14/23 13:27 Lactic Acid (Sepsis) 4.7 mmol/L (0.5-2.2) H* 01/14/23 21:46 Lactate 0.8 mmol/L (0.5-2.2) 01/19/23 04:26 Calcium 9.5 mg/dL (8.5-10.5) 01/28/23 04:24 Phosphorus 1.9 mg/dL (2.5-4.5) L 01/28/23 04:24 Magnesium 1.7 mg/dL (1.7-2.3) 01/28/23 04:24 Iron 59 ug/dL (59-158) 01/14/23 13:27 Ferritin 975 ng/mL (30-400) H 01/14/23 13:27 Total Bilirubin 0.8 mg/dL (0.15-1.2) 01/21/23 02:36 AST 13 U/L (0-40) 01/21/23 02:36 ALT 7 U/L (0-41) 01/21/23 02:36 Alkaline Phosphatase 66 U/L (40-130) 01/21/23 02:36 Troponin T Baseline 21 ng/L (0-15) H 01/16/23 09:10 Troponin T 120 Minute 19.94 ng/L (0-15) H 01/16/23 11:10 Delta Troponin T -1.06 ABS# (0-10) L 01/16/23 11:10 Troponin T Hi Sens 6Hr 18.12 ng/L (0-15) H 01/16/23 15:10 Troponin T Hi Sens 6Hr Delta -2.88 ng/L (0-12) L 01/16/23 15:10 C-Reactive Protein 88.0 mg/L (0.0-4.9) H 01/21/23 02:36 NT-Pro-B Natriuret Pep 3208 pg/mL (0-450) H 01/21/23 02:36 Total Protein 4.9 g/dL (6.6-8.7) L 01/21/23 02:36 Albumin 2.7 g/dL (3.5-5.2) L 01/21/23 02:36 Globulin 2.2 g/dL (1.3-4.6) 01/21/23 02:36 Lipase 18 U/L (13-60) 01/14/23 13:27 Folate 8.1 ng/mL (4.5-32.2) 01/15/23 14:19 Procalcitonin 1.92 ng/mL (0-0.5) H 01/21/23 02:36 TSH 8.49 uIU/mL (0.27-4.20) H 01/14/23 21:46 Free T4 1.18 ng/dL (0.82-1.77) 01/15/23 14:19 Free T3 2.2 PG/ML (2.0-4.4) 01/15/23 14:19 Random Cortisol 31.20 ug/dL (2.47-19.5) H 01/15/23 05:33 Urine Color Yellow (Yellow) 01/15/23 03:30 Urine Appearance Clear (CLEAR) 01/15/23 03:30 Urine pH 5 (5-7) 01/15/23 03:30 Ur Specific Leo 1.015 (1.005-1.030) 01/15/23 03:30 Urine Protein Trace (Negative) 01/15/23 03:30 Urine Glucose (UA) 2+ (Normal) H 01/15/23 03:30 Urine Ketones 1+ (Negative) H 01/15/23 03:30 Urine Blood Neg (Negative) 01/15/23 03:30 Urine Nitrate Negative (Negative) 01/15/23 03:30 Urine Bilirubin Neg (Negative) 01/15/23 03:30 Urine Urobilinogen Norm mg/dL (Negative) 01/15/23 03:30 Ur Leukocyte Esterase Negative (Negative) 01/15/23 03:30 Urine RBC 0-4 /hpf (0-2) H 01/15/23 03:30 Urine WBC 0-4 /hpf (0-5) H 01/15/23 03:30 Ur Squamous Epith Cells 0-4 /hpf (0-5) H 01/15/23 03:30 Amorphous Sediment 1+ /hpf 01/15/23 03:30 Urine Bacteria None /hpf (NONE) 01/15/23 03:30 Urine Mucus 1+ /hpf 01/15/23 03:30 Blood Type O Negative 01/26/23 18:30 Rho(D) Type Negative 01/26/23 18:30 Antibody Screen Negative 01/26/23 18:30 Crossmatch See Detail 01/26/23 18:30 Vitals Last Vital Signs Temp 97.7 F 01/28/23 08:00 Pulse 78 01/28/23 08:00 Resp 20 H 01/28/23 08:00 BP 179/84 01/28/23 08:00 Pulse Ox 96 01/28/23 07:39 O2 Del Method 01/28/23 07:39 O2 Flow Rate 1 01/19/23 08:00 Discharge Plan Discharge Patient Disposition: Home Health Service Condition: Stable Prescriptions: New sucralfate 1 gram Tablet 1 g PO Q12H 30 Days Qty: 60 0RF famotidine 20 mg tablet 20 mg PO BID 30 Days Qty: 60 0RF amiodarone [Pacerone] 200 mg Tablet 200 mg PO DAILY 30 Days Qty: 30 0RF Continued levothyroxine [Synthroid] 25 mcg tablet 25 mcg PO DAILY pravastatin 20 mg tablet 20 mg PO BEDTIME benazepril 20 mg tablet 20 mg PO BID cinacalcet 30 mg tablet 30 mg PO BID Qty: 180 0RF lorazepam 1 mg tablet 0.5 - 1 mg PO Q6H PRN (Reason: Severe Nausea) Qty: 30 3RF Discontinued Eliquis 5 mg tablet 10 mg PO BID Rx Instructions: 10 mg BID x 7 days then 5 mg BID Discharge Orders: Discharge Order (Routine); Ordered 01/28/23 Ordered By: Chris Quintero Other Ambulatory Orders: DME: [facility] (Order) Location: None Selected Ordered By: Jack Jay Referrals: [facility] ([facility]) [Outside] Jono Ortiz DO [Physician] - 4-7 days (FEBRUARY 01 FOR STAPLE REMOVAL) Terrell Baptiste M.D [Physician] - 2 weeks Aguilar Balbuena DO [Primary Care Provider] - 7-10 days Carol Rivera MD [Staff Physician] - 1-3 days Discharge Diet: Advance as tolerated Discharge Activity: Increase activity as tolerated Patient Instructions: Opioid Safety Activity Restrictions/Additional Instructions: - Please slowly advance diet at home -Take protein shakes twice a day -If you have recurrent abdominal pain go to the emergency room -Follow-up with general surgery on Saturday for staple removal -Please follow-up with your primary care provider in 1 week -If you have any recurrent palpitations go to the emergency room -Please follow-up with cardiology in 2 weeks -Please have Dr. Rivera see you on Saturday for recheck hemoglobin -Please monitor for your risk of falls, if any lightheadedness or dizziness call emergency room -Monitor blood pressures closely Discharge Attestations Time Spent in Discharge Care*: greater than 30 min Quality Metrics Clinical Quality Measures [ No reported AMI, CVA or VTE this stay] Coding Level of Care Code 45503 Total time (in minutes) for Discharge: 50 Diagnoses Lung cancer C34.90 SBO (small bowel obstruction) K56.609 Anemia D64.9 Thrombocytopenia D69.6 Pulmonary embolism I26.99
[2023-01-28 12:53] VITALS: BP 179/84
--- NOTE | 2023-01-28 14:11 | PC.NURSE ---
Discharged home with sister. Discharge instructions given and questions answered. Voiced understanding.
== END 2023-01-28 14:11 | disposition home health service (06) | DRG 329 ==
LOC: ER 16:56 → MEDSURG 19:02 → CSU 01-20 07:49
PROVIDERS: Anesthesiology; Internal Medicine; Surgery Surgical Critical Care; Admitting Provider Family Medicine; Emergency Provider Family Medicine; PCP Emergency Medicine Emergency Medical Services; Visit Provider Family Medicine
PROC: 0DB80ZZ Excision of Small Intestine, Open Approach (ICD-10-PCS; CPT 49000; principal; 2023-01-18 09:00)
PROC: 0DB80ZZ Excision of Small Intestine, Open Approach (ICD-10-PCS; CPT 44120; 2023-01-18 09:00)
PROC: 0DB80ZZ Excision of Small Intestine, Open Approach (ICD-10-PCS; 2023-01-18 09:00)
PROC: 06H03DZ Insertion of Intraluminal Device into Inferior Vena Cava, Percutaneous Approach (ICD-10-PCS; CPT 37191; principal; 2023-01-25 14:00)
DX: K56.50 Intestinal adhesions [bands], unspecified as to partial versus complete obstruction (principal); I26.99 Other pulmonary embolism without acute cor pulmonale; C34.90 Malignant neoplasm of unspecified part of unspecified bronchus or lung; I47.20 Ventricular tachycardia, unspecified; E87.20 Acidosis, unspecified; E44.0 Moderate protein-calorie malnutrition; Z68.1 Body mass index [BMI] 19.9 or less, adult; Z79.899 Other long term (current) drug therapy; I10 Essential (primary) hypertension; Z85.46 Personal history of malignant neoplasm of prostate; E21.3 Hyperparathyroidism, unspecified; D64.81 Anemia due to antineoplastic chemotherapy; T45.1X5A Adverse effect of antineoplastic and immunosuppressive drugs, initial encounter; I48.91 Unspecified atrial fibrillation; D50.9 Iron deficiency anemia, unspecified; R19.5 Other fecal abnormalities; D69.6 Thrombocytopenia, unspecified; I95.1 Orthostatic hypotension; E86.0 Dehydration; Z66 Do not resuscitate; Z95.828 Presence of other vascular implants and grafts; F17.200 Nicotine dependence, unspecified, uncomplicated; Z96.0 Presence of urogenital implants
CPT/HCPCS: 12345; 36010; 36415; 36416; 36430; 36591; 37191; 51798; 71045; 74177; 74250; 80048; 80053; 81001; 82274; 82533; 82728; 82746; 82962; 83036; 83540; 83605; 83690; 83735; 83880; 84100; 84145; 84295; 84439; 84443; 84481; 84484; 85007; 85014; 85018; 85025; 85045; 85049; 85378; 85610; 85730; 86140; 86850; 86900; 86920; 87040; 87493; 88307; 93005; 93970; 96372; 96374; 97110; 97116; 97161; 97530; 99152; 99153; 99231; 99232; 99233; 99255; 99285; A4222; C1769; C1880; C1887; C1894; C9113; J0282; J0330; J0360; J0694; J1100; J1170; J1644; J1650; J1756; J2250; J2270; J2370; J2405; J2543; J2704; J2765; J3010; J3430; J3475; J3480; J3490; J7030; J7042; J7060; J7070; J7120; P9016; P9035; P9040; P9045; Q9967

== ENCOUNTER 2023-01-18 09:00 | Oncology outpatient (recurring) (ONCR) | payer OTHER, SELFPAY ==
[2022-12-31 08:32] LABS: Basophils # 0.1 10^3/uL (0.0-0.1); Basophils % 0.9 %; Eosinophils % 0.4 %; Hematocrit 32.6 % (42.0-52.0); Hemoglobin 10.1 g/dL (11.7-16.6); Lymphocytes # 0.1 10^3/uL (0.8-4.8); Lymphocytes % 2.4 %; Mean Corpuscular Hemoglobin 28.1 pg (28.0-34.0); Mean Corpuscular Volume 90.8 fl (80-94); Mean Platelet Volume 9.5 fL (7.4-10.4); Monocytes # 0.5 10^3/uL (0.2-0.9); Monocytes % 9.4 %; Neutrophils # 4.74 10^3/uL (1.8-7.7); Nucleated Red Blood Cells % 0 %; Platelet Count 194 10^3/cmm (130-400); Red Blood Count 3.59 10^6/uL (4.1-5.3); Red Cell Distribution Width 17.5 % (12.1-15.1); White Blood Count 5.5 10^3/uL (4.0-10.0)
[2022-12-31 08:46] LABS: Alanine Aminotransferase 8 U/L (0-41); Albumin Level 3.5 g/dL (3.5-5.2); Alkaline Phosphatase 116 U/L (40-130); Aspartate Amino Transferase 10 U/L (0-40); Blood Urea Nitrogen 20 mg/dL (8-23); Calcium 9.6 mg/dL (8.5-10.5); Carbon Dioxide 29 mmol/L (22-29); Chloride 100 mmol/L (98-107); Globulin 2.6 g/dL (1.3-4.6); Glucose 137 mg/dL (65-115); Osmolality Calculated 289 mOsm/kg (285-295); Sodium 137 mmol/L (136-145); Total Bilirubin 0.3 mg/dL (0.15-1.2); Total Protein 6.1 g/dL (6.6-8.7)
[2022-12-31] MEDS: ondansetron 2 mg/ML SDV 2 mL 8 MG IVP (11:54)
[2022-12-31] MEDS: sodium chloride 0.9% 250 ML 75 ML IV (11:55)
[2022-12-31] MEDS: cyanocobalamin 1,000 mcg/mL SDV 1000 MCG IM (11:55)
[2022-12-31] MEDS: CARBOplatin 200 MG in sodium chloride 0.9% 500 ML 520 MG IV (13:32)
[2022-12-31 14:45] VITALS: BP 114/62; PULSE 79; RESP 18; TEMP 36.1; O2SAT 95
--- NOTE | 2023-01-01 13:36 | ONCRAD TMN_ITS ---
Radiation Oncology Treatment Management Note Patient Name: Adrian Corey Date of : 1940 Date of Service: 01/01/2023 Attending Physician: Zackary Landaverde M.D. Adrian Corey is an 82 year-old white male recently diagnosed with a clinical stage IIIA (T4N0) non-small cell lung cancer. The patient was evaluated by his primary care physician for chest pain and cough. A chest radiograph identified a mass in the left lung. A thoracic CT scan ordered on August 29, 2022 described a 2.2 cm x 2.8 cm x 3.3 cm spiculated mass in the left lung apex and a peripherally enhancing left lower lobe necrotic mass, measuring 5.2 cm x 4.1 cm x 5.3 cm. A PET scan obtained on September 08, 2022 confirmed hypermetabolic lesions in the left lung apex, left upper-lobe, left lower-lobe, and equivocal left hilar adenopathy. A navigational bronchoscopy with biopsy performed on September 18, 2022 diagnosed a poorly-differentiated adenocarcinoma obtained from the left upper lobe and left-lower lobe lesions. Biopsies obtained from lymph node stations 4L and 7 were negative for malignancy. PD-L1 expression level was less than 1% (TPS) from the upper-lobe mass. The patient has received 48 Gy of a prescribed 60 Ritchie with an intensity modulated radiotherapy plan utilizing a step and shoot treatment technique. He has been prescribed carboplatin (AUC 2) and Abraxane (80 mg/m???) weekly during therapy. Upon review of systems, he denied any new complaints. On physical examination, the patient weighed 127 lbs. His temperature was 96.8 ???F and the blood pressure was 154/74 mmHg. The pulse was 90 bpm and his respiratory rate was 18. Oxygen saturation while breathing room air was 99%. There was no erythema within the treatment negron. Continue thoracic radiotherapy as prescribed. Signed by: Dr. Zackary Landaverde 01/01/2023 1:33:43 PM
[2023-01-07 08:32] VITALS: BMI 18.6
[2023-01-07 08:55] LABS: Basophils % 0.9 %; Eosinophils % 0.6 %; Hematocrit 28.5 % (42.0-52.0); Hemoglobin 8.9 g/dL (11.7-16.6); Lymphocytes # 0.1 10^3/uL (0.8-4.8); Lymphocytes % 2.6 %; Mean Corpuscular HGB Conc 31.2 g/dL (30.0-36.0); Mean Corpuscular Hemoglobin 28.3 pg (28.0-34.0); Mean Corpuscular Volume 90.8 fl (80-94); Mean Platelet Volume 10.4 fL (7.4-10.4); Monocytes # 0.3 10^3/uL (0.2-0.9); Monocytes % 9.9 %; Neutrophils # 2.92 10^3/uL (1.8-7.7); Neutrophils % 84.8 %; Nucleated Red Blood Cells % 0 %; Platelet Count 142 10^3/cmm (130-400); Red Blood Count 3.14 10^6/uL (4.1-5.3); Red Cell Distribution Width 17.6 % (12.1-15.1); White Blood Count 3.4 10^3/uL (4.0-10.0)
[2023-01-07 09:03] LABS: Alanine Aminotransferase 10 U/L (0-41); Albumin Level 3.7 g/dL (3.5-5.2); Alkaline Phosphatase 112 U/L (40-130); Anion Gap 13.6 (5-19); Aspartate Amino Transferase 16 U/L (0-40); Blood Urea Nitrogen 24 mg/dL (8-23); Calcium 10.3 mg/dL (8.5-10.5); Carbon Dioxide 28 mmol/L (22-29); Chloride 100 mmol/L (98-107); Globulin 2.5 g/dL (1.3-4.6); Glucose 114 mg/dL (65-115); Osmolality Calculated 289 mOsm/kg (285-295); Potassium 4.6 mmol/L (3.5-5.1); Sodium 137 mmol/L (136-145); Total Bilirubin 0.4 mg/dL (0.15-1.2); Total Protein 6.2 g/dL (6.6-8.7)
[2023-01-07] MEDS: sodium chloride 0.9% 250 ML 50 ML IV (11:47)
[2023-01-07] MEDS: ondansetron 2 mg/ML SDV 2 mL 8 MG IVP (11:51)
[2023-01-07] MEDS: CARBOplatin 200 MG in sodium chloride 0.9% 500 ML 520 MG IV (13:49)
[2023-01-07 15:05] VITALS: BP 135/68; PULSE 94; RESP 18; TEMP 36.3; O2SAT 97
--- NOTE | 2023-01-08 | CTR_ITS ---
PROCEDURE INFORMATION: Exam: CT Chest With Contrast; Diagnostic Exam date and time: 01/08/2023 2:38 PM Age: 82 years old Clinical indication: Condition or disease; Other: Prostate cancer; Follow-up oncological assessment; Patient HX: Prostate, lung cancer pain in chest; Additional info: Restaging prostate cancer TECHNIQUE: Imaging protocol: Diagnostic computed tomography of the chest with contrast. Radiation optimization: All CT scans at this facility use at least one of these dose optimization techniques: automated exposure control; mA and/or kV adjustment per patient size (includes targeted exams where dose is matched to clinical indication); or iterative reconstruction. Contrast material: OMNI 350; Contrast volume: 100 ml; Contrast route: INTRAVENOUS (IV); Other protocol: This patient has received 4 known CTs and 0 known cardiac nuclear medicine studies in the 12 months prior to the current study. COMPARISON: 1. CT chest ION (PULM ONLY) [id number] 09/18/2022 6:[address] chest w con* [id number] 08/29/2022 11:[address] PET Scan 09/08/2022 10:52 AM RADIATION DOSE METRICS: Total DLP (mGy-cm): 295.94 FINDINGS: Lungs: There is spiculated left upper lobe mass measuring 15 x 22 mm, previously 28 x 31 mm on 08/29/2022. This is significantly smaller. There is an area of ground-glass infiltrate with adjacent pleural thickening in the fissure, less prominent than on 08/29/2022 corresponding with a suspicious abnormality on the prior PET scan. Low-density mass medially at the left lung base measures 39 x 44 mm, previously 52 x 47 mm. The central portion of the mass is lower in density in the periphery of the mass is thinner. The appearance is suggestive of a necrotic mass. There is increasing ground-glass infiltrate left lower lobe which may represent some focal pneumonitis. This could be secondary to treatment if the patient has been radiated in this region. There is some dependent atelectasis and fibrosis at the right lung base and peripheral fibrosis in both lungs. There is moderate centrilobular emphysema with an upper lobe predominance. There is a new 10 x 17 mm cavitary right upper lobe mass image number 27 series 5 worrisome for metastasis or additional malignancy. Differential considerations would include septic embolus or small pulmonary abscess. There is also some adjacent infiltrate or pneumonitis. Peripheral nodules in the middle lobe measuring 4.6 and 5 mm on images 42 and 43 not significantly changed. Attention to these on follow-up recommended. 3.4 x 5.4 mm oval solid nodule right upper lobe image number 18 not significantly changed. Pleural spaces: No pleural effusion. Heart: There is no evidence for right heart strain. Heart RV/LV ratio: 0.77. Lymph nodes: Calcified right hilar lymph nodes are seen in keeping with old granulomatous disease. There are small paratracheal lymph nodes but no adenopathy. Vasculature: There are filling defects in the right lower lobe pulmonary artery branches consistent with pulmonary emboli, new compared with the previous examinations. Bones/joints: Focal sclerotic lesion in the right 8th rib likely benign bone island unchanged. No lesions suspicious for bone metastasis are identified. Soft tissues: Unremarkable. CT/CT chest w con* [id number] IMPRESSION: 1. Acute pulmonary embolism 2. Findings of malignancy in the left lung improved compared with 08/29/2022. 3. New suspicious cavitary lesion in the right lung which could represent additional malignancy versus infectious disease or septic embolus.
--- NOTE | 2023-01-08 13:27 | ONCRAD TMN_ITS ---
Radiation Oncology Treatment Management Note Patient Name: Adrian Corey Date of : 1940 Date of Service: 01/08/2023 Attending Physician: Zackary Landaverde M.D. Adrian Corey is an 82 year-old white male recently diagnosed with a clinical stage IIIA (T4N0) non-small cell lung cancer. The patient was evaluated by his primary care physician for chest pain and cough. A chest radiograph identified a mass in the left lung. A thoracic CT scan ordered on August 29, 2022 described a 2.2 cm x 2.8 cm x 3.3 cm spiculated mass in the left lung apex and a peripherally enhancing left lower lobe necrotic mass, measuring 5.2 cm x 4.1 cm x 5.3 cm. A PET scan obtained on September 08, 2022 confirmed hypermetabolic lesions in the left lung apex, left upper-lobe, left lower-lobe, and equivocal left hilar adenopathy. A navigational bronchoscopy with biopsy performed on September 18, 2022 diagnosed a poorly-differentiated adenocarcinoma obtained from the left upper lobe and left-lower lobe lesions. Biopsies obtained from lymph node stations 4L and 7 were negative for malignancy. PD-L1 expression level was less than 1% (TPS) from the upper-lobe mass. The patient has received 58 Gy of a prescribed 60 Ritchie with an intensity modulated radiotherapy plan utilizing a step and shoot treatment technique. He has been prescribed carboplatin (AUC 2) and Abraxane (80 mg/m???) weekly during therapy. Upon review of systems, he denied any new complaints. On physical examination, the patient weighed 127 lbs. His temperature was 97.5 ???F and the blood pressure was 138/84 mmHg. The pulse was 84 bpm and his respiratory rate was 18. Oxygen saturation while breathing room air was 95%. Continue thoracic radiotherapy as planned. Signed by: Dr. Zackary Landaverde 01/08/2023 1:24:59 PM
[2023-01-08] MEDS: iohexol 350 mg/mL 500 mL Btl (per mL) IV (14:12)
--- NOTE | 2023-01-09 13:16 | N.ONRD TS_ITS ---
Radiation OncologyTreatment Summary Patient Name: Adrian Corey Date of : 1940 Date of Service: 01/09/2023 Attending Physician: Zackary Landaverde M.D. Adrian Corey has completed definitive thoracic radiotherapy for the management of a clinical stage IIIA (T4N0) non-small cell lung cancer. The patient was evaluated by his primary care physician for chest pain and cough. A chest radiograph identified a mass in the left lung. A thoracic CT scan ordered on August 29, 2022 described a 2.2 cm x 2.8 cm x 3.3 cm spiculated mass in the left lung apex and a peripherally enhancing left lower lobe necrotic mass, measuring 5.2 cm x 4.1 cm x 5.3 cm. A PET scan obtained on September 08, 2022 confirmed hypermetabolic lesions in the left lung apex, left upper-lobe, left lower-lobe, and equivocal left hilar adenopathy. A navigational bronchoscopy with biopsy performed on September 18, 2022 diagnosed a poorly-differentiated adenocarcinoma obtained from the left upper lobe and left-lower lobe lesions. Biopsies obtained from lymph node stations 4L and 7 were negative for malignancy. PD-L1 expression level was less than 1% (TPS) from the upper-lobe mass. Thoracic radiation therapy was delivered between the dates of June 11, 2022 through July 20, 2022. A prescribed dose of 60 Gy was delivered in 30 fractions encompassing 40 elapsed days. The left lung masses and hilar lymphadenopathy were treated utilizing an intensity modulated radiotherapy plan with a step and shoot treatment technique. The plan required eight gantry angles (0???, 30???, 60???, 90???, 120???, 150???, 190???, and 340???) replicating a partial arc. The collimator rotation was 0???. The field sizes spanned between 11.5 cm x 24.6 cm to 15.1 cm x 13.5 cm. The SSD measured a minimum of 85.6 cm to a maximum of 92.3 cm. The ports delivered 227 MU, 250 MU, 266 MU, 225 MU, 138 MU, 170 MU, 221 MU, and 216 MU corresponding to the gantry angles described. All treatments were performed with the Smoltek AB linear accelerator and an isocentric technique. The dose was calculated by Anisotropic Analytic Algorithm. A photon energy of 6 MV was prescribed with the plan normalized to deliver 100% of the prescription dose to 95% of the planning target volume. He was prescribed carboplatin (AUC 2) and Abraxane (80 mg/m???) weekly during therapy under the supervision of Carol iRvera M.D (November 20, 2022 through January 07, 2023). Signed by: Dr. Zackary Landaverde 01/09/2023 1:14:40 PM
[2023-01-10] MEDS: sodium chloride 0.9% 1,000 ML 500 ML IV (11:21)
[2023-01-10 13:43] VITALS: BP 136/86; PULSE 98; RESP 18; TEMP 36.1; O2SAT 99
== END 2023-01-22 23:59 | disposition home or self-care (01) ==
PROVIDERS: Internal Medicine Hematology & Oncology; Nurse Practitioner Family; PCP Emergency Medicine Emergency Medical Services; Visit Provider Radiology Radiation Oncology
DX: Z53.9 Procedure and treatment not carried out, unspecified reason (principal)
CPT/HCPCS: 71260; 77014; 77336; 77386; 77427; 80053; 85025; 99024; 99214; J1100; J2405; J3420; J7030; J7040; J7050; J9045; J9264; Q9967

== ENCOUNTER → 2023-01-31 14:16 | Outpatient (BNVA) | payer OTHER, MEDICARE, SELFPAY | PROVIDERS: PCP Emergency Medicine Emergency Medical Services; Visit Provider Surgery | DX: Z98.890 Other specified postprocedural states (principal) | CPT/HCPCS: 99024 ==

== ENCOUNTER 2023-02-01 09:50 | Oncology outpatient (recurring) (ONCR) | payer OTHER, SELFPAY ==
[2023-02-01] MEDS: cyanocobalamin 1,000 mcg/mL SDV 1000 MCG IM (10:46)
[2023-02-01 10:51] LABS: Basophils % 0.3 %; Hematocrit 24.6 % (42.0-52.0); Lymphocytes # 0.1 10^3/uL (0.8-4.8); Lymphocytes % 4.1 %; Mean Corpuscular HGB Conc 32.5 g/dL (30.0-36.0); Mean Corpuscular Hemoglobin 29.5 pg (28.0-34.0); Mean Corpuscular Volume 90.8 fl (80-94); Mean Platelet Volume 10.1 fL (7.4-10.4); Monocytes # 0.4 10^3/uL (0.2-0.9); Monocytes % 12.2 %; Nucleated Red Blood Cells % 0 %; Platelet Count 114 10^3/cmm (130-400); Red Blood Count 2.71 10^6/uL (4.1-5.3); Red Cell Distribution Width 18.5 % (12.1-15.1)
[2023-02-01 11:16] LABS: Alanine Aminotransferase 10 U/L (0-41); Albumin Level 2.7 g/dL (3.5-5.2); Alkaline Phosphatase 77 U/L (40-130); Anion Gap 10.5 (5-19); Aspartate Amino Transferase 15 U/L (0-40); Blood Urea Nitrogen 8 mg/dL (8-23); Calcium 9.6 mg/dL (8.5-10.5); Carbon Dioxide 30 mmol/L (22-29); Chloride 97 mmol/L (98-107); Globulin 2.3 g/dL (1.3-4.6); Glucose 116 mg/dL (65-115); Osmolality Calculated 279 mOsm/kg (285-295); Sodium 135 mmol/L (136-145); Total Bilirubin 0.4 mg/dL (0.15-1.2)
[2023-02-01 11:26] LABS: Potassium 2.5 mmol/L (3.5-5.1)
[2023-02-01 12:47] LABS: Iron 41 ug/dL (59-158); Percent Saturation 29.2 % (20-50); Total Iron Binding Capacity 140 mcg/dl; Unsaturated Iron Binding 99 ug/dL (112-347)
[2023-02-01 12:59] LABS: Ferritin 1576 ng/mL (30-400)
[2023-02-01 13:46] LABS: Magnesium 1.6 mg/dL (1.7-2.3)
== END 2023-02-22 23:59 | disposition home or self-care (01) ==
PROVIDERS: Internal Medicine Hematology & Oncology; Nurse Practitioner Family; PCP Emergency Medicine Emergency Medical Services; Visit Provider Radiology Radiation Oncology
DX: C34.82 Malignant neoplasm of overlapping sites of left bronchus and lung (principal); C78.01 Secondary malignant neoplasm of right lung; C79.31 Secondary malignant neoplasm of brain; J43.2 Centrilobular emphysema; E21.3 Hyperparathyroidism, unspecified; K58.8 Other irritable bowel syndrome; Z90.49 Acquired absence of other specified parts of digestive tract; D64.9 Anemia, unspecified; I26.99 Other pulmonary embolism without acute cor pulmonale; Z79.01 Long term (current) use of anticoagulants; E87.6 Hypokalemia; Z79.899 Other long term (current) drug therapy
CPT/HCPCS: 36591; 80053; 82728; 83540; 83550; 83735; 85025; 96372; 99214; J3420

== ENCOUNTER → 2023-02-01 12:55 | Day surgery (SDC) | payer OTHER, SELFPAY ==
[2023-02-01 13:15] VITALS: BP 170/83; PULSE 72; RESP 17; TEMP 36.6; O2SAT 96
[2023-02-01] MEDS: potassium chloride premix 100 ML 50 MEQ IV (13:29)
[2023-02-01] MEDS: sodium chloride 0.9% 500 ML 25 ML IV (13:30)
--- NOTE | 2023-02-01 13:31 | PC.NURSE ---
Port accessed - port was already accessed when patient arrived to [facility]. Blood return noted with flush.
[2023-02-01 13:33] VITALS: BP 166/78; PULSE 65; RESP 17; O2SAT 98
[2023-02-01 13:37] VITALS: BMI 17.7
[2023-02-01 14:09] VITALS: BP 160/90; PULSE 64; RESP 17; O2SAT 97
[2023-02-01 14:39] VITALS: BP 168/78; PULSE 71; RESP 17; O2SAT 97
--- NOTE | 2023-02-01 14:40 | PC.NURSE ---
Resting quietly, respirations even and unlabored. Eyes closed. Call light within reach.
--- NOTE | 2023-02-01 15:00 | PC.NURSE ---
Pt magnesium level noted at 1.6. Orders received per Dr. Rivera to give Magnesium Sulfate 1 gm IV now.
--- NOTE | 2023-02-01 16:10 | PC.NURSE ---
Pt received 20 mEq KCL IV over 2 hours and Magnesium Sulfate 1 gm IV as ordered. Port de-accessed per protocol. Tolerated well. Off floor via wheelchair to be taken home per private vehicle with family.
[2023-02-01 16:12] VITALS: BP 168/77; PULSE 64; RESP 16; TEMP 36.6; O2SAT 94
== END ==
PROVIDERS: PCP Emergency Medicine Emergency Medical Services; Visit Provider Internal Medicine Hematology & Oncology
DX: E87.6 Hypokalemia (principal); C34.90 Malignant neoplasm of unspecified part of unspecified bronchus or lung; E83.52 Hypercalcemia; E05.90 Thyrotoxicosis, unspecified without thyrotoxic crisis or storm; R91.8 Other nonspecific abnormal finding of lung field; Z98.890 Other specified postprocedural states
CPT/HCPCS: 36591; 80053; 82728; 83540; 83550; 83735; 85025; 96360; 96365; 96366; 96367; 96372; 99214; J3420; J3475; J3480; J7040

== ENCOUNTER 2023-02-07 03:56 | Emergency (ER) | payer OTHER, SELFPAY ==
[2023-02-07] VITALS (9 sets, daily range): BP systolic 127–177; BP diastolic 64–133; PULSE 70–90; RESP 18–24; TEMP 36.4; O2SAT 86–98; BMI 17.7
--- NOTE | 2023-02-07 03:59 | ECG_ITS ---
[facility] Test Date: 2023-02-07 Pat Name: Adrian Corey Department: Room: Gender: Male Smasher: : 1940 Requested By: Noble Green Order Number: [id number] Reading MD: TOYA LAW Measurements Intervals [place] Rate: 84 P: 48 VT: 164 QRS: -38 QRSD: 106 T: 62 QT: 365 QTc: 432 Interpretive Statements SINUS RHYTHM WITH OCCASIONAL SUPRAVENTRICULAR PREMATURE COMPLEXES LEFT AXIS DEVIATION [QRS AXIS < -30] MINIMAL VOLTAGE CRITERIA FOR LVH, CONSIDER NORMAL VARIANT [MEETS CRITERIA IN ONE OF: R(aVL), S(V1), R(V5), R(V5/V6)+S(V1)] NONSPECIFIC ST & T-WAVE ABNORMALITY Compared to ECG 01/20/2023 04:52:12 Atrial fibrillation no longer present Aberrant conduction of supraventricular beat(s) no longer present Ventricular premature complex(es) no longer present T-wave abnormality still present Electronically Signed On 02-09-2023 23:41:29 CDT by TOYA LAW [email or web address]
--- NOTE | 2023-02-07 04:00 | XRR_ITS ---
PROCEDURE INFORMATION: Exam: XR Chest Exam date and time: 02/07/2023 4:03 AM Age: 82 years old Clinical indication: Shortness of breath; Prior surgery; Surgery type: Chest port; Patient HX: SOB. History of lung cancer. TECHNIQUE: Imaging protocol: Radiologic exam of the chest. Views: 1 view. COMPARISON: CR (CHEST, ) 01/26/2023 5:21 AM FINDINGS: Tubes, catheters and devices: Right chest central venous port in place with tip in the SVC. Lungs: Mild bilateral chronic interstitial and emphysematous changes. Left upper lobe 1.8 cm spiculated soft tissue density. Left basilar airspace opacities. Right lower lung field basilar hazy reticulonodular opacities. Pleural spaces: No pleural effusion. No pneumothorax. Heart/Mediastinum: No cardiomegaly. Bones/joints: No acute fracture. XR/XR chest 1V portable [id number] IMPRESSION: 1. Left upper lobe 1.8 cm spiculated soft tissue density cannot exclude neoplastic process. 2. Left basilar airspace opacities may represent evolving infectious and/or inflammatory process. Correlate and follow-up as clinically indicated.
--- NOTE | 2023-02-07 04:10 | CTR_ITS ---
PROCEDURE INFORMATION: Exam: CTA Chest With Contrast Exam date and time: 02/07/2023 4:45 AM Age: 82 years old Clinical indication: Other: N/a; Abdominal pain; Generalized; Shortness of breath; Prior surgery; Surgery type: Chest port. Urinary sphincter; Patient HX: SOB with hypoxia. Diffuse abd pain. History of pe. Lung and prostate cancer. TECHNIQUE: Imaging protocol: Computed tomographic angiography of the chest with contrast. 3D rendering (Not supervised by radiologist): MIP and/or 3D reconstructed images were created by the technologist. Radiation optimization: All CT scans at this facility use at least one of these dose optimization techniques: automated exposure control; mA and/or kV adjustment per patient size (includes targeted exams where dose is matched to clinical indication); or iterative reconstruction. Contrast material: OMNI 350; Contrast volume: 100 ml; Contrast route: INTRAVENOUS (IV); REPORTING DATA: Count of CT and Cardiac NM exams in prior 12 months: This patient has received 7 known CTs and 0 known cardiac nuclear medicine studies in the 12 months prior to the current study. COMPARISON: CT chest w con* [id number] 01/08/2023 2:38 PM RADIATION DOSE METRICS: Total DLP (mGy-cm): 627.32 FINDINGS: Pulmonary arteries: No main, lobar, or proximal segmental pulmonary emboli are seen. Aorta: No aortic aneurysm. No aortic dissection. Ectatic ascending aorta measuring up to 3.7 cm in diameter. Lungs: Mild bilateral upper lobe centrilobular emphysematous changes. Right upper lobe 1.2 cm by 0.7 cm nodule on series 5, image 25 is re-identified and appears slightly increased in density when compared with the prior exam right middle lobe 5 mm pulmonary nodule on series 5, image 40 is unchanged. Redemonstration of similar-appearing left upper lobe spiculated nodule measuring up to approximately the 1.8 cm x 1.2 cm in axial dimension on series 5, image 11, not significantly changed when measured in the same fashion on the prior exam. Medial left lung base consolidative change measuring up to approximately 3.9 cm by 4.5 cm on series 5, image 40 with central area of decreased attenuation suggestive of necrosis is also similar to the prior exam. Left lower lobe ground-glass opacities and patchy areas of consolidation continue to increase. Mildly increased posterior right lung base ground-glass opacities and consolidative change. Similar appearing right perihilar calcified lymph nodes compatible with granulomatous disease. Pleural spaces: No pneumothorax. No pleural effusion. Heart: No cardiomegaly. No pericardial effusion. Lymph nodes: No pathologically enlarged lymph nodes. Bones/joints: No acute fracture. Mild degenerative changes of the thoracic spine. T3 hemangioma is noted. Right 8th rib focal sclerotic lesion on series 9, image 366 is unchanged. No new osseous lesions are seen. Soft tissues: Unremarkable. PROCEDURE INFORMATION: Exam: CT Abdomen And Pelvis With Contrast Exam date and time: 02/07/2023 4:45 AM Age: 82 years old Clinical indication: Other: N/a; Abdominal pain; Generalized; Shortness of breath; Prior surgery; Surgery type: Chest port. Urinary sphincter; Patient HX: SOB with hypoxia. Diffuse abd pain. History of pe. Lung and prostate cancer. TECHNIQUE: Imaging protocol: Computed tomography of the abdomen and pelvis with contrast. Radiation optimization: All CT scans at this facility use at least one of these dose optimization techniques: automated exposure control; mA and/or kV adjustment per patient size (includes targeted exams where dose is matched to clinical indication); or iterative reconstruction. Contrast material: OMNI 350; Contrast volume: 100 ml; Contrast route: INTRAVENOUS (IV); REPORTING DATA: Count of CT and Cardiac NM exams in prior 12 months: This patient has received 7 known CTs and 0 known cardiac nuclear medicine studies in the 12 months prior to the current study. COMPARISON: CT abdomen pelvis w con* [id number] 01/14/2023 2:18 PM RADIATION DOSE METRICS: Total DLP (mGy-cm): 627.32 FINDINGS: Liver: The hepatic parenchyma appears mildly diffusely hypoattenuating compatible with mild hepatic steatosis There are a few subcentimeter hypodensities scattered throughout the hepatic parenchyma that are too small to accurately characterize and likely represent focal fatty infiltration versus benign cyst. Right hepatic 3 mm granuloma on series 7, image 23. Gallbladder and bile ducts: No gallbladder wall thickening. Redemonstration of cholelithiasis, no CT findings to suggest acute cholecystitis. No ductal dilation. Pancreas: No intraparenchymal lesions are seen. No ductal dilation. Spleen: No intraparenchymal lesions are seen. No splenomegaly. Adrenal glands: Normal. No mass. Kidneys and ureters: Right renal superior pole irregular area of decreased attenuation measuring up to approximately 2.5 cm in diameter is not significantly changed when compared with the prior exam are. Other bilateral subcentimeter areas of decreased attenuation within the renal parenchyma likely represent benign cysts and appear similar to the prior exam. No hydroureter or hydronephrosis. Stomach and bowel: No pathologic bowel dilatation. No obstruction. Operative changes of partial small-bowel resection. Pancolonic diverticula no definite CT findings to suggest acute diverticulitis. Appendix: No evidence of appendicitis. Intraperitoneal space: No free air. No abnormal walled-off fluid collection. Mild ascites. Vasculature: Atheromatous changes within the visualized portion of the aorta and its major branching vessels. Short segment near complete occlusion of the bilateral proximal superficial femoral arteries (series 7 image 84). 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 IVC filter remains in place. Lymph nodes: No pathologically enlarged lymph nodes. Urinary bladder: Unremarkable as visualized. Reproductive: The prostate is been removed. Penile prosthesis pump in place with reservoir adjacent to the diaphragm on series 19, image 20. Bones/joints: No acute fracture. Mild degenerative changes of the partially imaged spine. Soft tissues: Unremarkable. CT/CT angio chest w abd pel w con IMPRESSION: 1. Previously described right lower lobe pulmonary arterial filling defects have resolved. No new pulmonary arterial filling defects are seen. 2. Left upper lobe spiculated nodule appears similar to the prior exam and remains concerning for malignancy. Follow-up as clinically indicated. 3. Medial left lung base area of consolidation with central decreased attenuation compatible with necrosis, finding is concerning for malignancy. Concurrent follow-up with the aforementioned finding is suggested. 4. Increased bibasilar ground-glass and consolidative changes. 5. Other chronic/incidental findings as described above. IMPRESSION: 1. Right renal superior pole irregular low attenuating lesion may represent complex benign cyst however other etiologies including malignancy cannot be excluded on this single phase exam. A dedicated renal mass protocol CT may be helpful for further evaluation if clinically indicated. 2. Cholelithiasis, no CT findings to suggest acute cholecystitis. 3. Diverticulosis, no CT findings to suggest acute diverticulitis. 4. Other chronic/incidental findings as described above. COMMENTS: For patients with an IVC filter, recommend assessment for a management plan for the patient's IVC filter. If there is no established management plan, recommend referral to an interventional clinician on a nonemergent basis for evaluation.
--- NOTE | 2023-02-07 04:10 | CTR_ITS ---
PROCEDURE INFORMATION: Exam: CT Head Without Contrast Exam date and time: 02/07/2023 4:41 AM Age: 82 years old Clinical indication: Patient HX: Severe lethargy. Lung and prostate cancer. ; Additional info: AMS TECHNIQUE: Imaging protocol: Computed tomography of the head without contrast. Radiation optimization: All CT scans at this facility use at least one of these dose optimization techniques: automated exposure control; mA and/or kV adjustment per patient size (includes targeted exams where dose is matched to clinical indication); or iterative reconstruction. REPORTING DATA: Count of CT and Cardiac NM exams in prior 12 months: This patient has received 7 known CTs and 0 known cardiac nuclear medicine studies in the 12 months prior to the current study. COMPARISON: MR head wo/w con [id number] 11/13/2022 11:53 AM RADIATION DOSE METRICS: Total DLP (mGy-cm): 1073.58 FINDINGS: Brain: There is diffuse cerebral atrophy and chronic microvascular white matter disease. There is a focus of vasogenic edema in high posterior right parietal lobe which is increased since 11/13/2022. There is a 9 mm cortical nodule adjacent to the focus of vasogenic edema visible on series 10, image 55. A 9 mm left frontal lobe lesion is visible on axial series 10, image 48. If there is vasogenic edema associated with this lesion, it is obscured by adjacent chronic microvascular white matter disease. There is no significant mass effect or midline shift. There is no acute intracranial hemorrhage. Cerebral ventricles: There is mild ex vacuo dilation of the lateral ventricles. The basal cisterns are unremarkable. Paranasal sinuses: The paranasal sinuses are clear. Mastoid air cells: The mastoid air cells are clear. Bones/joints: The calvarium is intact. Soft tissues: The visible extracranial soft tissues are unremarkable. CT/CT head wo con* [id number] IMPRESSION: 1. 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 No significant mass effect. 2. 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 Size is probably slightly increased since 11/13/2022. Use contrast-enhanced brain MRI if direct size comparison is needed.
--- NOTE | 2023-02-07 04:15 | W.ED.AMS ---
Documented by User: Noble Green MD 02/07/23 04:21 HPI - Altered Mental Status General: Chief Complaint: Altered Mental Status Stated Complaint: AMS Time Seen by Provider: 02/07/23 03:56 Source: patient and EMS Mode of arrival: EMS Limitations: altered mental status History of Present Illness: 82-year-old male has a history of lung cancer he was recently admitted here for small bowel obstruction and had a surgery per EMS and found him in his chair and he was shaking and was quite confused here he is able to tell me his name but does not know the year or where he is at and is generally confused per EMS he was hypoxic on room air he is requiring 3 L currently he is not typically on oxygen no known recent fever or cough. Associated symptoms: Deny depression Review of Systems Const: Denies: fever(s), chills, body aches or change in appetite Eyes: Denies: blurry vision or eye discomfort ENMT: Denies: throat pain or dental pain Card: Denies: chest pain Resp: Reports: dyspnea GI: Denies: abdominal pain, nausea, vomiting or diarrhea : Denies: dysuria Musc: Denies: neck pain or back pain Skin/Breast: Denies: rash Neuro: Reports: confusion; Denies: headache(s) Psych: Denies: depression Antonio/Lymph: Denies: easy bruising All/Imm: Denies: urticaria PFSH ED PFSH: Medical History Accelerated essential hypertension Distal radius fracture, right History of prostate cancer Lung cancer Port-A-Cath in place Pulmonary embolism Thyroid disease Surgical History History of open reduction and internal fixation (ORIF) procedure right distal radius Family History Father Anesthesia complication Brother CAD (coronary artery disease) Sister Chronic kidney disease (CKD) Diabetes Other Hypertension Denies family history of Clotting disorder Dementia Hyperlipidemia Psychiatric illness Suicide Bleeding disorder Lung disease Cancer Stroke Social History Smoking and tobacco status: smoker, details unknown Quit status (tobacco): has quit using tobacco Year quit tobacco: 2018 Former quit date comment: 2ppd x 27 years; quit smoking pipe Oct 2021 Alcohol intake: never Physical Exam Const: COMMON NORMALS: alert; negative for patient oriented x3 ORIENTATION/CONSCIOUSNESS: Yes oriented to person; not oriented to place and not oriented to time HENMT: COMMON NORMALS: normocephalic and atraumatic HEAD & SCALP: normocephalic and atraumatic Eye: COMMON NORMALS: Equal, round and reactive pupils present and conjunctivae normal CONJUNCTIVA: Yes conjunctivae normal PUPIL: Yes Equal, round and reactive pupils present Neck/C-Spine: COMMON NORMALS: full ROM and supple Chest: COMMONS NORMALS: normal inspection of the chest and normal palpation of entire chest wall Resp: COMMON NORMALS: normal respiratory effort and clear to auscultation bilaterally EFFORT & INSPECTION: Yes able to speak in complete sentences AUSCULTATION: clear to auscultation bilaterally Cardio: COMMON NORMALS: regular rate and regular rhythm RATE: regular rate RHYTHM: regular rhythm GI: COMMON NORMALS: Normal to inspection, nondistended, normoactive bowel sounds present and non-tender Extremity: COMMON NORMALS: normal to inspection Neuro: COMMON NORMALS: negative for patient oriented x3 SENSORIUM/ORIENTATION: Yes alert, Yes oriented to person, No oriented to place and No oriented to time Psych: COMMON NORMALS: cooperative Skin: COMMON NORMALS: no rashes or lesions noted GENERAL SKIN EXAM: no rashes or lesions noted Course Vital Signs: Vital signs: Vital Signs Temperature 97.5 F L 02/07/23 04:03 Pulse Rate 78 02/07/23 07:23 Respiratory Rate 24 H 02/07/23 07:23 Blood Pressure 130/70 02/07/23 07:23 Pulse Oximetry 86 L 02/07/23 07:33 Oxygen Delivery Me thod 02/07/23 07:23 Oxygen Flow Rate 3 02/07/23 07:33 MDM - Altered Mental Status Lab Data 02/07/23 04:31 02/07/23 04:31 Radiology Impressions Chest X-Ray 02/07/23 04:00 IMPRESSION: 1. Left upper lobe 1.8 cm spiculated soft tissue density cannot exclude neoplastic process. 2. Left basilar airspace opacities may represent evolving infectious and/or inflammatory process. Correlate and follow-up as clinically indicated. Chest/Abdomen/Pelvis CT 02/07/23 04:10 IMPRESSION: 1. Previously described right lower lobe pulmonary arterial filling defects have resolved. No new pulmonary arterial filling defects are seen. 2. Left upper lobe spiculated nodule appears similar to the prior exam and remains concerning for malignancy. Follow-up as clinically indicated. 3. Medial left lung base area of consolidation with central decreased attenuation compatible with necrosis, finding is concerning for malignancy. Concurrent follow-up with the aforementioned finding is suggested. 4. Increased bibasilar ground-glass and consolidative changes. 5. Other chronic/incidental findings as described above. IMPRESSION: 1. Right renal superior pole irregular low attenuating lesion may represent complex benign cyst however other etiologies including malignancy cannot be excluded on this single phase exam. A dedicated renal mass protocol CT may be helpful for further evaluation if clinically indicated. 2. Cholelithiasis, no CT findings to suggest acute cholecystitis. 3. Diverticulosis, no CT findings to suggest acute diverticulitis. 4. Other chronic/incidental findings as described above. COMMENTS: For patients with an IVC filter, recommend assessment for a management plan for the patient's IVC filter. If there is no established management plan, recommend referral to an interventional clinician on a nonemergent basis for evaluation. Head CT 02/07/23 04:10 IMPRESSION: 1. 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 No significant mass effect. 2. 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 Size is probably slightly increased since 11/13/2022. Use contrast-enhanced brain MRI if direct size comparison is needed. Laboratory Results WBC 7.0 10^3/uL (4.0-10.0) 02/07/23 04:31 RBC 3.23 10^6/uL (4.1-5.3) L 02/07/23 04:31 Hgb 9.5 g/dL (11.7-16.6) L 02/07/23 04:31 Hct 29.6 % (42.0-52.0) L 02/07/23 04:31 MCV 91.6 fl (80-94) 02/07/23 04:31 MCH 29.4 pg (28.0-34.0) 02/07/23 04:31 MCHC 32.1 g/dL (30.0-36.0) 02/07/23 04:31 RDW 18.1 % (12.1-15.1) H 02/07/23 04:31 Plt Count 149 10^3/cmm (130-400) 02/07/23 04:31 MPV 9.2 fL (7.4-10.4) 02/07/23 04:31 Neut % (Auto) 85.4 % 02/07/23 04:31 Lymph % (Auto) 4.8 % 02/07/23 04:31 Gonzales % (Auto) 6.6 % 02/07/23 04:31 Eos % (Auto) 0.6 % 02/07/23 04:31 Baso % (Auto) 0.3 % 02/07/23 04:31 Neut # (Auto) 6.00 10^3/uL (1.8-7.7) 02/07/23 04:31 Lymph # (Auto) 0.3 10^3/uL (0.8-4.8) L 02/07/23 04:31 Gonzales # (Auto) 0.5 10^3/uL (0.2-0.9) 02/07/23 04:31 Eos # (Auto) 0.0 10^3/uL (0.0-0.8) 02/07/23 04:31 Baso # (Auto) 0.0 10^3/uL (0.0-0.1) 02/07/23 04:31 Nucleated RBC % (auto) 0 % 02/07/23 04:31 Nucleated RBCs # 0.0 /100WBC 02/07/23 04:31 PT 15.40 SECONDS (12.1-14.9) H 02/07/23 04:31 INR 1.18 (0.8-1.2) 02/07/23 04:31 Specimen Type Arterial 02/07/23 04:40 Sample Site Radial, left 02/07/23 04:40 ABG pH 7.44 (7.35-7.45) 02/07/23 04:40 ABG pCO2 45.4 mmHg (35-45) H 02/07/23 04:40 ABG pO2 117.0 mmHg (80.0-100.0) H 02/07/23 04:40 ABG HCO3 30.7 mmol/L (22-26) H 02/07/23 04:40 ABG Base Excess 5.8 mmol/L (-2.0-2.0) H 02/07/23 04:40 Manjinder Test Pos 02/07/23 04:40 Hematocrit 29.3 % (42-52) L 02/07/23 04:40 Hgb O2 Saturation 97.0 % (95-100) 02/07/23 04:40 Carboxyhemoglobin 2.1 %THgb (0.4-20.1) 02/07/23 04:40 Methemoglobin 0.7 % (0.4-1.5) 02/07/23 04:40 Total Hemoglobin 9.6 g/dL (14-18) L 02/07/23 04:40 O2 Delivery Device Nc 02/07/23 04:40 O2 Liters/Min 3.0 % 02/07/23 04:40 Musculoskeletal Physician ID [email or web address] 02/07/23 04:40 Sodium 135 mmol/L (136-145) L 02/07/23 04:31 Potassium 2.9 mmol/L (3.5-5.1) L 02/07/23 04:31 Chloride 95 mmol/L (98-107) L 02/07/23 04:31 Carbon Dioxide 28 mmol/L (22-29) 02/07/23 04:31 Anion Gap 14.9 (5-19) 02/07/23 04:31 BUN 13 mg/dL (8-23) 02/07/23 04:31 Creatinine 0.9 mg/dL (0.7-1.2) 02/07/23 04:31 GFR Calculation Not Reportable 02/07/23 04:31 Glucose 104 mg/dL (65-115) 02/07/23 04:31 Calculated Osmolality 280 mOsm/kg (285-295) L 02/07/23 04:31 Calcium 11.0 mg/dL (8.5-10.5) H 02/07/23 04:31 Total Bilirubin 0.6 mg/dL (0.15-1.2) 02/07/23 04:31 AST 17 U/L (0-40) 02/07/23 04:31 ALT 14 U/L (0-41) 02/07/23 04:31 Alkaline Phosphatase 94 U/L (40-130) 02/07/23 04:31 Troponin T Baseline 31 ng/L (0-15) H 02/07/23 04:31 Troponin T 120 Minute 34.22 ng/L (0-15) H 02/07/23 05:50 Delta Troponin T 3.22 ABS# (0-10) 02/07/23 05:50 NT-Pro-B Natriuret Pep 4957 pg/mL (0-450) H 02/07/23 04:31 Total Protein 5.8 g/dL (6.6-8.7) L 02/07/23 04:31 Albumin 3.2 g/dL (3.5-5.2) L 02/07/23 04:31 Globulin 2.6 g/dL (1.3-4.6) 02/07/23 04:31 EKG Data EKG 1: I personally reviewed and interpreted this EKG as follows: EKG interpretation date: 02/07/23 EKG interpretation time: 04:16 Interpretation: nsr hr [address] or t wave abnormalities qrs 16 qtc 406 Discharge Plan Discharge Patient Disposition: Home Clinical Impression: Lung cancer, Hypoxia, Lung cancer metastatic to brain Condition: Stable Prescriptions: No Action levothyroxine [Synthroid] 25 mcg tablet 25 mcg PO DAILY pravastatin 20 mg tablet 20 mg PO BEDTIME benazepril 20 mg tablet 20 mg PO BID potassium chloride 20 mEq tablet extended release 20 meq PO BID 3 Days Qty: 6 0RF cinacalcet 30 mg tablet 30 mg PO BID Qty: 180 0RF lorazepam 1 mg tablet 0.5 - 1 mg PO Q6H PRN (Reason: Severe Nausea) Qty: 30 3RF amiodarone [Pacerone] 200 mg Tablet 200 mg PO DAILY 30 Days Qty: 30 0RF sucralfate 1 gram Tablet 1 g PO Q12H 30 Days Qty: 60 0RF famotidine 20 mg tablet 20 mg PO BID 30 Days Qty: 60 0RF Discharge Orders: Discharge ED (Routine); Ordered 02/07/23 Ordered By: Shaquille Mars Other Ambulatory Orders: DME: Oxygen (Order) Location: None Selected Ordered By: Shaquille Mars Referrals: Sree,Aguilar D, DO [Primary Care Provider] - Patient Instructions: Opioid Safety, Pain Management Coding Level of Care Code ED Piano Machine Operator for Chg Fwd Documented by User: Shaquille Mars DO 02/07/23 09:21 HPI - Altered Mental Status General: Chief Complaint: Altered Mental Status Stated Complaint: AMS Time Seen by Provider: 02/07/23 03:56 PFSH ED PFSH: Medical History Accelerated essential hypertension Distal radius fracture, right History of prostate cancer Lung cancer Port-A-Cath in place Pulmonary embolism Thyroid disease Surgical History History of open reduction and internal fixation (ORIF) procedure right distal radius Family History Father Anesthesia complication Brother CAD (coronary artery disease) Sister Chronic kidney disease (CKD) Diabetes Other Hypertension Denies family history of Clotting disorder Dementia Hyperlipidemia Psychiatric illness Suicide Bleeding disorder Lung disease Cancer Stroke Social History Smoking and tobacco status: smoker, details unknown Quit status (tobacco): has quit using tobacco Year quit tobacco: 2017 Former quit date comment: 2ppd x 27 years; quit smoking pipe Oct 2021 Alcohol intake: never Course Vital Signs: Vital signs: Vital Signs Temperature 97.5 F L 02/07/23 04:03 Pulse Rate 78 02/07/23 07:23 Respiratory Rate 24 H 02/07/23 07:23 Blood Pressure 130/70 02/07/23 07:23 Pulse Oximetry 86 L 02/07/23 07:33 Oxygen Delivery Me thod 02/07/23 07:23 Oxygen Flow Rate 3 02/07/23 07:33 MDM - Altered Mental Status Medical Decision Making Patient care handoff received from Dr. Green continuation of ED evaluation. I personally saw and evaluated patient and reperformed fonseca portions of E/M. Patient seen and evaluated. Reviewed findings. CT does not show no PE extensive involvement of the lung with cancer. Head CT shows mets. Suspect that is what caused the reported seizure. He is alert at this time he states he just wants to go home he is requiring 3 L by nasal cannula discussed with family over those present at the bedside they have an appointment tomorrow with oncology but do not want to pursue anything further today he will require oxygen to go home after some discussion ultimately we decided to pursue hospice care will discharge home on 3 L by nasal cannula establish with hospice Case management is calling oncology to let them know that the patient was here and elected to go home on hospice. Medical Records I reviewed the patient's medical records. Lab Data I reviewed the patient's lab results. 02/07/23 04:31 02/07/23 04:31 Radiology Impressions Chest X-Ray 02/07/23 04:00 IMPRESSION: 1. Left upper lobe 1.8 cm spiculated soft tissue density cannot exclude neoplastic process. 2. Left basilar airspace opacities may represent evolving infectious and/or inflammatory process. Correlate and follow-up as clinically indicated. Chest/Abdomen/Pelvis CT 02/07/23 04:10 IMPRESSION: 1. Previously described right lower lobe pulmonary arterial filling defects have resolved. No new pulmonary arterial filling defects are seen. 2. Left upper lobe spiculated nodule appears similar to the prior exam and remains concerning for malignancy. Follow-up as clinically indicated. 3. Medial left lung base area of consolidation with central decreased attenuation compatible with necrosis, finding is concerning for malignancy. Concurrent follow-up with the aforementioned finding is suggested. 4. Increased bibasilar ground-glass and consolidative changes. 5. Other chronic/incidental findings as described above. IMPRESSION: 1. Right renal superior pole irregular low attenuating lesion may represent complex benign cyst however other etiologies including malignancy cannot be excluded on this single phase exam. A dedicated renal mass protocol CT may be helpful for further evaluation if clinically indicated. 2. Cholelithiasis, no CT findings to suggest acute cholecystitis. 3. Diverticulosis, no CT findings to suggest acute diverticulitis. 4. Other chronic/incidental findings as described above. COMMENTS: For patients with an IVC filter, recommend assessment for a management plan for the patient's IVC filter. If there is no established management plan, recommend referral to an interventional clinician on a nonemergent basis for evaluation. Head CT 02/07/23 04:10 IMPRESSION: 1. 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 No significant mass effect. 2. 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 Size is probably slightly increased since 11/13/2022. Use contrast-enhanced brain MRI if direct size comparison is needed. Laboratory Results WBC 7.0 10^3/uL (4.0-10.0) 02/07/23 04:31 RBC 3.23 10^6/uL (4.1-5.3) L 02/07/23 04:31 Hgb 9.5 g/dL (11.7-16.6) L 02/07/23 04:31 Hct 29.6 % (42.0-52.0) L 02/07/23 04:31 MCV 91.6 fl (80-94) 02/07/23 04:31 MCH 29.4 pg (28.0-34.0) 02/07/23 04:31 MCHC 32.1 g/dL (30.0-36.0) 02/07/23 04:31 RDW 18.1 % (12.1-15.1) H 02/07/23 04:31 Plt Count 149 10^3/cmm (130-400) 02/07/23 04:31 MPV 9.2 fL (7.4-10.4) 02/07/23 04:31 Neut % (Auto) 85.4 % 02/07/23 04:31 Lymph % (Auto) 4.8 % 02/07/23 04:31 Gonzales % (Auto) 6.6 % 02/07/23 04:31 Eos % (Auto) 0.6 % 02/07/23 04:31 Baso % (Auto) 0.3 % 02/07/23 04:31 Neut # (Auto) 6.00 10^3/uL (1.8-7.7) 02/07/23 04:31 Lymph # (Auto) 0.3 10^3/uL (0.8-4.8) L 02/07/23 04:31 Gonzales # (Auto) 0.5 10^3/uL (0.2-0.9) 02/07/23 04:31 Eos # (Auto) 0.0 10^3/uL (0.0-0.8) 02/07/23 04:31 Baso # (Auto) 0.0 10^3/uL (0.0-0.1) 02/07/23 04:31 Nucleated RBC % (auto) 0 % 02/07/23 04:31 Nucleated RBCs # 0.0 /100WBC 02/07/23 04:31 PT 15.40 SECONDS (12.1-14.9) H 02/07/23 04:31 INR 1.18 (0.8-1.2) 02/07/23 04:31 Specimen Type Arterial 02/07/23 04:40 Sample Site Radial, left 02/07/23 04:40 ABG pH 7.44 (7.35-7.45) 02/07/23 04:40 ABG pCO2 45.4 mmHg (35-45) H 02/07/23 04:40 ABG pO2 117.0 mmHg (80.0-100.0) H 02/07/23 04:40 ABG HCO3 30.7 mmol/L (22-26) H 02/07/23 04:40 ABG Base Excess 5.8 mmol/L (-2.0-2.0) H 02/07/23 04:40 Manjinder Test Pos 02/07/23 04:40 Hematocrit 29.3 % (42-52) L 02/07/23 04:40 Hgb O2 Saturation 97.0 % (95-100) 02/07/23 04:40 Carboxyhemoglobin 2.1 %THgb (0.4-20.1) 02/07/23 04:40 Methemoglobin 0.7 % (0.4-1.5) 02/07/23 04:40 Total Hemoglobin 9.6 g/dL (14-18) L 02/07/23 04:40 O2 Delivery Device Nc 02/07/23 04:40 O2 Liters/Min 3.0 % 02/07/23 04:40 Musculoskeletal Physician ID [email or web address] 02/07/23 04:40 Sodium 135 mmol/L (136-145) L 02/07/23 04:31 Potassium 2.9 mmol/L (3.5-5.1) L 02/07/23 04:31 Chloride 95 mmol/L (98-107) L 02/07/23 04:31 Carbon Dioxide 28 mmol/L (22-29) 02/07/23 04:31 Anion Gap 14.9 (5-19) 02/07/23 04:31 BUN 13 mg/dL (8-23) 02/07/23 04:31 Creatinine 0.9 mg/dL (0.7-1.2) 02/07/23 04:31 GFR Calculation Not Reportable 02/07/23 04:31 Glucose 104 mg/dL (65-115) 02/07/23 04:31 Calculated Osmolality 280 mOsm/kg (285-295) L 02/07/23 04:31 Calcium 11.0 mg/dL (8.5-10.5) H 02/07/23 04:31 Total Bilirubin 0.6 mg/dL (0.15-1.2) 02/07/23 04:31 AST 17 U/L (0-40) 02/07/23 04:31 ALT 14 U/L (0-41) 02/07/23 04:31 Alkaline Phosphatase 94 U/L (40-130) 02/07/23 04:31 Troponin T Baseline 31 ng/L (0-15) H 02/07/23 04:31 Troponin T 120 Minute 34.22 ng/L (0-15) H 02/07/23 05:50 Delta Troponin T 3.22 ABS# (0-10) 02/07/23 05:50 NT-Pro-B Natriuret Pep 4957 pg/mL (0-450) H 02/07/23 04:31 Total Protein 5.8 g/dL (6.6-8.7) L 02/07/23 04:31 Albumin 3.2 g/dL (3.5-5.2) L 02/07/23 04:31 Globulin 2.6 g/dL (1.3-4.6) 02/07/23 04:31 Discharge Plan Discharge Patient Disposition: Home Clinical Impression: Lung cancer, Hypoxia, Lung cancer metastatic to brain Condition: Stable Prescriptions: No Action levothyroxine [Synthroid] 25 mcg tablet 25 mcg PO DAILY pravastatin 20 mg tablet 20 mg PO BEDTIME benazepril 20 mg tablet 20 mg PO BID potassium chloride 20 mEq tablet extended release 20 meq PO BID 3 Days Qty: 6 0RF cinacalcet 30 mg tablet 30 mg PO BID Qty: 180 0RF lorazepam 1 mg tablet 0.5 - 1 mg PO Q6H PRN (Reason: Severe Nausea) Qty: 30 3RF amiodarone [Pacerone] 200 mg Tablet 200 mg PO DAILY 30 Days Qty: 30 0RF sucralfate 1 gram Tablet 1 g PO Q12H 30 Days Qty: 60 0RF famotidine 20 mg tablet 20 mg PO BID 30 Days Qty: 60 0RF Discharge Orders: Discharge ED (Routine); Ordered 02/07/23 Ordered By: Shaquille Mars Other Ambulatory Orders: DME: Oxygen (Order) Location: None Selected Ordered By: hSaquille Mars Referrals: Aguilar Balbuena DO [Primary Care Provider] - Patient Instructions: Opioid Safety, Pain Management Coding Level of Care Code ED Piano Machine Operator for Anahy Elliott
[2023-02-07 04:37] LABS: Basophils % 0.3 %; Eosinophils % 0.6 %; Hematocrit 29.6 % (42.0-52.0); Hemoglobin 9.5 g/dL (11.7-16.6); Lymphocytes # 0.3 10^3/uL (0.8-4.8); Lymphocytes % 4.8 %; Mean Corpuscular HGB Conc 32.1 g/dL (30.0-36.0); Mean Corpuscular Hemoglobin 29.4 pg (28.0-34.0); Mean Corpuscular Volume 91.6 fl (80-94); Mean Platelet Volume 9.2 fL (7.4-10.4); Monocytes # 0.5 10^3/uL (0.2-0.9); Monocytes % 6.6 %; Neutrophils % 85.4 %; Nucleated Red Blood Cells % 0 %; Platelet Count 149 10^3/cmm (130-400); Red Blood Count 3.23 10^6/uL (4.1-5.3); Red Cell Distribution Width 18.1 % (12.1-15.1)
[2023-02-07 04:43] LABS: ABG PCO2 45.4 mmHg (35-45); Blood Gas Allen Test Pos; Blood Gas Sample Site Radial, left; Blood Gas Sample Type Arterial
[2023-02-07 04:47] LABS: INR 1.18 (0.8-1.2)
[2023-02-07 04:56] LABS: Troponin(5th) Baseline 31 ng/L (0-15)
[2023-02-07 05:02] LABS: Alanine Aminotransferase 14 U/L (0-41); Albumin Level 3.2 g/dL (3.5-5.2); Alkaline Phosphatase 94 U/L (40-130); Anion Gap 14.9 (5-19); Aspartate Amino Transferase 17 U/L (0-40); Blood Urea Nitrogen 13 mg/dL (8-23); Carbon Dioxide 28 mmol/L (22-29); Chloride 95 mmol/L (98-107); Globulin 2.6 g/dL (1.3-4.6); Glucose 104 mg/dL (65-115); NT Pro B Type Natriuretic Pept 4957 pg/mL (0-450); Osmolality Calculated 280 mOsm/kg (285-295); Sodium 135 mmol/L (136-145); Total Bilirubin 0.6 mg/dL (0.15-1.2); Total Protein 5.8 g/dL (6.6-8.7)
[2023-02-07] MEDS: iohexol 350 mg/mL 500 mL Btl (per mL) IV (05:02)
[2023-02-07 05:08] LABS: Potassium 2.9 mmol/L (3.5-5.1)
[2023-02-07] MEDS: hyDRALAzine 20 mg/mL INJ 1 mL 10 MG IVP (05:09)
--- NOTE | 2023-02-07 05:59 | ECG_ITS ---
[facility] Test Date: 2023-02-07 Pat Name: Adrian Corey Department: Room: Gender: Male [employer] Teacher: : 1940 Requested By: Noble Green Order Number: [id number] Paula MD: TOYA LAW Measurements Intervals Schulter Rate: 68 P: -55 WI: 172 QRS: -37 QRSD: 99 T: 114 QT: 349 QTc: 373 Interpretive Statements ECTOPIC ATRIAL RHYTHM LEFT AXIS DEVIATION [QRS AXIS < -30] ST DEVIATION AND MODERATE T-WAVE ABNORMALITY, CONSIDER ANTEROLATERAL ISCHEMIA [-0.1+ mV T-WAVE IN V3-V6] ST DEVIATION AND MODERATE T-WAVE ABNORMALITY, CONSIDER INFERIOR ISCHEMIA [-0.1+ mV T-WAVE IN II/aVF] Compared to ECG 02/07/2023 04:16:28 Ectopic atrial rhythm now present Possible ischemia now present Sinus rhythm no longer present T-wave abnormality still present Electronically Signed On 02-09-2023 23:45:50 CDT by TOYA LAW [id number]
[2023-02-07 06:10] LABS: Troponin 5 2HR 34.22 ng/L (0-15)
[2023-02-07 06:16] LABS: Troponin 5 2HR Delta 3.22 ABS# (0-10)
--- NOTE | 2023-02-07 07:25 | PC.NURSE ---
PER SPRINKLING SYSTEM IRRIGATOR, PT REFUSED CATHETER FOR URINE SPECIMEN
[2023-02-07 08:38] LABS: ABG PH Result 7.44 (7.35-7.45); Arterial Blood Gas Hematocrit 29.3 % (42-52); Base Excess ABG 5.8 mmol/L (-2.0-2.0); Carboxyhemoglobin 2.1 %THgb (0.4-20.1); HCO3 ABG 30.7 mmol/L (22-26); Methemoglobin 0.7 % (0.4-1.5); Oxygen Device NC; Total Hemoglobin 9.6 g/dL (14-18)
--- NOTE | 2023-02-07 09:14 | DCPLANNER ---
media manager was asked to speak with patients family about hospice care. Patients sister, Michelle, stated that she would like patient to be signed up on hospice care, and would like to go with [facility]. media manager called [facility], spoke with Brittney, faxed order and patients paperwork to [facility]. Brittney will call patients sister to set up a time with family to complete intake paperwork.
== END 2023-02-07 09:58 | disposition home or self-care (01) ==
PROVIDERS: Emergency Medicine; Emergency Provider Family Medicine; PCP Emergency Medicine Emergency Medical Services
DX: R09.02 Hypoxemia (principal); C34.90 Malignant neoplasm of unspecified part of unspecified bronchus or lung; C79.31 Secondary malignant neoplasm of brain; Z87.891 Personal history of nicotine dependence; I10 Essential (primary) hypertension; Z85.46 Personal history of malignant neoplasm of prostate; Z86.711 Personal history of pulmonary embolism
CPT/HCPCS: 36600; 70450; 71045; 71275; 74177; 80053; 82805; 83880; 84484; 85025; 85610; 93005; 96374; 99285; J0360; Q9967